=== PATIENT | female | born 1950 | race Caucasian/White ===

== ENCOUNTER 2022-01-19 16:26 | Outpatient (CLI) | payer MEDICARE, SELFPAY ==
--- OUTSIDE RECORDS SUMMARY | 2022-01-19 16:30 | XMS_ITS | Clinical Summary ---
:1950 External Reference #:[email or web address] Author Organization [facility] [place] [address] Care Team Providers Name Role Phone Lizzeth Perdue MD Primary Care Provider Allergies Active Allergy Reactions Severity Noted Date Comments Lisinopril Cough Unknown 02/23/2007 Penicillins Anaphylaxis High 02/23/2007 Sulfa (Sulfonamide Antibiotics) Hives, Rash High 7 Medications Medication Sig Dispensed Refills Start Date End Date Status ASPIRIN 81 MG TAB take 1 tablet 0 Active (81mg) by oral route once daily OMEGA 3 ORAL TAKE 1 CAPSULE 0 Ac tive BY MOUTH THREE TIMES DAILY MULTIVITAMIN ORAL TAKE 1 TABLET BY 0 Active MOUTH ONCE DAILY cholecalciferol (VITAMIN Take 1,000 units 0 Active D3) 1,000 unit tablet by mouth. cyanocobalamin (VITAMIN Take 500 mcg by 0 Active B12) 500 mcg tablet mouth. desvenlafaxine succinate Take 100 mg by 0 08/04/2021 Active (PRISTIQ) 100 mg mouth. extended release tablet Trulicity 3 mg/0.5 mL 0 08/13/2021 Active subcutaneous pen gabapentin (NEURONTIN) Take 600 mg by 0 08/04/2021 Active 300 mg capsule mouth. ibuprofen (ADVIL; As needed 0 Ac tive MOTRIN) 600 mg tablet LORazepam (ATIVAN) 0.5 Take 0.5 mg by 0 08/04/2021 Active mg tab mouth. As needed rosuvastatin (CRESTOR) Take 10 mg by 0 05/26/2021 Active 10 mg tablet mouth. naproxen (NAPROSYN) 500 Take 500 mg by 0 04/30/2021 Active mg tablet mouth. Active Problems Problem Noted Date Type II or unspecified type diabetes mellitus without mention of 02/24/2007 complication, uncontrolled Overview: Insulin pump in place Unspecified essential hypertension 02/24/2007 Other and unspecified hyperlipidemia 02/24/2007 OBSTRUCTIVE SLEEP APNEA (ADULT) 02/24/2007 Depressive disorder, not elsewhere classified 02/25/20 07 EPIPHORA-OD 11/22/2002 DIABETES MELLITUS - TYPE II 08/15/2001 Encounters Date Type Specialty Care Team Description 01/07/2022 Orders Only Brooks Reynolds <No scans at tached> MD Daniel 01/06/2022 Telephone Brooks Reynolds Surgery Alexandra Sanchez MD ([facility]) 01/04/2022 Anesthesia Event Danny Marrero MD Beckley, Steven Anthony, MD 01/04/2022 Surgery Brooks Reynolds Drug Induced Sleep MD Daniel Endoscopy 01/04/2022 Hospital Encounter Brooks Reynolds OBSTRU CTIVE SLEEP MD Daniel APNEA (ADULT) (Primary Dx) 01/04/2022 Travel 12/30/2021 Nurse/Clinic Staff Testing Only (Pre-Procedure Testing ) 12/30/2021 Travel 12/14/2021 Telephone Jorge Rodgers Appointment MD Yanick (Appointment) 12/08/2021 Office Visit Brooks Reynolds Consult (Ins isabel Sanchez MD has been using CPAP for 15+ years a nd tried multiple masks. Last sleep stud y 2 weeks ago) 12/08/2021 Telephone Brooks Reynolds Surgery Alexandra Sanchez MD 12/08/2021 Travel 11/29/2021 - Hospital Encounter Jorge Rodgers Obstruc tive sleep 12/01/2021 MD Yanick apnea of adult 11/29/2021 Travel from Last 3 Months Immunizations Name Administration Dates Next Due Influenza, IIV3 (Age >=3 years) 04/23/2004 Family History Medical History Relation Name Comments Genetic Other 1 macular degenera tion-grandmother Genetic Other 2 macular degenera tion-grandmother~cancer~diabetes Relation Name Status Comments Other 1 Other 2 Social History Tobacco Use Types Packs/Day Years Used Date Former Smoker 0 Smokeless Tobacco: Never Used Alcohol Use Standard Drinks/Week Comments Yes 0 (1 standard drink = 0.6 oz pure alcoho l) occ Alcohol Habits Answer Date Recorded How often do you have a drink containing alcohol? Not asked How many drinks containing alcohol do you have on a typical Not asked day when you are drinking? How often do you have six or more drinks on one occasion? No t asked Comment: occ 10/08/2021 Sex Assigned at Date Recorded Not on file COVID-19 Exposure Response Date Recorded In the last 10 days, have you been in contact with No / Unsu re 01/04/2022 8:18 AM CDT someone who was confirmed or suspected to have Coronavirus/COVID-19? Obstetrics History Last Filed Vital Signs Vital Sign Reading Time Taken Comments Blood Pressure 131/67 01/04/2022 10:15 AM CDT Pulse 92 01/04/2022 10:15 AM CDT Temperature 36.7 ??C (98.1 ??F) 01/04/2022 9:45 AM CDT Respiratory Rate 15 01/04/2022 10:15 AM CDT Oxygen Saturation 97% 01/04/2022 10:15 AM CDT Inhaled Oxygen Concentration - - Weight 81.7 kg (180 lb 3.2 oz) 01/04/2022 8:29 AM CDT Height 162.6 cm (5' 4) 01/04/2022 8:29 AM CDT Body Mass Index 30.93 01/04/2022 8:29 AM CDT Plan of Treatment Upcoming Encounters Date Type Specialty Care Team Description 03/26/2022 Preop Visit Alisha Bullock, NETWORK OPERATIONS MANAGER [id number] [place], [place] [address] (Wo rk) 03/31/2022 Hospital Encounter Brooks Reynolds MD [address] [place], [place] [address] (Wo rk) 03/31/2022 Surgery Brooks Reynolds [facility]ire Hypo glossal MD Daniel Nerve Stimulator [address] [place], [place] [address] (Wo rk) Scheduled Procedures Name Priority Associated Diagnoses Date/Time IMPLANT RESPONSIVE Elective HAROLDO (obstructive sleep 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 apnea) Health Maintenance Due Date Last Done Comments Pneumococcal series for age 65+ (1 1958 - PCV) Tdap 11/19/1963 Depression screening for age 12+ 1964 Hepatitis C screening for age 0611/18/1970 18-79 Tetanus booster 1972 Colonoscopy through age 75 1997 Lipids for age 45-75 1997 Mammogram for age 45-75 1997 Zoster (shingles) series for age 0611/18/2002 50+ (1 of 2) DEXA/DXA scan for age 65+ 2017 Medicare Wellness for age 65+ 2017 Influenza for age 65+ 01/21/2022 04/23/2004 BMI (ht and wt on same day) for 12/08/2022 12/08/2021, 09/20 age 18+ COVID-19 vaccine series Completed 09/13/2021, 02/22/2021, 07/09/2020, Additional history exists Procedures Procedure Name Priority Date/Time Associated Diagnosis Comme nts LARYNGOSCOPY Elective 01/04/2022 9:25 AM CDT Obstructive sleep apnea of adult Case Notes Dise Special Needs Chart made Surgeon - prior t o procedure GLUCOSE METER Timed 01/04/2022 8:59 AM Results for this CDT procedure are i n the results section. SCAN-OPERATIVE/PROCE 01/04/2022 12:00 AM Results for this DURE REPORT CDT procedure are i n the results section. COVID 19 Routine 12/30/2021 8:49 AM Screening Results f or this CDT examination for procedure ar e in infectious disease the resul ts section. COVID 19 COLLECTION Routine 12/30/2021 8:49 AM Screening Re sults for this CDT examination for procedure ar e in infectious disease [email or web address] ts section. SLEEP STUDY PER Routine 11/29/2021 8:00 PM Obstructive sleep R esults for this PROTOCOL CDT apnea of adult procedure are in the results section. from Last 3 Months Results (ABNORMAL) GLUCOSE METER (01/04/2022 8:59 AM CDT) P athologist Signature GLUCOSE METER 140 (H) 65 - 100 01/04/2022 [facility] mg/dL 8:59 AM CDT [facility] Specimen Anatomical Collection Method Collection Time Receive d Time (Source) Location / / Volume Laterality Blood BLOOD SPECIMEN / 01/04/2022 8:59 AM 01/04 8:59 Unknown CDT AM CDT Brooks Reynolds MD CHEMISTRY Performing Organization Address City/State/ZIP Code Phon e Number [facility] [place] [address] [place] [address] [facility] SCAN-OPERATIVE/PROCEDURE REPORT (01/04/2022 12:00 AM CDT) Eliza Campbell - 12:00 AM CDT This result has an attachment that is no t available. Ordered by an unspecified provider. Other Clinical Staff OTHER COVID 19 (12/30/2021 8:49 AM CDT) Analysis Performed At Patho logist Time Signature COVID 19 Negative Negative 12/31/2021 [facility] 12:35 PM CDT LAB[facility]ATORY[facility] Comment: All PCR tests are subject to fa lse negative result due to variability in viral load and collection technique. A n egative result does not rule out a SARS-CoV-2 infection. Clinical correlation required . Specimen Anatomical Location / Collection Method Collection Shen e Received Time (Source) Laterality / Volume Other SPECIMEN FROM Non-Blood / 12/30/2021 8:49 12/30/2021 5:04 NASOPHARYNGEAL Unknown AM CDT PM CDT STRUCTURE / Unknown Narrative [facility] LABORATORY-C[facility]AL LABORAT ORY - 12/31/2021 12:35 PM CDT This test has been authorized by FDA und er an Emergency Use Authorization (EUA). This test is only authorized for the duration of time the declaration that circumstances exist justifying the authorization of th e emergency use of in vitro diagnostic tests for detection of SARS-CoV-2 virus and/or diagnosis of COVID-19 infection under section 564(b)(1) of the Act, 21 U.S.C. 360bbb-3(b)(1), unless the authorization is terminated or revoked sooner. Whitney Spencer Caitie [facility] Performing Organization Address City/State/ZIP Code Phon e Number [facility] [address] [place] [address] LABORATORY-CENTRAL 2000 LABORATORY COVID 19 COLLECTION [[id number]] (12/30/2021 8:49 AM CDT) [facility] Method Time Signature TESTING [facility] 12/30/2021 [facility] LABORATORY Laboratory 5:04 PM CDT LABORATORY-CE NTRAL LABORATORY Comment: Specimen submitted to [facility] for testing. Specimen Anatomical Location / Collection Method Collection Shen e Received Time (Source) Laterality / Volume Other SPECIMEN FROM Non-Blood / 12/30/2021 8:49 12/30/2021 9:03 NASOPHARYNGEAL Unknown AM CDT AM CDT STRUCTURE / Unknown Whitney Spencer Caitie [facility] SEND OUT[employer] Performing Organization Address City/[facility] Phon e Number [facility] [address] [place] [address] LABORATORY-CENTRAL 2000 LABORATORY SLEEP STUDY PER PROTOCOL - PSG Baseline (11/29/2021 8:00 PM CDT) Narrative Idania Hayward MD - 11/29/2021 8:00 PM C DT Idania Hayward MD ? 12/11/2021 ??5:43 PM PATIENT? S NAME: ??Maye Li : ??1950 DATE OF RECORDIN11/29/2021 STUDY LOCATION: [facility] REFERRING PROVIDER: Lizzeth Perdue MD STUDY PERFORMED: ??Baseline Polysomnogra m Indications: Patient with known obstructive sleep regulatory affairs specialist ea, intolerant to CPAP, present study done to reestablish chantelle rg for Inspire work-up Impression: Obstructive sleep apnea, moderate in sev erity Patient slept primarily in lateral posit ion-this could underestimate severity of sleep disorder ed breathing REM sleep not noted AASM AHI CMS AHI Erick Saturation 23.3 11.0 87 Diagnosis: Sinclair A: Obstructive Sleep Apnea, adult ??327.23 Sinclair B: Nocturnal polysomnogram Recommendations: - AutoCPAP 5-20 cms of water is recommen ded, while patient sleeps. ??However as noted patient is in tolerant to CPAP and proceeding with work-up for Inspire impl ant. ??Clinical correlation is recommended in this regar ds. - Close clinical follow up is indicated to determine compliance, tolerance and efficacy of the same. - Caution must be exercised while drivin g or doing other critical activities when sleepy or tired. - Patient should obtain adequate amounts of time in bed on a regular basis. Medication Comments: None PROCEDURE: ??The patient underwent a dig ital polysomnography study using the [employer] PSG system w [employer] Profusion scoring software. Electroencephalogram, electro- oculogram, electromyogram, electrocardiogram, respi ratory effort, nasal and oral airflow, nasal pressure, leg moveme nt, body position, pulse oximetry, sound and video were simultane ously recorded. The data was adequate for interpretation and the raw data was reviewed in its entirety. Scoring was based on the R ecommended Standards and Specifications as outlined in the AASM M anual for the Scoring of Sleep and Associated Events, Version 2.6 . SUMMARY: ?? Sleep structure/EEG: The study was started (lights out) at 22 :14:57 and ended (lights on) at 05:56:28 with a total recording t sybil (time available for sleep) of 461 min. ??There was a total s leep time of 370 minutes and a sleep efficiency of 80.3%. ??The p atient? s sleep latency was 10 min. ??There was a total of 0% (0 min ) of REM Sleep with the REM latency of - minutes. ??There was 16 % (59 min) ??of Stage N1 sleep; 75% (281 min) of Stage N2; and 8% (30 min) of Stage N3 sleep. ??Wake after sleep onset (WASO) w as 81 min. ??There were a total of 212 arousals and the arousal in dex was 34.3. ??Mild sleep fragmentation was noted. Respiratory data: Snoring was intermittent and was moderat e. ??Respiratory analysis demonstrated 7 obstructive apneas, 0 mix ed apneas, and 0 central apneas, with a total of 7 apneas and an apnea index of 1.1. Scoring using the AASM rule 1A for hypop neas demonstrates there are 137 hypopneas. ??The total APNEA/HYP OPNEA INDEX (AHI) was 23.3. ??The patient spent 11.9% of total sleep time in the supine position, with a supine AHI of 69.5, humberto kalina a non-supine AHI of 18.0. ??The REM AHI was 0.0 versus a non -REM AHI of 23.3. ??The patient also had 0 respiratory event rel ated arousals (RERA) with a RERA index of 0.0 and an overall RESPI RATORY DISTURBANCE INDEX (RDI) of 23.3. Scoring using the AASM rule 1B for hypop neas (CMS rule) demonstrates there are 61 hypopneas. The total APNEA/HYPOPNEA INDEX (AHI) was 11.0. ??The patient spen t 11.9% of total sleep time in the supine position, with a supi ne AHI of 45.0. ??The REM AHI was 0. The lowest desaturation was 87, with a m shakira value of 96. Findings are compatible with Obstructive Sleep Apnea, moderate in severity with the patient in lateral pos ition. EMG: The patient had a total of 0 Limb Moveme nts of Sleep (PLMS) with a Periodic Limb Movement of Sleep Index was 0.0 per hour. ??The number of PLMS with arousals was 0 and t he PLMS arousal index was 0.0. Abnormal motor movements were not n oted. No significant Periodic Limb Movements of Sleep were ob served. ECG: Single lead ECG analysis demonstrated no rmal sinus rhythm. There was an average heart rate during sleep o f 72 bpm. ??The highest heart rate during the recording was 83 b pm and during sleep was 83 bpm. ??The slowest heart rate during sleep was 63. Additional Comments: None Idania Hayward MD .................... ?? 12/11/2021 ?? 5:42 PM Diplomate, [place] [employer] ine POLYSOMNOGRAPHY ANALYSIS REPORT Baseline Evaluation This polysomnogram consisted of continuo us monitoring of Frontal, Central and Occipital EEG, EOG, Chin EMG , ECG, Leg EMG, tracheal breathing sounds, nasal/oral Thermister, Nasal Pressure, thoracic and abdominal respiratory effort Oxygen Saturations, body position, and continuous video monitorin g. ??CMS Hypopnea is defined as a decrease in nasal pressure signal by 30% or more for at least 10 seconds and a desaturation o f >4% and at least 90% of event duration meets the amplitude reduc tion criteria. ??AASM ?? Hypopnea is defined as a decrease in shaun al pressure signal by 30% or more for at least 10 seconds terminat ing with ??a desaturation of >3% and/or an arousal and at least 90 % of event duration meets the amplitude reduction criteria. PATIENT INFORMATION: Patient Name: Maye Li ?Gender: F emale ? Date of : 1950 ? Height: 5 '4 Study Date: ??11/29/2021 ?Weight: 180 ?BMI: 30.9 Summary Table AHI - AASM 23.3 AHI - CMS 11.0 Erick SpO2 87 Time below 88% 0:00:10.0 PLMI 0.0 PLMAI 0.0 Sleep Stage Summary Recording Time: 22:14:58 to 05:56:57 Lig hts Out to Lights On Time: 22:14:57 to 05:56:28 Minutes Percent TST Total Time 461.5 ?? [id number] 59.5 16.1 % N2 Sleep 281.0 75.8 % N3 Sleep 30.0 8.1 % REM Sleep 0.0 0.0 % Total Sleep Time 370.5 100 % Sleep Latency 10.0 WASO 81.0 REM Latency - Sleep Efficiency 80.3% Respiratory Data Total Events Non-Supine Index Supine In dex REM Index Overall Index Obstructive Apnea 7 0.9 1.8 0.0 1.1 Mixed Apnea 0 0.9 1.8 0.0 0.0 Central Apnea 0 0.0 0.0 0.0 0.0 AASM Hypopnea 137 16.4 65.5 0.0 22.2 CMS Hypopnea 61 5.5 42.3 0 9.9 RERA 0 0.0 0.0 0 0.0 AHI - AASM ??18.0 69.5 0 23.3 AHI - CMS ??6.4 45.0 0 11.0 RDI ?- 23.3 Respiratory Data Oxygen SpO2 Awake Average (%) 96 SpO2 Sleep Average (%) 97 Erick Sleep SpO2 87 SpO2 NREM Average 97 SpO2 REM Average - Oximetry Data Minutes Percent Time Below 88% 0:00:10.0 0.0 Time Below 80% 0:00:0.0 0.0 Limb Movement Summary REM NREM Total Total Number of Limb Movements 0 0 0 Number of Periodic Leg Movements (PLMS) 0 0 0 PLMS Index 0.0 0.0 0.0 PLMS arousal index - 0.0 0.0 Arousal Data TOTAL INDEX Apnea & Hypopnea Related 100 16.2 RERA 0 0.0 Spontaneous 112 18.1 PLMS 0 0.0 Overall Arousal ??212 34.3 Cardiac Data Highest HR Sleep 83 Lowest HR Sleep 63 Average HR Sleep 72 Graphic Summary TIME SLEEP STAGES AROUSALS RESPIRATORY EVENTS OXIMETRY BODY POSITION PERIODIC LIMB MOVEMENTS Jorge Rodgers MD SLEEP CENTER from Last 3 Months Insurance Payer Benefit Plan / Subscriber ID Effective Dates Phone Addre ss Type Group SPONSORED SPONSORED xxxxARCH 2007-Prese [place] [id number] [address] [place] [address] MEDICARE PART A MEDICARE PART A [id number] 2017-Presen ATTN: CLAIMS - HB USE ONLY HB ONLY t [address] [facility] [place] [address] [facility] MR [id number] 2021-[employer] [address] [place] [address] Advance Directives Latest Code Status on File Code Status Date Activated Date Inactivated Comments Full Code 02/24/2007 12:31 PM 02/25/2007 1:35 PM Care Teams Loan Documents Closer Relationship Specialty Start Date End Date Lizzeth Perdue MD PCP - General Internal Medicine 09/18/211999 [place] [address]
--- OUTSIDE RECORDS SUMMARY | 2022-01-19 16:30 | XMS_ITS | Clinical Summary ---
:1950 Author Organization [facility] Address [address] [place], [place] [address] [address] Phone Care Team Providers Name Role Phone Olga Lee MD Primary Care Provider Chuckie Mccoy STU[employer] P[employer]ER[employer] [facility] Unavailable Unavailable Irina Dale MD Unavailable Source Comments [facility] is fully rolled out on [place] [employer]. Last update 10/25/08.[facility] Allergies Active Allergy Reactions Severity Noted Date Comments Penicillins Anaphylaxis High 04/22/2012 Sulfa Antibiotics Rash 04/22/2012 Medications Be aware that medications may not be up to date as of this document. Always verify current medications with patient. Medication Sig Dispensed Refills Start Date End Date Status Multiple Take 1 Tab by 0 Active Vitamins-Minerals mouth daily. (MULTIVITAL ORAL) Cholecalciferol Take by mouth. 0 Active (VITAMIN D ORAL) Rapid Action Packaging CONTOUR in vitro Test 3 times 300 each 3 06/19/2014 Active test stripsIndications: daily on Diabetes mellitus, type Byetta. 2 () ASSURE COMFORT LANCETS 0 09/16/2014 Active 30G NotApplicabl Misc alendronate (FOSAMAX) 0 03/30/2019 Active 70 mg oral TABS FLUAD QUADRIVALENT 0.5 0 01/18/2020 Active ML IM PRSY FLONASE ALLERGY RELIEF 2 sprays daily. 0 11/07/2019 Active 50 MCG/ACT nasal suspension naproxen (NAPROSYN) 500 Take 1 tablet 60 tablet 2 04/30/2021 Active mg oral (500 mg) by TABSIndications: Pain, mouth twice Headaches from TBI daily. TRULICITY 3 MG/0.5ML 0 06/15/2021 Active subcutaneous pen rosuvastatin (CRESTOR) Take 10 mg by 0 05/26/2021 Active 10 mg oral tablet mouth at bedtime. GABApentin (NEURONTIN) Take 2 capsules 120 capsule 5 2 Active 300 mg oral capsule (600 mg) by mouth twice daily. LORazepam (ATIVAN) 0.5 Take 1 tablet 30 tablet 5 08/04/2021 Active mg oral tablet (0.5 mg) by mouth daily as needed for Anxiety. desvenlafaxine ER Take 1 tablet 90 tablet 3 08/04/2021 Active (PRISTIQ) 100 mg oral (100 mg) by tablet 24 HR mouth daily. Do NOT divide, crush, or chew. cariprazine (VRAYLAR) Take 1 capsule 30 capsule 5 08/04/2021 Active 1.5 mg oral capsule (1.5 mg) by mouth daily. Active Problems Problem Noted Date NO SHOW 08/24/2021 Obstructive sleep apnea of adult 04/28/2018 Major depressive disorder, recurrent, in remission 06/2016 Sensorineural hearing loss (SNHL) of both ears 017 Moderate episode of recurrent major depressive disorde r 03/23/2016 Seasonal affective disorder 03/23/2016 Post traumatic stress disorder 06/22/2013 Nasal fracture 04/17/2013 TBI (traumatic brain injury) 04/16/2013 Sensorineural hearing loss 03/06/2013 Depression 01/29/2013 Diabetes mellitus, type 2 08/02/2012 H/O gastric bypass - 2009 08/02/2012 Alopecia 08/02/2012 Iron deficiency anemia 08/02/2012 Vitiligo 08/02/2012 Resolved Problems Problem Noted Date Resolved Date Encounter for medication management 07/03/201404/22 Acute stress disorder 04/02/2013 09/20/2013 Immunizations Name Administration Dates Next Due COVID-19 MRNA Vaccine (Pfizer/COMIRNATY) suspension 07/09/19 21, 06/18/2020 Influenza Vaccine 01/31/2013, 02/07/2012 Influenza Vaccine - (3 + Years); Preservative Free 4 Tetanus Toxoid, Reduced Diphtheroid Toxoid Acellular 011 Pertussis Family History Medical History Relation Name Comments Psychiatry Brother No Known Problems Father No Known Problems Mother Diabetes Other multiple family members Relation Name Status Comments Brother Alive Bipolar Father (Age 65) heart failure Mother (Age 82) cardiac, emphy sema Other Social History Tobacco Use Types Packs/Day Years Used Date Smoking Tobacco: Former Cigarettes Quit : 08/01/1999 Smokeless Tobacco: Never Alcohol Use Standard Drinks/Week Comments No 0 (1 standard drink = 0.6 oz pure alcoho l) Sex Assigned at Date Recorded Female 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 Vital Signs Vital Sign Reading Time Taken Comments Blood Pressure 133/79 08/04/2021 9:25 AM CDT Pulse 96 08/04/2021 9:25 AM CDT Temperature 37.2 ??C (99 ??F) 03/21/2018 12:18 PM CDT Respiratory Rate 18 03/21/2018 12:18 PM CDT Oxygen Saturation 95% 03/21/2018 12:18 PM CDT Inhaled Oxygen Concentration - - Weight 80.7 kg (178 lb) 08/04/2021 9:25 AM CDT Height 162.6 cm (5' 4.02) 02/04/2015 1:05 PM CDT Body Mass Index 30.54 02/04/2015 1:05 PM CDT Plan of Treatment Health Maintenance Due Date Last Done Comments Breast Cancer Screening 1950 CT Colonography 1950 Colonoscopy 1950 Colorectal Cancer Screening 1950 Dental Oral Exam 1950 Dental Prophylaxis 1950 Dental X-Ray: Bitewings 1950 FIT/Cologuard 1950 Hepatitis C Screening 1950 Sigmoidoscopy 1950 iFOB/FIT 1950 Diabetic Education Protocol 1951 (CDE) Diabetic Education 1953 Periodontal Maintenance 1966 Medicare Annual Wellness 1970 PREVENTATIVE VISIT 1970 Diabetic Eye Exam 03/15/2014 03/15/2013 Diabetic HGB A1C Q 3 Months 09/17/2014 06/19/2014, 12/20/19 14, (Goal <7) 06/13/2013, Additional history exists Diabetic Foot Exam 12/19/2014 12/19/2013 Diabetic Microalbumin 12/19/2014 12/19/2013, 08/02/2012 Screening Diabetic Lab Protocol 06/19/2015 06/19/2014 Osteoporosis Screening (Dexa 2017 Scan) PNEUMOCOCCAL IMMUNIZATION > 2017 65 YRS HEALTH MAINTENANCE PROTOCOL 05/05/2018 05/05/2017, 01/30/20 13, 01/29/2013 MEDICATION REFILL PROTOCOL 05/05/2018 05/05/2017, 5 Lipid Screening 06/19/2019 06/19/2014, 08/02/2012 COVID-19 Vaccine (4 - 06/25/2021 02/22/2021, 07/09/2020, Booster for Pfizer series) 06/18/2020 INFLUENZA VACCINE 01/21/2022 04/28/2021, 02/08/2017, 02/04/2015, Additional history exists Depression Management 02/04/2022 08/04/2021 TD/TDAP ADULTS 02/24/2030 02/25/2020, 07/09/2010, 07/09/2010, Additional history exists HIB Aged Out No longer chacho henderson based on patient 's age to complete this topic Additional Health Concerns Infection Onset Date Last Indicated ESBL 11/08/2012 11/16/2017 Insurance Payer Benefit Plan Subscriber ID Effective Phone Address Typ e / Group Dates [employer] [facility] [id number] 2013-P [phone] Work C [facility] [employer] EM[employer]YEES resent [id number] [employer]OVERNMENT INJURED ON CENTER [employer] [address] [place] [place] [address] [facility] COMPLETE [id number] 2020-Pre [address] 242 Medicare HEALTHCARE (MEDICARE sent [place], Man[place] d ADVANTAGE) [place] [address] Care [phone] (Work) [id number] Workers Comp Employer 1950 %[employer]yn[employer] [facility] (Home) [address] [place] [phone] [place], [place] (Work) [phone] Care Teams 

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
--- OUTSIDE RECORDS SUMMARY | 2022-01-19 16:31 | XMS_ITS | Encounter Summary ---
:1950 Author Organization [facility] Address [address] [place] [address] Phone Care Team Providers Name Role Phone Olga Lee MD Primary Care Provider Chuckie Mccoy [facility] Unavailable Unavailable Irina Dale MD Unavailable Reason for Visit Reason Comments Refill Request Encounter Details Date Type Department Care Team Description 01/24/2019 Refill [facility] Bere Dale MD Refill Request [facility] [address] [facility] 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 documented as of this encounter Plan of Treatment Not on filedocumented as of this encounter Visit Diagnoses Not on filedocumented in this encounter Additional Health Concerns Infection Onset Date Last Indicated Resolved Time ESBL 11/08/2012 11/16/2017 documented as of this encounter Care Teams Drug Abuse Social Worker Relationship Specialty Start Date End Date Olga Lee MD PCP - General Internal Medicine 01/29/13 [address] [place] [address] Chuckie Mccoy, ALTERATION MANAGER CCC Speech Pathologist Speech Pathology 04/26/13 Irina Dale MD Psychiatrist Outpatient Psychiatry 07/11/18 [address] [facility] [address] [place], [place] [id number] documented as of this encounter
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
--- OUTSIDE RECORDS SUMMARY | 2022-01-19 16:31 | XMS_ITS | Encounter Summary ---
:1950 Author Organization [facility] Address [address] [place] [address] Phone Care Team Providers Name Role Phone Olga Lee MD Primary Care Provider Chuckie Mccoy [facility] Unavailable Unavailable Irina Dale MD Unavailable Reason for Visit Reason Onset Date Comments Other 01/19/2021 Encounter Details Date Type Department Care Team Description 01/19/2021 Telephone [facility] Psychiatry Clinic Augusta Dior V RN check in [facility] [address] [facility] S1.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 She was checked in for the appointment and waiting, but never got connected to Dr. Dale. She is doing well, no problems at this time. Rescheduled for 02/02/21. Telephone Encounter - Jessica Dior RN - 01/19/2021 3:32 PM CDT Attempted to reach patient. No answer, left voicemail. Sent patient MyChart message. Telephone Encounter - Jessica Dior RN - 01/19/2021 3:31 PM CDT ----- Message from Irina Dale MD sent at 01/19/2021 2:57 PM CDT ----- She missed her video apt today which is not like her Could you give her a call and make sure all is OK TYLMS documented in this encounter Plan of Treatment Not on filedocumented as of this encounter Visit Diagnoses Not on filedocumented in this encounter Additional Health Concerns Infection Onset Date Last Indicated Resolved Time ESBL 11/08/2012 11/16/2017 documented as of this encounter Care Teams Biblical Studies Professor Relationship Specialty Start Date End Date Olga Lee MD PCP - General Internal Medicine 01/29/13 [address] [place], [place] [address] Chuckie Mccoy, PV DESIGN ENGINEER CCC Speech Pathologist Speech Pathology 04/26/13 Irina Dale MD Psychiatrist Outpatient Psychiatry 07/11/18 [address] [facility] [address] [place], [place] [address] documented as of this encounter
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
--- OUTSIDE RECORDS SUMMARY | 2022-01-19 16:31 | XMS_ITS | Encounter Summary ---
:1950 Author Organization [facility] Address [address] [place] [address] Phone Care Team Providers Name Role Phone Olga Lee MD Primary Care Provider Chuckie Mccoy SUPERVISOR BOTTLE MACHINES CCC Unavailable Unavailable Irina Dale MD Unavailable Encounter Details Date Type Department Care Team Description 08/04/2021 Travel Social History Tobacco Use Types Packs/Day Years Used Date Smoking Tobacco: Former Cigarettes Quit : 08/01/1999 Smokeless Tobacco: Never Alcohol Use Standard Drinks/Week Comments No 0 (1 standard drink = 0.6 oz pure alcoho l) Sex Assigned at Date Recorded Female 06/17/2020 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 documented as of this encounter Plan of Treatment Not on filedocumented as of this encounter Visit Diagnoses Not on filedocumented in this encounter Additional Health Concerns Infection Onset Date Last Indicated Resolved Time ESBL 11/08/2012 11/16/2017 documented as of this encounter Care Teams Restaurant Culinary Manager Relationship Specialty Start Date End Date Olga Lee MD PCP - General Internal Medicine 01/29/13 [address] [place], [place] [id number] Chuckie Mccoy, SUPERVISOR BOTTLE MACHINES CCC Speech Pathologist Speech Pathology 04/26/13 Irina Dale MD Psychiatrist Outpatient Psychiatry 07/11/18 [address] [place] [address] documented as of this encounter
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
--- OUTSIDE RECORDS SUMMARY | 2022-01-19 16:31 | XMS_ITS | Encounter Summary ---
:1950 Author Organization [facility] Address [address] [place] [address] Phone Care Team Providers Name Role Phone Olga Lee MD Primary Care Provider Chuckie Mccoy [facility] Unavailable Unavailable Irina Dale MD Unavailable Encounter Details Date Type Department Care Team Description 06/18/2020 Immunization [facility] Viral Clinic Nj Polo MD [address] [address] COVID-19; [address] Nurse, [facility] Covid Vaccine [address] [place] [id number] Need for vaccination [place], [place] [address] Social History Tobacco Use Types Packs/Day Years Used Date Smoking Tobacco: Former Cigarettes Quit : 08/01/1999 Smokeless Tobacco: Never Alcohol Use Standard Drinks/Week Comments No 0 (1 standard drink = 0.6 oz pure alcoho l) Sex Assigned at Date Recorded Female 06/17/2020 4:53 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 documented as of this encounter Plan of Treatment Not on filedocumented as of this encounter Visit Diagnoses Diagnosis COVID-19 Need for vaccination Need for prophylactic vaccination and in oculation against unspecified single disease documented in this encounter Additional Health Concerns Infection Onset Date Last Indicated Resolved Time ESBL 11/08/2012 11/16/2017 documented as of this encounter Care Teams Textile Knitter Relationship Specialty Start Date End Date Olga Lee MD PCP - General Internal Medicine 01/29/13 [address] [place] [address] Chuckie Mccoy, STRAIGHT KNIFE CUTTER MACHINE CCC Speech Pathologist Speech Pathology 04/26/13 Irina Dale MD Psychiatrist Outpatient Psychiatry 07/11/18 701 [facility] [address] [place] [address] documented as of this encounter
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
--- OUTSIDE RECORDS SUMMARY | 2022-01-19 16:31 | XMS_ITS | Encounter Summary ---
:1950 Author Organization [facility] Address [address] [place] [address] Phone Care Team Providers Name Role Phone Olga Lee MD Primary Care Provider Chuckie Mccoy [facility] Unavailable Unavailable Irina Dale MD Unavailable Encounter Details Date Type Department Care Team Description 06/17/2020 Orders Only [facility] Viral [facility] Nj Agarwal MD COVID-19 [address] [facility] [address] [place], [place] [address] [place] [address] [phone] (Wo rk) Social History Tobacco Use Types Packs/Day Years Used Date Smoking Tobacco: Former Cigarettes Quit : 08/01/1999 Smokeless Tobacco: Never Alcohol Use Standard Drinks/Week Comments No 0 (1 standard drink = 0.6 oz pure alcoho l) Sex Assigned at Date Recorded Female 06/17/2020 4:53 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 documented as of this encounter Plan of Treatment Not on filedocumented as of this encounter Visit Diagnoses Diagnosis COVID-19 documented in this encounter Additional Health Concerns Infection Onset Date Last Indicated Resolved Time ESBL 11/08/2012 11/16/2017 documented as of this encounter Care Teams Graduation Coach Relationship Specialty Start Date End Date Olga Lee MD PCP - General Internal Medicine 01/29/13 [address] [place] [address] Chuckie Mccoy, ELECTRIC RANGE SERVICER CCC Speech Pathologist Speech Pathology 04/26/13 Irina Dale MD Psychiatrist Outpatient Psychiatry 07/11/18 701 [facility] [address] [place], [place] [id number] documented as of this encounter
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
--- OUTSIDE RECORDS SUMMARY | 2022-01-19 16:31 | XMS_ITS | Encounter Summary ---
:1950 Author Organization [facility] Address [address] [place] [address] Phone Care Team Providers Name Role Phone Olga Lee MD Primary Care Provider Chuckie Mccoy [facility] Unavailable Unavailable Irina Dale MD Unavailable Reason for Visit Reason Comments Refill Request Encounter Details Date Type Department Care Team Description 12/22/2018 Refill [facility] Psychiatry Clinic Bere Dale MD Refill Request [facility] [address] [facility] 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 documented as of this encounter Plan of Treatment Not on filedocumented as of this encounter Visit Diagnoses Not on filedocumented in this encounter Additional Health Concerns Infection Onset Date Last Indicated Resolved Time ESBL 11/08/2012 11/16/2017 documented as of this encounter Care Teams Thermostat Machine Tender Relationship Specialty Start Date End Date Olga Lee MD PCP - General Internal Medicine 01/29/13 [address] [place] [address] Chuckie Mccoy, INSTITUTION LIBRARIAN CCC Speech Pathologist Speech Pathology 04/26/13 Irina Dale MD Psychiatrist Outpatient Psychiatry 07/11/18 [address] [facility] [address] [place], [place] [id number] documented as of this encounter
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
--- OUTSIDE RECORDS SUMMARY | 2022-01-19 16:31 | XMS_ITS | Encounter Summary ---
:1950 Author Organization [facility] Address [address] [place] [address] Phone Care Team Providers Name Role Phone Olga Lee MD Primary Care Provider Chuckie Mccoy ASSEMBLER [facility]YLIGHTS [facility] Unavailable Unavailable Irina Dale MD Unavailable Reason for Visit Reason Onset Date Comments Psych Medication Management 06/26/2019 Encounter Details Date Type Department Care Team Description 06/26/2019 Office Visit [facility] Psychiatry Clinic Irina Dale Seas onal affective disorder () (Primary Dx); Renaldo QUILES Post traumatic stress disorder; 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 Please review the other medicines on this list with the person who prescribed them to make sure that they are correct. Clinic Information Clinic Hours Telephone Number [facility] Adult Outpatient Psychiatry Clinic 8:00am-4:30pm Tuesday-Tuesday [phone] Parking information Free parking available in the surface lot directly behind the [facility]. Forestry Consultant staff in the clinic will provide you [...] the Acute Psychiatric Services (APS) Department at [facility], [facility] [address] [place], [place] [address]. [phone]. The APS department is open 24 hours a day, seven days a week. APS is located adjacent to the Emergency Department on the main floor of the [facility]. For urgent needs that can wait until the clinic is open, please call the clinic at [phone] and leave a message for our triage [...] clinic staff, please contact our office at [phone] to leave a message. Typically calls are returned by the end of the day. You can be assured that a provider or triage nurse will call you back within one business day. Maria G As a patient of [facility], you are able to access an on-line version of your medical record at [facility] called [employer]. If you are not currently active on [employer], please speak to the clinical associate during your visit to get set up or call our office at [phone]. [employer] allows you to leave messages and schedule appointments electronically and does not require a phone call to the clinic. Pharmacy [facility] has two patient pharmacies for your convenience: [facility] ([facility]) Pharmacy: Is located on the first level of the [facility] Building and services all the clinics. Hours of operation: Tuesday-Tuesday 8:00AM to 6:00PM Tuesday 9:00AM to 1:00PM Phone number: [facility] Pharmacy: Is located in the lower level of the [facility] building and services employee and transplant/specialty needs. Hours of operation: Tuesday-Tuesday 7:30AM to 6:00PM Phone numbers: [facility]: Transplant/Specialty: Pharmacy Refill Line Information Please have the following information ready, then call [phone]: 1.) Name (First and Last) 2.) Hospital Number (Medical record #) 3.) Date of 4.) Telephone number where you may be reached (including area code) Important Mental Health Resources ??? Acute Psychiatric Services (APS) Department - [facility] - [phone] ??? Partial Hospital Program - [facility] - [phone] ??? Day Treatment Program - [facility] [phone] ??? [facility] Front Door Access - [phone] ??? [facility] Behavioral Health Case Management - [phone] ??? [facility] ([facility] Psychiatric Emergencies) - [phone] ??? [facility] Health Assessment Services - [phone] ETARY OF POLICE documented in this encounter Plan of Treatment [...] documented as of this encounter Care Teams Hydrometallurgical Engineer Relationship Specialty Start Date End Date Olga Lee MD PCP - General Internal Medicine 01/29/13 [address] [place], [place] [id number] Chuckie Mccoy, ASSEMBLER SKYLIGHTS CCC Speech Pathologist Speech Pathology 04/26/13 Irina Dale MD Psychiatrist Outpatient Psychiatry 07/11/18 [address] [facility] [address] [place], [place] [id number] documented as of this encounter
--- OUTSIDE RECORDS SUMMARY | 2022-01-19 16:31 | XMS_ITS | Encounter Summary ---
:1950 Author Organization [facility] Address [address] [place] [address] Phone Care Team Providers Name Role Phone Olga Lee MD Primary Care Provider Chuckie Mccoy [facility] Unavailable Unavailable Reason for Visit Reason Comments Sore Throat Encounter Details Date Type Department Care Team Description 03/21/2018 Hospital Encounter [facility] Urgent Care Jessy Hernandez, Bronchitis [address] [facility] [address] [place], [place] [address] Social History Tobacco Use Types Packs/Day Years Used Date Smoking Tobacco: Former Cigarettes Quit : 08/01/1999 Smokeless Tobacco: Never Alcohol Use Standard Drinks/Week Comments No 0 (1 standard drink = 0.6 oz pure alcoho l) Sex Assigned at Date Recorded Female 06/17/2020 4:53 PM 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 ACUTE BRONCHITIS, WHAT IS (PRYDEINIG)documented in this encounter Medications at Time of Discharge Medication Sig Dispensed Refills Start Date End Date ASSURE COMFORT LANCETS 0 09/16/2014 30G NotApplicabl [facility] katherine CONTOUR in vitro Test 3 times daily 300 each 3 06/19 test stripsIndications: on [place]. Diabetes mellitus, type 2 () Cholecalciferol (VITAMIN Take by mouth. 0 D ORAL) Multiple Take 1 Tab by mouth 0 Vitamins-Minerals daily. (MULTIVITAL ORAL) methylPREDNISolone Take per package 21 tablet 0 03/21/2018 06/12/2018 (MEDROL DOSEPAK) 4 mg instructions. oral tablet benzonatate (TESSALON) Take 1 capsule (100 30 capsule 0 02/2206/12/2018 100 mg oral capsule mg) by mouth three times daily. cetirizine (ZYRTEC) 5 mg Take 2 tablets (10 30 tablet 0 06/12/2018 oral tablet mg) by mouth daily. ibuprofen (MOTRIN;ADVIL) Take 1 tablet (600 30 tablet 0 06/12/2018 600 mg oral tablet mg) by mouth three times daily as needed for Pain. acetaminophen (TYLENOL) Take 1 tablet (500 30 tablet 0 02/2206/12/2018 500 mg oral tablet mg) by mouth every six hours as needed for Fever or Mild Pain. desvenlafaxine ER Take 1 tablet (50 90 tablet 3 11/21/2017 04/24/2018 (PRISTIQ) 50 mg oral mg) by mouth daily. tablet 24 HR Do NOT divide, crush, or chew. LORazepam (ATIVAN) 0.5 mg Take 1 tablet (0.5 60 tablet 5 06/12/2018 oral tablet mg) by mouth twice daily as needed for anxiety. GABApentin (NEURONTIN) Take 1 capsule (100 90 capsule 3 06/201704/24/2018 100 mg oral capsule mg) by mouth at bedtime for pain and insomnia. buPROPion SR (WELLBUTRIN Take 1 tablet (100 30 tablet 5 06/201704/24/2018 SR) 100 mg oral tablet 12 mg) by mouth every HR morning. exenatide ER (BYDUREON) 2 Inject 0 06/26/2019 mg subcutaneous extended subcutaneously every release pen week. insulin pen needle (B-D Use 2 times per day. 200 each 3 08/03/2021 U/F PEN NEEDLE) 31g x 8 mm NotApplicabl Misc documented as of this encounter Miscellaneous Notes Provider Note - Jessy Hernandez PA-C - 03/21/2018 12:21 PM CDT Urgent Care Provider Note CHIEF COMPLAINT Chief Complaint Patient presents with ??? Sore Throat HPI Maye Li is a 67 y.o. female who presents for sore throat, cough, bilateral ear pain and eye discharge, runny nose, and cough x 3 days. Denies headaches, SOB, chest pain, fevers, chills, nausea, or vomiting. PMH, SH, FH reviewed PAST MEDICAL HISTORY Past Medical History: Diagnosis Date ??? Diabetes SOCIAL HISTORY Social History Occupational History ??? 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 Tobacco Use ??? Smoking status: Former Smoker Last attempt to quit: 08/01/1999 Years since quittin.6 ??? Smokeless tobacco: Never Used Substance and Sexual Activity ??? Alcohol use: No ??? Drug use: No ??? Sexual activity: Not on file FAMILY HISTORY Family History Problem Relation Name Age of Onset ??? No Known Problems Father ??? No Known Problems Mother ??? Diabetes Unknown multiple family members ??? Psychiatry Brother REVIEW OF SYSTEMS 10 pt ROS done, pertinent positives and negatives noted in HPI; all others are negative. PHYSICAL EXAM Vitals: BP 154/85 (Cuff Location: Left Arm, Patient Position: Sitting) Pulse (!) 104 Temp 37.2 ??C (99 ??F) (Oral) Resp 18 SpO2 95% Gen: alert, non-toxic appearing. Skin: Warm and dry. HEENT: Normocephalic, atraumatic. TMs dull bilaterally. Posterior pharynx is slightly erythematous with clear sticky drainage. R lower lobe with expiratory wheezing and rales. Respiratory: Normal respiratory effort. CTAB without rales, rhonchi, or wheeze. Cardiovascular: Well perfused. RRR, no m/r/g. Gastrointestinal: Abd soft, non-tender without rebound tenderness or guarding. Musculoskeletal: grossly normal ROM and muscle strength. Neurologic: No gross focal neuro deficits. Psychiatric: speech and affect appropriate, grossly normal. LABS Labs Resulted Before Time of ED Departure POC THROAT GRP A STREP ANTIGEN IMAGING XR CHEST 2 VIEWS PA + LAT* See Chart Review for Final Result Impression: No acute airspace disease. Reading Radiologist: Abbe Barba ED COURSE & PLAN 67 y.o. female with cough, sore throat, and runny nose. Physical exam findings as above. Strep test negative. CXR negative. Findings c/w bronchitis. The patient was d/c'd with Medrol Dosepak, zyrtec, tessalon, ibuprofen, and tylenol. Will f/u with PCP; to return to Urgent Care for new or worsening symptoms. FINAL CLINICAL IMPRESSION 1. Bronchitis Scribed for Jessy Hernandez PA-C, by Giovanna Haynes Scribe, 03/21/2018 12:38 PM Jessy Eason PA-C have reviewed the initial documentation provided by the scribe and affirm that it is an accurate restatement of my dictated record of services. Signed: Jessy Hernandez PA-C 12:20 Urgent Care Note - Yovana Brooks RN - 03/21/2018 12:19 PM CDT Pt comes in for 3 days sore throat, rates pain at 8, coarse cough, runny nose, some eye drainage. Noknown fevers. documented in this encounter Plan of Treatment Not on filedocumented as of this encounter Procedures Procedure Name Priority Date/Time Associated Diagnosis Comme nts XR CHEST 2 VIEWS PA Routine 03/21/2018 1:06 PM Re sults for this + LAT* CDT procedure are i n the results section. POC THROAT GRP A Routine 03/21/2018 12:36 PM Resu lts for this STREP ANTIGEN CDT procedure are in the results section. documented in this encounter Results XR CHEST 2 VIEWS PA + LAT* (03/21/2018 1:06 PM CDT) Anatomical Region Laterality Modality Chest Computed Radiography Specimen (Source) Anatomical Collection Method Collection Time Re ceived Time Location / / Volume Laterality 03/21/2018 1:07 PM CDT Impressions 03/21/2018 1:07 PM CDT Impression: No acute airspace disease. Reading Radiologist: Abbe Barba Narrative 03/21/2018 1:07 PM CDT Indication: cough ?? Comparison: None. Findings: The cardiac silhouette and pul monary vasculature are within normal limits. No acute airspace disease. The costophrenic angles are clear. No pneumothorax. Procedure Note Abbe Barba MD - 03/21/2018Formattin g of this note might be different from the original. Indication: cough Comparison: None. Findings: The cardiac silhouette and pul monary vasculature are within normal limits. No acute airspace disease. The costophrenic angles are clear. No pneumothorax. IMPRESSION Impression: No acute airspace disease. Reading Radiologist: Abbe Barba Jessy Hernandez PA-C X-RAY POC THROAT GRP A STREP ANTIGEN (03/21/2018 12:36 PM CDT) athologist Signature POC Throat Grp Negative Negative [facility] - Antigen POINT OF CARE Specimen (Source) Anatomical Collection Method Collection Time Re ceived Time Location / / Volume Laterality Other 03/21/2018 12:36 PM CDT Jessy Hernandez PA-C LABORATORY Performing Organization Address City/State/ZIP Code Phon e Number [facility] [address] [place] [address] documented in this encounter Visit Diagnoses Diagnosis Bronchitis - Primary Bronchitis, not specified as acute or ch ronic documented in this encounter Additional Health Concerns Infection Onset Date Last Indicated Resolved Time ESBL 11/08/2012 11/16/2017 documented as of this encounter Care Teams Information Technology Professor Relationship Specialty Start Date End Date Olga Lee MD PCP - General Internal Medicine 01/29/[address] [place] [address] Chuckie Mccoy, PATTERN LAYOUT WORKER CCC Speech Pathologist Speech Pathology 04/26/13 documented as of this encounter
--- OUTSIDE RECORDS SUMMARY | 2022-01-19 16:31 | XMS_ITS | Encounter Summary ---
:1950 Author Organization [facility] Address [address] [place] [address] [place] [address] Phone Care Team Providers Name Role Phone Olga Lee MD Primary Care Provider Chuckie Mccoy FORGING ROLL OPERATOR CCC Unavailable Unavailable Irina Dale MD Unavailable Encounter Details Date Type Department Care Team Description 05/13/2020 Travel Social History Tobacco Use Types Packs/Day Years Used Date Smoking Tobacco: Former Cigarettes Quit : 08/01/1999 Smokeless Tobacco: Never Alcohol Use Standard Drinks/Week Comments No 0 (1 standard drink = 0.6 oz pure alcoho l) Sex Assigned at Date Recorded Female 06/17/2020 4:53 PM OTOLARYNGOLOGY TEACHER COVID-19 Exposure Response Date Recorded In the last month, have you been in contact with No / Unsure 05/13/2020 10:52 AM OTOLARYNGOLOGY TEACHER someone who was confirmed or suspected to have Coronavirus / COVID-19? documented as of this encounter Plan of Treatment Not on filedocumented as of this encounter Visit Diagnoses Not on filedocumented in this encounter Additional Health Concerns Infection Onset Date Last Indicated Resolved Time ESBL 11/08/2012 11/16/2017 documented as of this encounter Care Teams Clinical Account Executive Relationship Specialty Start Date End Date Olga Lee MD PCP - General Internal Medicine 01/29/13 [address] [place], [place] [address] Chuckie Mccoy, FORGING ROLL OPERATOR CCC Speech Pathologist Speech Pathology 04/26/13 Irina Dale MD Psychiatrist Outpatient Psychiatry 07/11/18 [address] [place] [address] documented as of this encounter
--- OUTSIDE RECORDS SUMMARY | 2022-01-19 16:31 | XMS_ITS | Encounter Summary ---
:1950 Author Organization [facility] Address [address] [place] [address] Phone Care Team Providers Name Role Phone Olga Lee MD Primary Care Provider Chuckie Mccoy [facility] Unavailable Unavailable Irina Dale MD Unavailable Reason for Visit Reason Comments Refill Request Encounter Details Date Type Department Care Team Description 04/30/2021 Refill [facility] Psychiatry Clinic Bere Dale MD Refill Request Macario 701 [facility] [address] [place] [address] S1.110 [place], [place] [address] [phone] Social History Tobacco Use Types Packs/Day Years Used Date Smoking Tobacco: Former Cigarettes Quit : 08/01/1999 Smokeless Tobacco: Never Alcohol Use Standard Drinks/Week Comments No 0 (1 standard drink = 0.6 oz pure alcoho l) Sex Assigned at Date Recorded Female 06/17/2020 4:53 PM CORPORATE TRAVEL COORDINATOR documented as of this encounter Miscellaneous Notes Telephone Encounter - Jessica Dior V RN - 04/30/2021 9:05 AM CST Patient requesting refill on Naproxen. Last seen by Dr. Dale 02/02/21 Pending appt on NONE Rx last filled on 02/26/[address] Dale Rx sent to Dr. Dale to approve/deny ORATE TRAVEL COORDINATOR documented in this encounter Plan of Treatment Not on filedocumented as of this encounter Visit Diagnoses Not on filedocumented in this encounter Additional Health Concerns Infection Onset Date Last Indicated Resolved Time ESBL 11/08/2012 11/16/2017 documented as of this encounter Care Teams Bus Dispatcher Interstate Relationship Specialty Start Date End Date Olga Lee MD PCP - General Internal Medicine 01/29/13 [address] [place], [place] [address] Chuckie Mccoy, LIFE INSURANCE SPECIALIST CCC Speech Pathologist Speech Pathology 04/26/13 Irina Dale MD Psychiatrist Outpatient Psychiatry 07/11/18 701 [facility] [address] [place] [address] documented as of this encounter
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
--- OUTSIDE RECORDS SUMMARY | 2022-01-19 16:31 | XMS_ITS | Encounter Summary ---
:1950 Author Organization [facility] Address [address] [place] [address] Phone Care Team Providers Name Role Phone Olga Lee MD Primary Care Provider Chuckie Mccoy [facility] Unavailable Unavailable Reason for Visit Reason Comments Hearing Aid Problem Encounter Details Date Type Department Care Team Description 01/17/2018 Office Visit Clinic & Specialty Pako Mcgowan MD [address] [place] [id number] Sensorineural hearing Center Audiology Laura Lizarraga, AUD [address] [address] loss (SNHL) of both ears Clinic Rm1, Aud Hrg Aid (Primary Dx) [address] [address] Social History Tobacco Use Types Packs/Day Years Used Date Smoking Tobacco: Former Cigarettes Quit : 08/01/1999 Smokeless Tobacco: Never Alcohol Use Standard Drinks/Week Comments No 0 (1 standard drink = 0.6 oz pure alcoho l) Sex Assigned at Date Recorded Female 06/17/2020 4:53 PM NETWORK SUPPORT ANALYST documented as of this encounter Progress Notes Laura Lizarraga AUD - 01/17/2018 1:00 PM CDT AUDIOLOGY REPORT D: Patient returns to Audiology today for a hearing aid check appointment. Name and [id number] verified. Patient reports her hearing aids sound a little too low as she finds herself asking, What? more often lately. Patient wears binaural Unitron Moxi 6 hearing aids (fit date = 03/30/2013). Patienthas a sensorineural hearing loss. A: Patient's binaural hearing aids were checked. The following was found: they sounded weak, especially right. Wax filters (cerustops) and domes were replaced on both hearing aids. They sounded a little better after this. Hooked them up to the computer and turned them up 4-5 dB on both sides. She thought this sounded better. R: Hearing aid visit completed. Sensorineural hearing loss. Patient agreed the hearing aids sounded much better after the above work was done. Non-billable encounter. Patient asked the process for getting new hearing aids, if she decides she might want new ones. She'll need a new hearing test (her primary insurance is Medicare, which will require a referral to Audiology for the testing). She thinks her [employer] insurance (supplement to Medicare) might pay some ofthe hearing aid cost. Encouraged her to call them to see how much they pay, how often, and if it matters where she goes (sometimes it does). P: Return as needed. Patient agreed with plan. Dunia Marcus, CCC-A [facility] Staff Button Cutting Machine Operator documented in this encounter Plan of Treatment Not on filedocumented as of this encounter Visit Diagnoses Diagnosis Sensorineural hearing loss (SNHL) of bot h ears - Primary documented in this encounter Additional Health Concerns Infection Onset Date Last Indicated Resolved Time ESBL 11/08/2012 11/16/2017 documented as of this encounter Care Teams Cyber Workforce Developer And Manager Relationship Specialty Start Date End Date Olga Lee MD PCP - General Internal Medicine 01/29/[address] [place] [address] Chuckie Mccoy, ROOF PROMENADE TILE SETTER [facility] Speech Pathologist Speech Pathology 04/26/13 documented as of this encounter
--- OUTSIDE RECORDS SUMMARY | 2022-01-19 16:31 | XMS_ITS | Encounter Summary ---
:[address] [facility] Address [address] [place] [address] Phone Care Team Providers Name Role Phone Olga Lee MD Primary Care Provider Chuckie Mccoy [facility] Unavailable Unavailable Irina Dale MD Unavailable Reason for Visit Reason Comments No Show Encounter Details Date Type Department Care Team Description 10/15/2020 Telemedicine [facility] Psychiatry Clinic Irina Dale ERRO NEOUS ENCOUNTER-DISREGARD (Primary Dx); Renaldo QUILES Post traumatic stress disorder; 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, sequela (); [place], [place] [address] [place], [place] Major depressive disorder, r ecurrent, in remission (); [phone] NO SHOW Social History Tobacco Use Types Packs/Day Years Used Date Smoking Tobacco: Former Cigarettes Quit : 08/01/1999 Smokeless Tobacco: Never Alcohol Use Standard Drinks/Week Comments No 0 (1 standard drink = 0.6 oz pure alcoho l) Sex Assigned at Date Recorded Female 06/17/2020 4:53 PM WEB OPERATIONS ADMINISTRATOR documented as of this encounter Progress Notes Irina Dale MD - 10/15/2020 3:00 PM CDT NO SHOW [facility] Psychiatry Clinic Renaldo Li : 1950 Sex: female [phone] Irina Dale MD 10/15/2020 15:16 [facility] Dept of Psychiatry documented in this encounter Plan of Treatment Not on filedocumented as of this encounter Visit Diagnoses Diagnosis ERRONEOUS ENCOUNTER-DISREGARD - Primary Post traumatic stress disorder Posttraumatic stress disorder Seasonal affective disorder () Other specified episodic mood disorder Traumatic brain injury, 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, sequela () Major depressive disorder, recurrent, in remission () Major depressive disorder, recurrent epi sode, in partial or unspecified remission NO SHOW documented in this encounter Additional Health Concerns Infection Onset Date Last Indicated Resolved Time ESBL 11/08/2012 11/16/2017 documented as of this encounter Care Teams Ring Packer Relationship Specialty Start Date End Date Olga Lee MD PCP - General Internal Medicine 01/29/[address] [place] [id number] Chuckie Mccoy, FUNDS TRANSFER CLERK CCC Speech Pathologist Speech Pathology 04/26/13 Irina Dale MD Psychiatrist Outpatient Psychiatry 07/11/18 701 [facility] [address] [place], [place] [phone] documented as of this encounter
--- OUTSIDE RECORDS SUMMARY | 2022-01-19 16:31 | XMS_ITS | Encounter Summary ---
:1950 Author Organization [facility] Address [address] [place] [address] Phone Care Team Providers Name Role Phone Olga Lee MD Primary Care Provider Chuckie Mccoy DATABASE MANAGEMENT SPECIALIST CCC Unavailable Unavailable Irina Dale MD Unavailable Encounter Details Date Type Department Care Team Description 03/30/2019 Refill [facility] Psychiatry Clin ic Macario Irina Dale MD [address] 701 [facility] [address] [place] [address] [place], [place] [address] [phone] Social History Tobacco Use Types Packs/Day Years Used Date Smoking Tobacco: Former Cigarettes Quit : 08/01/1999 Smokeless Tobacco: Never Alcohol Use Standard Drinks/Week Comments No 0 (1 standard drink = 0.6 oz pure alcoho l) Sex Assigned at Date Recorded Female 06/17/2020 4:53 PM SKIP MINER BLASTING documented as of this encounter Plan of Treatment Not on filedocumented as of this encounter Visit Diagnoses Not on filedocumented in this encounter Additional Health Concerns Infection Onset Date Last Indicated Resolved Time ESBL 11/08/2012 11/16/2017 documented as of this encounter Care Teams Youth Counselor Relationship Specialty Start Date End Date Olga Lee MD PCP - General Internal Medicine 01/29/13 [address] [place], [place] [id number] Chuckie Mccoy, DATABASE MANAGEMENT SPECIALIST CCC Speech Pathologist Speech Pathology 04/26/13 Irina Dale MD Psychiatrist Outpatient Psychiatry 07/11/18 701 [facility] [address] [place], [place] [phone] documented as of this encounter
--- OUTSIDE RECORDS SUMMARY | 2022-01-19 16:31 | XMS_ITS | Encounter Summary ---
:1950 Author Organization [facility] Address [address] [place] [address] Phone Care Team Providers Name Role Phone Olga Lee MD Primary Care Provider Chuckie Mccoy MEAL GRINDER TENDER CCC Unavailable Unavailable Irina Dale MD Unavailable Encounter Details Date Type Department Care Team Description 06/18/2020 Travel Social History Tobacco Use Types Packs/Day Years Used Date Smoking Tobacco: Former Cigarettes Quit : 08/01/1999 Smokeless Tobacco: Never Alcohol Use Standard Drinks/Week Comments No 0 (1 standard drink = 0.6 oz pure alcoho l) Sex Assigned at Date Recorded Female 06/17/2020 4:53 PM ROLLER DIE CUTTING MACHINE OPERATOR COVID-19 Exposure Response Date Recorded In the last month, have you been in contact with No / Unsure 06/18/2020 1:43 PM ROLLER DIE CUTTING MACHINE OPERATOR someone who was confirmed or suspected to have Coronavirus / COVID-19? documented as of this encounter Plan of Treatment Not on filedocumented as of this encounter Visit Diagnoses Not on filedocumented in this encounter Additional Health Concerns Infection Onset Date Last Indicated Resolved Time ESBL 11/08/2012 11/16/2017 documented as of this encounter Care Teams Drill Operator Relationship Specialty Start Date End Date Olga Lee MD PCP - General Internal Medicine 01/29/13 [address] [place] [address] Chuckie Mccoy, MEAL GRINDER TENDER CCC Speech Pathologist Speech Pathology 04/26/13 Irina Dale MD Psychiatrist Outpatient Psychiatry 07/11/18 [address] [facility] [address] [place] [address] documented as of this encounter
--- OUTSIDE RECORDS SUMMARY | 2022-01-19 16:31 | XMS_ITS | Encounter Summary ---
:1950 Author Organization [facility] Address [address] [place] [address] [place] [address] Phone Care Team Providers Name Role Phone Olga Lee MD Primary Care Provider Chuckie Mccoy [facility] Unavailable Unavailable Irina Dale MD Unavailable Encounter Details Date Type Department Care Team Description 08/18/2020 Telephone [facility] Psychiatry Clinic Fred Hernandez RN Macario [address] [facility] [address] [place] [address] S1.[address] [place], [place] [address] [phone] Social History Tobacco Use Types Packs/Day Years Used Date Smoking Tobacco: Former Cigarettes Quit : 08/01/1999 Smokeless Tobacco: Never Alcohol Use Standard Drinks/Week Comments No 0 (1 standard drink = 0.6 oz pure alcoho l) Sex Assigned at Date Recorded Female 06/17/2020 4:53 PM SPECIAL CLIENT BUS DRIVER documented as of this encounter Miscellaneous Notes Telephone Encounter - Priscilla Hernandez RN - 08/18/2020 2:49 PM CDT Call made to the patient who reported she is experiencing an increase in symptoms of depression. There are no new stressors or issues. She has found this to be happening for a couple of months. She feels sad and very anxious. She denied any thoughts of self harm. Wonders if she needs an increase in the dose of Pristiq. Please advise. Telephone Encounter - Priscilla Hernandez RN - 08/18/2020 2:45 PM CDT Call made to the patient after getting a My Chart message to call her. Left message to call the clinic documented in this encounter Plan of Treatment Not on filedocumented as of this encounter Visit Diagnoses Not on filedocumented in this encounter Additional Health Concerns Infection Onset Date Last Indicated Resolved Time ESBL 11/08/2012 11/16/2017 documented as of this encounter Care Teams Security Controls Assessor Relationship Specialty Start Date End Date Olga Lee MD PCP - General Internal Medicine 01/29/13 [address] [place], [place] [phone] Chuckie Mccoy, MANAGER ONLINE CCC Speech Pathologist Speech Pathology 04/26/13 Irina Dale MD Psychiatrist Outpatient Psychiatry 07/11/18 701 [facility] [address] [place], [place] [phone] documented as of this encounter
--- OUTSIDE RECORDS SUMMARY | 2022-01-19 16:31 | XMS_ITS | Encounter Summary ---
:1950 Author Organization [facility] Address [address] [place] [address] Phone Care Team Providers Name Role Phone Olga Lee MD Primary Care Provider Chuckie Mccoy [facility] Unavailable Unavailable Irina Dale MD Unavailable Encounter Details Date Type Department Care Team Description 07/09/2020 Immunization [facility] [address] [address] Viral Clinic Nj Polo MD [address] [phone] Need for vaccination [address] Nurse, [facility] Covid Vaccine [address] [place] [address] (Primary Dx) [place], [place] [address] Social History Tobacco Use Types Packs/Day Years Used Date Smoking Tobacco: Former Cigarettes Quit : 08/01/1999 Smokeless Tobacco: Never Alcohol Use Standard Drinks/Week Comments No 0 (1 standard drink = 0.6 oz pure alcoho l) Sex Assigned at Date Recorded Female 06/17/2020 4:53 PM SENIOR MEDICAL TECHNOLOGIST COVID-19 Exposure Response Date Recorded In the last month, have you been in contact with No / Unsure 06/18/2020 1:43 PM SENIOR MEDICAL TECHNOLOGIST someone who was confirmed or suspected to have Coronavirus / COVID-19? documented as of this encounter Plan of Treatment Not on filedocumented as of this encounter Visit Diagnoses Diagnosis Need for vaccination - Primary Need for prophylactic vaccination and in oculation against unspecified single disease documented in this encounter Additional Health Concerns Infection Onset Date Last Indicated Resolved Time ESBL 11/08/2012 11/16/2017 documented as of this encounter Care Teams Professional Services Specialist Relationship Specialty Start Date End Date Olga Lee MD PCP - General Internal Medicine 01/29/13 [address] [place], [place] [phone] Chuckie Mccoy, COMPUTER ARTIST CCC Speech Pathologist Speech Pathology 04/26/13 Irina Dale MD Psychiatrist Outpatient Psychiatry 07/11/18 701 [facility] [address] [place] [address] documented as of this encounter
--- OUTSIDE RECORDS SUMMARY | 2022-01-19 16:31 | XMS_ITS | Encounter Summary ---
:1950 Author [address] [facility] Address [address] [place] [address] Phone Care Team Providers Name Role Phone Olga Lee MD Primary Care Provider Chuckie Mccoy TABLE KEEPER CCC Unavailable Unavailable Encounter Details Date Type Department Care Team Description 03/21/2018 Travel Social History Tobacco Use Types Packs/Day Years Used Date Smoking Tobacco: Former Cigarettes Quit : 08/01/1999 Smokeless Tobacco: Never Alcohol Use Standard Drinks/Week Comments No 0 (1 standard drink = 0.6 oz pure alcoho l) Sex Assigned at Date Recorded Female 06/17/2020 4:53 PM LEGISLATIVE AIDE documented as of this encounter Plan of Treatment Not on filedocumented as of this encounter Visit Diagnoses Not on filedocumented in this encounter Additional Health Concerns Infection Onset Date Last Indicated Resolved Time ESBL 11/08/2012 11/16/2017 documented as of this encounter Care Teams Hydroelectric Plant Electrician Relationship Specialty Start Date End Date Olga Lee MD PCP - General Internal Medicine 01/29/[address] [place] [address] Chuckie Mccoy, TABLE KEEPER CCC Speech Pathologist Speech Pathology 04/26/13 documented as of this encounter
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
--- OUTSIDE RECORDS SUMMARY | 2022-01-19 16:32 | XMS_ITS | Encounter Summary ---
:1950 Author Organization [facility] Address [address] [place] [address] Phone Care Team Providers Name Role Phone Olga Lee MD Primary Care Provider Chuckie Mccoy [facility] Unavailable Unavailable Encounter Details Date Type Department Care Team Description 08/24/2017 Documentation Only [facility] Irina Dale MD [place] [address] [facility] 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 I agreed to increase her dose of Pristiq from 50 up to 100 mg a day. Irina Dale MD 08/24/2017 13:22 [facility] Dept of Psychiatry documented in this encounter Plan of Treatment Not on filedocumented as of this encounter Visit Diagnoses Diagnosis Major depressive disorder, recurrent, in remission () - Primary Major depressive disorder, recurrent epi sode, in partial or unspecified remission documented in this encounter Additional Health Concerns Infection Onset Date Last Indicated Resolved Time MDRO (Multiple Drug Resistant 11/13/2012 11/13/2012 7:13 AM CDT Organism) documented as of this encounter Care Teams Sand Miller Relationship Specialty Start Date End Date Olga Lee MD PCP - General Internal Medicine 01/29/[address] [place] [address] Chuckie Mccoy, TRAINING INSTRUCTOR CCC Speech Pathologist Speech Pathology 04/26/13 documented as of this encounter
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
--- OUTSIDE RECORDS SUMMARY | 2022-01-19 16:32 | XMS_ITS | Encounter Summary ---
:1950 Author Organization [facility] Address [address] [place] [address] Phone Care Team Providers Name Role Phone Olga Lee MD Primary Care Provider Chuckie Mccoy [facility] Unavailable Unavailable Encounter Details Date Type Department Care Team Description 08/27/2016 Documentation Only [facility] Psych[facility] Irina Dale MD [place] [address] [facility] [address] [place], [place] [id number] Social History Tobacco Use Types Packs/Day Years Used Date Smoking Tobacco: Former Cigarettes Quit : 08/01/1999 Smokeless Tobacco: Never Alcohol Use Standard Drinks/Week Comments No 0 (1 standard drink = 0.6 oz pure alcoho l) Sex Assigned at Date Recorded Female 06/17/2020 4:53 PM POST DOC FELLOWSHIP documented as of this encounter Progress Notes Irina Dale MD - 08/27/2016 3:49 PM CDT Dose of Pristiq decreased back to 50 mg a day due to side effects on the 100 mg a day dose. 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
--- OUTSIDE RECORDS SUMMARY | 2022-01-19 16:32 | XMS_ITS | Encounter Summary ---
:1950 Author Organization [facility] Address [address] [place] [address] Phone Care Team Providers Name Role Phone Olga Lee MD Primary Care Provider Chuckie Mccoy [facility] Unavailable Unavailable Irina Dale MD Unavailable Encounter Details Date Type Department Care Team Description 05/05/2017 Orders Only [facility] Amb Special[facility] Olga Lee MD Clinic [facility] [address], [address] [address] [phone] Social History Tobacco Use Types Packs/Day Years Used Date Smoking Tobacco: Former Cigarettes Quit : 08/01/1999 Smokeless Tobacco: Never Alcohol Use Standard Drinks/Week Comments No 0 (1 standard drink = 0.6 oz pure alcoho l) Sex Assigned at Date Recorded Female 06/17/2020 4:53 PM 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 documented as of this encounter Plan of Treatment Not on filedocumented as of this encounter Visit Diagnoses Not on filedocumented in this encounter Additional Health Concerns Infection Onset Date Last Indicated Resolved Time ESBL 11/08/2012 11/16/2017 MDRO (Multiple Drug Resistant 11/13/2012 11/13/2012 7:13 AM CDT Organism) documented as of this encounter Care Teams Paint Line Production Supervisor Relationship Specialty Start Date End Date Olga Lee MD PCP - General Internal Medicine 01/29/[address] [place] [id number] Chuckie Mccoy, BLUE CRABBER CCC Speech Pathologist Speech Pathology 04/26/13 Irina Dale MD Psychiatrist Outpatient Psychiatry 07/11/18 [address] [facility] [address] [place] [address] documented as of this encounter
--- OUTSIDE RECORDS SUMMARY | 2022-01-19 16:32 | XMS_ITS | Encounter Summary ---
:1950 Author Organization [facility] Address [address] [place] [address] Phone Care Team Providers Name Role Phone Olga Lee MD Primary Care Provider Chuckie Mccoy [facility] Unavailable Unavailable Encounter Details Date Type Department Care Team Description 03/23/2016 Documentation Only [facility] Irina Ariza MD 701 [facility] 701 [facility] [address] [place], [place] [id number] Social History Tobacco Use Types Packs/Day Years Used Date Smoking Tobacco: Former Cigarettes Quit : 08/01/1999 Smokeless Tobacco: Never Alcohol Use Standard Drinks/Week Comments No 0 (1 standard drink = 0.6 oz pure alcoho l) Sex Assigned at Date Recorded Female 06/17/2020 4:53 PM DIRECTOR OF STUDENT LIFE documented as of this encounter Progress Notes Susy Restrepo - 03/23/2016 2:15 PM CDT The order for a Light Box was faxed to [facility] @ [phone], phone [phone]. [facility] will contact the patient with a delivery date and time. Susy Restrepo, 03/23/2016 2:15 PM documented in this encounter Plan of Treatment Not on filedocumented as of this encounter Visit Diagnoses Not on filedocumented in this encounter Additional Health Concerns Infection Onset Date Last Indicated Resolved Time MDRO (Multiple Drug Resistant 11/13/2012 11/13/2012 7:13 AM CDT Organism) documented as of this encounter Care Teams Environmental Communications Specialist Relationship Specialty Start Date End Date Olga Lee MD PCP - General Internal Medicine 01/29/13 [address] [place] [address] Chuckie Mccoy, FOREST FIRE OFFICER CCC Speech Pathologist Speech Pathology 04/26/13 documented as of this encounter
--- OUTSIDE RECORDS SUMMARY | 2022-01-19 16:32 | XMS_ITS | Encounter Summary ---
:1950 Author Organization [facility] Address [address] [place] [address] Phone Care Team Providers Name Role Phone Olga Lee MD Primary Care Provider Chuckie Mccoy HAZARDOUS SUBSTANCES SCIENTIST [facility] Unavailable Unavailable Reason for Visit Reason Onset Date Comments Hearing Aid Problem 08/03/2016 pickle cutter hearing aids Encounter Details Date Type Department Care Team Description 08/03/2016 Telephone [facility] Hearing Aid Problem [address] Aid (pickle cutter hearing aids) P7.200 [place], [place] [address] Social History Tobacco Use Types Packs/Day Years Used Date Smoking Tobacco: Former Cigarettes Quit : 08/01/1999 Smokeless Tobacco: Never Alcohol Use Standard Drinks/Week Comments No 0 (1 standard drink = 0.6 oz pure alcoho l) Sex Assigned at Date Recorded Female 06/17/2020 4:53 PM CURRICULUM DEVELOPMENT COORDINATOR documented as of this encounter Miscellaneous Notes Telephone Encounter - Laura Lizarraga AUD - 08/03/2016 11:00 AM CDT Called patient to let her know her hearing aids are all cleaned, fixed, and ready to be picked up. She is in the building. She will pick them up from our motel front desk attendant. She thanked me. Josué Oliver, CCC-A Staff Applications Tester documented in this encounter Plan of Treatment Not on filedocumented as of this encounter Visit Diagnoses Not on filedocumented in this encounter Additional Health Concerns Infection Onset Date Last Indicated Resolved Time MDRO (Multiple Drug Resistant 11/13/2012 11/13/2012 7:13 AM CDT Organism) documented as of this encounter Care Teams Tamale Maker Relationship Specialty Start Date End Date Olga Lee MD PCP - General Internal Medicine 01/29/13 [address] [place] [address] Chuckie Mccoy, HAZARDOUS SUBSTANCES SCIENTIST CCC Speech Pathologist Speech Pathology 04/26/13 documented as of this encounter
--- OUTSIDE RECORDS SUMMARY | 2022-01-19 16:32 | XMS_ITS | Encounter Summary ---
:1950 Author Organization [facility] Address [address] [facility] [place] [address] Phone Care Team Providers Name Role Phone Olga Lee MD Primary Care Provider Chuckie Mccoy MECHANICAL ORDNANCE ASSEMBLER [facility] Unavailable Unavailable Reason for Visit Reason Comments Hearing Aid Problem dropped off hearing aids to fix; call when finished Encounter Details Date Type Department Care Team Description 08/03/2016 Office Visit [facility] Audiology Clini Pako Zee MD [address] [place] [address] Sensorineural hearing [address] [facility] Aid loss (SNHL) of both ears P7.200 (Primary Dx) [place], [place] [address] Social History Tobacco Use Types Packs/Day Years Used Date Smoking Tobacco: Former Cigarettes Quit : 08/01/1999 Smokeless Tobacco: Never Alcohol Use Standard Drinks/Week Comments No 0 (1 standard drink = 0.6 oz pure alcoho l) Sex Assigned at Date Recorded Female 06/17/2020 4:53 PM 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 She dropped them off for us. Name and [id number] verified. Patient reports the right aid isn't working. Patient wears binaural Unitron Moxi 6 MARIA [address] JESUS hearing aids. Patient has a sensorineural hearing loss. Her last visit to our clinic was 2 years ago (08/02/2014). A: Patient's binaural hearing aids were checked. The following was found: the batteries were , there was a lot of wax on the hearing aids, the domes & filters were plugged with wax. The hearingaids were cleaned. Wax filters and domes were replaced. Batteries were replaced. I gave her a new case and a new cleaning tool (hers were in bad shape). A listening check revealed good, clear sound quality. R: Hearing aid add-on/walk-in visit completed as described above. Binaural hearing aid clean & check (wax removal) completed. Sensorineural hearing loss. P: Called patient to warehouse order picker hearing aids (she was still in the building). Return as needed. Patientagreed with plan. Josué Oliver, DIANA-A Staff Insurance Actuary documented in this encounter Plan of Treatment Not on filedocumented as of this encounter Visit Diagnoses Diagnosis Sensorineural hearing loss (SNHL) of bot h ears - Primary documented in this encounter Additional Health Concerns Infection Onset Date Last Indicated Resolved Time MDRO (Multiple Drug Resistant 11/13/2012 11/13/2012 7:13 AM CDT Organism) documented as of this encounter Care Teams Substation Supervisor Relationship Specialty Start Date End Date Olga Lee MD PCP - General Internal Medicine 01/29/[address] [place] [address] [phone] Chuckie Mccoy, MECHANICAL ORDNANCE ASSEMBLER [facility] Speech Pathologist Speech Pathology 04/26/13 documented as of this encounter
--- OUTSIDE RECORDS SUMMARY | 2022-01-19 16:32 | XMS_ITS | Encounter Summary ---
:1950 Author Organization [facility] Address [address] [place] [address] Phone Care Team Providers Name Role Phone Olga Lee MD Primary Care Provider Chuckie Mccoy [facility] Unavailable Unavailable Reason for Visit Reason Comments Refill Request Encounter Details Date Type Department Care Team Description 08/26/2016 Refill [facility] Psychiatry Clinic Bere Dale MD Refill Request Macario [address] [facility] [address] [place] [address] [address] [place], [place] [address] [phone] Social History Tobacco Use Types Packs/Day Years Used Date Smoking Tobacco: Former Cigarettes Quit : 08/01/1999 Smokeless Tobacco: Never Alcohol Use Standard Drinks/Week Comments No 0 (1 standard drink = 0.6 oz pure alcoho l) Sex Assigned at Date Recorded Female 06/17/2020 4:53 PM MIDWIFE PRACTITIONER documented as of this encounter Plan of Treatment Not on filedocumented as of this encounter Visit Diagnoses Not on filedocumented in this encounter Additional Health Concerns Infection Onset Date Last Indicated Resolved Time MDRO (Multiple Drug Resistant 11/13/2012 11/13/2012 7:13 AM CDT Organism) documented as of this encounter Care Teams Data Clerk Relationship Specialty Start Date End Date Olga Lee MD PCP - General Internal Medicine 01/29/13 [address] [place] [address] Chuckie Mccoy, FREIGHT ELEVATOR ERECTOR CCC Speech Pathologist Speech Pathology 04/26/13 documented as of this encounter
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
--- OUTSIDE RECORDS SUMMARY | 2022-01-19 16:32 | XMS_ITS | Encounter Summary ---
:1950 Author Organization [facility] Address [address] [place] [address] Phone Care Team Providers Name Role Phone Olga Lee MD Primary Care Provider Chuckie Mccoy [facility] Unavailable Unavailable Reason for Visit Reason Comments Refill Request Encounter Details Date Type Department Care Team Description 06/18/2015 Refill [facility] Bere Dale MD Refill Request [facility] [address] [facility] 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 documented as of this encounter Plan of Treatment Not on filedocumented as of this encounter Visit Diagnoses Not on filedocumented in this encounter Additional Health Concerns Infection Onset Date Last Indicated Resolved Time MDRO (Multiple Drug Resistant 11/13/2012 11/13/2012 7:13 AM CDT Organism) documented as of this encounter Care Teams Paper Roll Machine Operator Relationship Specialty Start Date End Date Olga Lee MD PCP - General Internal Medicine 01/29/13 [address] [place] [address] Chuckie Mccoy, MEDICAL OFFICE SCHEDULER CCC Speech Pathologist Speech Pathology 04/26/13 documented as of this encounter
--- OUTSIDE RECORDS SUMMARY | 2022-01-19 16:32 | XMS_ITS | Encounter Summary ---
:1950 Author Organization [facility] Address [address] [place] [address] Phone Care Team Providers Name Role Phone Olga Lee MD Primary Care Provider Chuckie Mccoy [facility] Unavailable Unavailable Reason for Visit Reason Onset Date Comments Prior Authorization For Medications 06/14/2016 Lyly tiq Encounter Details Date Type Department Care Team Description 06/14/2016 Telephone [facility] Reema Chaudhari Prior Authorization For [address] Medications (Pristiq) [address]1.[address] [place], [place] [address] Social History Tobacco Use Types Packs/Day Years Used Date Smoking Tobacco: Former Cigarettes Quit : 08/01/1999 Smokeless Tobacco: Never Alcohol Use Standard Drinks/Week Comments No 0 (1 standard drink = 0.6 oz pure alcoho l) Sex Assigned at Date Recorded Female 06/17/2020 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 [facility] has been notified. Reema Chaudhari, 06/14/2016 12:09 PM RT CUSTOMER SERVICE MANAGER documented in this encounter Plan of Treatment Not on filedocumented as of this encounter Visit Diagnoses Not on filedocumented in this encounter Additional Health Concerns Infection Onset Date Last Indicated Resolved Time MDRO (Multiple Drug Resistant 11/13/2012 11/13/2012 7:13 AM CDT Organism) documented as of this encounter Care Teams Grants And Contracts Assistant Relationship Specialty Start Date End Date Olga Lee MD PCP - General Internal Medicine 01/29/[address] [place] [address] Chuckie Mccoy, PHOTOVOLTAIC 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 TECHNICIAN CCC Speech Pathologist Speech Pathology 04/26/13 documented as of this encounter
--- OUTSIDE RECORDS SUMMARY | 2022-01-19 16:32 | XMS_ITS | Encounter Summary ---
:1950 Author Organization [facility] Address [address] [place] [address] Phone Care Team Providers Name Role Phone Olga Lee MD Primary Care Provider Chuckie Mccoy [facility] Unavailable Unavailable Reason for Visit Reason Comments Diabetes Supplies Encounter Details Date Type Department Care Team Description 10/15/2015 Documentation Only [facility] [place] - Wendy elizondo (Supplies) Clinic [facility] [place] [facility] 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 Signed and dates by on 10/08/15. Faxed to on 10/08/15. 

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
--- OUTSIDE RECORDS SUMMARY | 2022-01-19 16:33 | XMS_ITS | Encounter Summary ---
:1950 Author Organization [facility] Address [address] [place] [address] Phone Care Team Providers Name Role Phone Olga Lee MD Primary Care Provider Chuckie Mccoy JET DYEING MACHINE OPERATOR [facility] Unavailable Unavailable Reason for Visit Reason Onset Date Comments Other 08/01/2014 hearing aids ready t o pick-up Encounter Details Date Type Department Care Team Description 08/01/2014 Telephone [facility] Audiology Clini c Laura Lizarraga, Other (hearing aids [address] AUD ready to pick-up) [address]7.[address] [place], [place] [address] [place], [place] [phone] Social History Tobacco Use Types Packs/Day Years Used Date Smoking Tobacco: Former Cigarettes Quit : 08/01/1999 Smokeless Tobacco: Never Alcohol Use Standard Drinks/Week Comments No 0 (1 standard drink = 0.6 oz pure alcoho l) Sex Assigned at Date Recorded Female 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 They are ready to be picked up. Shesaid she'd come tomorrow. I gave her our hours for picking up hearing aids at the patient coordinator front desk. She requested a letter describing her hearing loss and indicating whether she has to wear her hearing aids all the time or not all the time. The letter is being requested by her new place of employment (she didn't say where). I explained hearing aid use is her personal decision. We know her hearing loss will cause communication difficulties, but I can't force her to wear hearing aids all the time. I offered to write a letter describing her hearing loss and how it affects communication and then leave the rest up to her. She agreed with this. Josué Oliver, DIANA-A Staff Administrative Manager documented in this encounter Plan of Treatment Not on filedocumented as of this encounter Visit Diagnoses Not on filedocumented in this encounter Additional Health Concerns Infection Onset Date Last Indicated Resolved Time MDRO (Multiple Drug Resistant 11/13/2012 11/13/2012 7:13 AM CDT Organism) documented as of this encounter Care Teams Supervisor Lending Activities Relationship Specialty Start Date End Date Olga Lee MD PCP - General Internal Medicine 01/29/[address] [place] [id number] Chuckie Mccoy, JET DYEING MACHINE OPERATOR CCC Speech Pathologist Speech Pathology 04/26/13 documented as of this encounter
--- OUTSIDE RECORDS SUMMARY | 2022-01-19 16:33 | XMS_ITS | Encounter Summary ---
:1950 Author Organization [facility] Address [address] [place] [address] Phone Care Team Providers Name Role Phone Olga Lee MD Primary Care Provider Chuckie Mccoy LIFT ELECTRICIAN CCC Unavailable Unavailable Reason for Visit Reason Comments Hearing Aid Problem Encounter Details Date Type Department Care Team Description 10/01/2014 Office Visit [facility] [place] [facility]ini [facility] Pako Mcgowan MD [address] [place] [address] Sensorineural hearing [address] Aid loss (Primary Dx) [address]7.[address] [place], [place] [address] Social History Tobacco Use Types Packs/Day Years Used Date Smoking Tobacco: Former Cigarettes Quit : 08/01/1999 Smokeless Tobacco: Never Alcohol Use Standard Drinks/Week Comments No 0 (1 standard drink = 0.6 oz pure alcoho l) Sex Assigned at Date Recorded Female 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 Name and [id number] verified. Patient reports one of her hearing aids isn't working. Patient wears binaural Unitron hearing aids. Patient has a sensorineural hearing loss. A: Patient's binaural hearing aids were checked. The following was found: one filter was plugged with cerumen and the other was closed. Changed the wax filters. Wiped off the domes (they looked fine). A listening check revealed good, clear sound quality. R: Hearing aid walk-in completed. Sensorineural hearing loss. Non-billable encounter. P: Return as needed. Sending patient some stethoscope options after having a chance to research it for her a little -- discussed some options today as well. 

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
--- OUTSIDE RECORDS SUMMARY | 2022-01-19 16:33 | XMS_ITS | Encounter Summary ---
:1950 Author Organization [facility] Address [address] [place] [id number] Phone Care Team Providers Name Role Phone Olga Lee MD Primary Care Provider Chuckie Mccoy LURER CCC Unavailable Unavailable Reason for Referral Prior Authorization (Routine) - Closed Specialty Diagnoses / Procedures Referred By Contact Refer red To Contact NEUROLOGY Diagnoses TBI (traumatic brain injury) () Irina Dale MD Figg, Evan C, LURER CCC Procedures SPEECH PATHOLOGY PLAN OF CARE [address] [facility] [address] [place] [id number] [address] [place] [address] Referral ID Status Reason Start Date Expiration Date Visits Requ ested Visits Authorized [id number] Closed 12/06/2014 05/22/2015 6 6 Reason for Visit Prior Authorization (Routine) - Closed Specialty Diagnoses / Procedures Referred By Contact Refer red To Contact NEUROLOGY Diagnoses TBI (traumatic brain injury) () Irina Dale MD Figg, Evan C, LURER CCC Procedures SPEECH PATHOLOGY PLAN OF CARE [address] [facility] [address] [place] [id number] [address] [place] [id number] Referral ID Status Reason Start Date Expiration Date Visits Requ ested Visits Authorized [id number] Closed 12/06/2014 05/22/2015 6 6 Encounter Details Date Type Department Care Team Description 12/20/2014 Hospital Encounter [facility] Speech Path Cl Irina Dale MD [address] [facility] [address] [place], [place] [id number] Chuckie Olmstead, LURER CCC [address] [place], [place] [address] Social History Tobacco Use Types Packs/Day Years Used Date Smoking Tobacco: Former Cigarettes Quit : 08/01/1999 Smokeless Tobacco: Never Alcohol Use Standard Drinks/Week Comments No 0 (1 standard drink = 0.6 oz pure alcoho l) Sex Assigned at Date Recorded Female 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 stripsIndications: Diabetes mellitus, type 2 () Cholecalciferol Take by mouth. 0 (VITAMIN D ORAL) Multiple Take 1 Tab by mouth 0 Vitamins-Minerals daily. (MULTIVITAL ORAL) FLUoxetine (PROZAC) 20 Take 2 capsules (40 180 capsule 4 02/27/2015 mg oral capsule mg) by mouth daily. temazepam (RESTORIL) Take 1-2 capsules 60 capsule 5 12/11/19 15 08/28/2015 15 mg oral capsule (15-30 mg) by mouth at bedtime as needed. LORazepam (ATIVAN) 0.5 Take 1 tablet (0.5 60 tablet 5 12/1006/18/2015 mg oral tablet mg) by mouth twice daily as needed for Anxiety. exenatide (BYETTA) 10 Inject 10 mcg 7.2 mL 1 08/21/2014 03/23/2016 mcg/0.04 mL subcutaneously twice subcutaneous Pen daily. insulin pen needle Use 2 times per day. 200 each 3 015 08/03/2021 (B-D U/F PEN NEEDLE) 31g x 8 mm NotApplicabl Misc documented as of this encounter Miscellaneous Notes Treatment Summary - Chuckie Mccoy, LURER CCC - 12/20/2014 11:56 AM CDT SPEECH-LANGUAGE PATHOLOGY Outpatient PLAN OF TREATMENT [facility] / Speech-Language Pathology [Provider Number: [id number]] Patient Insurance Carrier: Generic Name: Maye Li Onset Date: 03/18/2013 Start of Service Date: 12/06/2014 Birthdate: 1950 Visits from Start of Care: 2 incl eval Primary Diagnosis: Traumatic Brain Injury Treatment Diagnosis: Cognitive Deficit Initial Evaluation: Pt returns to our service with mild-moderate cognitive- linguistic deficits c/w mTBI including deficits in retrieval fluency per brief formal assessment. More importantly, she presents with functional complaints likely related to deficits, including forgetting information at work, difficulty organizing approach to tasks, and losing attention within tasks. Patient is aware of her stress/anxiety but benefited from repeat education highlighting the negative impact on cognitive-linguistic functions. At this time, patient's cognitive-linguistic functions appear to have regressed, however a short outpatient treatment regimen would likely reinforce previous education re compensatory strategies to promote mitigate cognitive-linguistic barriers at work and in home activities. REVIEW OF CURRENT PROGRESS Subjective/Objective Data: Pt arrived to treatment session on time and was seen for a 60-minute treatment session. She provided pertinent updates: 1. No longer working; has decided to apply for disability. The stress and subsequent negative impacton cognitive-linguistic functions (e.g., attention, memory) was too much for patient. 2. Since her last shift, she has gradually felt a little better, but noted her son in [facility] [place] has kept her too busy to do much in terms of acclimating to her new role Patient became tearful in sharing these updates, identifying her strong desire to keep working. In discussing plans with patient, she became hopeful re potential volunteer work, including: ?? Therapy dog with her dog, Timur ?? Possible patient mentorship with [facility] Air Traffic Coordinator highlighted GOAL ORIENTED PLANNING to patient, using functional examples to illustrate how toachieve these ambitions. Additional interview covered previous topics discussed with this justowriter operator, with the following list of compensatory strategies generated with functional examples to promote general ization: 1. Ask others for feedback/input as able 2. Take a break from tasks when reaching frustration or any barrier 3. Write information and details down 4. Keep a journal tracking goals to monitor PROGRESS Patient left feeling confident to continue working toward her previously known functional recoverywith this justowriter operator. She felt the skilled review of compensatory strategies was beneficial to promote this desired target. Summary of Current Progress: Patient with subjective report of progress since last encounter largelyd/t decision to apply for disability and refrain from working any longer. She expressed confidence her cognitive-linguistic functions should improve with the stress of working eliminated. Patient benefited from skilled review of previously known and established compensatory strategies to address her cognitive-linguistic complaints. If patient continues to endorse progress at next visit, it appears ongoing Speech-Language Pathology services would NOT be indicated to facilitate her return to participation in desired daily activities. Pain: denied Barriers: none PLAN OF TREATMENT Certification Period: From 12/20/2014 through Short-Term Goals: 1. Pt will identify >5 compensatory strategies along with functional examples related to cognitive-linguistic deficits to support his participation in daily activities. Long-Term Goals: 1. Pt will demonstrate independent use of attention, memory, and organization techniques to facilitate her highest level of participation at home and in other daily activities. 2. Pt will use external memory and/or organizational aids independently as needed. Plan: Speech-Language Pathology services to reinforce compensatory strategies to address cognitive-linguistic changes s/p TBI Frequency / Duration: 60-minute sessions 1x every 1-2 weeks, adjusting frequency as clinically indicated to maximize patient's benefit from services Referral/Community Contacts: Referred to Christina Montes for potential volunteer opportunities within [facility] Physician's name: Claire Dale MD Speech-Language Pathologist: Jenniefr AroraSTheodore, [facility] 12/20/2014, 13:20 Pager: [phone] documented in this encounter Plan of Treatment Not on filedocumented as of this encounter Visit Diagnoses Diagnosis TBI (traumatic brain injury) () Intracranial injury of other and unspeci fied nature, without mention of open intracranial wound, unspecified state of consciousness documented in this encounter Additional Health Concerns Infection Onset Date Last Indicated Resolved Time MDRO (Multiple Drug Resistant 11/13/2012 11/13/2012 7:13 AM CDT Organism) documented as of this encounter Care Teams Party Host Relationship Specialty Start Date End Date Olga Lee MD PCP - General Internal Medicine 01/29/13 [address] [place] [address] Chuckie Mccoy, LURER CCC Speech Pathologist Speech Pathology 04/26/13 documented as of this encounter
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
--- OUTSIDE RECORDS SUMMARY | 2022-01-19 16:33 | XMS_ITS | Encounter Summary ---
:1950 Author Organization [facility] Address [address] [place] [place] [address] Phone Care Team Providers Name Role Phone Olga Lee MD Primary Care Provider Chuckie Mccoy [facility] Unavailable Unavailable Encounter Details Date Type Department Care Team Description 02/27/2014 Hospital Encounter [facility] Suma Aranda MD [address] [place], [place] [address] [address], [facility] [address] [address] [place], [place] [address] Social History Tobacco Use Types Packs/Day Years Used Date Smoking Tobacco: Former Cigarettes Quit : 08/01/1999 Smokeless Tobacco: Never Alcohol Use Standard Drinks/Week Comments No 0 (1 standard drink = 0.6 oz pure alcoho l) Sex Assigned at Date Recorded Female 06/17/2020 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 (MULTIVITAL ORAL) FLUoxetine (PROZAC) 20 Take 2 capsules (40 180 capsule 3 04/30/2014 mg oral capsule mg) by mouth daily. temazepam (RESTORIL) 15 Take 1-2 capsules 60 capsule 5 02/0704/30/2014 mg oral (15-30 mg) by mouth capsuleIndications: TBI at bedtime. (traumatic brain injury), subsequent encounter LORazepam (ATIVAN) 0.5 Take 1 tablet (0.5 60 tablet 5 02/0704/30/2014 mg oral tablet mg) by mouth twice daily as needed for Anxiety. Vigoda CONTOUR in vitro Use as directed 100 each 3 01/15/20 14 06/19/2014 test stripsIndications: testing 2 to 3 times Diabetes mellitus, type daily. 2 () sitaGLIPtin (JANUVIA) Take 1 tablet (100 90 tablet 3 201306/19/2014 100 mg oral tablet mg) by mouth daily. documented as of this encounter Plan of Treatment Not on filedocumented as of this encounter Procedures Procedure Name Priority Date/Time Associated Comments Diagnosis CBC WITH PLATELET Routine 02/27/2014 12:14 Iron deficiency Res ults for this PM CDT anemia procedure are i n the results section. TRANSFERRIN (INCLUDES Routine 02/27/2014 12:12 Iron deficiency Results for this TIBC) PM CDT anemia procedure are i n the results section. IRON Routine 02/27/2014 12:12 Iron deficiency Results for this PM CDT anemia procedure are i n the results section. documented in this encounter Results (ABNORMAL) CBC WITH PLATELET (02/27/2014 12:14 PM CDT) [facility] gist Method Time Signature WBC 10.29 (H) 4.00 - [facility] 10.00 k/cmm RBC 4.97 3.90 - [facility] 5.20 m/cmm Hgb 13.6 11.5 - [facility] 15.7 g/dL Hematocrit 41.1 34.0 - [facility] 45.0 % MCV 82.7 80.0 - [facility] 100.0 fL MCH 27.4 25.0 - [facility] 32.0 pg MCHC 33.1 31.0 - [facility] 36.0 g/dL RDW 15.3 (H) 11.5 - [facility] 14.5 % Plt 256 150 - 400 [facility] k/cmm MPV 10.0 6.5 - 12.5 [facility] fL NRBC 0.0 0.0 - 0.0 [facility] % CBC Plt [facility] Performed at: Comment: [facility] [address] [place] [id number] Specimen Anatomical Collection Method Collection Time Receive d Time (Source) Location / / Volume Laterality Blood 02/27/2014 12:14 02/27/2014 PM CDT 12:14 PM CDT Suma Aranda MD LABORATORY Performing Organization Address City/[facility]/ZIP Code Phon e Number [facility] [place] [address] (ABNORMAL) TRANSFERRIN (INCLUDES TIBC) (02/27/2014 12:12 PM CDT) P athologist Signature Transferrin 275 200 - 360 [facility] mg/dL IBC 410 298 - 536 [facility] mcg/dL Iron Saturation 11 (L) 20 - 50 % [facility] Percent Specimen Anatomical Collection Method Collection Time Receive d Time (Source) Location / / Volume Laterality Blood 02/27/2014 12:12 02/27/2014 PM CDT 12:12 PM CDT Suma Aranda MD LABORATORY Performing Organization Address City/[facility]/ZIP Code Phon e Number [facility] [place] [address] IRON (02/27/2014 12:12 PM CDT) athologist Signature Iron 45 37 - 145 [facility] mcg/dL Comment: Test Performed by: [facility] [address] [place] [id number] Specimen Anatomical Collection Method Collection Time Receive d Time (Source) Location / / Volume Laterality Blood 02/27/2014 12:12 02/27/2014 PM CDT 12:12 PM CDT Suma Aranda MD LABORATORY Performing Organization Address City/[facility]/ZIP Code Phon e Number [facility] [place] [address] documented in this encounter Visit Diagnoses Diagnosis Iron deficiency anemia Iron deficiency anemia, unspecified documented in this encounter Additional Health Concerns Infection Onset Date Last Indicated Resolved Time 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
--- OUTSIDE RECORDS SUMMARY | 2022-01-19 16:33 | XMS_ITS | Encounter Summary ---
:1950 Author Organization [facility] Address [address] [place] [address] Phone Care Team Providers Name Role Phone Olga Lee MD Primary Care Provider Chuckie Mccoy [facility] Unavailable Unavailable Reason for Visit Reason Comments Diabetes Supplies Encounter Details Date Type Department Care Team Description 09/12/2014 Documentation Only Diabetes & Endo Jemima Ervin absarmad (Supplies ) Clinic Hector Hanna CMA 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 Signed and dated by ordering provider, Dr. Aranda on 09/04/14 Faxed to [phone] on 09/06/14 Labeled and sent to scanning. 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
--- OUTSIDE RECORDS SUMMARY | 2022-01-19 16:33 | XMS_ITS | Encounter Summary ---
:1950 Author Organization [facility] Address [address] [place] [address] Phone Care Team Providers Name Role Phone Olga Lee MD Primary Care Provider Chuckie Mccoy [facility] Unavailable Unavailable Reason for Visit Reason Comments Other Encounter Details Date Type Department Care Team Description 02/08/2014 Telephone [facility] Cordell Wade RN [facility] 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 Cox. She states she spoke to Worker's Comp., as she is unable to work this weekend, and is hoping to get a letter from Dr. Cox. Telephone Encounter - Cordell Wade RN - 02/08/2014 1:07 PM CDT Client was informed. Telephone Encounter - Irina Cox MD - 02/08/2014 12:42 PM CDT Take that Restoril if you absolutely need it. Irina Cox MD 02/08/2014 12:43 [facility] Dept of Psychiatry Telephone Encounter - Cordell Wade RN - 02/08/2014 9:49 AM CDT Client called and is requesting to speak with Dr. Cox. She is aware Dr. Cox is work in [employer] today. She reports she was working last evening and it was a very stressful shaft. I got home last night and just started shaking... I. Took the Ativan, but it didn't do much... I slept only about an hour last night Review Pt's medications, and she reports she did not take the Restoril last night. She was encouraged to start using Restoril at bedtime for sleep. Dr cox, please advise Telephone Encounter - Cordell Wade RN - 02/08/2014 9:07 AM CDT Left voice message to call back. Telephone Encounter - Cordell Wade RN - 02/08/2014 9:07 AM CDT ----- Message from Percy Jimenez sent at 02/08/2014 8:28 AM CDT ----- Regarding: kenny TELEPHONE MESSAGE Taken by: Percy Jimenez, 02/08/2014 8:29 AM Direct to: Problem: Pt calling. Would like to speak ONLY with Dr. Cox regarding a question. I informed callerthat Dr. Cox was not here today but she stated, I know she's working at [employer] today. Pt. 

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
--- OUTSIDE RECORDS SUMMARY | 2022-01-19 16:33 | XMS_ITS | Encounter Summary ---
:1950 Author Organization [facility] Address [address] [place] [address] Phone Care Team Providers Name Role Phone Olga Lee MD Primary Care Provider Chuckie Mccoy BLOOD TYPER CCC Unavailable Unavailable Encounter Details Date Type Department Care Team Description 01/08/2015 Documentation Only Unspecified Departme nt Unknown, Provider [place] Social History Tobacco Use Types Packs/Day Years Used Date Smoking Tobacco: Former Cigarettes Quit : 08/01/1999 Smokeless Tobacco: Never Alcohol Use Standard Drinks/Week Comments No 0 (1 standard drink = 0.6 oz pure alcoho l) Sex Assigned at Date Recorded Female 06/17/2020 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
--- OUTSIDE RECORDS SUMMARY | 2022-01-19 16:33 | XMS_ITS | Encounter Summary ---
:1950 [facility] Address [address] [place] [address] Phone Care Team Providers Name Role Phone Olga Lee MD Primary Care Provider Chuckie Mccoy [facility] Unavailable Unavailable Reason for Visit Reason Comments Other Encounter Details Date Type Department Care Team Description 03/05/2014 Telephone [facility] Psychiatry Clinic Ferd Hernandez RN Mac[address] [facility] 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 She reported she thinks she is ready for disability. I feel like I have lost my mind. I can't get beyond this. Her concerns are that she needs health care. She will contact HR to see what your options are. Telephone Encounter - Irina Dale MD - 03/05/2014 12:12 PM CDT Does she think it's time to consider going on disability or jail ? Irina Dale MD 03/05/2014 12:12 [facility] Dept of Psychiatry Telephone Encounter - Priscilla Hernandez RN - 03/05/2014 11:05 AM CDT Returned call to the patient who reported she is having an increase in anxiety. 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 She is using 0.5 mg of Ativan which helps a little bit, but she did not go to work yesterday or today and does not feel she can do so. She would like further recommendations. Telephone Encounter - Priscilla Hernandez RN - 03/05/2014 11:04 AM CDT ----- Message from Trinh Guerra sent at 03/05/2014 10:43 AM CDT ----- Regardin TELEPHONE MESSAGE Taken by: Trinh Guerra, 03/05/2014 10:43 AM Direct to: triage Problem: patient would like to speak to a nurse about her anxiety Pt. 

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
--- OUTSIDE RECORDS SUMMARY | 2022-01-19 16:33 | XMS_ITS | Encounter Summary ---
:1950 Author Organization [facility] Address [address] [place] [address] Phone Care Team Providers Name Role Phone Olga Lee MD Primary Care Provider Chuckie Mccoy TRAFFIC OPERATIONS MANAGER CCC Unavailable Unavailable Reason for Referral Prior Authorization (Routine) - Closed Specialty Diagnoses / Procedures Referred By Contact Refer red To Contact NEUROLOGY Diagnoses TBI (traumatic brain injury) () Irina Dale MD Figg, Evan C, TRAFFIC OPERATIONS MANAGER CCC Procedures SPEECH PATHOLOGY PLAN OF CARE [address] [facility] [address] [place] [address] [address] [place] [address] Referral ID Status Reason Start Date Expiration Date Visits Requ ested Visits Authorized [id number] Closed 12/06/2014 05/22/2015 6 6 Reason for Visit Prior Authorization (Routine) - Closed Specialty Diagnoses / Procedures Referred By Contact Refer red To Contact NEUROLOGY Diagnoses TBI (traumatic brain injury) () Irina Dale MD Figg, Evan C, TRAFFIC OPERATIONS MANAGER CCC Procedures SPEECH PATHOLOGY PLAN OF CARE [address] [facility] [address] [place] [id number] [address] [place] [id number] Referral ID Status Reason Start Date Expiration Date Visits Requ ested Visits Authorized [id number] Closed 12/06/2014 05/22/2015 6 6 Encounter Details Date Type Department Care Team Description 12/27/2014 Hospital Encounter [facility] TBI Speech Path Cl Irina Dale MD [address] [place] [address] Chuckie Olmstead, TRAFFIC OPERATIONS MANAGER CCC [address] [place], [place] [address] Social History Tobacco Use Types Packs/Day Years Used Date Smoking Tobacco: Former Cigarettes Quit : 08/01/1999 Smokeless Tobacco: Never Alcohol Use Standard Drinks/Week Comments No 0 (1 standard drink = 0.6 oz pure alcoho l) Sex Assigned at Date Recorded Female 06/17/2020 4:53 PM BOLT MAN documented as of this encounter Medications at [...] NotApplicabl Misc documented as of this encounter Progress Notes Chuckie Mccoy, TRAFFIC OPERATIONS MANAGER CCC - 12/27/2014 1:21 PM CDT SPEECH-LANGUAGE PATHOLOGY OUTPATIENT PROGRESS NOTE & DISCHARGE SUMMARY Name: Maye Li Birthdate: 1950 Date: 12/27/2014 Date of Onset: 03/18/2013 Per Plan of Treatment Dated: 12/06/2014 (update due 02/06/2015) S & O Pt arrived to treatment session on time and was seen for a 60-minute treatment session. She continues to adjust to her decision to go on disability. She is feeling increasingly comfortable with the idea of early detention. She has continued to formulate plans to introduce volunteer roles in her life; doing so is c/w automobile and property underwriter's previous recommendations. Today's session addressed the following goals as outlined in current treatment plan: 1. Pt will identify >5 compensatory strategies along with functional examples related to cognitive-linguistic deficits to support her participation in daily activities. MET 1) Goal-oriented planning re daily activities 2) Verbal rehearsal to promote focus within task 3) Continue use of lists 4) Consider use of a phone/timer to keep mind occupied on single tasks 5) Breaking large tasks into steps Patient supplemented each step with functional examples (e.g., volunteering, training her dog) to illustrate positive generalization of the above strategies. Servicer Goals: 1. Pt will demonstrate independent use of attention, memory, and organization techniques to facilitate her highest level of participation at home and in other daily activities. MET per achievement of STG #1; minimal reinforcement/education necessary to refresh patient's awareness and use of strategies 2. Pt will use external memory and/or organizational aids independently as needed. MET again, as per#1 patient is using lists, calendars, and other aids effectively with no external guidance A Assessment: Through basic reinforcement of previous compensatory strategies re cognitive-linguistic changes s/p MTBI, patient is demonstrating independent awareness and use of a variety of techniques. She is in agreement ongoing Speech-Language Pathology services are no longer indicated given her indep endence and recent decision to go on disability. Discharge from outpatient TRAFFIC OPERATIONS MANAGER. Pain: denied Barriers to Learning: none Patient / Family Education: see S & O section Referral/Community Contacts: none P Plan: Discharge from outpatient Speech-Language Pathology. Speech-Language Pathologist: Chuckie Mccoy M.S., [facility]-TRAFFIC OPERATIONS MANAGER 12/27/2014, 13:21 Pager: [phone] documented in this encounter Plan of Treatment [...] documented as of this encounter Care Teams Defence Force Member Other Ranks Relationship Specialty Start Date End Date Olga Lee MD PCP - General Internal Medicine 01/29/[address] [place] [address] Chuckie Mccoy, TRAFFIC OPERATIONS MANAGER CCC Speech Pathologist Speech Pathology 04/26/13 documented as of this encounter
--- OUTSIDE RECORDS SUMMARY | 2022-01-19 16:33 | XMS_ITS | Encounter Summary ---
:1950 Author Organization [facility] Address [address] [place] [address] Phone Care Team Providers Name Role Phone Olga Lee MD Primary Care Provider Chuckie Mccoy [employer] Unavailable Unavailable Reason for Visit Reason Comments Hearing Aid Problem Encounter Details Date Type Department Care Team Description 07/31/[address] 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 Name and cyon-gl-nmftg verified. Patient wears binaural Unitron Moxi 6 itdqmrmf-ll-lie-canal hearing aids. Patient has a sensorineural hearing loss. She has not been here since March 2013. A: Patient's binaural hearing aids were checked. The following was found: both hearing aids were occluded with cerumen. The domes and filters were removed (filters were completely plugged with lots of wax). The hearing aids were cleaned. New filters and domes were installed. A listening check revealedgood, clear sound quality. R: Hearing aid visit completed. Sensorineural hearing loss. Non-billable encounter. P: Return as needed. Will call patient to corn picker hearing aids. Jsoué Oliver, [facility] Staff Label Paster documented in this encounter Plan of Treatment Not on filedocumented as of this encounter Visit Diagnoses Diagnosis Sensorineural hearing loss - Primary Sensorineural hearing loss, unspecified documented in this encounter Additional Health Concerns Infection Onset Date Last Indicated Resolved Time MDRO (Multiple Drug Resistant 11/13/2012 11/13/2012 7:13 AM CDT Organism) documented as of this encounter Care Teams Major Assembly Inspector Relationship Specialty Start Date End Date Olga Lee MD PCP - General Internal Medicine 01/29/13 [address] [place] [address] Chuckie Mccoy GENERAL TELLER [facility] Speech Pathologist Speech Pathology 04/26/13 documented as of this encounter
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
--- OUTSIDE RECORDS SUMMARY | 2022-01-19 16:33 | XMS_ITS | Encounter Summary ---
:1950 Author Organization [facility] Address [address] [place] [address] Phone Care Team Providers Name Role Phone Olga Lee MD Primary Care Provider Chuckie Mccoy [facility] Unavailable Unavailable Reason for Visit Reason Comments Supplies diabetes supplies refill req uest form from [facility]. Encounter Details Date Type Department Care Team Description 10/03/2014 Documentation Only Diabetes & Endo Suma Aranda M D [address] [place] [address] Supplies (diabetes Clinic [facility], Forms - Endo/Dm [address] supplies refill 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 Signed and dated by ordering provider, Dr. 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
--- OUTSIDE RECORDS SUMMARY | 2022-01-19 16:33 | XMS_ITS | Encounter Summary ---
:1950 Author Organization [facility] Address [address] [place] [address] Phone Care Team Providers Name Role Phone Olga Lee MD Primary Care Provider Chuckie Mccoy [facility] Unavailable Unavailable Reason for Visit Reason Comments Other Encounter Details Date Type Department Care Team Description 12/12/2014 Telephone [facility] Fred Hernandez RN [place] [address] [facility] S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 Dale visit note to Dominique. Telephone Encounter - Priscilla Hernandez RN - 12/12/2014 3:07 PM CDT Returned call to Dominique from [employer] who is requesting to speak directly with Dr. Dale. [phone] WENDY in chart Also she did not get the fax of the work ability sheet and requests to have it faxed again. Telephone Encounter - Priscilla Hernandez RN - 12/12/2014 3:05 PM CDT ----- Message from Percy Jimenez sent at 12/12/2014 2:59 PM CDT ----- Regarding: kenny TELEPHONE MESSAGE Taken by: Percy Jimenez, 12/12/2014 3:01 PM Direct to: Problem: Dominique calling from [facility]. Would like to discuss 12/10 appt. Also did not receive a fax after that appt with pt's work ability. Pt. 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
--- OUTSIDE RECORDS SUMMARY | 2022-01-19 16:33 | XMS_ITS | Encounter Summary ---
:1950 Author Organization [facility] Address [address] [place] [address] Phone Care Team Providers Name Role Phone Olga Lee MD Primary Care Provider Chuckie Mccoy CHECK SERVICES CLERK [facility] Unavailable Unavailable Reason for Visit Reason Comments Other Encounter Details Date Type Department Care Team Description 10/11/2014 Telephone [facility] Psychiatry Clinic Roopa Kemp RN [facility] [address] [facility] [address] 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 Dale earlier than already scheduled appt in October - Pt was transferred to scheduling to offer Dr. Dale' urgency slots. Telephone Encounter - Roopa Oliver RN - 10/11/2014 1:43 PM CDT ----- Message from Percy Jimenez sent at 10/11/2014 1:11 PM CDT ----- Regarding: kenny TELEPHONE MESSAGE Taken by: Percy Jimenez, 10/11/2014 1:11 PM Direct to: Problem: pt calling. Wondering if Dr. Jenkins would be able to squeeze her in next week or Tuesday. Pt. 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
--- OUTSIDE RECORDS SUMMARY | 2022-01-19 16:33 | XMS_ITS | Encounter Summary ---
:1950 Author Organization [facility] Address [address] [facility] [place] [address] Phone Care Team Providers Name Role Phone Olga Lee MD Primary Care Provider Chuckie Mccoy [facility] Unavailable Unavailable Reason for Visit Reason Comments Follow-up picking up repaired HAs Encounter Details Date Type Department Care Team Description 08/02/2014 Office Visit [facility] Audiology Clini Marcos Trevino MD Need New Address Sensorineural hearing [address] [facility] Lamin Cavazos Hrg Aid loss (Primary Dx) P7.200 [place], [place] [address] Social History Tobacco Use Types Packs/Day Years Used Date Smoking Tobacco: Former Cigarettes Quit : 08/01/1999 Smokeless Tobacco: Never Alcohol Use Standard Drinks/Week Comments No 0 (1 standard drink = 0.6 oz pure alcoho l) Sex Assigned at Date Recorded Female 06/17/2020 4:[address] JUDGE documented as of this encounter Progress Notes Laura Lizarraga AUD - 08/02/2014 2:33 PM CDT Patient presents to Audiology to cotton picker her repaired hearing aid(s). Patient has a history of a sensorineural hearing loss. Patient was given her repaired hearing aid(s) at the front end manager. Non-billable encounter. Return to Audiology p.r.n. Patient agreed with plan. 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
--- OUTSIDE RECORDS SUMMARY | 2022-01-19 16:33 | XMS_ITS | Encounter Summary ---
:1950 Author Organization [facility] Address [address] [place] [address] Phone Care Team Providers Name Role Phone Olga Lee MD Primary Care Provider Chuckie Mccoy MUSIC MINISTER [facility] Unavailable Unavailable Reason for Visit Reason Onset Date Comments Request Appointment 12/09/2014 Encounter Details Date Type Department Care Team Description 12/09/2014 Telephone [facility] Psychiatry Clinic Augusta Dior V RN Request Appointment [place] [address] [facility] 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 Dale on or , as her [facility] person cannot make it to her 12/10 appt at 2pm. I did not see any available appointments with Dr. Dale on either day. She states that is fine, she will come to appt and if they would like to speak they can do it over the telephone. 

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
--- OUTSIDE RECORDS SUMMARY | 2022-01-19 16:34 | XMS_ITS | Encounter Summary ---
:1950 Author Organization [facility] Address [address] [place] [address] Phone Care Team Providers Name Role Phone Olga Lee MD Primary Care Provider Chuckie Mccoy RESEARCH HYDROLOGIST [facility] Unavailable Unavailable Encounter Details Date Type Department Care Team Description 01/14/2014 Hospital Encounter [facility] Suma Aranda MD [address] [place], [place] [id number] Nurse, Inf Chemotherapy [address]1.[address] [place], [place] [address] Social History Tobacco Use Types Packs/Day Years Used Date Smoking Tobacco: Former Cigarettes Quit : 08/01/1999 Smokeless Tobacco: Never Alcohol Use Standard Drinks/Week Comments No 0 (1 standard drink = 0.6 oz pure alcoho l) Sex Assigned at Date Recorded Female 06/17/2020 4:53 PM RUNNER ON documented as of this encounter Last Filed Vital Signs Vital Sign Reading Time Taken Comments Blood Pressure 109/75 01/14/2014 1:09 PM CDT Pulse 81 01/14/2014 1:09 PM CDT Temperature 36.3 ??C (97.3 ??F) 01/14/2014 1:09 PM CDT Respiratory Rate - - Oxygen Saturation - - Inhaled Oxygen Concentration - - Weight - - Height - - Body Mass Index - - documented in this encounter Medications at Time of Discharge Medication Sig Dispensed Refills Start Date End Date Multiple Take 1 Tab by mouth 0 Vitamins-Minerals daily. (MULTIVITAL ORAL) katherine CONTOUR in vitro Use as directed 100 each 3 01/15/20 14 06/19/2014 test stripsIndications: testing 2 to 3 times Diabetes mellitus, type daily. 2 () FLUoxetine (PROZAC) 20 Take 3 capsules (60 270 capsule 3 11/201302/07/2014 mg oral capsule mg) by mouth daily. iron sucrose (VENOFER) 5 mL (100 mg) by IV 5 mL 4 11/2201/17/2014 20 mg/mL IV solution Push route every week for 5 doses. sitaGLIPtin (JANUVIA) Take 1 tablet (100 90 tablet 3 201306/19/2014 100 mg oral tablet mg) by mouth daily. temazepam (RESTORIL) 15 Take 1 to 2 capsules 60 capsule 2 02/07/2014 mg oral (15-30 mg) by mouth capsuleIndications: TBI at bedtime. (traumatic brain injury), subsequent encounter LORazepam (ATIVAN) 0.5 Take 1 tablet (0.5 60 tablet 5 11/2602/07/2014 mg oral tablet mg) by mouth twice daily as needed for Anxiety. documented as of this encounter Miscellaneous Notes Cancer Center Note - Helga Hernandez RN - 01/14/2014 1:31 PM CDT Infusion Room Note D: Pt with DX- Anemia here for venofer . Pt denies any new problems. A: IV placed . Vitals taken and documented. Medication (venofer 200mg ) given as charted. Safety andfall risk assessed. Patient does not currently present an elevated risk for fall or injury. R: Pt tolerated treatment well and verbalized understanding of the plan. P: Pt will f/u on 01/22/14 as scheduled. Appointment sheet given. Helga Hernandez RN, 01/14/2014 2:32 PM documented in this encounter Plan of Treatment Not on filedocumented as of this encounter Visit Diagnoses Diagnosis Iron deficiency anemia Iron deficiency anemia, unspecified documented in this encounter Administered Medications Inactive Administered Medications - up to 3 most recent administrations Medication Order MAR Action Action Date Dose Rate Site iron sucrose (VENOFER) 200 mg in New Bag 01/14/2014 1:27 PM CDT 20 0 mg NaCl 0.9% 100 mL IVPB 200 mg, Intravenous, ONE TIME, On Tue01/14/14 at 1305 NaCl 0.9% infusion 250 mL New Bag 01/14/2014 1:20 PM CDT 250 mL 20 mL/hr at 20 mL/hr, Intravenous, TO KEEP OPEN, Starting on Tue01/14/14 at 1305, Until Tue01/15/14 at 0149 documented in this encounter Additional Health Concerns Infection Onset Date Last Indicated Resolved Time 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
--- OUTSIDE RECORDS SUMMARY | 2022-01-19 16:34 | XMS_ITS | Encounter Summary ---
:1950 Author Organization [facility] Address [address] [place] [address] Phone Care Team Providers Name Role Phone Olga Lee MD Primary Care Provider Chuckie Mccoy CELL INSPECTOR [facility] Unavailable Unavailable Encounter Details Date Type Department Care Team Description 08/14/[address] 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 Raman and provided the following numbers. and pager [phone]. Patient requested that her verbal consent be used until she can come in and sign a WENDY. Slime Jonhson, PhD LP, 08/14/2013 4:10 PM Sr. 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
--- OUTSIDE RECORDS SUMMARY | 2022-01-19 16:34 | XMS_ITS | Encounter Summary ---
:1950 Author Organization [facility] Address [address] [place] [address] Phone Care Team Providers Name Role Phone Olga Lee MD Primary Care Provider Chuckie Mccoy [facility] Unavailable Unavailable Reason for Visit Reason Comments Refill Request temazepam Encounter Details Date Type Department Care Team Description 10/15/2013 Refill [facility] [place] Phys Med/Rehab Lenka Simon Refill Request Clinic Johanna, MAKAYLA, CANDY ROLLING MACHINE OPERATOR (temazepam) [address] [facility] Address [place], [place] [address] [phone] Social History Tobacco Use Types Packs/Day Years Used Date Smoking Tobacco: Former Cigarettes Quit : 08/01/1999 Smokeless Tobacco: Never Alcohol Use Standard Drinks/Week Comments No 0 (1 standard drink = 0.6 oz pure alcoho l) Sex Assigned at Date Recorded Female 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 Pt was last seen on 08/15/13 by Jonel RADFORD. Pt needs to schedule an appt. Action: Medication reordered per protocol. See orders for details of medications to be filled. Preferred pharmacy entered into Optini. Plan: Medication refilled per protocol. 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
--- OUTSIDE RECORDS SUMMARY | 2022-01-19 16:34 | XMS_ITS | Encounter Summary ---
:1950 Author Organization [facility] Address [address] [facility] [place] [address] Phone Care Team Providers Name Role Phone Olga Lee MD Primary Care Provider Chuckie Mccoy [facility] Unavailable Unavailable Encounter Details Date Type Department Care Team Description 07/24/2013 Hospital Encounter [facility] Irina Dale MD [address] [facility] [address] [place], [place] [phone] [facility] In, [facility] [address] [address] [place], [place] [address] Social History Tobacco Use Types Packs/Day Years Used Date Smoking Tobacco: Former Cigarettes Quit : 08/01/1999 Smokeless Tobacco: Never Alcohol Use Standard Drinks/Week Comments No 0 (1 standard drink = 0.6 oz pure alcoho l) Sex Assigned at Date Recorded Female 06/17/2020 4:53 PM SNAKER documented as of this encounter Medications at Time of Discharge Medication Sig Dispensed Refills Start Date End Date Multiple Take 1 Tab by mouth 0 Vitamins-Minerals daily. (MULTIVITAL ORAL) cyproheptadine 4 mg oral Take 1 tablet (4 mg) 60 tablet 5 0 07/23/2013 08/15/2013 tablet by mouth at bedtime. May repeat once as needed for nightmares and insomnia FLUoxetine (PROZAC) 20 Take 1 capsule (20 30 capsule 5 07/2309/19/2013 mg oral capsule mg) by mouth daily. LORazepam (ATIVAN) 0.5 Take 1 tablet (0.5 60 tablet 5 07/2311/26/2013 mg oral tablet mg) by mouth twice daily as needed for Anxiety. sitaGLIPtin (JANUVIA) Take 1 tablet (100 30 tablet 5 201312/12/2013 100 mg oral tablet mg) by mouth daily. temazepam (RESTORIL) 15 Take 1 to 2 capsules 60 capsule 2 10/15/2013 mg oral capsule (15-30 mg) by mouth at bedtime. Pen [place] 5/16 30G X Use as directed 100 Each 11 013 09/20/2013 8 MM NotApplicabl Misc three times daily. documented as of this encounter Plan of Treatment Not on filedocumented as of this encounter Procedures Procedure Name Priority Date/Time Associated Diagnosis Comme nts URINE CULTURE Routine 07/24/2013 3:50 PM Results for this SNAKER procedure are i n the results section. URINALYSIS-CONDITIO Routine 07/24/2013 3:00 PM Re sults for this NAL SNAKER procedure are i n the results section. documented in this encounter Results URINE CULTURE (07/24/2013 3:50 PM SNAKER) [facility] Atox Bio Method Time Signature Final Report 10,000 - 50,000 organisms/ml Mixed bacterial hernandez. [facility] No further work-up. Specimen Anatomical Collection Method Collection Time Receive d Time (Source) Location / / Volume Laterality Urine Midstream. 07/24/2013 3:50 PM 07/24 5:24 SNAKER PM SNAKER Narrative [facility] - 07/26/2013 10:30 AM SNAKER Rule out UTI Irina Dale MD LAB MICROBIOLOGY Performing Organization Address City/State/ZIP Code Phon e Number [facility] [place] [address] (ABNORMAL) URINALYSIS-CONDITIONAL (07/24/2013 3:00 PM SNAKER) [facility] Atox Bio Method Time Signature Color YELLOW YELLOW [facility] Appearance CLOUDY (A) CLEAR [facility] Urine Glucose NEGATIVE NEGATIVE [facility] mg/dL Bili UA NEGATIVE NEGATIVE [facility] Comment: Confirmatory test not available . Ketones TRACE NEGATIVE mg/dL [facility] Specific [place] 1.023 1.003 - 1.030 [facility] Blood Ur NEGATIVE Neg-Trace [facility] PH Urine 5.5 5.0 - 7.0 [facility] Protein Ur NEGATIVE Neg-Trace mg/dL [facility] Urobilinogen 1.0 0.2 - 1.0 EU/dL [facility] Nitrite Ur NEGATIVE NEGATIVE [facility] Leuk Est NEGATIVE Neg-Trace [facility] WBC Ur 0-5 0 - 5 perHPF [facility] Urinalysis Performed at: [facility] Comment: [facility] [address] [place] [address] RBC Ur 0-5 0 - 5 perHPF [facility] SQ EPITH 2+ 1+ [facility] Hyaline Casts 0-5 0 - 5 perLPF [facility] Specimen Anatomical Collection Method Collection Time Receive d Time (Source) Location / / Volume Laterality Urine 07/24/2013 3:00 PM 4 4:04 SNAKER PM SNAKER Irina Dale MD LABORATORY Performing Organization Address City/State/ZIP Code Phon e Number [facility] [place] [address] [place] [address] documented in this encounter Visit Diagnoses Not on filedocumented in this encounter Additional Health Concerns Infection Onset Date Last Indicated Resolved Time 

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
--- OUTSIDE RECORDS SUMMARY | 2022-01-19 16:34 | XMS_ITS | Encounter Summary ---
:1950 Author Organization [facility] Address [address] [place], [place] [address] [address] Phone Care Team Providers Name Role Phone Olga Lee MD Primary Care Provider Chuckie Mccoy MAGNESIUM MILL OPERATOR [facility] Unavailable Unavailable Encounter Details Date Type Department Care Team Description 08/03/2013 Hospital Encounter [facility] Speech Language Summervi dioni, Lenka Spencer, CONSULTING PROJECT DIRECTOR, COLLISION REPAIR TECHNICIAN Need New Address Pathology Chuckie Mccoy, MAGNESIUM [place] [address] Social History Tobacco Use Types Packs/Day Years Used Date Smoking Tobacco: Former Cigarettes Quit : 08/01/1999 Smokeless Tobacco: Never Alcohol Use Standard Drinks/Week Comments No 0 (1 standard drink = 0.6 oz pure alcoho l) Sex Assigned at Date Recorded Female 06/17/2020 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 Pen [place] /16 30G X Use as directed 100 Each 11 013 09/20/2013 8 MM NotApplicabl Misc three times daily. documented as of this encounter Progress Notes Chuckie Mccoy, MAGNESIUM MILL OPERATOR CCC - 08/03/2013 3:24 PM CDT SPEECH-LANGUAGE PATHOLOGY Outpatient PROGRESS NOTE Name: Maye Li Birthdate: 1950 Date: 08/03/2013 Date of Onset: 03/18/2013 S & O Pt arrived to treatment session on time and was seen for 60 minute treatment session. Pt stated she has had an exciting week, identifying litigation proceedings and meetings re insurance asweights off of my shoulders. She feels the changes re workplace identified last week are helping alot. Pt developed and reviewed the following goal: 5. Pt will state 5 attention, organization, or pragmatic language strategies to enhance her verbal communication skills within work and social activities. ?? Strategies were reviewed as follows: ?? Use a notebook; plan main points as appropriate ?? [id number]: be forthcoming re challenges ?? Assess the environment and circumstance; approach accordingly ?? Eliminate unnecessary distractions ?? Be direct about your attention; focus on your communication partner Each strategy was discussed, with examples and illustrations of use presented, both in a quiet and distracting context. Pt was active in education, asking questions to clarify information as needed; questions were answered to his level of satisfaction. Pt demonstrated comprehension of education by explaining content back to clinician. A Assessment: Pt presents with progress re functional complaints; she attributed this today to positive outcomes re litigation and insurance concerns. She reports the changes re her work environment havehelped. Today pt was active in discussion education and practice re strategies to promote communication; she is benefiting from Speech-Language Pathology services. Pain: none reported Barriers to Learning: attention, anxiety Patient / Family Education: see S & O section P Plan: Continue direct speech-language pathology treatment as scheduled, weekly. Modify and/or upgrade goals as appropriate. Likely decrease frequency of appointments until RTW plan/opporuntities becomeclear. Focus on following next session: 1) Pt expressed preliminary interest re RTW 2) Reinforce education; provide practice 3) Review other goal areas 4) Other concerns or areas as presented by pt See Plan of Care Dated 06/29/2013 (updated Plan of Care due 08/27/2013) Patient / Family participated in goal setting: Yes Referral/Community Contacts: None at this time Speech-Language Pathologist: Chuckie Mccoy M.S., CCC-MAGNESIUM MILL OPERATOR 08/03/2013, 15:24 Pager: [phone] documented in this encounter Plan of Treatment [...] documented as of this encounter Care Teams Hospitalist Relationship Specialty Start Date End Date Olga Lee MD PCP - General Internal Medicine 01/29/[address] [place] [address] Chuckie Mccoy, MAGNESIUM MILL OPERATOR CCC Speech Pathologist Speech Pathology 04/26/13 documented as of this encounter
--- OUTSIDE RECORDS SUMMARY | 2022-01-19 16:34 | XMS_ITS | Encounter Summary ---
:1950 Author Organization [facility] Address [address] [place] [address] Phone Care Team Providers Name Role Phone Olga Lee MD Primary Care Provider Chuckie Mccoy [facility] Unavailable Unavailable Reason for Visit Reason Onset Date Comments Refill Request 10/29/2013 Encounter Details Date Type Department Care Team Description 10/29/2013 Refill [facility] Roopa Kemp RN Refill Request [place] 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
--- OUTSIDE RECORDS SUMMARY | 2022-01-19 16:34 | XMS_ITS | Encounter Summary ---
:1950 Author Organization [facility] Address [address] [place] [place] [address] Phone Care Team Providers Name Role Phone Olga Lee MD Primary Care Provider Chuckie Mccoy BASTING MACHINE OPERATOR [facility] Unavailable Unavailable Encounter Details Date Type Department Care Team Description 01/28/2014 Hospital Encounter [facility] Suma Aranda MD [address] [place], [place] [phone] Nurse, Inf Chemotherapy [address] [place], [place] [address] Social History Tobacco Use Types Packs/Day Years Used Date Smoking Tobacco: Former Cigarettes Quit : 08/01/1999 Smokeless Tobacco: Never Alcohol Use Standard Drinks/Week Comments No 0 (1 standard drink = 0.6 oz pure alcoho l) Sex Assigned at Date Recorded Female 06/17/2020 4:53 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 sitaGLIPtin (JANUVIA) Take 1 tablet (100 90 [...] Center Note - Helga Hernandez RN - 01/28/2014 3:59 PM CDT Infusion Room Note D: Pt with DX- Anemia here for last dose of Venofer infusion . Pt denies any new problems. A: IV placed . Vitals taken and documented. Medication ( venofer) given as charted. Safety and fall risk assessed. Patient does not currently present an elevated risk for fall or injury. R: Pt tolerated treatment well and verbalized understanding of the plan. P: Pt will f/u with her MD as instructed. Helga Hernandez RN, 01/28/2014 4:00 PM documented in this encounter Plan of Treatment Not on filedocumented as of this encounter Visit Diagnoses Diagnosis Iron deficiency anemia Iron deficiency anemia, unspecified documented in this encounter Administered Medications Inactive Administered Medications - up to 3 most recent administrations Medication Order MAR Action Action Date Dose Rate Site iron sucrose (VENOFER) 200 mg in New Bag 01/28/2014 1:44 PM CDT 20 0 mg NaCl 0.9% 100 mL IVPB 200 mg, Intravenous, ONE TIME, On 01/28/14 at 1255 NaCl 0.9% infusion 250 mL New Bag 01/28/2014 1:24 PM CDT 250 mL 20 mL/hr at 20 mL/hr, Intravenous, TO KEEP OPEN, Starting on 01/28/14 at 1255, Until Tue01/29/14 at 0153 documented in this encounter Additional Health Concerns Infection Onset Date Last Indicated Resolved Time 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
--- OUTSIDE RECORDS SUMMARY | 2022-01-19 16:34 | XMS_ITS | Encounter Summary ---
:1950 Author Organization [facility] Address [address] [place] [address] Phone Care Team Providers Name Role Phone Olga Lee MD Primary Care Provider Chuckie Mccoy PHONE TECHNICIAN [facility] Unavailable Unavailable Encounter Details Date Type Department Care Team Description 08/27/2013 Documentation Only [facility] Med/Rehab Aiyana Mas, PT Clinic [address] [facility] [address] [place], [place] [address] [place], [place] [address] [phone] Social History Tobacco Use Types Packs/Day Years Used Date Smoking Tobacco: Former Cigarettes Quit : 08/01/1999 Smokeless Tobacco: Never Alcohol Use Standard Drinks/Week Comments No 0 (1 standard drink = 0.6 oz pure alcoho l) Sex Assigned at Date Recorded Female 06/17/2020 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 Reason unknown. Charlotte Mas PT License # [id number] Pager [phone] documented in this encounter Plan of Treatment Not on filedocumented as of this encounter Visit Diagnoses Not on filedocumented in this encounter Additional Health Concerns Infection Onset Date Last Indicated Resolved Time MDRO (Multiple Drug Resistant 11/13/2012 11/13/20122018 7:13 AM CDT Organism) documented as of this encounter Care Teams Press Writer Relationship Specialty Start Date End Date Olga Lee MD PCP - General Internal Medicine 01/29/[address] [place] [address] Chuckie Mccoy, PHONE TECHNICIAN CCC Speech Pathologist Speech Pathology 04/26/13 documented as of this encounter
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
--- OUTSIDE RECORDS SUMMARY | 2022-01-19 16:34 | XMS_ITS | Encounter Summary ---
:1950 Author Organization [facility] Address [address] [place] [address] Phone Care Team Providers Name Role Phone Olga Lee MD Primary Care Provider Chuckie Mccoy [facility] Unavailable Unavailable Reason for Visit Reason Onset Date Comments Refill Request 01/14/2014 Test Strips Encounter Details Date Type Department Care Team Description 01/14/2014 Refill [facility] Diabetes [facility] Endo Alisha Dial, Refill Request (Test Clinic RN Strips) [address] [place], [place] [address] Social History Tobacco Use Types Packs/Day Years Used Date Smoking Tobacco: Former Cigarettes Quit : 08/01/1999 Smokeless Tobacco: Never Alcohol Use Standard Drinks/Week Comments No 0 (1 standard drink = 0.6 oz pure alcoho l) Sex Assigned at Date Recorded 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 Last filled NA. No hx of Rx in patient's medication list for Test Strips. Last seen in clinic 12/19/13. Per Revver message, patient states she tests 2-3 x/day. Action: Pend refill request. See orders for details of medications to be filled. Preferred pharmacy entered into [employer]. Plan: Forward to provider to review. 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
--- OUTSIDE RECORDS SUMMARY | 2022-01-19 16:34 | XMS_ITS | Encounter Summary ---
:1950 Author Organization [facility] Address [address] [place] [address] Phone Care Team Providers Name Role Phone Olga Lee MD Primary Care Provider Chuckie Mccoy [facility] Unavailable Unavailable Reason for Visit Reason Comments Sores in Mouth Encounter Details Date Type Department Care Team Description 08/06/2013 Hospital Encounter [facility] Urgent Care Brock Winkler PA-C [facility] Practice Location Oral ulcer [address] [facility] Rita Cosme PA-C [address] [place] [address] [phone] [place], [place] [address] Social History Tobacco Use Types Packs/Day Years Used Date Smoking Tobacco: Former Cigarettes Quit : 08/01/1999 Smokeless Tobacco: Never Alcohol Use Standard Drinks/Week Comments No 0 (1 standard drink = 0.6 oz pure alcoho l) Sex Assigned at Date Recorded Female 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 Diet: ?? Follow a regular diet. Call Doctor or Health Care Provider: ?? If your symptoms get worse. ?? For all emergencies call 911. ?? For questions : ?? Tuesday - Tuesday 8 a.m. - 4 p.m., call your clinic. ?? Weekends, holidays, and after hours, if you have health insurance, call your insurance nurse line. Appointments for you to make: Follow-up Information Follow up With Details Comments Contact Info Olga Lee MD [address] [facility] G[facility] [address] [facility] ENT/Otolaryngology Clinic [facility] P7.200 [facility] [address] [facility] Dentistry Clinic [facility] 701 [facility] P7.440 [facility] [address] Please call to make your appointment. You can call your [place] clinic to make an appointment Tuesday-Tuesday 7:30am-9:00pm and Tuesday and Tuesday 8:30am-5:00pm. Existing appointments at [place] departments for the next 2 months: *Note - this does not include Day Treatment or Partial Hospital appointments: July 2013Tuesday 1 2 3 PSYCH NEW PATIENT SHORT 1:00 PM (40 min.) Irina Dale MD [facility] Psychiatry Clinic [place] 4 LAB VISIT 4:00 PM (5 min.) In, [facility]-Lab Walk [facility] Laboratory 5 6 7 TBI FU 60 MIN 1:00 PM (60 min.) Chuckie Mccoy, KODY [facility] Speech Language Pathology TBI FU 60 MIN 2:00 PM (60 min.) Slime Johnson, PhD [facility] Psychology 8 9 10 11 12 13 14 TBI FU 60 MIN 1:00 PM (60 min.) Chuckie Mccoy, KODY [facility] Speech Language Pathology TBI FU 60 MIN 2:00 PM (60 min.) Slime Johnson, PhD [facility] Psychology 15 16 17 18 MD/PROFESSIONAL ATHLETE Visit 10:00 AM (20 min.) Irina Dale MD [facility] Psychiatry Clinic [place] 19 20 21 TBI FU 60 MIN 1:00 PM (60 min.) Chuckie Mccoy, HEATING REPAIR TECHNICIAN [facility] Speech Language Pathology TBI FU 60 MIN 2:00 PM (60 min.) Slime Johnson, PhD [facility] Psychology 22 23 24 25 26 TBI - FOLLOWUP 11:30 AM (45 min.) Lenka Simon RN,CAR SALESMAN [facility] TBI Phys Med/Rehab Clinic 27 28 29 30 31 If you are unable to attend or if you are going to be late, please call the service or clinic. [facility] Buildings and Entrances: ?? P = Purple Building - use the [address] entrance ?? R = Red Building - use the [address] ?? O = Young Building - use the Blue or Red entrance ?? G = Green Buidling - use the Blue or Red entrance ?? B = Blue Building - use the [address] entrance ?? S = [place] Building - use the [address] entrance (Example: S1.140 Is [place] 1st floor, room 140) Transport #s: ?? MNET - (MA- Medical Assistance patients only) ?? MHP - after hours - transport M-F ?? Medica - or A Financial Counselor can be reached at the following numbers after you have been discharged from the Emergency Department. ?? Emergency Department Financial Counseling [phone] (7:30am to Midnight, Tuesday - Tuesday) ?? Main Line Financial Counseling [phone] . AttachmentsThe following attachments cannot be sent through Care Everywhere. APHTHOUS ULCER (DJIBOUTIAN)WHAT ARE ORAL LESIONS? (PRECANCEROUS AND CANCEROUS) (DJIBOUTIAN)documented in this encounter Medications at Time of [...] (15-30 mg) by mouth at bedtime. Pen [place] 5/16 30G X Use as directed 100 Each 11 09/20/2013 8 MM NotApplicabl Misc three times daily. documented as of this encounter Miscellaneous Notes Provider Note - Brock Winkler PA-C - 08/06/2013 3:42 PM CDT Urgent Care Provider Note Maye Li : 1950 Sex: female Date of Service: 08/06/2013 15:50 Patient Arrival Date and Time: 08/06/2013 2:01 PM HPI Maye Li is a 62 y.o. female who presents for mouth lesion x 3 days. Hx/o DM2. Reports onset of dry mouth, painful swollen glands she noticed today, and mouth lesions that burn. States she feels a burning feeling on her tongue and lips. She reports no new foods over the weekend, denies burning mouth on hot foods/spicy foods. States she has never had anything like this. Associated low gradefever. She denies any other associated symptoms; no URI symptoms, other oral lesions, rashes, body aches, joint pains, n/v/d/c, abd pains, barbour/dizziness. She denies any fluctuations in blood sugar. Denies floor of mouth pain. No cp/sob. No hx/o syphilis or other STDs. No recent travels. Past Medical History Diagnosis Date ??? Diabetes Allergies Allergen Reactions ??? Penicillins Anaphylaxis ??? Sulfa Antibiotics Rash Review of Systems See HPI Vitals: BP 141/77 Pulse 85 Temp(Src) 37.2 ??C (99 ??F) Resp 18 SpO2 97% Physical Exam Constitutional: She appears well-developed and well-nourished. No distress. HENT: Head: Normocephalic and atraumatic. No trismus in the jaw. Nose: Nose normal. No mucosal edema, rhinorrhea or sinus tenderness. Mouth/Throat: Uvula is midline, oropharynx is clear and moist and mucous membranes are normal. Oral lesions present. No edematous. No oropharyngeal exudate, posterior oropharyngeal edema or posterior oropharyngeal erythema. Shallow ulceration on the lateral L tongue, a few surrounding similar appearing lesions, there is noadherent discharge. There are similar shallow ulcerations on the lower lip on skin, not on mucous membrane. FOM is soft and non tender, the palate is clear and non tender. OP clear. No facial asymmetry. There is tenderness in the submandibular nodes; no palpable lymphadenopathy. Neck: Normal range of motion. Neck supple. Cardiovascular: Normal rate, regular rhythm and normal heart sounds. Exam reveals no gallop and no friction rub. No murmur heard. Pulmonary/Chest: Effort normal and breath sounds normal. She has no wheezes. She has no rales. Skin: Skin is warm and dry. No rash noted. She is not diaphoretic. No erythema. Vitals reviewed. Procedures Assessment and Plan Aphthous ulcer vs Behcet's vs SLE vs oral margarita vs geographic tongue vs contact irritant stomatitis vs secondary syphilitic lesion -oral lesion, ? Geographic tongue; will give magic mouthwash, use prn. Advised to F/U with her CHROMOSOMAL DISORDERS COUNSELOR, ENT, OMFS clinic as needed. Return to care if symptoms worsen or unresolved. Pt understands and is agreeable to plan. Orders Placed This Encounter ??? magic mouthwash - Oncology Clinical Impressions: 1. Oral ulcer 2. Tongue lesion Brock Winkler PA, 08/06/2013 3:50 PM Urgent Care Note - Jayne Jason, RN - 08/06/2013 2:33 PM CDT Mouth sores onset Tuesday with a dry mouth, worsening with painful, swollen glands. 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
--- OUTSIDE RECORDS SUMMARY | 2022-01-19 16:34 | XMS_ITS | Encounter Summary ---
:1950 Author Organization [facility] Address [address] [place] [address] Phone Care Team Providers Name Role Phone Olga Lee MD Primary Care Provider Chuckie Mccoy [facility] Unavailable Unavailable Reason for Visit Reason Comments Other Encounter Details Date Type Department Care Team Description 09/19/2013 Telephone [facility] Psychiatry Clinic Fred Hernandez RN [place] [address] [facility] 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 Dale. She indicated she understood and was transferred to the clerical receptionist staff to schedule an appointment. Telephone Encounter - Irina Dale MD - 09/19/2013 11:44 AM CDT OK to over book her when ever works for her. OK to increase the Prozac up to 40 mg po qd. (Done in the computer) Irina Dale MD 09/19/2013 11:45 [facility] Dept of Psychiatry Telephone Encounter - Priscilla Hernandez RN - 09/19/2013 10:39 AM CDT Returned call to the patient who reported she is experiencing break through anxiety effects. It had been going well, had returned to work, and now for no apparent reason, she is having anxiety which requires the use of her prn Ativan which she was not needing it. She feels the dose of Prozac could be increased or another medication. She also wondered about getting follow up appointment before November which is the next opening for Dr. Dale. We discussed having her see a nurse on a day when Dr. Saini sis in the clinic, but that I would send this message to Dr. Dale to see how she would like this handled. Please advise. Thank you Telephone Encounter - Priscilla Hernandez RN - 09/19/2013 10:39 AM CDT Message copied by PRISCILLA HERNANDEZ on TueSep 19, 2013 10:39 AM ------ Message from: LAURI DIAZ Created: TueSep 19, 2013 10:34 AM Regarding: Suyapa [id number] TELEPHONE MESSAGE Taken by: Lauri Diaz, 09/19/2013 10:34 AM Direct to: triage Problem: patient Thinks her meds to be readjusted Pt. 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
--- OUTSIDE RECORDS SUMMARY | 2022-01-19 16:34 | XMS_ITS | Encounter Summary ---
:1950 Author Organization [facility] Address [address] [address] Phone Care Team Providers Name Role Phone Olga Lee MD Primary Care Provider Chuckie Mccoy [facility] Unavailable Unavailable Encounter Details Date Type Department Care Team Description 01/22/2014 Hospital Encounter [facility] Infusion Center Suma Aranda MD [address] [place] [address] [address] Nurse, Inf Chemotherapy [address]1.[address] [place], [place] [address] Social History Tobacco Use Types Packs/Day Years Used Date Smoking Tobacco: Former Cigarettes Quit : 08/01/1999 Smokeless Tobacco: Never Alcohol Use Standard Drinks/Week Comments No 0 (1 standard drink = 0.6 oz pure alcoho l) Sex Assigned at Date Recorded Female 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 Pt denies any new problems. A: IV placed. Vitals taken and documented. Medication given as charted. R: Pt tolerated treatment without incident and verbalized understanding of the plan. P: Pt will f/u on 01/28/14, as scheduled. Appointment sheet given. Robel Hawley RN, 01/22/2014 3:52 PM documented in this encounter Plan of Treatment Not on filedocumented as of this encounter Visit Diagnoses Diagnosis Iron deficiency anemia Iron deficiency anemia, unspecified documented in this encounter Administered Medications Inactive Administered Medications - up to 3 most recent administrations Medication Order MAR Action Action Date Dose Rate Site iron sucrose (VENOFER) 200 mg in New Bag 01/22/2014 2:03 PM CDT 20 0 mg NaCl 0.9% 100 mL IVPB 200 mg, Intravenous, ONE TIME, On Tue01/22/14 at 1315 NaCl 0.9% infusion 250 mL New Bag 01/22/2014 1:55 PM CDT 250 mL 20 mL/hr at 20 mL/hr, Intravenous, TO KEEP OPEN, Starting on Tue01/22/14 at 1315, Until Tue01/23/14 at 0224 documented in this encounter Additional Health Concerns Infection Onset Date Last Indicated Resolved Time 

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
--- OUTSIDE RECORDS SUMMARY | 2022-01-19 16:34 | XMS_ITS | Encounter Summary ---
:1950 Author Organization [facility] Address [address] [place] [address] Phone Care Team Providers Name Role Phone Olga Lee MD Primary Care Provider Chuckie Mccoy APPRENTICE ELECTRICIAN CCC Unavailable Unavailable Encounter Details Date Type Department Care Team Description 01/07/2014 Orders Only [facility] Suma Aranda MD [address] [place] [address] [place], [place] [address] [phone] Social History Tobacco Use Types Packs/Day Years Used Date Smoking Tobacco: Former Cigarettes Quit : 08/01/1999 Smokeless Tobacco: Never Alcohol Use Standard Drinks/Week Comments No 0 (1 standard drink = 0.6 oz pure alcoho l) Sex Assigned at Date Recorded Female 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
--- OUTSIDE RECORDS SUMMARY | 2022-01-19 16:34 | XMS_ITS | Encounter Summary ---
:1950 Author Organization [facility] Address [address] [place] [address] Phone Care Team Providers Name Role Phone Olga Lee MD Primary Care Provider Chuckie Mccoy MANAGER SALES TRAINING [facility] Unavailable Unavailable Encounter Details Date Type Department Care Team Description 12/31/2013 Hospital Encounter [facility] [place] [facility] Suma Aranda MD [address] [place], [place] [id number] [address] Nurse, Inf Chemotherapy [address] [place], [place] [address] Social History Tobacco Use Types Packs/Day Years Used Date Smoking Tobacco: Former Cigarettes Quit : 08/01/1999 Smokeless Tobacco: Never Alcohol Use Standard Drinks/Week Comments No 0 (1 standard drink = 0.6 oz pure alcoho l) Sex Assigned at Date Recorded Female 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 (MULTIVITAL ORAL) FLUoxetine (PROZAC) 20 Take 3 capsules (60 [...] documented as of this encounter Miscellaneous Notes [facility] Note - Nolvia Monet RN - 12/31/2013 2:42 PM CDT Infusion Room Note D: Pt with DX- anemia here for Venofer infusion. Pt denies any new problems. A: IV placed. Vitals taken and documented. Venofer given as charted. Safety and fall risk assessed. Patient does not currently present an elevated risk for fall or injury. R: Pt tolerated treatment well and verbalized understanding of the plan. P: Pt will f/u on 01/07/14 as scheduled. Appointment sheet given. Nolvia Monet RN, 12/31/2013 2:43 PM documented in this encounter Plan of Treatment Not on filedocumented as of this encounter Visit Diagnoses Diagnosis H/O gastric bypass - 2009 Bariatric surgery status Iron deficiency anemia Iron deficiency anemia, unspecified documented in this encounter Administered Medications Inactive Administered Medications - up to 3 most recent administrations Medication Order MAR Action Action Date Dose Rate Site iron sucrose (VENOFER) 100 mg in New Bag 12/31/2013 1:19 PM CDT 10 0 mg NaCl 0.9% 100 mL IVPB 100 mg, Intravenous, ONE TIME, On 12/31/13 at 1305 documented in this encounter Additional Health Concerns Infection Onset Date Last Indicated Resolved Time 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
--- OUTSIDE RECORDS SUMMARY | 2022-01-19 16:34 | XMS_ITS | Encounter Summary ---
:1950 Author Organization [facility] [place] Address [address] [place] [address] Phone Care Team Providers Name Role Phone Olga Lee MD Primary Care Provider Chuckie Mccoy STRATEGIC PARTNERSHIP SPECIALIST [facility] Unavailable Unavailable Encounter Details Date Type Department Care Team Description 07/27/2013 Hospital Encounter [facility] [place] Slime Johnson, [address] PhD, LP [address] [place], [place] [address] Social History Tobacco Use Types Packs/Day Years Used Date Smoking Tobacco: Former Cigarettes Quit : 08/01/1999 Smokeless Tobacco: Never Alcohol Use Standard Drinks/Week Comments No 0 (1 standard drink = 0.6 oz pure alcoho l) Sex Assigned at Date Recorded Female 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 Pen [place] /16 30G X Use as directed 100 Each 11 013 09/20/2013 8 MM NotApplicabl Misc three times daily. documented as of this encounter Progress Notes Restricted notes were excluded Slime Johnson, PhD, LP - 07/27/2013 4:37 PM CST PSYCHOLOGY Outpatient Progress Note Duration: 60 minutes Publications Production Supervisor: NO Type of Therapy: Individual Mode: CBT/ACT Session #: 2 D/A: See psych sensitive note for session content. Diagnoses: Post Traumatic Stress Disorder Major Depression, recurrent Mental Status The patient was on time for the appointment. She was casually dressed and adequately groomed. Her mood was distressed, and her affect was Dysphoric. Her manner was Cooperative and Engaged. She was alert and oriented to person, place and time with no observable thought disturbance. Her eye contact was a ppropriate. Rate and volume of speech were within normal limits. Speech articulation was: Normal, but patient had some word retrieval problems. Speech coherence was: Normal. Speech spontaneity was: Normal. Thought Processes were: Logical/goal-directed Thought content was absent to suicidal or assaultive ideation. Memory functioning appeared intact. There were no perceptual disturbances evident or reported. Judgment and insight appeared Adequate. There were no psychomotor abnormalities evident or reported. Patient Education/Response: Patient was educated about anger and managing anger. Patient asked about exposure therapy. Patient was educated about exposure therapy. Practiced an anxiety reducing strategy in session. The patient demonstrated understanding by asking questions and applying strategies to personal situations. The patient appears to be making progress in treatment. Plan: Follow up appointment recommended in 1-2 weeks. The patient will continue follow-up with otherproviders as directed by those providers. The patient is aware of APS for emergent psychiatric care. Slime Johnson, PhD LP, 07/27/2013 4:37 PM Sr. Clinical Psychologist ING AID SPECIALIST documented in this encounter Plan of Treatment Not on filedocumented as of this encounter Visit Diagnoses Diagnosis Depression [311 (ICD-9-CM)] - Primary Depressive disorder, not elsewhere class ified Post traumatic stress disorder [309.81 ( ICD-9-CM)] Posttraumatic stress disorder TBI (traumatic brain injury) [854.00 (IC D-9-CM)] Intracranial injury of other and unspeci fied nature, without mention of open intracranial wound, unspecified state of consciousness documented in this encounter Additional Health Concerns Infection Onset Date Last Indicated Resolved Time 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
--- OUTSIDE RECORDS SUMMARY | 2022-01-19 16:34 | XMS_ITS | Encounter Summary ---
:1950 Author Organization [facility] Address [address] [place], [place] [address] [place] [address] Phone Care Team Providers Name Role Phone Olga Lee MD Primary Care Provider Chuckie Mccoy FLUE BLOWER [facility] Unavailable Unavailable Encounter Details Date Type Department Care Team Description 08/29/2013 Hospital Encounter [facility] [place] Speech Language [employer] dioni, Lenka Spencer, DESCRIPTIVE CATALOG LIBRARIAN, INTENSIVE CARE AMBULANCE PARAMEDIC Need New Address Pathology Chuckie Mccoy, [place] [address] Social History Tobacco Use Types Packs/Day Years Used Date Smoking Tobacco: Former Cigarettes Quit : 08/01/1999 Smokeless Tobacco: Never Alcohol Use Standard Drinks/Week Comments No 0 (1 standard drink = 0.6 oz pure alcoho l) Sex Assigned at Date Recorded Female 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 (MULTIVITAL ORAL) cyproheptadine 4 mg oral Take 1 tablet by 90 tablet 2 08/1511/26/2013 tablet mouth nightly at bedtime for 3 nights, then 1 tablet twice daily for 3 nights, then 1 and 1/2 tablets (6 mg) twice daily. diphenhydrAMINE-alum & Swish and spit 5 ml 180 mL 0 07/2109/20/2013 mag by mouth four times lyfefkbeh-sswkzv-odkbdbsu daily as needed for e viscous magic mouthwash mouth sores - Oncology FLUoxetine (PROZAC) 20 mg Take 1 capsule (20 30 capsule 5 09/19/2013 oral capsule mg) by mouth daily. LORazepam (ATIVAN) 0.5 mg Take 1 tablet (0.5 60 tablet 5 11/26/2013 oral tablet mg) by mouth twice daily as needed for Anxiety. sitaGLIPtin (JANUVIA) 100 Take 1 tablet (100 30 tablet 5 12/12/2013 mg oral tablet mg) by mouth daily. temazepam (RESTORIL) 15 Take 1 to 2 60 capsule 2 04/16/2013 10/15/2013 mg oral capsule capsules (15-30 mg) by mouth at bedtime. Pen [place] / 30G X 8 Use as directed 100 Each 10/0409/20/2013 MM NotApplicabl Misc three times daily. documented as of this encounter Miscellaneous Notes Treatment Summary - Chcukie Mccoy, FLUE BLOWER CCC - 08/29/2013 1:12 PM CDT SPEECH-LANGUAGE PATHOLOGY Outpatient UPDATED PLAN OF TREATMENT [facility] / Speech-Language Pathology [Provider Number: [id number]] Name: Maye Garciamarymolly Insurance Carrier/Number: [facility] Employees Injured On Duty Start of Service Date: 04/20/2013 Birthdate: 1950 Visits from Start of Care: 14 (incl Eval) Onset Date: 03/18/2013 Primary Diagnosis: Traumatic Brain Injury Treatment Diagnosis: Cognitive-linguistic deficits PLAN OF TREATMENT Short-Term Goals: 1. Pt will complete intermediate level auditory and visual sustained, divided and alternating attention activities with 80% accuracy in a non-distracting environment with use of strategies given an initial prompt. MET 08/10/2013; patient's performance via formal assessment meets criterion for sustainedand alternating attention; will continue to address higher-levels and basic divided attention. 2. Pt will complete intermediate level verbal and visual immediate, delayed, and working memory activities with 80% accuracy in a non-distracting environment with use of strategies given an initial prompt. MET 08/10/2013; again, performance re formal re-assessment meets criterion for immediate and delayed memory; will continue re working memory. 3. Pt will complete intermediate level planning, organization, and multiprocess reasoning activitieswith 80% accuracy in a non-distracting environment with use of strategies given an initial prompt. Partially MET 08/10/2013; in discussion re RTW, patient outlined several positive, negative, and questionable aspects re returning to an environment such as [facility]. She listed many considerations and verbalized a rationale conclusion with all aspects considered; this suggests strong reasoning skills 4. Pt will increase verbal fluency by naming an average of >15 items in concrete categories within one minute, as measured across three consecutive trials. MET 08/10/2013; pt named 21-25 items withineach of three categories during the Retrieval Fluency subtest 5. Pt will state 5 attention, organization, or pragmatic language strategies to enhance her verbal communication skills within work and social activities. MET today within reflective conversation/interview. Long-Term Goals: 1. Pt will learn and demonstrate independent [...] and/or organizational aids independently as needed. Plan: Direct Speech-Language Pathology services Frequency / Duration: 82-70-qwmyiu sessions as needed per patient and other providers Certification: From 08/29/2013 through 10/29/2013 Physician's name: Lenka Simon RN, INTENSIVE CARE AMBULANCE PARAMEDIC Initial Assessment: Pt demonstrates mild cognitive-linguistic deficits c/w TBI including moderate deficits in processing speed and memory (i.e., working and short-term). While formal testing suggests memory is within normal limits, pt stated her performance was significantly lower than her baseline cognitive function. Pt reports functional cognitive deficits c/w mTBI, including word- finding difficulties, poor concentration, slow processing speed, memory impairment, headaches, fatigue, and frustration/irritability. Prognosis for return to previous level of functioning is good if pt receives cognitive- linguistic rehabilitation to learn to use compensatory techniques while recovering and direct treatment of deficit areas and also receives brain injury education to increase awareness of deficits. Functional Status/Progress Report: Pt arrived to treatment session on time and was seen for a 60-minute treatment session. She reported no concerns re her cognitive-linguistic deficits since her last encounter. 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 She expressed feeling confident re RTW. Formal testing results were reviewed from last encounter; questions were answered to her level of satisfaction. She felt satisfied with the results and expressed no concerns. Pt's progress was reviewed from her initial encounter; she remarked today I don't feel like I had abrain injury. She noted the only change in her participation in daily activities being not allowing people to walk behind me. Considerations regarding her RTW were discussed; she identified proximity and positioning aspects of patient interaction. She was provided with recommendation to use a COW, however simply as an informational resource vs documentation tool. By doing so, this will provide an additional barrier between the patient and her patients. She readily endorsed this plan. Pt endorsed recommendation to follow-up with this FLUE BLOWER following her return to work IF concerns are identified. She was encouraged to follow-up with other providers as instructed by the respective providers. Referral/Community Contacts: Encouraged to follow-up with Clinical Psychology Speech-Language Pathologist: Jennifer AroraSTheodore, CCC-FLUE BLOWER 08/29/2013, 13:12 Pager: [phone] documented in this encounter Plan of Treatment [...] documented as of this encounter Care Teams Accounting Intern Relationship Specialty Start Date End Date Olga Lee MD PCP - General Internal Medicine 01/29/[address] [id number] Chuckie Mccoy, FLUE BLOWER CCC Speech Pathologist Speech Pathology 04/26/13 documented as of this encounter
--- OUTSIDE RECORDS SUMMARY | 2022-01-19 16:34 | XMS_ITS | Encounter Summary ---
:1950 Author Organization [facility] Address [address] [place] [address] Phone Care Team Providers Name Role Phone Olga Lee MD Primary Care Provider Chuckie Mccoy [facility] Unavailable Unavailable Reason for Visit Reason Comments Refill Request Encounter Details Date Type Department Care Team Description 12/12/2013 Refill [facility] Suma Aranda MD Refill Request [address] [place] [address] [place], [place] [address] [phone] Social History Tobacco Use Types Packs/Day Years Used Date Smoking Tobacco: Former Cigarettes Quit : 08/01/1999 Smokeless Tobacco: Never Alcohol Use Standard Drinks/Week Comments No 0 (1 standard drink = 0.6 oz pure alcoho l) Sex Assigned at Date Recorded Female 06/17/2020 4:53 PM BSW documented as of this encounter Miscellaneous Notes Telephone Encounter - Rita Balderas RN - 12/12/2013 10:59 AM CDT D: Received electronic refill request for Januvia. A: Chart reviewed, pt was last seen by Dr. Aranda on 06/13/13. Upcoming appointment: 12/19/13. Clinic note: take Januvia once a day. MAR: Medication last ordered on 06/13/13 - 30#, 5 refills. R: Will refill month supply; pt to request further refills at upcoming appointment. P: Sent electronically to pharmacy. 

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
--- OUTSIDE RECORDS SUMMARY | 2022-01-19 16:34 | XMS_ITS | Encounter Summary ---
:1950 Author Organization [facility] Address [address] [place] [address] Phone Care Team Providers Name Role Phone Olga Lee MD Primary Care Provider Chuckie Mccoy [facility] Unavailable Unavailable Irina Dale MD Unavailable Encounter Details Date Type Department Care Team Description 01/07/2014 Therapy Plan Encounter [facility] Diabetes & Endo Suma Aranda MD Clinic [address] [place], [place] S 1.300 [address] [place], [place] [address] [phone] Social History Tobacco Use Types Packs/Day Years Used Date Smoking Tobacco: Former Cigarettes Quit : 08/01/1999 Smokeless Tobacco: Never Alcohol Use Standard Drinks/Week Comments No 0 (1 standard drink = 0.6 oz pure alcoho l) Sex Assigned at Date Recorded Female 06/17/2020 4:53 PM SPECIAL POPULATION PARAPROFESSIONAL documented as of this encounter Plan of Treatment Not on filedocumented as of this encounter Visit Diagnoses Not on filedocumented in this encounter Additional Health Concerns Infection Onset Date Last Indicated Resolved Time ESBL 11/08/2012 11/16/2017 MDRO (Multiple Drug Resistant 11/13/2012 11/13/2012 7:13 AM CDT Organism) documented as of this encounter Care Teams Lift Truck Mechanic Relationship Specialty Start Date End Date Olga Lee MD PCP - General Internal Medicine 01/29/13 [address] [place] [address] Chuckie Mccoy, SENIOR DB2 SYSTEMS PROGRAMMER CCC Speech Pathologist Speech Pathology 04/26/13 Irina Dale MD Psychiatrist Outpatient Psychiatry 07/11/18 [address] [facility] [address] [place] [address] documented as of this encounter
--- OUTSIDE RECORDS SUMMARY | 2022-01-19 16:34 | XMS_ITS | Encounter Summary ---
:1950 Author Organization [facility] Address [address] [place] [address] Phone Care Team Providers Name Role Phone Olga Lee MD Primary Care Provider Chuckie Mccoy RIVET TESTER [facility] Unavailable Unavailable Encounter Details Date Type Department Care Team Description 01/07/2014 Hospital Encounter [facility] [place] Suma Aranda MD [address] [place], [place] [id number] [address] Nurse, Inf Chemotherapy [id number] [place], [place] [address] Social History Tobacco Use Types Packs/Day Years Used Date Smoking Tobacco: Former Cigarettes Quit : 08/01/1999 Smokeless Tobacco: Never Alcohol Use Standard Drinks/Week Comments No 0 (1 standard drink = 0.6 oz pure alcoho l) Sex Assigned at Date Recorded Female 06/17/2020 4:53 PM DIGITAL MARKETING ASSOCIATE documented as of this encounter Last Filed Vital Signs Vital Sign Reading Time Taken Comments Blood Pressure 132/79 01/07/2014 1:12 PM CDT Pulse 78 01/07/2014 1:12 PM CDT Temperature 36.4 ??C (97.5 ??F) 01/07/2014 1:12 PM CDT Respiratory Rate - - Oxygen [...] encounter Miscellaneous Notes Cancer Center Note - Rosa Odonnell RN - 01/07/2014 3:33 PM CDT Infusion Room Note D: Pt with DX- iron deficiency anemia here for venofer infusion. Pt denies any new problems. A: IV placed. Vitals taken and documented. Medication given as charted. Safety and fall risk assessed. Patient does not currently present an elevated risk for fall or injury. R: Pt tolerated treatment well and verbalized understanding of the plan. P: Pt will f/u on 01/14/14 as scheduled. Appointment sheet given. Rosa Odonnell RN, 01/07/2014 3:34 PM documented in this encounter Plan of Treatment Not on filedocumented as of this encounter Visit Diagnoses Not on filedocumented in this encounter Administered Medications Inactive Administered Medications - up to 3 most recent administrations Medication Order MAR Action Action Date Dose Rate Site iron sucrose (VENOFER) 100 mg in New Bag 01/07/2014 1:51 PM CDT 10 0 mg NaCl 0.9% 100 mL IVPB 100 mg, Intravenous, ONE TIME, On 01/07/14 at 1310 documented in this encounter Additional Health Concerns Infection Onset Date Last Indicated Resolved Time MDRO (Multiple Drug Resistant 11/13/2012 11/13/2012 7:13 AM CDT Organism) documented as of this encounter Care Teams Rent And Miscellaneous Remittance Clerk Relationship Specialty Start Date End Date Olga Lee MD PCP - General Internal Medicine 01/29/[address] [place] [id number] Chuckie Mccoy, RIVET TESTER CCC Speech Pathologist Speech Pathology 04/26/13 documented as of this encounter
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
--- OUTSIDE RECORDS SUMMARY | 2022-01-19 16:34 | XMS_ITS | Encounter Summary ---
:1950 Author Organization [facility] Address [address] [place], [place] [address] [place] [address] Phone Care Team Providers Name Role Phone Olga Lee MD Primary Care Provider Chuckie Mccoy NUMERICAL ANALYSIS GROUP MANAGER [facility] Unavailable Unavailable Encounter Details Date Type Department Care Team Description 08/10/2013 Hospital Encounter [facility] [place] Speech Language Summervi dioni, Lenka Spencer, ELECTRONICS SCALE TESTER, PUMP 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 AND SERVICER Need New Address Pathology Chuckie Mccoy, NUMERICAL ANALYSIS GROUP [place] [address] Social History Tobacco Use Types Packs/Day Years Used Date Smoking Tobacco: Former Cigarettes Quit : 08/01/1999 Smokeless Tobacco: Never Alcohol Use Standard Drinks/Week Comments No 0 (1 standard drink = 0.6 oz pure alcoho l) Sex Assigned at Date Recorded Female 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 (MULTIVITAL ORAL) diphenhydrAMINE-alum & Swish and spit 5 ml 180 mL 0 07/2109/20/2013 mag by mouth four times wjntupmmm-boaaow-gsuhzmk daily as needed for ne viscous magic [...] (15-30 mg) by mouth at bedtime. Pen [place]ham / 30G X Use as directed 100 Each 11 013 09/20/2013 8 MM NotApplicabl Misc three times daily. documented as of this encounter Progress Notes Chuckie Mccoy, NUMERICAL ANALYSIS GROUP MANAGER CCC - 08/10/2013 1:58 PM CDT SPEECH-LANGUAGE PATHOLOGY Outpatient PROGRESS NOTE Name: Maye Li Birthdate: 1950 Date: 08/10/2013 Date of Onset: 03/18/2013 S & O Pt arrived to treatment session on time and was seen for 60 minute treatment session. She left for her Clinical Psychology appointment then returned for 15 additional minutes to complete one subtest. Pt stated I feel ready to go back to work... Interested to return to APS if they will have me. 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 She expressed a confident yet rationale perspective re returning to work and is willing to listen to supportive or cautious feedback from her care providers. Formal Cognitive-Linguistic Evaluation was completed via subtests of the Noy-Nik III (WJ-III) Tests of Cognitive Abilities and Tests of Achievement: Subtest Name: %ile Std Score Impairment Level Previous Impairment Visual Matching 56 102 Average Average Retrieval Fluency 43 97 Average Low Average Story Recall-- Immediate 87 117 High Average Average Story Recall-- Delayed 95 124 Superior Average WJ-III Qualitative Observations: pt entered formal re-assessment with confidence and exhibited a positive affect throughout; she joked when things became more difficult but this did not hinder performance nor facilitate breakdowns re attention Pt completed the [place] Post-Concussion Symptoms Questionnaire and indexed symptoms using a scalefrom 0-4 as follows: 0= never experienced, 1= no more a problem, 2= mild problem, 3= moderate problem, and 4= a severe problem. Symptom Today 04/20/13 Headaches 2 3 Dizziness 1 1 Nausea/Vomiting 1 2 Phonosensitivity 1 2 Sleep Disturbance 2 4 Fatigue 2 4 Irritability 1 3 Depression/Tearfulness 1-2 2 Frustration 1 3 Memory Impairment 2 4 Poor Concentration 1-2 4 Slowed Thinking 1 4 Blurred Vision 0 1 Photosensitivity 0 0 Double Vision 0 0 Restlessness 1 2-3 Other: Word Finding 1 4 Today's session addressed the following goals as outlined in current treatment plan: 1. Pt will complete intermediate level auditory and visual sustained, divided and alternating attention activities with 80% accuracy in a non-distracting environment with use of strategies given an initial prompt. MET today; patient's performance via formal assessment meets criterion for sustained andalternating attention; will continue to address higher-levels and basic divided attention. 2. Pt will complete intermediate level verbal and visual immediate, delayed, and working memory activities with 80% accuracy in a non-distracting environment with use of strategies given an initial prompt. MET today; again, performance re formal re-assessment meets criterion for immediate and delayed memory; will continue re working memory. 3. Pt will complete intermediate level planning, organization, and multiprocess reasoning activitieswith 80% accuracy in a non-distracting environment with use of strategies given an initial prompt. MET reasoning today; in discussion re RTW, patient outlined several positive, negative, and questionable aspects re returning to an environment such as APS. She listed many considerations and verbalized a [...] communication skills within work and social activities. In progress. Pt reported she feels she has made a turn in this regard, identifying her speech is more fluent with few or no episodes of overt word- finding difficulties or thought disorganization A Assessment: Formal re-assessment today demonstrates notable improvement within 3 out of 4 subtests; the patients memory per story recall now falls within the high-average to superior range, consistent with patient's self-reported baseline. Informally, pt's positive, confident affect appeared to support her performance, that is she did not dwell on mistakes or allow errors to facilitate a downward trend in her testing. Furthermore, pt did not express fatigue across testing as she did at the first encounter. An informal rating scale demonstrates grossly resolved postconcussive symptoms. 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 Undoubtedly, she will benefit from support via Clinical Psychology and Speech-Language Pathology during this transition to ensure her anxiety and stress do not hinder her attention and organization, and vice versa. Pt is benefiting from outpatient speech-language services. Pain: none reported Barriers to Learning: none observed today Patient / Family Education: see S & O section P Plan: Continue direct speech-language pathology treatment as scheduled, weekly, then [id number] pending RTW plan. Modify and/or upgrade goals as appropriate. Focus on following next session: 1) Discuss RTW plan, identify compensatory strategies 2) Other concerns or areas as presented by pt See Plan of Care Dated 06/29/2013 (updated Plan of Care due 08/27/2013) Patient / Family participated in goal setting: Yes Referral/Community Contacts: None at this time Speech-Language Pathologist: Chuckie Mccoy M.S., CCC-NUMERICAL ANALYSIS GROUP MANAGER 08/10/2013, 13:58 Pager: [phone] documented in this encounter Plan of Treatment [...] documented as of this encounter Care Teams Bead Builder Relationship Specialty Start Date End Date Olga Lee MD PCP - General Internal Medicine 01/29/13 [facility] [place] [address] Chuckie Mccoy, NUMERICAL ANALYSIS GROUP MANAGER CCC Speech Pathologist Speech Pathology 04/26/13 documented as of this encounter
--- OUTSIDE RECORDS SUMMARY | 2022-01-19 16:34 | XMS_ITS | Encounter Summary ---
:1950 Author Organization [facility] Address [address] [place], [place] [address] [place] [address] Phone Care Team Providers Name Role Phone Olga Lee MD Primary Care Provider Chuckie Mccoy PIERCING MACHINE OPERATOR [facility] Unavailable Unavailable Encounter Details Date Type Department Care Team Description 07/27/2013 Hospital Encounter [facility] [place] [place] Speech Language Summervi dioni, Lenka Spencer, MODEL DRESSER, CORE LOADER Need New Address Pathology Chuckie Mccoy, [place]ERCING [place] [address] Social History Tobacco Use Types Packs/Day Years Used Date Smoking Tobacco: Former Cigarettes Quit : 08/01/1999 Smokeless Tobacco: Never Alcohol Use Standard Drinks/Week Comments No 0 (1 standard drink = 0.6 oz pure alcoho l) Sex Assigned at Date Recorded Female 06/17/2020 4:53 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 Pen Henderson 5/16 30G X Use as directed 100 Each 11 013 09/20/2013 8 MM NotApplicabl Misc three times daily. documented as of this encounter Progress Notes Chuckie Mccoy, PIERCING MACHINE OPERATOR [facility] - 07/27/2013 3:29 PM CST SPEECH-LANGUAGE PATHOLOGY Outpatient PROGRESS NOTE Name: Maye Li Birthdate: 1950 Date: 07/27/2013 Date of Onset: 03/18/2013 S & O Pt arrived to treatment session on time and was seen for 60 minute treatment session. Bright affect, offered good use of humor. Goals were not addressed as written today; however, pt and PIERCING MACHINE OPERATOR visited her workplace in the hospital to problem solve concerns re goal areas: 1. Pt will complete intermediate level auditory and visual sustained, divided and alternating attention activities with 80% accuracy in a non-distracting environment with use of strategies given an initial prompt. In progress. 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 She identified concerns re high distractibility, facilitated in part by ease of patient access to the area behind her desk, which increases pt's anxiety. Pt and PIERCING MACHINE OPERATOR walked to her workplace (see #3). Once there, suggestions were presented, including: ?? When on the laptop, face the wall vs the door, as the patient/family traffic is visually distracting to patient ?? A round table was moved to prevent individuals from freely approaching the patient, also providing a place for family members to sign-in ?? Pt and her supervisor area have already submitted a ticket to have a panic button placed at the desk 2. Pt will complete intermediate level verbal and visual immediate, delayed, and working memory activities with 80% accuracy in a non-distracting environment with use of strategies given an initial prompt. In progress. Pt identified she is writing more information down on cards/forms at her new job than she would havepreviously; she was encouraged to do so, as this promotes accuracy vs committing mistakes. 3. Pt will complete intermediate level planning, organization, and multiprocess reasoning activitieswith 80% accuracy in a non-distracting environment with use of strategies given an initial prompt. In progress. During a walk to pt's work environment while conversing re novel topic, pt was notably halting and mildly disorganized in her discourse. Following this observation, she reflected on this behavior. She endorsed interaction of (1) distractions, (2) anxiety, and (3) social-pragmatic influences that lead her to this level of verbal disfluency and disorganization. She then identified other settings in which she experiences these functional changes; pt endorsed these examples as influenced by these contributing factors. 4. Pt will increase verbal fluency by naming an average of >15 items in concrete categories within one minute, as measured across three consecutive trials. Did not address this encounter. A Assessment: Pt presented today with reports of good transition to a new job and slow resolution re the change in coverage re leave of work. She offered several insightful comments re barriers to performance at work; this PIERCING MACHINE OPERATOR and pt visited her workplace and identified changes to her current environment to support her attention and anxiety concerns. While walking, pt demonstrated notable disfluency inconversation; she endorsed this is a persisting concern and one she would like to address in future Speech-Language Pathology encounters. Pt is benefiting from outpatient speech-language services. Pain: none reported Barriers to Learning: attention, anxiety Patient / Family Education: see S & O section P Plan: Continue direct speech-language pathology treatment as scheduled, weekly. Modify and/or upgrade goals as appropriate. Focus on following next session: 1) update re changes after last visit 2) practice and compensatory strategies re goal areas 3) introduce social-pragmatic goal 4) Other concerns or areas as presented by pt See Plan of Care Dated 06/29/2013 (updated Plan of Care due 08/27/2013) Patient / Family participated in goal setting: Yes Referral/Community Contacts: None at this time Speech-Language Pathologist: Chuckie Mccoy M.S., CCC-PIERCING MACHINE OPERATOR 07/27/2013, 15:29 Pager: [phone] documented in this encounter Plan of Treatment [...] documented as of this encounter Care Teams Rag Collector Relationship Specialty Start Date End Date Olga Lee MD PCP - General Internal Medicine 01/29/[address] [place] [id number] Chuckie Mccoy, PIERCING MACHINE OPERATOR CCC Speech Pathologist Speech Pathology 04/26/13 documented as of this encounter
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
--- OUTSIDE RECORDS SUMMARY | 2022-01-19 16:34 | XMS_ITS | Encounter Summary ---
:1950 Author Organization [facility] Address [address] [place] [address] Phone Care Team Providers Name Role Phone Olga Lee MD Primary Care Provider Chuckie Mccoy [facility] Unavailable Unavailable Encounter Details Date Type Department Care Team Description 08/01/2013 Office Visit [facility] [place] Bere Dale MD Post traumatic stress [place] [address] [facility] disorder (Primary Dx) 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 Irina Dale MD 06/22/2013 12:16 [facility] [place] of Psychiatry ETITIVE ATHLETE documented in this encounter Plan of Treatment Not on filedocumented as of this encounter Visit Diagnoses Diagnosis Post traumatic stress disorder - Primary Posttraumatic stress disorder documented in this encounter Additional Health Concerns Infection Onset Date Last Indicated Resolved Time MDRO (Multiple Drug Resistant 11/13/2012 11/13/2012 7:13 AM CDT Organism) documented as of this encounter Care Teams Ladle Repairer Relationship Specialty Start Date End Date Olga Lee MD PCP - General Internal Medicine 01/29/13 [address] [place] [address] Chuckie Mccoy, SPINNERET CLEANER CCC Speech Pathologist Speech Pathology 04/26/13 documented as of this encounter
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
--- OUTSIDE RECORDS SUMMARY | 2022-01-19 16:35 | XMS_ITS | Encounter Summary ---
:1950 Author Organization [facility] Address [address] [place] [address] Phone Care Team Providers Name Role Phone Olga Lee MD Primary Care Provider Chuckie Mccoy [facility] Unavailable Unavailable Reason for Visit Reason Comments Nausea Vomiting Encounter Details Date Type Department Care Team Description 05/17/2013 Emergency [facility] Emergency Depar tment Brendan Doss MD [facility] [address] [facility] [address] [facility] [address] [place] [address] [place] [address] [phone] Social History Tobacco Use Types Packs/Day Years Used Date Smoking Tobacco: Former Cigarettes Quit : 08/01/1999 Smokeless Tobacco: Never Alcohol Use Standard Drinks/Week Comments No 0 (1 standard drink = 0.6 oz pure alcoho l) Sex Assigned at Date Recorded Female 06/17/2020 4:53 PM SEWING ROOM SUPERVISOR documented as of this encounter Last Filed Vital Signs Vital Sign Reading Time Taken Comments Blood Pressure 116/67 05/17/2013 12:20 PM SEWING ROOM SUPERVISOR Pulse 75 05/17/2013 12:20 PM SEWING ROOM SUPERVISOR Temperature - - Respiratory Rate 12 05/17/2013 12:20 PM SEWING ROOM SUPERVISOR Oxygen Saturation 97% 05/17/2013 12:20 PM SEWING ROOM SUPERVISOR Inhaled Oxygen Concentration - - Weight - - Height - - Body Mass Index - - documented in this encounter Discharge Instructions Discharge Sheri Garcia RN - 05/17/2013 2:11 PM CST Images from the original note [...] Comments Contact Info Olga Lee MD [address] [facility] [address] [facility] [address] [facility] Emergency Department If symptoms worsen [facility] [address] [facility] [address] [place] [address] Please call to make your appointment. You can call your [facility] to make an appointment Tuesday-Tuesday 7:30am-9:00pm and Tuesday and Tuesday 8:30am-5:00pm. Existing appointments at [facility] for the next 2 months: *Note - this does not include Day Treatment or Partial Hospital appointments: April 2013Tuesday 1 2 3 4 5 TBI FU 60 MIN 2:00 PM (60 min.) Chuckie Mccoy, KODY [facility] Speech Language Pathology 6 7 8 9 10 Level 2 Infusion 1:00 PM (120 min.) Juan, Otoniel [facility] Infusion Center 11 FOLLOW UP - LONG 1:00 PM (40 min.) Maye Tinsley RN,REGISTERED NURSE MIDWIFE [facility] Psychiatry Clinic [place] TBI FU 60 MIN 2:00 PM (60 min.) Chuckie Mccoy, KODY [facility] Speech Language Pathology 12 13 14 15 16 17 Level 2 Infusion 1:00 PM (120 min.) Otoniel Braden [facility] Infusion Center 18 19 20 21 22 23 Level 2 Infusion 1:00 PM (120 min.) Otoniel Braden [facility] Infusion Center 24 25 26 27 TBI FU 60 MIN 10:00 AM (60 min.) Chuckie Mccoy, KODY [facility] Speech Language Pathology 28 29 30 Level 2 Infusion 1:00 PM (120 min.) Otoniel Braden [facility] Infusion Center 22 June 2013Tuesday 1 2 3 TBI FU 60 MIN 10:00 AM (60 min.) Chuckie Mccoy, LEAD SIMULATION MODELING ENGINEER [facility] Speech Language Pathology 4 5 6 FOLLOW UP - LONG 8:00 AM (60 min.) Berkley Dominguez, PhD [facility] Psychiatry Clinic [place] Level 2 Infusion 1:00 PM (120 min.) Juan, Chemo [facility] Infusion Center 7 8 9 10 TBI FU 60 MIN 10:00 AM (60 min.) Chuckie Mccoy, LEAD SIMULATION MODELING ENGINEER [facility] Speech Language Pathology 11 12 13 TBI EVAL G8 12:30 PM (240 min.) Nella Gallardo, PhD [facility] Psychology 14 15 16 MD/EDGE CUTTER Visit 3:00 PM (20 min.) Maye Tinsley, JUAN,REGISTERED NURSE MIDWIFE [facility] Psychiatry Clinic [place] 17 TBI FU 60 MIN 10:00 AM (60 min.) Chuckie Mccoy, LEAD SIMULATION MODELING ENGINEER [facility] Speech Language Pathology 18 19 20 21 22 23 24 25 26 27 28 TBI - FOLLOWUP 3:30 PM (45 min.) Lenka Simon RN,TELECOMMUNICATIONS LINE MECHANIC [facility] TBI Phys Med/Rehab Clinic 29 30 31 If you are unable to attend or if you are going to be late, please call the service or clinic. [facility] Buildings and Entrances: ?? P = Purple Building - use the [address] or [address] entrance ?? R = Red Building - use the [address] entrance ?? O = [place] Building - use the Blue or Red [...] Emergency Department. ?? Emergency Department Financial Counseling [phone] (7:30am to Midnight, Tuesday - Tuesday) ?? Main Line [facility] [phone] NG ROOM SUPERVISOR AttachmentsThe following attachments cannot be sent through Care Everywhere. GASTROENTERITIS, NON-INFECTIOUS (CHILD) (ADULT) ([place])documented in this encounter Medications at Time of Discharge Medication Sig Dispensed Refills Start Date End Date Multiple Take 1 Tab by mouth 0 Vitamins-Minerals daily. (MULTIVITAL ORAL) cyproheptadine 4 mg 0 04/16/201306/19 oral tablet ondansetron (ZOFRAN Take 1 tablet (4 mg) 10 tablet 0 201206/13/2013 ODT) 4 mg oral by mouth three times disintegrating tablet daily as needed. FLUoxetine (PROZAC) 10 Take 1 capsule (10 mg) 30 capsule 1 1 07/10/2012 06/22/2013 mg oral capsule by mouth daily. LORazepam (ATIVAN) 0.5 Take 1 tablet (0.5 mg) 60 tablet 2 1 07/03/2012 07/23/2013 mg oral tablet by mouth twice daily as needed for Anxiety. iron sucrose (VENOFER) 5 mL (100 mg) 25 mL 0 04/23/2013 05/22/2013 20 mg/mL IV solution intravenously every week for 5 doses. exenatide (BYETTA) 10 Inject 10 mcg 2.4 mL 0 04/18/2013 05/21/2013 mcg/0.04 mL subcutaneously twice subcutaneous pen daily before meals. Take 1 hour before breakfast, and 1 hour before evening meal. cyproheptadine 4 mg Take one tablet at 90 tablet 2 04/16/20 13 06/13/2013 oral tablet bedtime for 3 nights, then take one tablet twice daily for 3 nights, then increase to 1 and 1/2 tablets twice daily temazepam (RESTORIL) Take 1 to 2 capsules 60 capsule 2 04/1610/15/2013 15 mg oral capsule (15-30 mg) by mouth at bedtime. celecoxib (CELEBREX) Take 1 capsule (100 60 capsule 0 201206/13/2013 100 mg oral capsule mg) by mouth twice daily. Pen [place] 5/16 30G Use as directed three 100 Each 09/20/2013 X 8 MM NotApplicabl times daily. Misc documented as of this encounter ED Notes Brendan Doss MD - 05/17/2013 10:59 AM CST ED Faculty Attestation and Note Maye Li : 1950 Sex: female Patient Arrival Date and Time: 05/17/2013 9:20 AM FACULTY ATTESTATION I Brendan Doss MD, took a HPI and PE independently of the Physician Cushion Cover Inspector. Management decisions as documented in this chart were independently approved by me. Please see my note for further detail.. CRITICAL CARE No . RN and ANCILLARY NOTES I have reviewed nursing and ancillary notes, and agree with protocol as initiated. PROCEDURES Not applicable MEDICAL DECISION MAKING 62 yo white female who comes in with hx waking this am with feeling unwell - shaking, nauseaous. Then proceeded to vomit and have diarrhea. PMH Anxiety, tbi and dm ROS Denies EXAM Vital signs per nursing. HEENT - nl TORSO - luq tenderness LIMBS - nl NEURO - alert NG ROOM SUPERVISOR Faizan Ramon PA-C - 05/17/2013 9:52 AM CST ED Provider Note Maye Li : 1950 Sex: female Date of Service: 05/17/2013 09:52 Patient Arrival Date and Time: 05/17/2013 9:20 AM CHIEF COMPLAINT Chief Complaint Patient presents with ??? Nausea ??? Vomiting HPI Maye Li is a 62 y.o. female who presents for nausea and vomiting. She was feeling well yesterday. She woke with nausea vomiting and some epigastric abdominal pain. She reports she threw up approximately 3 times. She did have some loose stool but denies outright watery diarrhea. She denies fever. She denies a prior history comes with her stomach. There are no prior surgeries. She denies sick contacts. No recent travel. She was given IV Zofran and ambulance and is feeling better on arrival. HPI PAST MEDICAL HISTORY Past Medical History Diagnosis Date ??? Diabetes SOCIAL HISTORY Social History Occupational History ??? Not on file. Social History Main Topics ??? Smoking status: Former Smoker Quit date: 08/01/1999 ??? Smokeless tobacco: Never Used ??? Alcohol Use: No ??? Drug Use: No ??? Sexually Active: Not on file FAMILY HISTORY No family history on file. CURRENT MEDICATIONS Patient's Medications New Prescriptions No medications on file Previous Medications CELECOXIB (CELEBREX) 100 MG ORAL CAPSULE Take 1 capsule (100 mg) by mouth twice daily. CYPROHEPTADINE 4 MG ORAL TABLET Take one tablet at bedtime for 3 nights, then take one tablet twicedaily for 3 nights, then increase to 1 and 1/2 tablets twice daily EXENATIDE (BYETTA) 10 MCG/0.04 ML SUBCUTANEOUS PEN Inject 10 mcg subcutaneously twice daily before meals. Take 1 hour before breakfast, and 1 hour before evening meal. FLUOXETINE (PROZAC) 10 MG ORAL CAPSULE Take 1 capsule (10 mg) by mouth daily. IRON SUCROSE (VENOFER) 20 MG/ML IV SOLUTION 5 mL (100 mg) intravenously every week for 5 doses. LORAZEPAM (ATIVAN) 0.5 MG ORAL TABLET Take 1 tablet (0.5 mg) by mouth twice daily as needed for Anxiety. MULTIPLE VITAMINS-MINERALS (MULTIVITAL ORAL) Take 1 Tab by mouth daily. PEN NEEDLES 5/16 30G X 8 MM NOTAPPLICABL MISC Use as directed three times daily. TEMAZEPAM (RESTORIL) 15 MG ORAL CAPSULE Take 1 to 2 capsules (15-30 mg) by mouth at bedtime. Modified Medications No medications on file Discontinued Medications No medications on file ALLERGIES Allergies Allergen Reactions ??? Penicillins Anaphylaxis ??? Sulfa Antibiotics Rash REVIEW OF SYSTEMS Review of Systems Review Of Systems Skin: reviewed and neg except as in HPI Eyes: reviewed and neg except as in HPI Ears/Nose/Throat: reviewed and neg except as in HPI Respiratory: reviewed and neg except as in HPI Cardiovascular: reviewed and neg except as in HPI Gastrointestinal: reviewed and neg except as in HPI Genitourinary: reviewed and neg except as in HPI Musculoskeletal: reviewed and neg except as in HPI Neurologic: reviewed and neg except as in HPI Psychiatric: reviewed and neg except as in HPI Hematologic/Lymphatic/Immunologic: reviewed and neg except as in HPI Endocrine: reviewed and neg except as in HPI PHYSICAL EXAM Vitals: BP 116/67 Pulse 75 Resp 12 SpO2 97% Physical Exam Constitutional: She is oriented to person, place, and time. She appears well- developed. No distress. HENT: Head: Normocephalic and atraumatic. Right Ear: External ear normal. Eyes: Conjunctivae are normal. Pupils are equal, round, and reactive to light. No scleral icterus. Neck: Normal range of motion. Neck supple. Cardiovascular: Normal rate and regular rhythm. Pulmonary/Chest: Effort normal and breath sounds normal. Abdominal: Soft. Mild tenderness to epigastric and left upper quadrant. Her abdomen is otherwise soft. Bowel sounds x4. No rebound or peritoneal signs. Musculoskeletal: Normal range of motion. She exhibits no edema. Neurological: She is alert and oriented to person, place, and time. Skin: Skin is warm and dry. MEDICATIONS ORDERED (with documentation status as of note signing time, please correlate with the MAR) Medications Before Time of ED Departure - No data to display LABS Admission on 05/17/2013 Component Date Value ??? Sodium 05/17/2013 138 ??? Potassium 05/17/2013 4.0 ??? Chloride 05/17/2013 111* ??? CO2 05/17/2013 23 ??? Glucose 05/17/2013 226* ??? ICA, Actual 05/17/2013 4.40 ??? ICA, pH Corrected 05/17/2013 4.37* ??? Creatinine 05/17/2013 0.49* ??? GFR, 05/17/2013 166 ??? GFR, Non- 05/17/2013 137 ??? Lipase 05/17/2013 29 ??? Appearance 05/17/2013 CLEAR ??? Urine Glucose 05/17/2013 NEGATIVE ??? Bili UA 05/17/2013 NEGATIVE ??? Ketones 05/17/2013 15* ??? Color 05/17/2013 YELLOW ??? Specific [place] 05/17/2013 1.010 ??? Blood Ur 05/17/2013 NEGATIVE ??? PH Urine 05/17/2013 6.0 ??? Protein Ur 05/17/2013 NEGATIVE ??? Urobilinogen 05/17/2013 0.2 ??? Nitrite Ur 05/17/2013 NEGATIVE ??? Leuk Est 05/17/2013 NEGATIVE ??? WBC Ur 05/17/2013 0-5 ??? RBC Ur 05/17/2013 0-5 ??? SQ EPITH 05/17/2013 1+ ??? Urinalysis Performed at: 05/17/2013 [facility] ??? Total Protein 05/17/2013 6.6 ??? Albumin 05/17/2013 4.1 ??? Bili Total 05/17/2013 0.3 ??? Bili Direct 05/17/2013 0.1 ??? Alk Phos 05/17/2013 90 ??? ALT (SGPT) 05/17/2013 12 ??? AST(SGOT) 05/17/2013 12 ??? Hepatic Function Panel P* 05/17/2013 [facility] ??? WBC 05/17/2013 11.4* ??? RBC 05/17/2013 5.13 ??? Hgb 05/17/2013 11.4* ??? HCT 05/17/2013 37.6 ??? MCV 05/17/2013 73.3* ??? MCH 05/17/2013 22.2* ??? MCHC 05/17/2013 30.3* ??? RDW 05/17/2013 17.9* ??? PLT 05/17/2013 280 ??? MPV 05/17/2013 10.1 ??? NRBCA 05/17/2013 0.0 ??? CBC Plt Performed at: 05/17/2013 [facility] ? ? Troponin I 05/17/2013 <0.010 PROCEDURES Procedures DIFFERENTIAL DIAGNOSIS AND PLAN Gastritis, gastroenteritis, pancreatitis, cholecystitis, irritable bowel, One no history of nausea vomiting and loose stools with benign abdomen and normal vital signs she isfeeling better after that administration of IV Zofran. She was given 2 L of IV fluids in the ED. Herlabs were unremarkable. She was taking by mouth at discharge. We'll discharge with symptomatic treatment. Patient to return to the emergency department with worsening symptoms. Otherwise follow with primary care FINAL CLINICAL IMPRESSION Gastroenteritis Faizan Ramon PA, 05/17/2013 9:52 AM NG ROOM SUPERVISOR Cortney Sahu RN - 05/17/2013 9:33 AM CST Patient BIBRuth with c/o N/V. Patient states she woke up feeling fine and began to feel anxious so she took a PRN ativan but that didn't help. Patient states she began to feel worse and became nauseated and vomited x 1 and called EMS. Patient was given benadryl and zofran by medics and feels much better. NG ROOM SUPERVISOR Cortney Sahu RN - 05/17/2013 9:29 AM CSTBed:B08
Expected date:
Expected time:
Means of arrival:
Comments:
593/nausea/diarrhea NG ROOM SUPERVISOR documented in this encounter Plan of Treatment Not on filedocumented as of this encounter Procedures Procedure Name Priority Date/Time Associated Diagnosis Comme nts TROPONIN I Timed 05/17/2013 12:00 PM Results for this SEWING ROOM SUPERVISOR procedure are i n the results section. ED EKG (12-LEAD) STAT 05/17/2013 11:20 AM Resu lts for this SEWING ROOM SUPERVISOR procedure are i n the results section. ED CHEMISTRY STAT 05/17/2013 10:43 AM Results for this LABS(NA,K,CL,CO2,GL SEWING ROOM SUPERVISOR procedur e are in U,CREAT,CA-IONIZED, the resu lts ANION GAP) section. URINALYSIS,TOTAL STAT 05/17/2013 10:43 AM Resu lts for this SEWING ROOM SUPERVISOR procedure are i n the results section. LIPASE STAT 05/17/2013 10:43 AM Results for this SEWING ROOM SUPERVISOR procedure are i n the results section. PANEL HEPATIC STAT 05/17/2013 10:43 AM Results for this FUNCTION SEWING ROOM SUPERVISOR procedure are i n the results section. CBC WITH PLATELET STAT 05/17/2013 10:43 AM Res ults for this SEWING ROOM SUPERVISOR procedure are i n the results section. documented in this encounter Results TROPONIN I (05/17/2013 12:00 PM SEWING ROOM SUPERVISOR) P athologist Signature Troponin I <0.010 <=0.030 [facility] ??g/L Specimen Anatomical Collection Method Collection Time Receive d Time (Source) Location / / Volume Laterality Blood 05/17/2013 12:00 05/17/2013 PM SEWING ROOM SUPERVISOR 12:22 PM SEWING ROOM SUPERVISOR Faizan Ramon PA-C LABORATORY Performing Organization Address [facility]/ZIP [facility] [place] [address] ED EKG (12-LEAD) (05/17/2013 11:20 AM SEWING ROOM SUPERVISOR) Specimen (Source) Anatomical Collection Method Collection Time Re ceived Time Location / / Volume Laterality 05/17/2013 11:20 AM SEWING ROOM SUPERVISOR Impressions [facility] CVIS EKG ORDERS - 05/17/2013 11:20 AM SEWING ROOM SUPERVISOR SINUS RHYTHM NORMAL ECG Compared with:03/29/2013 8:34 AM no interval change P-R Interval 130 ms QRS Interval 84 ms QT Interval 387 ms QTC Interval 417 ms P [place] 17 QRS [place] -6 T Wave [place] -6 Procedure Note Brendan Doss MD - 05/17/2013Formattin g of this note might be different from the original. IMPRESSION SINUS RHYTHM NORMAL ECG Compared with:03/29/2013 8:34 AM no interval change P-R Interval 130 ms QRS Interval 84 ms QT Interval 387 ms QTC Interval 417 ms P [place] 17 QRS [place] -6 T Wave [place] -6 Faizan Ramon PA-C EKG Performing Organization Address City/[facility] Phon e Number [facility] CVIS EKG ORDERS (ABNORMAL) CBC WITH PLATELET (05/17/2013 10:43 AM SEWING ROOM SUPERVISOR) Analysis Performed At Patho logist Time Signature WBC 11.4 (H) 4.0 - 10.0 [facility] k/cmm RBC 5.13 3.90 - [facility] 5.20 m/cmm Hgb 11.4 (L) 11.5 - [facility] 15.7 g/dL Hematocrit 37.6 34.0 - [facility] 45.0 % MCV 73.3 (L) 80.0 - [facility] 100.0 fL MCH 22.2 (L) 25.0 - [facility] 32.0 pg MCHC 30.3 (L) 31.0 - [facility] 36.0 g/dL RDW 17.9 (H) 11.5 - [facility] 14.5 % Plt 280 150 - 400 [facility] k/cmm MPV 10.1 6.5 - 12.5 [facility] fL NRBC 0.0 0.0 - 0.0 [facility] % CBC Plt [facility] Performed at: Comment: [facility] Laboratory [address] [place] [phone] Specimen Anatomical Collection Method Collection Time Receive d Time (Source) Location / / Volume Laterality Blood 05/17/2013 10:43 05/17/2013 AM SEWING ROOM SUPERVISOR 11:01 AM SEWING ROOM SUPERVISOR Faizan Ramon PA-C LABORATORY Performing Organization Address City/[facility] Phon e Number [facility] [place] [address] [place] [address] PANEL HEPATIC FUNCTION (05/17/2013 10:43 AM SEWING ROOM SUPERVISOR) athologist Signature Total Protein 6.6 6.4 - 8.3 [facility] g/dL Comment: Total Protein Reference, Premat ure : 3.6 - 6.0 g/dl Albumin 4.1 3.8 - 5.1 g/dL [facility] Bili Total 0.3 0.1 - 1.2 mg/dL [facility] Comment: Full Term Newborns: Up to 24 hours= 1-6 mg/dL Up to 48 hours= 6-10 mg/dL 3-5 days= 4-8 mg/dL Newborns <38 weeks gestational age: Up to 24 hours= 1-8 mg/dL Up to 48 hours= 6-12 mg/dL 3-5 days= 10-14 mg/dL Bili Direct 0.1 0.0 - 0.2 mg/dL [facility] Alk Phos 90 35 - 104 IU/L [facility] ALT (SGPT) 12 <=33 IU/L [facility] AST(SGOT) 12 5 - 40 IU/L [facility] Hepatic Function Panel Performed at: [facility] Comment: [facility] Laboratory [address] [place] [phone] Specimen Anatomical Collection Method Collection Time Receive d Time (Source) Location / / Volume Laterality Blood 05/17/2013 10:43 05/17/2013 AM SEWING ROOM SUPERVISOR 10:58 AM SEWING ROOM SUPERVISOR Faizan Ramon PA-C LABORATORY Performing Organization Address City/[facility]/ZIP Code Phon e Number [facility] [place] [address] (ABNORMAL) URINALYSIS,TOTAL (05/17/2013 10:43 AM SEWING ROOM SUPERVISOR) [facility] Method Time Signature Appearance CLEAR CLEAR [facility] Urine Glucose NEGATIVE NEGATIVE [facility] mg/dL Bili UA NEGATIVE NEGATIVE [facility] Comment: Confirmatory test not available . Ketones 15 (A) NEGATIVE mg/dL [facility] Color YELLOW YELLOW [facility] Specific [place] 1.010 1.003 - 1.030 [facility] Blood Ur NEGATIVE Neg-Trace [facility] PH Urine 6.0 5.0 - 7.0 [facility] Protein Ur NEGATIVE Neg-Trace mg/dL [facility] Urobilinogen 0.2 0.2 - 1.0 EU/dL [facility] Nitrite Ur NEGATIVE NEGATIVE [facility] Leuk Est NEGATIVE Neg-Trace [facility] WBC Ur 0-5 0 - 5 perHPF [facility] RBC Ur 0-5 0 - 5 perHPF [facility] SQ EPITH 1+ 1+ perHPF [facility] Urinalysis Performed at: [facility] Comment: [facility] Laboratory [address] [place] [phone] Specimen Anatomical Collection Method Collection Time Receive d Time (Source) Location / / Volume Laterality Urine 05/17/2013 10:43 05/17/2013 AM SEWING ROOM SUPERVISOR 11:10 AM SEWING ROOM SUPERVISOR Faizan Brark PA-C LABORATORY Performing Organization Address [facility]/ZIP Code Phon e Number [facility] [place] [address] LIPASE (05/17/2013 10:43 AM SEWING ROOM SUPERVISOR) P athologist Signature Lipase 29 13 - 60 IU/L [facility] Comment: Test performed by: [facility] [address] [place] [phone] Specimen Anatomical Collection Method Collection Time Receive d Time (Source) Location / / Volume Laterality Blood 05/17/2013 10:43 05/17/2013 AM SEWING ROOM SUPERVISOR 10:58 AM SEWING ROOM SUPERVISOR Faizan B Formaik PA-C LABORATORY Performing Organization Address [facility]/ZIP Code Phon e Number [facility] [place] [address] (ABNORMAL) ED CHEMISTRY LABS(NA,K,CL,CO2,GLU,CREAT,CA-IONIZED) (05/17/2013 10:43 AM SEWING ROOM SUPERVISOR) Analysis Performed At Patho logist Time Signature Sodium 138 135 - 148 [facility] mEq/L Potassium 4.0 3.5 - 5.3 [facility] mEq/L Chloride 111 (H) 100 - 108 [facility] mEq/L CO2 23 22 - 30 [facility] mEq/L Glucose 226 (H) 70 - 100 [facility] mg/dL ICA, Actual 4.40 4.40 - [facility] 5.20 mg/dL ICA, pH 4.37 (L) 4.40 - [facility] Corrected 5.20 mg/dL Creatinine 0.49 (L) 0.50 - [facility] 0.90 mg/dL eGFR, High 166 ml/min/1.7 [facility] 3m2 eGFR, Low 137 ml/min/1.7 [facility] 3m2 Specimen Anatomical Collection Method Collection Time Receive d Time (Source) Location / / Volume Laterality Blood 05/17/2013 10:43 05/17/2013 AM SEWING ROOM SUPERVISOR 10:46 AM SEWING ROOM SUPERVISOR Faizan Ramon PA-C LABORATORY Performing Organization Address City/State/ZIP Code Phon e Number [facility] [place] [address] documented in this encounter Visit Diagnoses Diagnosis Gastroenteritis - Primary Other and unspecified noninfectious sabino roenteritis and colitis documented in this encounter Administered Medications Inactive Administered Medications - up to 3 most recent administrations Medication Order MAR Action Action Date Dose Rate Site sodium chloride 0.9% bolus New Bag 05/17/2013 12:22 PM 1,000 mL 2000 mL/hr 1,000 mL SEWING ROOM SUPERVISOR 1,000 mL, Intravenous, Administer over 30 Minutes, IV BOLUS, 1 dose, On Maxine 05/17/13 at 1205 sodium chloride 0.9% bolus 1,000 New Bag 05/17/2013 1:00 PM CS T 1,000 mL 2000 mL/hr mL 1,000 mL, Intravenous, Administer over 30 Minutes, IV BOLUS, 1 dose, On Maxine 05/17/13 at 1225 documented in this encounter Active and Recently Administered Medications Times are shown in SEWING ROOM SUPERVISOR. Scheduled Medication Order 05/15/2013 05/16/2013 05/17/2013 sodium chloride 0.9% bolus 1,000 mL (COMPLETED) 1222 (New Bag - Provider: Cortney Sahu, JUAN)1300 (Infusion completed - Provider: Sheri Sanders, JUAN) 1,000 mL, Intravenous, Administer over 3 0 Minutes, IV BOLUS, 1 dose, On Maxine 05/17/13 at 1205 sodium chloride 0.9% bolus 1,000 mL (COMPLETED) 1300 (New Bag - Provider: Sheri Sanders, JUAN)1400 (Infusion completed - Provider: Sheri Sanders RN) 1,000 mL, Intravenous, Administer over 3 0 Minutes, IV BOLUS, 1 dose, On Maxine 05/17/13 at 1225 documented in this encounter Additional Health Concerns Infection Onset Date Last Indicated Resolved Time 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
--- OUTSIDE RECORDS SUMMARY | 2022-01-19 16:35 | XMS_ITS | Encounter Summary ---
:1950 Author Organization [facility] Address [address] [place] [address] Phone Care Team Providers Name Role Phone Olga Lee MD Primary Care Provider Chuckie Mccoy [facility] Unavailable Unavailable Reason for Visit Reason Onset Date Comments Refill Request 07/20/2013 Encounter Details Date Type Department Care Team Description 07/20/2013 Refill [facility] Bere Dale MD Refill Request [facility] [address] [facility] [address] [place] [address] [address] [place], [place] [address] [phone] Social History Tobacco Use Types Packs/Day Years Used Date Smoking Tobacco: Former Cigarettes Quit : 08/01/1999 Smokeless Tobacco: Never Alcohol Use Standard Drinks/Week Comments No 0 (1 standard drink = 0.6 oz pure alcoho l) Sex Assigned at Date Recorded Female 06/17/2020 4:53 PM CIVIL ENGINEER LAND DEVELOPMENT documented as of this encounter Plan of Treatment Not on filedocumented as of this encounter Visit Diagnoses Diagnosis Post traumatic stress disorder - Primary Posttraumatic stress disorder documented in this encounter Additional Health Concerns Infection Onset Date Last Indicated Resolved Time 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
--- OUTSIDE RECORDS SUMMARY | 2022-01-19 16:35 | XMS_ITS | Encounter Summary ---
:1950 Author Organization [facility] Address [address] [place], [place] [address] [address] Phone Care Team Providers Name Role Phone Olga Lee MD Primary Care Provider Chuckie Mccoy HEATING WORKER [facility] Unavailable Unavailable Encounter Details Date Type Department Care Team Description 05/02/2013 Hospital Encounter [facility] [place] Speech Language Summervi dioni, Lenka Spencer, MARKETING BUDGET ANALYST, DAMAGE CUTTER Need New Address Pathology Chuckie Mccoy, [place] [address] Social History Tobacco Use Types Packs/Day Years Used Date Smoking Tobacco: Former Cigarettes Quit : 08/01/1999 Smokeless Tobacco: Never Alcohol Use Standard Drinks/Week Comments No 0 (1 standard drink = 0.6 oz pure alcoho l) Sex Assigned at Date Recorded Female 06/17/2020 4:53 PM BLOW MOLDING MACHINE OPERATOR documented as of this encounter Medications at Time of Discharge Medication Sig Dispensed Refills Start Date End Date Multiple Take 1 Tab by mouth 0 Vitamins-Minerals daily. (MULTIVITAL ORAL) cyproheptadine 4 mg 0 04/16/201306/19 oral tablet paroxetine (PAXIL CR) Take 1 tablet daily 60 tablet 2 05/0205/09/2013 12.5 mg oral tablet 24 for 5 days then HR increase to 2 tablets daily LORazepam (ATIVAN) 0.5 Take 1 tablet (0.5 [...] breakfast, and 1 hour before evening meal. citalopram (CELEXA) 20 20 mg. 0 04/11/2013 mg oral tablet cyproheptadine 4 mg Take one tablet at [...] capsule mg) by mouth twice daily. Pen [place] 5/16 30G Use as directed three 100 Each 09/20/2013 X 8 MM NotApplicabl times daily. [facility] [place] documented as of this encounter Progress Notes Chuckie Mccoy, HEATING WORKER CCC - 05/02/2013 3:25 PM CST SPEECH-LANGUAGE PATHOLOGY Outpatient PROGRESS NOTE Name: Maye Li Birthdate: 1950 Date: 05/02/2013 Date of Onset: 03/18/2013 S & O Pt arrived to treatment session on time and was seen for 60 minute treatment session. Today's session addressed the following goals as outlined in current treatment plan: 1. Complete further formalized assessment and diagnostic interviewing to determine impairments areas& finalize appropriate treatment goals. Pt reviewed testing results; in agreement. 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 This was the first time post-TBI pt has presented this topic. She was surprised at how she couldn't pull it together. She digressed and informed class of her injury and cognitive- linguistic deficits. Per class and instructor, pt sounded great however pt felt she did notdo too well, but did not feel like a big loser. She endorsed heightened self-awareness during lecture. Pt presented with ongoing education re pragmatic aspects of language and environmental influence. Internal and external factors were discussed in the context of her deficits s/p TBI. Given recommendation to break the ice (i.e., tell others about problem/deficits) pt stated she would make an attempt as she felt comfortable doing so. She endorsed understanding how this may lessen intensity of factorspresenting communicative demands per environment/audience/topic. 2. Pt will learn and implement an appropriate energy management plan to minimize postconcussive symptoms and optimize cognitive functioning. Pt introduced to energy management; preliminary instruction re rest breaks and duration 5-10 minutesan hour during periods of activity was covered. Pt endorsed understanding. 3. Pt will use external memory aids/organizational aids independently as needed. Pt presented her notebook; she was observed to take some notes on the calendar re activities/tasks, however reports were not immediate nor tied together (i.e., behavior/consequence). Given education reobservation pt endorsed modifying use slightly. Pt presented with suggestion to use a timer to enhance capacity to (1) take breaks every hour duringperiods of activity and (2) reduce demands on working memory (e.g., timing laundry in basement). A Assessment: Pt presents with excellent insight, stating I'm feeling better and endorsing desire todo whatever is necessary. Pt continues to present with functional language deficits including periods of disfluency, word-finding difficulties, and attention-lapse in conversation; this was observed regularly today. She is receptive to and active in discussing strategies to mitigate these affects onher expressive language. Pt participated in preliminary education re energy management and strategies to promote participation in daily activities without adverse impact of postconcussive symptoms. Pt is motivated and benefiting from outpatient services. 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 P Plan: Continue direct speech-language pathology treatment as scheduled, weekly. Modify and/or upgrade goals as appropriate. See Plan of Care Dated 04/26/2013 Patient / Family participated in goal setting: Yes Referral/Community Contacts: None at this time Speech-Language Pathologist: Jennifer AroraS., CCC-HEATING WORKER 05/02/2013, 15:25 Pager: [phone] MOLDING MACHINE OPERATOR documented in this encounter Plan of [...] documented as of this encounter Care Teams Taste Tester Relationship Specialty Start Date End Date Olga Lee MD PCP - General Internal Medicine 01/29/[address] [place] [id number] Chuckie Mccoy SLP CCC Speech Pathologist Speech Pathology 04/26/13 documented as of this encounter
--- OUTSIDE RECORDS SUMMARY | 2022-01-19 16:35 | XMS_ITS | Encounter Summary ---
:1950 Author Organization [facility] Address [address] [place] [address] Phone Care Team Providers Name Role Phone Olga Lee MD Primary Care Provider Chuckie Mccoy TALLOW MAKER [facility] Unavailable Unavailable Encounter Details Date Type Department Care Team Description 05/21/2013 Hospital Encounter [facility] [place] Center Suma Aranda MD [address] [place], [place] [id number] [address] Nurse, Inf Chemotherapy [address] [place], [place] [address] Social History Tobacco Use Types Packs/Day Years Used Date Smoking Tobacco: Former Cigarettes Quit : 08/01/1999 Smokeless Tobacco: Never Alcohol Use Standard Drinks/Week Comments No 0 (1 standard drink = 0.6 oz pure alcoho l) Sex Assigned at Date Recorded Female 06/17/2020 4:53 PM 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 documented as of this encounter Last Filed Vital Signs Vital Sign Reading Time Taken Comments Blood Pressure 118/80 05/21/2013 2:00 PM 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 Pulse 87 05/21/2013 2:00 PM 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 Temperature 36.9 ??C (98.4 ??F) 05/21/2013 2:00 PM 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 Respiratory Rate - - Oxygen Saturation - - Inhaled Oxygen Concentration - - Weight - - Height - - Body Mass Index - - documented in this encounter Medications at Time of Discharge Medication Sig Dispensed Refills Start Date End Date Multiple Take 1 Tab by mouth 0 Vitamins-Minerals daily. (MULTIVITAL ORAL) cyproheptadine 4 mg 0 04/16/201306/19 oral tablet BYETTA 5 mcg/0.02 mL 0 05/21/2013 03/0 07/2013 subcutaneous penIndications: TBI (traumatic brain injury) () exenatide (BYETTA) 5 Inject 0.02 mL (5 mcg) 1.2 mL 0 06/13/2013 mcg/0.02 mL subcutaneously twice subcutaneous Pen daily before meals. ondansetron (ZOFRAN Take 1 tablet (4 mg) [...] solution intravenously every week for 5 doses. cyproheptadine 4 mg Take one tablet at [...] capsule mg) by mouth twice daily. Pen [place] 5/16 30G Use as directed three 100 Each 09/20/2013 X 8 MM NotApplicabl times daily. Misc documented as of this encounter Miscellaneous Notes Cancer Center Note - Tr Lindsay, RN - 05/21/2013 2:18 PM CST Hem Onc RN note Data: Dx = 1. Iron deficiency anemia Maye Li is a 62 y.o. female. She is here for iron sucrose. She has tolerated it well in the past. Safety/fall risk assessed. Patient does not currently present an elevated fall risk. Risk for injury assessed. Patient is under 85 years old, has no pertinent bone issues, has no known coagulopathy, and has not had surgery in the past week. Maye does not present an elevated risk for injury should she fall. Action: Infused per treatment plan. Done via peripheral IV. Dressing applied to site. Response: No evidence of complications. Maye restates/teaches back plan correctly. Plan: RTC as scheduled on 05/28 for final dose. Call for problems. Tr Lindsay, RN, [facility] Certified Aromatherapist, [facility] [phone] FACTURING SALES REPRESENTATIVE documented in this encounter Plan of Treatment Not on filedocumented as of this encounter Visit Diagnoses Diagnosis Iron deficiency anemia - Primary Iron deficiency anemia, unspecified documented in this encounter Administered Medications Inactive Administered Medications - up to 3 most recent administrations Medication Order MAR Action Action Date Dose Rate Site iron sucrose (VENOFER) 100 mg in New Bag 05/21/2013 1:55 PM 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 10 0 mg NaCl 0.9% 100 mL IVPB 100 mg, Intravenous, ONE TIME, On 05/21/13 at 1325 documented in this encounter Additional Health Concerns Infection Onset Date Last Indicated Resolved Time 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
--- OUTSIDE RECORDS SUMMARY | 2022-01-19 16:35 | XMS_ITS | Encounter Summary ---
:1950 Author Organization [facility] Address [address] [place], [place] [address] [address] Phone Care Team Providers Name Role Phone Olga Lee MD Primary Care Provider Chuckie Mccoy TOY TRAINS AND ACCESSORIES SALESPERSON [facility] Unavailable Unavailable Encounter Details Date Type Department Care Team Description 06/22/2013 Hospital Encounter [facility] [place] Speech Language Summervi dioni, Lenka Spencer, MARINE SERVICE MANAGER, PIECE MAKER Need New Address Pathology Chuckie Mccoy, TOY TRAINS AND ACCESSOR[place] [address] Social History Tobacco Use Types Packs/Day Years Used Date Smoking Tobacco: Former Cigarettes Quit : 08/01/1999 Smokeless Tobacco: Never Alcohol Use Standard Drinks/Week Comments No 0 (1 standard drink = 0.6 oz pure alcoho l) Sex Assigned at Date Recorded Female 06/17/2020 4:53 PM VP ACCOUNT DIRECTOR documented as of this encounter Medications at Time of Discharge Medication Sig Dispensed Refills Start Date End Date Multiple Take 1 Tab by mouth 0 Vitamins-Minerals daily. (MULTIVITAL ORAL) FLUoxetine (PROZAC) 20 Take 1 capsule (20 30 capsule 1 06/2207/20/2013 mg oral capsule mg) by mouth daily. BYETTA 5 mcg/0.02 mL 0 05/21/2013 030 07/2013 subcutaneous penIndications: TBI (traumatic brain injury) () sitaGLIPtin (JANUVIA) Take 1 tablet (100 30 tablet 5 201312/12/2013 100 mg oral tablet mg) by mouth daily. LORazepam (ATIVAN) 0.5 Take 1 tablet (0.5 60 tablet 2 05/0207/23/2013 mg oral tablet mg) by mouth twice daily as needed for Anxiety. temazepam (RESTORIL) 15 Take 1 to 2 capsules 60 capsule 2 10/15/2013 mg oral capsule (15-30 mg) by mouth at bedtime. Pen [place] 5/16 30G X Use as directed 100 Each 11 013 09/20/2013 8 MM NotApplicabl Misc three times daily. documented as of this encounter Progress Notes Chuckie Mccoy, TOY TRAINS AND ACCESSORIES SALESPERSON CCC - 06/22/2013 3:10 PM CST SPEECH-LANGUAGE PATHOLOGY Outpatient PROGRESS NOTE Name: Maye Li Birthdate: 1950 Date: 06/22/2013 Date of Onset: 03/18/2013 S & O Pt arrived to treatment session on time and was seen for 60 minute treatment session. Today's session addressed the following goals as outlined in current treatment plan: 1. Complete further formalized assessment and diagnostic interviewing to determine impairments areas& finalize appropriate treatment goals. Ongoing. 2. Pt will learn and implement an appropriate energy management plan to minimize postconcussive symptoms and optimize cognitive functioning. In progress. Reported feeling good today, identifying a positive impression re Clinical Psychology within the clinic. She continues to feel supported by friends when she goes out in the community; pt encouraged to continue increasing her activity as comfortable while utilizing strategies, rest breaks, and otherenergy management considerations to prevent postconcussive symptoms exacerbation. 3. Pt will learn and demonstrate independent use of various attention, memory and organization techniques to facilitate new learning and recall. In progress. Pt completed a Memory activity to identify and promote strategies to limit demands on working memory (see goal #6). Strategies included (1) systematic approach, (2) verbal rehearsal, (3) association, (4) visualization, and (5) avoiding high-effort. Pt was active in education and appeared to adopt st rategies, as demonstrated by use with withdrawn feedback. 4. Pt will use a journal to track postconcussive symptoms re functional activities independently as needed. MET. Pt is using her journal as discussed last session independently; will continue to monitor and reinforce, particularly as her activity level increases in the coming weeks. 5. Pt will complete higher-level auditory and visual sustained, selective, alternating and divided attention activities with 85% accuracy.Did not address this encounter. 6. Pt will complete auditory and visual memory activities (immediate, delayed, working, prospective)with 85% accuracy using compensation techniques as needed. In progress Pt completed a visual memory game: ?? F:6, pt found matches in 100% of observed opportunities ?? F:48, pt found matches in ~70% of observed opportunities with moderate prompting re strategies (see goal #3) 7. Pt will complete higher level initiation, planning, organization, and multiprocess reasoning activities with 90% accuracy. Did not address this encounter. A Assessment: Pt continues to present with mild deficits in attention, planning, organization, and self-regulation; weekly she is demonstrating progress as demonstrated by fewer postconcussive symptoms reported. This is likely facilitated by self-reported progress in pt's emotional coping re TBI; she isnow seeing a Clinical Psychology within the [facility] Clinic to address this and her injury. She appears highly motivated in and out of Speech-Language Pathology sessions, actively involved in education and practice re compensatory strategies as well as arriving to sessions with excellent observations from the past week. Pt is benefiting from outpatient speech-language services. Pain: none reported Barriers to Learning: Cognitive-Linguistic Deficits s/p mTBI Patient / Family Education: see S & O section P Plan: Continue direct speech-language pathology treatment as scheduled, weekly. Modify and/or upgrade goals as appropriate. Focus on following next session: 1) reinforce strategies from last session; parallel to daily activities? 2) review postconcussive symptoms and activities from the week 3) provide practice re discrete cognitive functions; measure success 4) Other concerns or areas as presented by pt See Plan of Care Dated 04/26/2013 (updated Plan of Care due 06/27/2013) Patient / Family participated in goal setting: Yes Referral/Community Contacts: None at this time Speech-Language Pathologist: Chuckie Mccyo M.S., CCC-TOY TRAINS AND ACCESSORIES SALESPERSON 06/22/2013, 15:11 Pager: [phone] ACCOUNT DIRECTOR documented in this encounter Plan of Treatment [...] documented as of this encounter Care Teams Underwriting Internship Relationship Specialty Start Date End Date Olga Lee MD PCP - General Internal Medicine 01/29/[address] [place] [address] Chuckie Mccoy, TOY TRAINS AND ACCESSORIES SALESPERSON CCC Speech Pathologist Speech Pathology 04/26/13 documented as of this encounter
--- OUTSIDE RECORDS SUMMARY | 2022-01-19 16:35 | XMS_ITS | Encounter Summary ---
:1950 Author Organization [facility] Address [address] [place] [address] Phone Care Team Providers Name Role Phone Olga Lee MD Primary Care Provider Reason for Visit Reason Onset Date Comments Appointment 04/23/2013 Schedule IV iron the lindsey Encounter Details Date Type Department Care Team Description 04/23/2013 Telephone [facility] [place] [facility] Padma Kay intment (Schedule Clinic JUAN Kamara IV iron therapy) [address] [place], [place] [phone] Social History Tobacco Use Types Packs/Day Years Used Date Smoking Tobacco: Former Cigarettes Quit : 08/01/1999 Smokeless Tobacco: Never Alcohol Use Standard Drinks/Week Comments No 0 (1 standard drink = 0.6 oz pure alcoho l) Sex Assigned at Date Recorded Female 06/17/2020 4:53 PM SENIOR WATER RESOURCES ENGINEER documented as of this encounter Miscellaneous Notes Telephone Encounter - Padma Kay RN - 04/23/2013 3:23 PM SENIOR WATER RESOURCES ENGINEER Call back out to patient, confirmed times for infusion center are OK. Padma Kay, JUAN, 04/23/2013 3:23 PM OR WATER RESOURCES ENGINEER Telephone Encounter - Padma Kay RN - 04/23/2013 3:07 PM SENIOR WATER RESOURCES ENGINEER D: Patient with low iron, oral replacement non-responsive. Needs IV iron replacement. A: Chart reviewed, collaborating with Dr. Aranda and IV/cancer center IV Iron sucrose (Venofer). This infusion is for 5 rounds, one hour each session. R/P: Call out to patient to coordinate scheduling, left voicemail message with the above informationand return call number. 

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
--- OUTSIDE RECORDS SUMMARY | 2022-01-19 16:35 | XMS_ITS | Encounter Summary ---
:1950 Author Organization [facility] Address [address] [place] [address] Phone Care Team Providers Name Role Phone Olga Lee MD Primary Care Provider Chuckie Mccoy ANNEALING OVEN OPERATOR [facility] Unavailable Unavailable Encounter Details Date Type Department Care Team Description 06/15/2013 Hospital En[place] [facility] [place] Nella Gallardo [address], PhD, LP [address]8.[address] Need New Address [place], [place] [address] [phone] Social History Tobacco Use Types Packs/Day Years Used Date Smoking Tobacco: Former Cigarettes Quit : 08/01/1999 Smokeless Tobacco: Never Alcohol Use Standard Drinks/Week Comments No 0 (1 standard drink = 0.6 oz pure alcoho l) Sex Assigned at Date Recorded Female 06/17/2020 4:53 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 (MULTIVITAL ORAL) cyproheptadine 4 mg oral 0 04/16/2013 06/19/2013 tablet BYETTA 5 mcg/0.02 mL 0 05/21/2013 03/0 07/2013 subcutaneous penIndications: TBI (traumatic brain injury) () sitaGLIPtin (JANUVIA) 100 Take 1 tablet (100 30 tablet 5 12/12/2013 mg oral tablet mg) by mouth daily. FLUoxetine (PROZAC) 10 mg Take 1 capsule (10 30 capsule 1 06/22/2013 oral capsule mg) by mouth daily. LORazepam (ATIVAN) 0.5 mg Take 1 tablet (0.5 60 tablet 2 07/23/2013 oral tablet mg) by mouth twice daily as needed for Anxiety. temazepam (RESTORIL) 15 Take 1 to 2 60 capsule 2 04/16/2013 10/15/2013 mg oral capsule capsules (15-30 mg) by mouth at bedtime. Pen [place] 5/16 30G X 8 Use as directed 100 Each 10/0409/20/2013 MM NotApplicabl Misc three times daily. documented as of this encounter Progress Notes Nella Gallardo, PhD, LP - 06/15/2013 1:51 PM CST Images from the original note were not included. NEUROPSYCHOLOGY FEEDBACK SESSION Maye Li : 1950 Sex: female Date of service: 06/15/2013 Purpose of visit: The purpose of today???s session was to review of the results of Mrs. Maye Li's recent neuropsychometric evaluation. The session consisted of 60 minutes of direct professional services (explaining test procedures, results, implications/conclusions, and recommendations) with the patient completed by the neuropsychologist. Summary: Mrs. Maye Li arrived to today???s session early and unaccompanied. I provided Mrs. Maye Li with detailed feedback about her performance and we spoke at length about her cognitive strengths and weaknesses. We discussed her performance in the evaluation and the relationship between stress, physical symptoms, cognition, and everyday functioning. We discussed recommendations for her continued treatment here at [facility] and the implications of our findings for return to work. At the end of the session she stated that she understood the results of the evaluation and that I had answered all of her questions. Please contact me with any questions regarding the content of this note. Nella Gallardo, Ph.D., L.P. Senior Clinical Neuropsychologist, [id number] Neuropsychology Section (G8) [facility] [phone] HERMAL SHEET METAL WORKER documented in this encounter Plan of Treatment Not on filedocumented as of this encounter Visit Diagnoses Diagnosis Acute stress disorder - Primary Other acute reactions to stress Diabetes mellitus, type 2 () Type II [...] documented as of this encounter Care Teams Chemical Compounder Relationship Specialty Start Date End Date Olga Lee MD PCP - General Internal Medicine 01/29/[address] [place] [address] Chuckie Mccoy, ANNEALING OVEN OPERATOR CCC Speech Pathologist Speech Pathology 04/26/13 documented as of this encounter
--- OUTSIDE RECORDS SUMMARY | 2022-01-19 16:35 | XMS_ITS | Encounter Summary ---
:1950 Author Organization [facility] Address [address] [place], [place] [address] [place] [address] Phone Care Team Providers Name Role Phone Olga Lee MD Primary Care Provider Chuckie Mccoy HEAD OF TRAINING AND DEVELOPMENT [facility] Unavailable Unavailable Encounter Details Date Type Department Care Team Description 05/25/2013 Hospital Encounter [facility] Speech Language Summervi dioni, Lenka Spencer, TAPE MAKER, INSPECTOR FILTER TIP Need New Address Pathology Chuckie Mccoy, HEAD OF TRAINING [place] [address] Social History Tobacco Use Types Packs/Day Years Used Date Smoking Tobacco: Former Cigarettes Quit : 08/01/1999 Smokeless Tobacco: Never Alcohol Use Standard Drinks/Week Comments No 0 (1 standard drink = 0.6 oz pure alcoho l) Sex Assigned at Date Recorded Female 06/17/2020 4:53 PM DRAFTING LAYOUT 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 cyproheptadine 4 mg Take one tablet at [...] capsule mg) by mouth twice daily. Pen [place] 5/16 30G Use as directed three 100 Each 11 09/20/2013 X 8 MM NotApplicabl times daily. Misc documented as of this encounter Progress Notes Chuckie Mccoy, HEAD OF TRAINING AND DEVELOPMENT CCC - 05/25/2013 11:39 AM CST SPEECH-LANGUAGE PATHOLOGY Outpatient PROGRESS NOTE Name: Maye Li Birthdate: 1950 Date: 05/25/2013 Date of Onset: 03/18/2013 S & O Pt arrived to treatment session on time and was seen for 75 minute treatment session; portion of session spent in education and counseling re changes in communication and participation in activities c/w cognitive linguistic deficits s/p mTBI. Today's session addressed the following goals as o utlined in current treatment plan: 1. Complete further formalized assessment and diagnostic interviewing to determine impairments areas& finalize appropriate treatment goals. Pt expressed feeling things are getting better re cognitive function and her response; however pt acknowledges she has a way to go yet. Pt described two activities in which she noticed poor performance. (1) Pt attempted to make meatballs yesterday, something she has done automatically for 30+ years,but upon initiating task found she was forgetting some pike ingredients; she struggled to recognize her error and implement necessary changes. (2) Pt was feeling really, really good at home and decided to go to [facility] with her ; upon arrival, she began to feel mildly distracted and after 20 minutes she hit rock-bottom and needed to leave, endorsing a SILVEIRA and severe fatigue. 2. Pt will learn and implement an appropriate energy management plan to minimize postconcussive symptoms and optimize cognitive functioning. Pt discussed examples as presented above in regards to the demands placed on attention, organization, and other cognitive functions. Contrasting her energy and endurance at home (i.e., feeling really,really good) and when engaged in an activity in the community or with heightened cognitive demands appeared to enhance pt's comprehension of education. Pt endorsed maintaining adequate rest breaks at home, stopping when I feel I need to. She also reported feeling less and less frustrated re difficulties, referencing prior education re snow-ball effect (i.e., mutual influence of cognitive and emotional symptoms). 3. Pt will learn and demonstrate independent use of various attention, memory and organization techniques to facilitate new learning and recall. Pt was presented with written handouts re attention/organization strategies to promote her participation and accurate performance in daily activities. Examples as presented by pt were used to help pt comprehend applications for each strategy presented. In general, pt understood the strategies with phrases including: ?? Make it easy; use a recipe card or generate a [id number] plan ?? Start with every-day tasks to establish a routine re strategies for attention/organization; as you encounter success, introduce more complex or challenging activities in your home; eventually, applythese same strategies when heading out into the commnunity ?? Use verbal rehearsal to keep your focus and adhere to your plan/task ?? Stop yourself when you feel a lack of productivity or increase in confusion; look for potential distractions 4. Pt will use external memory aids/organizational aids independently as needed. Pt is using one notebook as suggested; she also reported she is using her alarm on her cell phone toremind need for breaks or time-dependent tasks/activities. She was prompted to write any observations re new attention/organization strategies in her notebook for next session. A Assessment: Pt presented today with reports of self-perceived progress, however endorsed persisting difficulties related to impairments in attention, planning, organization, and working memory. Sessiontoday focused on addressing observations and functional complaints by presenting helpful strategies within these contexts. Pt benefited from minimal structure and prompting to filter distractions during encounter. She demonstrated comprehension of today's education by actively participating and stating back strategies to this HEAD OF TRAINING AND DEVELOPMENT. Pt is benefiting from outpatient speech-language services. Pain: none Barriers to Learning: attention, cognitive linguistic deficits s/p mTBI Patient / Family Education: See S & O section P Plan: Continue direct speech-language pathology treatment as scheduled, weekly. Modify and/or upgrade goals as appropriate. See Plan of Care Dated 04/26/2013 (updated Plan of Care due 06/27/2013) Patient / Family participated in goal setting: Yes Referral/Community Contacts: Consider establishing care with TBI Clinic Clinical Psychology to address emotional changes in context of mTBI; pt to discuss this option with her current Psychologist Speech-Language Pathologist: Chuckie Mccoy M.S., CCC-HEAD OF TRAINING AND DEVELOPMENT 05/25/2013, 11:39 Pager: [phone] TING LAYOUT MAN documented in this encounter Plan of Treatment [...] documented as of this encounter Care Teams Liquid Sugar Melter Relationship Specialty Start Date End Date Olga Lee MD PCP - General Internal Medicine 01/29/13 [address] [place] [address] Chuckie Mccoy, HEAD OF TRAINING AND DEVELOPMENT CCC Speech Pathologist Speech Pathology 04/26/13 documented as of this encounter
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
--- OUTSIDE RECORDS SUMMARY | 2022-01-19 16:35 | XMS_ITS | Encounter Summary ---
:1950 Author Organization [facility] Address [address] [place], [place] [email or web address] [address] Phone Care Team Providers Name Role Phone Olga Lee MD Primary Care Provider Chuckie Mccoy [facility]ER [facility] Unavailable Unavailable Encounter Details Date Type Department Care Team Description 06/01/2013 Hospital Encounter [facility] Speech Language Summervi dioni, Lenka Spencer, BURNER TENDER, MAIL LIST LIBRARIAN Need New Address Pathology Chuckie Mccoy, [place] [address] Social History Tobacco Use Types Packs/Day Years Used Date Smoking Tobacco: Former Cigarettes Quit : 08/01/1999 Smokeless Tobacco: Never Alcohol Use Standard Drinks/Week Comments No 0 (1 standard drink = 0.6 oz pure alcoho l) Sex Assigned at Date Recorded Female 06/17/2020 4:53 PM THERAPY ASSISTANT documented as of this encounter Medications at [...] capsule mg) by mouth twice daily. Pen Hollywood 5/16 30G Use as directed three 100 Each 11 09/20/2013 X 8 MM NotApplicabl times daily. Misc documented as of this encounter Progress Notes Chuckie Mccoy, FISHER MUSSEL CCC - 06/01/2013 12:05 PM CST SPEECH-LANGUAGE PATHOLOGY Outpatient PROGRESS NOTE Name: Maye Li Birthdate: 1950 Date: 06/01/2013 Date of Onset: 03/18/2013 S & O Pt arrived to treatment session on time and was seen for 60 minute treatment session. I've been really, really tired; pt tearful intermittently throughout. Today's session addressed the following goals as outlined in current treatment plan: 1. Complete further formalized assessment and diagnostic interviewing to determine impairments areas& finalize appropriate treatment goals. Ongoing. Rapid Assessment Of Problem Solving (RAPS) Patient was presented with a visual chart of 32 pictures (pt endorsed comprehension of all presented) and instructions for a game. In this game, the patient is to identify a target picture by asking only questions that may be answered with a yes or a no. Furthermore and most importantly, the patient is told to ask as few questions as possible to find the target picture. As pictures are eliminated, they are visually crossed-out by the clinician to decrease demands on pt's working memory. This task examines several component executive functions necessary to solve a novel problem (i.e., planning, organization, reasoning, and self-regulation). Prior to trials, pt was presented with education re routine and need for a systematic approach to seemingly simple tasks to promote adoption of an effective routine. With this prompt, pt appeared to give good effort, asking category-seeking questions. Her approach lacked efficiency, particularly as re maining stimuli became more defined/complex. Furthermore, pt's processing speed declined both withinand across trials. While patient was successful in task, she demonstrated an approach c/b slow processing and stratetgy abandonment suggesting mild impairments in planning, organization, reasoning, andmental flexibility. 2. Pt will learn and implement an appropriate energy management plan to minimize postconcussive symptoms and optimize cognitive functioning. In progress. As mentioned, pt arrived to session with emotional complaints, endorsing I feel in a rut; she identified she is not taking her new prescription for Prozac because I just can't make myself take it; she cited concerns re feeling ishy when takingZoloft and fears this will happen again. Pt encouraged to follow prescription per psychiatrist, encouraging pt to contact her psychiatrist's clinic with additional questions/concerns. Pt remarked she felt exhausted easily during the past week; she identified pressure from her husbandre cognitive activities (e.g., word puzzles) and felt it did more harm than good. Pt reminded she forgot written handouts presented to her last week; these were reviewed once more to highlight phrases to help others support those living with a brain injury. 3. Pt will learn and demonstrate independent use of various attention, memory and organization techniques to facilitate new learning and recall. In progress. Use of routine to support cognitive function was reviewed; the component processes including planning, organization, reasoning, and self-awareness were presented as essential aspects of routines. These were illustrated with practice in a word-search and with the RAPS (see goal #1). 4. Pt will use external memory aids/organizational aids independently as needed. MET. Pt is using her personal logistics planner independently to track appointments and important activities; she may benefit fromuse of a journal as she begins to increase her activities. 5. Pt will complete higher-level auditory and visual sustained, selective, alternating and divided attention activities with 85% accuracy. Did not address this encounter. 6. Pt will complete auditory and visual memory activities (immediate, delayed, working, prospective)with 85% accuracy using compensation techniques as needed. Did not address this encounter. 7. Pt will complete higher level initiation, planning, organization, and multiprocess reasoning activities with 90% accuracy. Did not address this encounter. A Assessment: Pt arrived with emotional complaints re changes after mTBI; she endorsed referral to a Clinical Psychology within the TBI Clinic. Session spent reviewing education re changes after a TBI, role of Speech-Language Pathology, plan for energy management, and attention/memory/organization strategies (e.g., routine). Via informal assessment of problem solving, pt demonstrates mild impairments in planning, organization, reasoning, and mental flexibility; these interpretations are c/w prior assessment re impairments in working memory and processing speed. Pt is benefiting from outpatient speech-language services. Pain: none reported Barriers to Learning: Cognitive-Linguistic Deficits s/p mTBI Patient / Family Education: see S & O section P Plan: Continue direct speech-language pathology treatment as scheduled, weekly. Modify and/or upgrade goals as appropriate. Focus on following next session: 1) Update re postconcussive symptoms and energy management 2) Review memory, attention, and organization strategies per written handout 3) Skilled practice re strategies 4) Other concerns or areas as presented by pt See Plan of Care Dated 04/26/2013 (updated Plan of Care due 06/27/2013) Patient / Family participated in goal setting: Yes Referral/Community Contacts: Clinical Psychology; referral within TBI Clinic endorsed per pt preference Speech-Language Pathologist: Jennifer AroraSTheodore, CCC-FISHER MUSSEL 06/01/2013, 12:05 Pager: [phone] APY ASSISTANT documented in this encounter Plan of Treatment [...] documented as of this encounter Care Teams Unit Controller Relationship Specialty Start Date End Date Olga Lee MD PCP - General Internal Medicine 01/29/[address] [place] [address] Chuckie Mccoy, FISHER MUSSEL CCC Speech Pathologist Speech Pathology 04/26/13 documented as of this encounter
--- OUTSIDE RECORDS SUMMARY | 2022-01-19 16:35 | XMS_ITS | Encounter Summary ---
:1950 Author Organization [facility] Address [address] [place] [address] Phone Care Team Providers Name Role Phone Olga Lee MD Primary Care Provider Chuckie Mccoy PROFESSOR OF HISTORY [facility] Unavailable Unavailable Encounter Details Date Type Department Care Team Description 06/22/2013 Hospital Encounter [facility] Psychology Slime Johnson, [address] PhD, LP [address] [place], [place] [address] Social History Tobacco Use Types Packs/Day Years Used Date Smoking Tobacco: Former Cigarettes Quit : 08/01/1999 Smokeless Tobacco: Never Alcohol Use Standard Drinks/Week Comments No 0 (1 standard drink = 0.6 oz pure alcoho l) Sex Assigned at Date Recorded Female 06/17/2020 4:53 PM SENIOR TECHNICAL MANAGER documented as of this encounter Medications at [...] (15-30 mg) by mouth at bedtime. Pen Alpha 5/16 30G X Use as directed 100 Each 11 013 09/20/2013 8 MM NotApplicabl Misc three times daily. documented as of this encounter Progress Notes Restricted notes were excluded Slime Johnson, PhD, LP - 06/22/2013 10:36 AM CST [facility] Psychology Intake Note Available medical records were reviewed prior to seeing this patient to provide coordinated care. All information is based on patient report and a review of records. Duration: 60 minutes Seat Pack Inspector: No Diagnoses: [place] I. Post Traumatic Stress Disorder Major Depression, recurrent [place] II. No Diagnosis Dun[place] III. Patient reported TBI, Diabetes Defer to problem list [place] IV. Legal concerns, occupational concerns, adjustment post-injury Dun[place] V. Current GAF (Global Assessment of Functioning)= 51 Mental Status The patient was on time for the appointment. She was casually dressed and adequately groomed. Her mood was Depressed, and her affect was Dysphoric and Tearful. Her manner was Cooperative, Engaged and Pleasant. She was alert and oriented to person, place and time with no observable thought disturbance.Her eye contact was appropriate. Rate and volume of speech were within normal limits. Speech articulation was affected by word retrieval problems. Speech coherence was: Normal. Speech spontaneity was: Normal. Thought Processes were: Logical/goal-directed, but patient noted slower thinking. Thought content was absent to suicidal or assaultive ideation. Memory functioning appeared intact. There were noperceptual disturbances evident or reported. Judgment and insight appeared Adequate. There were no psychomotor abnormalities evident or reported. See separate psych sensitive note for full intake report. Plan/recommendations: Patient was educated about the emotional and cognitive impact of TBI. Patient was educated on the role and potential benefits of psychotherapy. Follow up appointment recommended in 1-2 weeks. The patient will continue follow-up with other providers as directed by those providers. The patient is aware of APS for emergent psychiatric care. Slime Johnson, PhD LP, 06/22/2013 10:36 AM Sr. 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
--- OUTSIDE RECORDS SUMMARY | 2022-01-19 16:35 | XMS_ITS | Encounter Summary ---
:1950 Author Organization [facility] Address [address] [place] [address] Phone Care Team Providers Name Role Phone Olga Lee MD Primary Care Provider Chuckie Mccoy [facility] Unavailable Unavailable Reason for Visit Reason Comments Other Encounter Details Date Type Department Care Team Description 05/09/2013 Telephone [facility] Psychiatry Clinic Fred Hernandez RN Mac[address] [facility] [address] [place] [address] [address] [place], [place] [address] [phone] Social History Tobacco Use Types Packs/Day Years Used Date Smoking Tobacco: Former Cigarettes Quit : 08/01/1999 Smokeless Tobacco: Never Alcohol Use Standard Drinks/Week Comments No 0 (1 standard drink = 0.6 oz pure alcoho l) Sex Assigned at Date Recorded Female 06/17/2020 4:53 PM EXTERMINATION INSPECTOR documented as of this encounter Miscellaneous Notes Telephone Encounter - Maye Tinsley RN,FLEET MANAGER/DISPATCH - 05/09/2013 12:34 PM CST Spoke with patient and she reiterates that she had heart palpitations with the paxil and would like to try a different medication. We agree to a trial of prozac 10 mg daily. RMINATION INSPECTOR Telephone Encounter - Priscilla Hernandez RN - 05/09/2013 11:46 AM CST Returned call to the patient who reported she tried to start the Paxil and took it for 2 days. Both days she experienced racing heart rate and palpitations, and I felt really horrible. She would like to have consideration for another medication. She tried Celexa in the past with poor results. Please advise RMINATION INSPECTOR Telephone Encounter - Priscilla Hernandez RN - 05/09/2013 11:45 AM CST Message copied by PRISCILLA HERNANDEZ on TueMay 09, 2013 11:45 AM ------ Message from: PERCY AGUILAR Created: TueMay 09, 2013 11:36 AM Regarding: small TELEPHONE MESSAGE Taken by: Percy Aguilar, 05/09/2013 11:37 AM Direct to: Problem: pt calling. States she is having problems with her med: paxil. Would like to speak with a nurse. Pt. 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
--- OUTSIDE RECORDS SUMMARY | 2022-01-19 16:35 | XMS_ITS | Encounter Summary ---
:1950 Author Organization [facility] Address [address] [place], [place] [address] [address] Phone Care Team Providers Name Role Phone Olga Lee MD Primary Care Provider Chuckie Mccoy UTILITY GELATIN MAKER [facility] Unavailable Unavailable Encounter Details Date Type Department Care Team Description 07/06/2013 Hospital Encounter [facility] Speech Language Summervi dioni, Lenka Spencer, FAMILY LIFE COUNSELOR, MEDICAL BILLING REPRESENTATIVE Need New Address Pathology Chuckie Mccoy, UTILITY [place] [address] Social History Tobacco Use Types Packs/Day Years Used Date Smoking Tobacco: Former Cigarettes Quit : 08/01/1999 Smokeless Tobacco: Never Alcohol Use Standard Drinks/Week Comments No 0 (1 standard drink = 0.6 oz pure alcoho l) Sex Assigned at Date Recorded Female 06/17/2020 4:53 PM PLATE DRILLER documented as of this encounter Medications at Time of Discharge Medication Sig Dispensed Refills Start Date End Date Multiple Take 1 Tab by mouth 0 Vitamins-Minerals daily. (MULTIVITAL ORAL) FLUoxetine (PROZAC) 20 Take 1 capsule (20 30 capsule 1 06/2207/20/2013 mg oral capsule mg) by mouth daily. BYETTA 5 mcg/0.02 mL 0 05/21/2013 03/0 [...] (15-30 mg) by mouth at bedtime. Pen Hosmer /16 30G X Use as directed 100 Each 11 013 09/20/2013 8 MM NotApplicabl Misc three times daily. documented as of this encounter Progress Notes Chuckie Mccoy, UTILITY GELATIN MAKER [facility] - 07/06/2013 11:09 AM CST SPEECH-LANGUAGE PATHOLOGY Outpatient PROGRESS NOTE Name: Maye Li Birthdate: 1950 Date: 07/06/2013 Date of Onset: 03/18/2013 S & O Pt arrived to treatment session on time and was seen for 60 minute treatment session. Pt presented situational stressors influencing an exacerbation in her postconcussive symptoms, including a raging headache and more severe and pervasive fatigue. Despite this report, pt described hercommunication, planning, organization, and reasoning regarding the situation with remarkable organization and clarity. Her thought processes and responses to the situation appeared reasonable. This observation was presented to the patient, whom expressed agreement, remarking stress is my big thing right now... When I'm stressed, things get worse. She was encouraged to continue her work with Clinical Psychology to address this aspect of her Traumatic Brain Injury. Re RTW, pt contacted necessary parties, including TBI Clinic, to determine whether she may RTW to obtain insurance. Pt reported she spoke with Lenka Simon, whom wrote a letter clearing pt for part-time work including 4-hour workdays, 3 day work weeks, and excuses for appts. This was confirmed viapt's chart. Pt reviewed strategies to support her energy management; will continue to reinforce. Pt to begin work on Tuesday, 07/09. Today's session addressed the following goals as outlined in current treatment plan: 1. Pt will complete intermediate level auditory and visual sustained, divided and alternating attention activities with 80% accuracy in a non-distracting environment with use of strategies given an initial prompt. In progress. Pt sustained her attention to moderately complex conversation re insurance, problem solving, etc fora full 40-minutes. No formal measures were collected to support this observation. 2. Pt will complete intermediate level verbal and visual immediate, delayed, and working memory activities with 80% accuracy in a non-distracting environment with use of strategies given an initial prompt. In progress. Pt presented with GOLF card game; rules were explained x1, pt restated rules accurately to demonstrate comprehension. Game 1: pt followed rules with extra processing time, identified 2/4 cards at the end (50% accy) Game 2: pt played with use of attention/memory strategies (e.g., internal rehearsal) with min prompting, ID 3/4 cards (75%) Game 3: pt played independently, ID 4/4 cards (100% accy) 3. Pt will complete intermediate level planning, organization, and multiprocess reasoning activitieswith 80% accuracy in a non-distracting environment with use of strategies given an initial prompt. Did not address this encounter. 4. Pt will increase verbal fluency by naming an average of >15 items in concrete categories within one minute, as measured across three consecutive trials. Did not address this encounter. A Assessment: Pt presented with increase of stress and postconcussive symptoms including headache and fatigue following an unexpected situational stressor. Despite these postconcussive symptoms, pt planned, organized, and reasoned through the problem to identify a solution. She is planning a RTW part-time per TBI Clinic on Tuesday and today stated awareness of accommodations and energy management strategies. During a new learning task involving attention and memory, pt benefited from min prompting re rules and strategies but maintained these strategies independently to participate in successfully. Pt is benefiting from outpatient speech-language services. Pain: 4/10 headache, better today Barriers to Learning: stress, headaches, attention Patient / Family Education: see S & O section P Plan: Continue direct speech-language pathology treatment as scheduled, weekly. Modify and/or upgrade goals as appropriate. Focus on following next session: 1) Update re new position at work 2) Review energy management strategies 3) Address goals as appropriate given pt's situation 4) Other concerns or areas as presented by pt See Plan of Care Dated 06/29/2013 (updated Plan of Care due 08/27/2013) Patient / Family participated in goal setting: Yes Referral/Community Contacts: None at this time Speech-Language Pathologist: Chuckie Mccoy M.S., CCC-UTILITY GELATIN MAKER 07/06/2013, 11:10 Pager: [phone] E DRILLER documented in this encounter Plan of Treatment [...] documented as of this encounter Care Teams Filling Separator Relationship Specialty Start Date End Date Olga Lee MD PCP - General Internal Medicine 01/29/[address] [place] [id number] Chuckie Mccoy, UTILITY GELATIN MAKER CCC Speech Pathologist Speech Pathology 04/26/13 documented as of this encounter
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
--- OUTSIDE RECORDS SUMMARY | 2022-01-19 16:35 | XMS_ITS | Encounter Summary ---
:1950 Author Organization [facility] Address [address] [place] [address] Phone Care Team Providers Name Role Phone Olga Lee MD Primary Care Provider Chuckie Mccoy ART MODEL [facility] Unavailable Unavailable Encounter Details Date Type Department Care Team Description 06/15/2013 Hospital Encounter [facility] Speech Language Summervi dioni, Lenka Spencer, APPAREL CUTTER, CHECK CASHIER Need New Address Pathology Chuckie Mccoy, [place] [address] Social History Tobacco Use Types Packs/Day Years Used Date Smoking Tobacco: Former Cigarettes Quit : 08/01/1999 Smokeless Tobacco: Never Alcohol Use Standard Drinks/Week Comments No 0 (1 standard drink = 0.6 oz pure alcoho l) Sex Assigned at Date Recorded Female 06/17/2020 4:53 PM TRANSPORTATION SERVICES REPRESENTATIVE documented as of this encounter Medications at [...] (15-30 mg) by mouth at bedtime. Pen [place] 5/16 30G X 8 Use as directed 100 Each 10/0409/20/2013 MM NotApplicabl Misc three times daily. documented as of this encounter Progress Notes Chuckie Mccyo, ART MODEL CCC - 06/15/2013 11:42 AM CST SPEECH-LANGUAGE PATHOLOGY Outpatient PROGRESS NOTE Name: Maye Li Birthdate: 1950 Date: 06/15/2013 Date of Onset: 03/18/2013 S & O Pt arrived to treatment session on time and was seen for 60 minute treatment session. Today's session addressed the following goals as outlined in current treatment plan: 1. Complete further formalized assessment and diagnostic interviewing to determine impairments areas& finalize appropriate treatment goals. Ongoing. Discussed RTW; pt is planning to speak with her boss re intent to return to [employer] or not. Pt asked to share her thoughts; she thinks she will not return to [employer] at this time. Pt's reasoning was sound. Shestated she is beginning to consider alternative roles within [facility]. Will continue to discuss and consider ideas. 2. Pt will learn and implement an appropriate energy management plan to minimize postconcussive symptoms and optimize cognitive functioning. In progress. Feels Uzair is working mighty fine. Her postconcussive symptoms are getting less and less due to doing less and cutting back on activities. She feels her expectations are lower, acknowledgingthe good and bad in this change. These participation changes were commended and reinforced for the following week. 3. Pt will learn and demonstrate independent use of various attention, memory and organization techniques to facilitate new learning and recall. In progress. Pt presented with her notebook and neighborhood planner; use of each were discussed to support memory, organization, and attention. See #4. 4. Pt will use a journal to track postconcussive symptoms re functional activities independently as needed. In progress. Pt prompted to define her use of a journal/neighborhood planner; with minimal guidance from clinician, pt identified: ?? Marking progress re symptoms and activities in her weekly section of her neighborhood planner ?? Recording frustrations, things to do, and other bits of information in her journal Recommendations re organization were presented; pt endorsed understanding. 5. Pt will complete higher-level auditory and visual sustained, selective, alternating and divided attention activities with 85% accuracy.Did not address this encounter. 6. Pt will complete auditory and visual memory activities (immediate, delayed, working, prospective)with 85% accuracy using compensation techniques as needed. Did not address this encounter. 7. Pt will complete higher level initiation, planning, organization, and multiprocess reasoning activities with 90% accuracy. In progress. After discussion re RTW, pt completed Hoops; given a cue card re rules, pt completed three attempts; ?? Level 2; 3 moves, 100% accy independently ?? Level 3; 7 moves in 3 minutes, I'm stuck ?? Level 3; moderate prompt re [id number] goals, 7 moves, 100% accy Discussed pt's performance re breaking up intimidating tasks into smaller parts; via discussion, pt active and expressed understanding re functional comparisons. Will continue to reinforce. A Assessment: Pt continues to demonstrate mild attention and organization deficits; she appears to be coping better with her brain injury, but is looking forward to establishing a relationship with Clinical Psychology here in the TBI Clinic. Pt presents with ongoing maintenance and generalization of aron mmendations re strategies to support attention/organization and manage postconcussive symptoms. Today she expressed feeling she would like to explore different areas of nursing re RTW. She remains highly motivated and is benefiting from outpatient Speech-Language Pathology services. Pain: denied today Barriers to Learning: Cognitive-Linguistic Deficits s/p mTBI Patient / Family Education: see S & O section P Plan: Continue direct speech-language pathology treatment as scheduled, weekly. Modify and/or upgrade goals as appropriate. Focus on following next session: 1) Continue re breaking large tasks into smaller ones 2) Provide practice re attention/memory goals 3) Review journal; provide recommendation to increase activity level if postconcussive symptoms are stable 4) Other concerns or areas as presented by pt See Plan of Care Dated 04/26/2013 (updated Plan of Care due 06/27/2013) Patient / Family participated in goal setting: Yes Referral/Community Contacts: Clinical Psychology; appt scheduled Speech-Language Pathologist: Chuckie Mccoy M.S., CCC-ART MODEL 06/15/2013, 11:42 Pager: [phone] SPORTATION SERVICES REPRESENTATIVE documented in this encounter Plan of [...] documented as of this encounter Care Teams Evaporative Cooler Installer Relationship Specialty Start Date End Date Olga Lee MD PCP - General Internal Medicine 01/29/[address] [place] [id number] Chuckie Mccoy, ART MODEL CCC Speech Pathologist Speech Pathology 04/26/13 documented as of this encounter
--- OUTSIDE RECORDS SUMMARY | 2022-01-19 16:35 | XMS_ITS | Encounter Summary ---
:1950 Author Organization [facility] Address [address] [address] Phone Care Team Providers Name Role Phone Olga Lee MD Primary Care Provider Chuckie Mccoy SWING FRAME GRINDER OPERATOR [facility] Unavailable Unavailable Encounter Details Date Type Department Care Team Description 06/05/2013 Hospital Encounter [facility] Psychology Nella Gallardo [address], PhD, [address] Need New Address [place], [place] [address] [phone] Social History Tobacco Use Types Packs/Day Years Used Date Smoking Tobacco: Former Cigarettes Quit : 08/01/1999 Smokeless Tobacco: Never Alcohol Use Standard Drinks/Week Comments No 0 (1 standard drink = 0.6 oz pure alcoho l) Sex Assigned at Date Recorded Female 06/17/2020 4:53 PM TAR WORKER documented as of this encounter Medications [...] capsule mg) by mouth twice daily. Pen [place] 5/16 30G Use as directed three 100 Each 09/20/2013 X 8 MM NotApplicabl times daily. [facility] documented as of this encounter Progress Notes Nella Gallardo, PhD, LP - 06/05/2013 2:55 PM CST Images from the original note were not included. NEUROPSYCHOLOGICAL PROGRESS NOTE Maye Li : 1950 Sex: female Date of Service: 06/05/2013 Maye Li is a 62 y.o., , female with a history of traumatic brain injury, who was referred for a cognitive evaluation by Lenka Simon RN, PLUG ASSEMBLER. Maye Li arrived on time to complete the testing component of the evaluation. She was cooperative and engaged and testing was completed in two hours. Results are currently still being compiled and scored; therefore, impressions and findings will be provided in a forthcoming report. Ms. Li plans to schedule a feedback session with me in approximately 2 weeks to discuss the results of the evaluation. Please contact me with any questions regarding the content of this note. Nella Gallardo, Ph.D., L.P. Senior Clinical Neuropsychologist, [id number] Neuropsychology Section (G8) [facility] For diagnostic and coding purposes, Maye Li has a history of traumatic brain injury, andwas referred for an evaluation of cognitive disorder, not otherwise specified. The evaluation consisted of a total of 60 minutes of professional time (interview, record review, integration/interpretation, report writing) and an additional 120 minutes of photographic technician time (testing). WORKER documented in this encounter Plan of Treatment Not on filedocumented as of this encounter Visit Diagnoses Diagnosis Acute stress disorder - Primary Other acute reactions to stress Depression Depressive disorder, not elsewhere class ified Diabetes mellitus, type 2 () Type II [...] documented as of this encounter Care Teams State'S Attorney Relationship Specialty Start Date End Date Olga Lee MD PCP - General Internal Medicine 01/29/[address] [place] [id number] Chuckie Mccoy, SWING FRAME GRINDER OPERATOR CCC Speech Pathologist Speech Pathology 04/26/13 documented as of this encounter
--- OUTSIDE RECORDS SUMMARY | 2022-01-19 16:35 | XMS_ITS | Encounter Summary ---
:1950 Author Organization [facility] Address [address] [place], [place] [address] [place] [address] Phone Care Team Providers Name Role Phone Olga Lee MD Primary Care Provider Chuckie Mccoy SPA ATTENDANT [facility] Unavailable Unavailable Encounter Details Date Type Department Care Team Description 06/08/2013 Hospital Encounter [facility] Speech Language Summervi dioni, Lenka Spencer, EXPORT FREIGHT CLERK, DIVER PUMPER Need New Address Pathology Chuckie Mccoy, [place] [address] Social History Tobacco Use Types Packs/Day Years Used Date Smoking Tobacco: Former Cigarettes Quit : 08/01/1999 Smokeless Tobacco: Never Alcohol Use Standard Drinks/Week Comments No 0 (1 standard drink = 0.6 oz pure alcoho l) Sex Assigned at Date Recorded Female 06/17/2020 4:53 PM WET SILK HANGER documented as of this encounter Medications at [...] capsule mg) by mouth twice daily. Pen [place] 5/16 30G Use as directed three 100 Each 11 09/20/2013 X 8 MM NotApplicabl times daily. Misc documented as of this encounter Progress Notes Chuckie Mccoy, SPA ATTENDANT CCC - 06/08/2013 12:25 PM CST SPEECH-LANGUAGE PATHOLOGY Outpatient PROGRESS NOTE Name: Maye Li Birthdate: 1950 Date: 06/08/2013 Date of Onset: 03/18/2013 S & O Pt arrived to treatment session on time and was seen for 60 minute treatment session. Pt reported feeling wiped-out after her Neuropsychology testing sessions. Today's session addressed thefollowing goals as outlined in current treatment plan: 1. Complete further formalized assessment and diagnostic interviewing to determine impairments areas& finalize appropriate treatment goals. Ongoing. 2. Pt will learn and implement an appropriate energy management plan to minimize postconcussive symptoms and optimize cognitive functioning. In progress. Pt is now taking Zoloft and has not experienced any adverse side-effects. As mentioned, pt felt veryfatigued after Neuropsychology testing, citing a huge headache and feeling wiped out until today. She was frustrated re her performance on testing, stating today I know it (i.e., test answers/content), but I don't now. Pt's statement was reframed re information processing and retrieval fluency deficits as previously identified; pt endorsed this education. Pt endorsed taking frequent breaks over the past week; she has used the statement It is nothing I need to do right now. to let go of tasks. She feels reading a recommended book (Coping with Mild TBI by Tiffany Baldwin) has been helpful as well. She stated she can read the book in small time frames, taking regular breaks as needed. Pt identified through using her calendar/naval surface fire support planner and self-observation, that if she attempts to do 2or more big things in one day (i.e., out with friends to restaurant) she experiences increased headache, stress, and other postconcussive symptoms. Finally, pt identified a recent outing with friends to a restaurant; she described many aspects about competing tasks and distractions (e.g., other conversations, movement, deciding what to order, talking with her friends). She engaged at length re strategies to advocate and set herself up in re her current capacity (i.e., proactive strategy) and responding to these situations (i.e., reactive strategy); pt verbalized understanding, will need to reinforce. 3. Pt will learn and demonstrate independent use of various attention, memory and organization techniques to facilitate new learning and recall. In progress. Functional recommendations as per restaurant observation (goal #2) including sitting in quiet area, asking to first review the menu, then have conversation, sit facing away from visual distractions, etc. Systematic approach to tasks placing demands on attention, organization, etc. See Goal #5. 4. Pt will use a journal to track postconcussive symptoms re functional activities independently as needed. Update; Did not address this encounter. Pt may benefit from use of a journal as she begins toincrease her activities. 5. Pt will complete higher-level auditory and visual sustained, selective, alternating and divided attention activities with 85% accuracy. In progress. Pt presented with complex, multi-step and component written directions. She achieved 75% accuracy with extra processing time after instruction re strategies to promote pt's attention and organization re task; strategies included visually-cancelling unnecessary information, verbal rehearsal, self-monitoring x2, and slowing rate of approach. By end of task, pt was completing directions via strategies independently. 6. Pt will complete auditory and visual memory activities (immediate, delayed, working, prospective)with 85% accuracy using compensation techniques as needed. Did not address this encounter. 7. Pt will complete higher level initiation, planning, organization, and multiprocess reasoning activities with 90% accuracy. Did not address this encounter. A Assessment: Pt presents with persisting deficits in attention and organization, likely exacerbated by emotional postconcussive symptoms such as frustration and anxiety. Pt is motivated to improve her management re postconcussive symptoms as demonstrated by following-through with recommendations such as taking frequent breaks and reading a book to promote pt's capacity to cope with her injury/deficits. Today pt demonstrated her potential to learn and use compensatory strategies to improve her performance on discrete cognitive- linguistic tasks. Pt is benefiting from outpatient speech-language services. Pain: none reported this encounter Barriers to Learning: attention, organization Patient / Family Education: see S & O section P Plan: Continue direct speech-language pathology treatment as scheduled, weekly. Modify and/or upgrade goals as appropriate. Focus on following next session: 1) present recommendation re journal 2) Continue practice re attention strategies; introduce organization/planning practice? 3) Other concerns or areas as presented by pt See Plan of Care Dated (updated Plan of Care due 06/27/2013) Patient / Family participated in goal setting: Yes Referral/Community Contacts: None at this time Speech-Language Pathologist: Chuckie Mccoy M.S., DIANA-SPA ATTENDANT 06/08/2013, 12:25 Pager: [phone] SILK HANGER documented in this encounter Plan of Treatment [...] documented as of this encounter Care Teams Plastics Sheet Finishing Press Operator Relationship Specialty Start Date End Date Olga Lee MD PCP - General Internal Medicine 01/29/13 [address] [place] [address] Chuckie Mccoy, SPA ATTENDANT CCC Speech Pathologist Speech Pathology 04/26/13 documented as of this encounter
--- OUTSIDE RECORDS SUMMARY | 2022-01-19 16:35 | XMS_ITS | Encounter Summary ---
:1950 Author Organization [facility] Address [address] [place] [address] Phone Care Team Providers Name Role Phone Olga Lee MD Primary Care Provider Chuckie Mccoy SILK EXAMINER [facility] Unavailable Unavailable Reason for Visit Reason Comments Other Encounter Details Date Type Department Care Team Description 07/23/2013 Telephone [facility] Psychiatry Clinic Fred Hernandez RN [place] [address] [facility] [address] [place] [address] [address] [place], [place] [address] [phone] Social History Tobacco Use Types Packs/Day Years Used Date Smoking Tobacco: Former Cigarettes Quit : 08/01/1999 Smokeless Tobacco: Never Alcohol Use Standard Drinks/Week Comments No 0 (1 standard drink = 0.6 oz pure alcoho l) Sex Assigned at Date Recorded Female 06/17/2020 4:53 PM TECHNICAL DIRECTOR documented as of this encounter Miscellaneous Notes Telephone Encounter - Priscilla Hernandez RN - 07/23/2013 10:52 AM CST Returned call to the patient who reported she had an appointment on August 01, 2013 scheduled, but was told it was cancelled. Please advise. NICAL DIRECTOR Telephone Encounter - Priscilla Hernandez RN - 07/23/2013 10:52 AM CST Message copied by PRISCILLA HERNANDEZ on TueJul 23, 2013 10:52 AM ------ Message from: SLIME ANDINO Created: TueJul 23, 2013 10:49 AM TELEPHONE MESSAGE Taken by: Slime Andino, 07/23/2013 10:49 AM Direct to: triage Problem: pt calling, says Suyapa told her that 08/01 DESULFURIZER HAND appt is cancelled, and it is not on her mychart either, though it is on our schedule. Is this appt being cancelled? Please call her at [phone]. Pt. 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
--- OUTSIDE RECORDS SUMMARY | 2022-01-19 16:35 | XMS_ITS | Encounter Summary ---
:1950 Author Organization [facility] Address [address] [place] [address] Phone Care Team Providers Name Role Phone Olga Lee MD Primary Care Provider Chuckie Mccoy HIGH SCHOOL SPECIAL EDUCATION TEACHER [facility] Unavailable Unavailable Encounter Details Date Type Department Care Team Description 05/01/[address] [facility] Infusion Center Suma Aranda MD [address] [place] [address] [address] Nurse, Inf Chemotherapy [address] [place], [place] [address] Social History Tobacco Use Types Packs/Day Years Used Date Smoking Tobacco: Former Cigarettes Quit : 08/01/1999 Smokeless Tobacco: Never Alcohol Use Standard Drinks/Week Comments No 0 (1 standard drink = 0.6 oz pure alcoho l) Sex Assigned at Date Recorded Female 06/17/2020 4:53 PM FIELD CROPS HARVEST MACHINE OPERATOR documented as of this encounter Last Filed Vital Signs Vital Sign Reading Time Taken Comments Blood Pressure 114/80 05/01/2013 2:00 PM FIELD CROPS HARVEST MACHINE OPERATOR Pulse 82 05/01/2013 2:00 PM FIELD CROPS HARVEST MACHINE OPERATOR Temperature - - Respiratory Rate - - Oxygen Saturation - - Inhaled Oxygen Concentration - - Weight - - Height - - Body Mass Index - - documented in this encounter Medications at Time of Discharge Medication Sig Dispensed Refills Start Date End Date Multiple Take 1 Tab by mouth 0 Vitamins-Minerals daily. (MULTIVITAL ORAL) cyproheptadine 4 mg 0 04/16/201306/19 oral tablet iron sucrose (VENOFER) 5 mL (100 mg) [...] capsule (15-30 mg) by mouth at bedtime. LORazepam (ATIVAN) 0.5 Take 1 tablet by mouth 60 tablet 0 1 06/11/2012 05/02/2013 mg oral tablet every six hours as needed for anxiety. celecoxib (CELEBREX) Take 1 capsule (100 60 capsule 0 201206/13/2013 100 mg oral capsule mg) by mouth twice daily. Pen [place] 5/16 30G Use as directed three 100 Each 09/20/2013 X 8 MM NotApplicabl times daily. Misc documented as of this encounter Miscellaneous [facility] Note - Angelica Triana RN - 05/01/2013 2:19 PM CST Infusion Room Note D: Pt with DX- Iron deficient anemia here for Venofer. Pt denies any new problems. A: IV placed. Vitals taken and documented. Medication given as charted. Safety and fall risk assessed. Patient does not currently present an elevated risk for fall or injury. R: Pt tolerated treatment well and verbalized understanding of the plan. P: Pt will f/u on 05/08/13 as scheduled. Angelica Triana RN, 05/01/2013 2:21 PM D CROPS HARVEST MACHINE OPERATOR documented in this encounter Plan of Treatment Not on filedocumented as of this encounter Visit Diagnoses Diagnosis Iron deficiency anemia - Primary Iron deficiency anemia, unspecified documented in this encounter Administered Medications Inactive Administered Medications - up to 3 most recent administrations Medication Order MAR Action Action Date Dose Rate Site iron sucrose (VENOFER) 100 mg in New Bag 05/01/2013 1:40 PM FIELD CROPS HARVEST MACHINE OPERATOR 10 0 mg NaCl 0.9% 100 mL IVPB 100 mg, Intravenous, ONE TIME, On Tue05/01/13 at 1310 documented in this encounter Additional Health Concerns Infection Onset Date Last Indicated Resolved Time 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
--- OUTSIDE RECORDS SUMMARY | 2022-01-19 16:35 | XMS_ITS | Encounter Summary ---
:1950 Author Organization [facility] Address [address] [place] [address] Phone Care Team Providers Name Role Phone Olga Lee MD Primary Care Provider Chuckie Mccoy CERTIFIED HAND THERAPIST CCC Unavailable Unavailable Encounter Details Date Type Department Care Team Description 05/08/2013 Hospital Encounter [facility] [place] Suma Aranda MD [address] [place], [place] [id number] [address] Nurse, Inf Chemotherapy [address] [place], [place] [address] Social History Tobacco Use Types Packs/Day Years Used Date Smoking Tobacco: Former Cigarettes Quit : 08/01/1999 Smokeless Tobacco: Never Alcohol Use Standard Drinks/Week Comments No 0 (1 standard drink = 0.6 oz pure alcoho l) Sex Assigned at Date Recorded Female 06/17/2020 4:53 PM ASSISTANT CLINICAL DIRECTOR documented as of this encounter Medications [...] capsule mg) by mouth twice daily. Pen [place] 5/16 30G Use as directed three 100 Each 09/20/2013 X 8 MM NotApplicabl times daily. Misc documented as of this encounter Miscellaneous [facility] Note - Nolvia Monet RN - 05/08/2013 4:25 PM CST Infusion Room Note D: Pt [...] the plan. P: Pt will f/u on 05/14/13 as scheduled. Nolvia Monet RN, 05/08/2013 4:26 PM STANT CLINICAL DIRECTOR documented in this encounter Plan of Treatment Not on filedocumented as of this encounter Visit Diagnoses Diagnosis Iron deficiency anemia - Primary Iron deficiency anemia, unspecified documented in this encounter Administered Medications Inactive Administered Medications - up to 3 most recent administrations Medication Order MAR Action Action Date Dose Rate Site iron sucrose (VENOFER) 100 mg in New Bag 05/08/2013 1:33 PM ASSISTANT CLINICAL DIRECTOR 10 0 mg NaCl 0.9% 100 mL IVPB 100 mg, Intravenous, ONE TIME, On Tue05/08/13 at 1305 documented in this encounter Additional Health Concerns Infection Onset Date Last Indicated Resolved Time 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
--- OUTSIDE RECORDS SUMMARY | 2022-01-19 16:35 | XMS_ITS | Encounter Summary ---
:1950 Author Organization [facility] Address [address] [place] [address] Phone Care Team Providers Name Role Phone Olga Lee MD Primary Care Provider Chuckie Mccoy MATERIAL DISPATCHER [facility] Unavailable Unavailable Encounter Details Date Type Department Care Team Description 07/06/2013 Hospital Encounter [facility] Slime Johnson, [address] PhD, LP [address] [place], [place] [address] Social History Tobacco Use Types Packs/Day Years Used Date Smoking Tobacco: Former Cigarettes Quit : 08/01/1999 Smokeless Tobacco: Never Alcohol Use Standard Drinks/Week Comments No 0 (1 standard drink = 0.6 oz pure alcoho l) Sex Assigned at Date Recorded Female 06/17/2020 4:53 PM CASHIER OR CHECKER STOCK CLERK documented as of this encounter Medications at [...] (15-30 mg) by mouth at bedtime. Pen [place] 5/16 30G X Use as directed 100 Each 11 013 09/20/2013 8 MM NotApplicabl Misc three times daily. documented as of this encounter Progress Notes Restricted notes were excluded Slime Johnson, PhD, LP - 07/06/2013 12:18 PM CST PSYCHOLOGY Outpatient Progress Note Duration: 60 minutes Packager Hand: NO Type of Therapy: Individual Mode: CBT/ACT Session #: 1 D/A: See psych sensitive note for session [...] reported. Patient Education/Response: Patient was educated about modify her environment to decrease anxiety. The patient demonstrated understanding by asking questions and applying strategies to personal situations. The patient appears to be making progress in treatment. Plan: Follow up appointment recommended in 1-2 weeks. Patient was given list of environmental characteristics. Patient agreed to practice relaxation breathing. The patient will continue follow-up with other providers as directed by those providers. The patient is aware of [facility]PS for emergent psychiatric care. Slime Johnson, PhD LP, 07/06/2013 12:18 PM Sr. Clinical Psychologist IER OR CHECKER STOCK CLERK documented in this encounter Plan of Treatment [...] documented as of this encounter Care Teams [place] Consultant Relationship Specialty Start Date End Date Olga Lee MD PCP - General Internal Medicine 01/29/[address] [place] [address] Chuckie Mccoy, MATERIAL DISPATCHER CCC Speech Pathologist Speech Pathology 04/26/13 documented as of this encounter
--- OUTSIDE RECORDS SUMMARY | 2022-01-19 16:35 | XMS_ITS | Encounter Summary ---
:1950 Author Organization [facility] Address [address] [place] [address] Phone Care Team Providers Name Role Phone Olga Lee MD Primary Care Provider Chuckie Mccoy OFFICE SUPPORT ASSISTANT [facility] Unavailable Unavailable Encounter Details Date Type Department Care Team Description 05/14/2013 Hospital En[place] [facility] [place] Suma Aranda MD [address] [place] [address] [address] Nurse, Inf Chemotherapy [address] [place], [place] [address] Social History Tobacco Use Types Packs/Day Years Used Date Smoking Tobacco: Former Cigarettes Quit : 08/01/1999 Smokeless Tobacco: Never Alcohol Use Standard Drinks/Week Comments No 0 (1 standard drink = 0.6 oz pure alcoho l) Sex Assigned at Date Recorded Female 06/17/2020 4:53 PM BREAK UP WORKER documented as of this encounter Last Filed Vital Signs Vital Sign Reading Time Taken Comments Blood Pressure 125/82 05/14/2013 1:00 PM BREAK UP WORKER Pulse 97 05/14/2013 1:00 PM BREAK UP WORKER Temperature - - Respiratory Rate - - Oxygen Saturation - - Inhaled Oxygen Concentration - - Weight - - Height - - Body Mass Index - - documented in this encounter Medications at Time of Discharge Medication Sig Dispensed Refills Start Date End Date Multiple Take 1 Tab by mouth 0 Vitamins-Minerals daily. (MULTIVITAL ORAL) cyproheptadine 4 mg 0 04/16/201306/19 oral tablet FLUoxetine (PROZAC) 10 Take 1 capsule (10 [...] capsule mg) by mouth twice daily. Pen [place] 5/16 30G Use as directed three 100 Each 09/20/2013 X 8 MM NotApplicabl times daily. [facility] documented as of this encounter Miscellaneous Notes Cancer Center Note - Angelica Triana RN - 05/14/2013 3:06 PM CST Venofer Infusion Note D: Diagnosis:Iron Deficient Anemia A: Placed PIV. VS done and documented. Gave 100 mg Venofer as ordered over 1/2 hour. R: Tolerated well. P: Return to clinic as ordered. Angelica Triana RN, 05/14/2013 3:07 PM K UP WORKER documented in this encounter Plan of Treatment Not on filedocumented as of this encounter Visit Diagnoses Diagnosis Iron deficiency anemia - Primary Iron deficiency anemia, unspecified documented in this encounter Administered Medications Inactive Administered Medications - up to 3 most recent administrations Medication Order MAR Action Action Date Dose Rate Site iron sucrose (VENOFER) 100 mg in New Bag 05/14/2013 1:28 PM BREAK UP WORKER 10 0 mg NaCl 0.9% 100 mL IVPB 100 mg, Intravenous, ONE TIME, On Tue05/14/13 at 1315 NaCl 0.9% infusion 250 mL New Bag 05/14/2013 1:25 PM BREAK UP WORKER 250 mL 20 mL/hr at 20 mL/hr, Intravenous, TO KEEP OPEN, Starting on Tue05/14/13 at 1315, Until Tue05/16/13 at 0308 documented in this encounter Additional Health Concerns Infection Onset Date Last Indicated Resolved Time 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
--- OUTSIDE RECORDS SUMMARY | 2022-01-19 16:35 | XMS_ITS | Encounter Summary ---
:1950 Author Organization [facility] Address [address] [place], [place] [address] [place] [address] Phone Care Team Providers Name Role Phone Olga Lee MD Primary Care Provider Chuckie Mccoy ACQUISITION ADVISOR [facility] Unavailable Unavailable Encounter Details Date Type Department Care Team Description 04/26/2013 Hospital Encounter [facility] Speech Language [employer], Lenka Spencer, GROUP CIO, RN CASE MANAGER Need New Address Pathology Chuckie Mccoy, [place] [address] Social History Tobacco Use Types Packs/Day Years Used Date Smoking Tobacco: Former Cigarettes Quit : 08/01/1999 Smokeless Tobacco: Never Alcohol Use Standard Drinks/Week Comments No 0 (1 standard drink = 0.6 oz pure alcoho l) Sex Assigned at Date Recorded Female 06/17/2020 4:53 PM QUALITY CONTROL SUPERVISOR documented as of this encounter Medications at [...] capsule mg) by mouth twice daily. Pen [place] 5/16 30G Use as directed three 100 Each 09/20/2013 X 8 MM NotApplicabl times daily. 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 Complete further formalized assessment and diagnostic interviewing to determine impairments areas& finalize appropriate treatment goals. 2. Pt will learn and implement an appropriate energy management plan to minimize postconcussive symptoms and optimize cognitive functioning. 3. Pt will learn and demonstrate independent use of various attention, memory and organization techniques to facilitate new learning and recall. 4. Pt will use external memory aids/organizational aids independently as needed. 5. Pt will complete higher-level auditory and visual sustained, selective, alternating and divided attention activities with 85% accuracy. 6. Pt will complete auditory and visual memory activities (immediate, delayed, working, prospective)with 85% accuracy using compensation techniques as needed. 7. Pt will complete higher level initiation, planning, organization, and multiprocess reasoning activities with 90% accuracy. Goals (personal lines sales executive): 1. Pt will independently use compensation techniques to return to previous level of functioning at home, work, and in the community. Plan: Direct Speech-Language Pathology services to target areas of impairment Frequency / Duration: Weekly 60-minute therapy sessions, tapering as pt improves Certification: From 04/25/2013 through 06/26/2013 Physician's name: EDUARDO Whitney Initial Assessment: Pt demonstrates mild cognitive-linguistic deficits [...] seen for 60 minute treatment session. She described events over the past week in which she struggled to find words; she stated she does well when she is familiar with people or the conversation topic, and struggles whenshe is answering questions, speaking on less familiar topics, or is unfamiliar with her conversationpartners. Pt was given education re fluency as it relates to content, emotions, and other pragmatic aspects of language. Pt verbalized understanding. She was advised to attempt to embrace a slower rateof speech, given the term thoughtful while she continues to experience word-finding difficulties; pt verbalized understanding and endorsed this recommendation. During encounter, pt paused intermittently for 2-10s to search for a target word. Pt stated she is tracking events/tasks in a notebook, but admitted to forgetting it today; she identified possessing two notebooks and agreed it would be best to have only one book on her person at alltimes, with a calendar/other record at home. Additional formal Cognitive-Linguistic Evaluation was completed via subtests of the Noy-JohnsonIII Tests of Cognitive Abilities and Tests of Achievement (WJ-III): Subtest Name: %ile Std Score Impairment Level COGNITIVE EFFICIENCY 42 97 Average PROCESSING SPEED 40 96 Average Visual Matching 38 95 Average Numbers Reversed 49 99 Average Retrieval Fluency 17 86 Low Average Pair Cancellation 5 75 Low / Borderline Decision Speed 45 98 Average WJ-III Observations: Pt c/o poor concentration, stating the more I focus, the harder (slower) it gets. She committed x3 errors on Pair Cancellation, she did not idenitfy these errors. Pt stated her mind shut down during the Retrieval Fluency subtest, naming only 9 animals in one minute for the final prompt. Summary of Progress: Testing between initial encounter and today's session demonstrate grossly average functioning in regards to processing speed, cognitive efficiency, and memory; two tests did demonstrate a lower level of function (Retrieval Fluency & Pair Cancellation). When presented with results, pt expressed surprise, remarking I feel I did not do well at all... That is not typical for me, and that's 'average?' Formal assessment results likely represent a decline in cognitive function given pt's previous level of function per (1) success in a cognitively-demanding, fast paced job and (2) pt's self- report of baseline level of function. Furthermore, functional complaints including word-finding difficulties, poor prospective and short-term memory, and impaired concentration will negatively impact pt's goal to return to previous level of function at home, work and in the community. Silvano benefit from direct Speech-Language services to achieve this long-term goal and is highly motivated to participate in weekly sessions. Referral/Community Contacts: None at this time Speech-Language Pathologist: Chuckie Mccoy M.S., CCC-ACQUISITION ADVISOR 04/27/2013, 08:12 Pager: [phone] ITY CONTROL SUPERVISOR documented in this encounter Plan of [...] documented as of this encounter Care Teams Hand Leather Trimmer Relationship Specialty Start Date End Date Olga Lee MD PCP - General Internal Medicine 01/29/[address] [place] [address] Chuckie Mccoy, ACQUISITION ADVISOR CCC Speech Pathologist Speech Pathology 04/26/13 documented as of this encounter
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
--- OUTSIDE RECORDS SUMMARY | 2022-01-19 16:36 | XMS_ITS | Encounter Summary ---
:[address] [facility] Address [address] [place] [id number] Phone Care Team Providers Name Role Phone Pcp, No Primary Care Provider Unavailable Reason for Visit Reason Comments Back Pain Prior Authorization (Routine) - Closed Specialty Diagnoses / Procedures Referred By Contact Refer red To Contact Alternative Medicine / Diagnoses LBP Steve Dennis Ulrich [facility], Aye F, LAc [address] [place] [address] 82 [address] [place] [address] 825 [place] [phone] Fax: Referral ID Status Reason Start Date Expiration Date Visits Requ ested Visits Authorized [id number] Closed 08/11/2012 05/22/2013 1 20 Encounter Details Date Type Department Care Team Description 09/26/2012 Office Visit [facility] Pj Ochoa, CAITLIN [address] [place] [address] 825 [place] [address] LBP (low back pain) Health [facility] Steve Dennis LAc [address] [place] [address] 825 [place] [address] (Primary Dx) [address], [address] [place], [place] [address] Social History Tobacco Use Types Packs/Day Years Used Date Smoking Tobacco: Former Cigarettes Quit : 08/01/1999 Smokeless Tobacco: Never Alcohol Use Standard Drinks/Week Comments No 0 (1 standard drink = 0.6 oz pure alcoho l) Sex Assigned at Date Recorded Female 06/17/2020 4:53 PM AIRLINE CUSTOMER SERVICE AGENT documented as of this encounter Patient Instructions Patient InstructionsSteve Dennis LAc - 09/26/2012 2:16 PM CDT Practice and application of electroacupuncture was explained to patient documented in this encounter Progress Notes Steve Dennis LAc - 09/26/2012 2:01 PM CDT [facility] Acupuncture Treatment Note 2 patient identifiers were obtained and Maye Li presents today for a follow up visit forthe treatment of the following symptom(s): Rt >lt low back pain, improved again after recent EA tx. Patient was initially referred by friend and patient has undergone previous evaluation and treatmentfor this complaint by M.D.-PCP, M.D.-Orthopaedic, D.C. and P.T.. Patient is no novice to acupuncture. This is an old problem. Pain level today is 4-5/10 and pain levels over the last 3 days were: 1-3/10. Pain is better with rest and pain is worse with walking a lot and on hard surfaces. Pain is of dull or sharp intermittent nature. Interview, palpation and visual inspection: Patient complains of rt LBP. Rt gluteal area feels again much less compacted under the surface with a previously palpably different texture there. Sleep quality: good, though some crampiness and jumpy legs at night. Patient has no pacemaker or implanted electronic device. Duration of pain: several years. Medical diagnosis for this problem: myofascial pain.Medications given in the past or taken now: see EHR; Tumeric and edith were recommended today. Treatment goals and priorities: ease pain and inflammation TCM diagnosis: bi syndrome Acupuncture given today after cleaning of the areas involved with alcohol prep pads: Lumbar amna ji points, Motor points: Gluteus medius, nito, EA on 4, microcurrent Post treatment needling effects: normal Treatment position: lying prone Acupuncture treatment plan: RTC 3 days Time spent with Maye: 25 minutes. documented in this encounter Plan of Treatment Not on filedocumented as of this encounter Visit Diagnoses Diagnosis LBP (low back pain) - Primary Lumbago documented in this encounter Care Teams Burglar Alarm Assembler Relationship Specialty Start Date End Date Pcp, No PCP - General 04/22/12 01/28/13 [facility] [place] [address] documented as of this encounter
--- OUTSIDE RECORDS SUMMARY | 2022-01-19 16:36 | XMS_ITS | Encounter Summary ---
:1950 Author Organization [facility] Address [address] [place] [address] Phone Care Team Providers Name Role Phone Pcp, No Primary Care Provider Unavailable Reason for Visit Reason Onset Date Comments Refill Request 11/08/2012 Zo Encounter Details Date Type Department Care Team Description 11/08/2012 Refill 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 Last OV 10/04/12. A: [place] to Dr. Aranda to advise. Dianna Nunn R.N. 11/08/2012 11:17 documented in this encounter Plan of Treatment Not on filedocumented as of this encounter Visit Diagnoses Not on filedocumented in this encounter Care Teams Agriculture Engineer Relationship Specialty Start Date End Date Pcp, No PCP - General 04/22/12 01/28/13 [facility] [place] [address] documented as of this encounter
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
--- OUTSIDE RECORDS SUMMARY | 2022-01-19 16:36 | XMS_ITS | Encounter Summary ---
:1950 Author Organization [facility] Address [address] [place] [phone] Phone Care Team Providers Name Role Phone Pcp, No Primary Care Provider Unavailable Reason for Visit Reason Comments Back Pain Prior Authorization (Routine) - Closed Specialty Diagnoses / Procedures Referred By Contact Refer red To Contact Alternative Medicine / Diagnoses LBP Steve Dennis Ulrich [facility], Aye F, LAc [address] [place] [address] 82 [address] [place] [address] 825 [place] [phone] Fax: Referral ID Status Reason Start Date Expiration Date Visits Requ ested Visits Authorized [id number] Closed 08/11/2012 05/22/2013 1 20 Encounter Details Date Type Department Care Team Description 10/10/2012 Office Visit [facility] Pj Ochoa, CAITLIN [address] [place] [address] 825 [place] [address] LBP (low back pain) Health Clinic Steve Dennis LAc [address] [place] [address] 825 [place] [address] (Primary Dx) [address], [address] [place], [place] [address] Social History Tobacco Use Types Packs/Day Years Used Date Smoking Tobacco: Former Cigarettes Quit : 08/01/1999 Smokeless Tobacco: Never Alcohol Use Standard Drinks/Week Comments No 0 (1 standard drink = 0.6 oz pure alcoho l) Sex Assigned at Date Recorded Female 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 documented in this encounter Progress Notes Steve Dennis LAc - 10/10/2012 1:55 PM CDT [facility] Acupuncture Treatment Note 2 patient identifiers were obtained and Maye Jedgracy Guillermo presents today for a follow up visit forthe treatment of the following symptom(s): Rt >lt low back pain, improved. Patient was initially referred by friend and patient has undergone previous evaluation and treatmentfor this complaint by M.D.-PCP, M.D.-Orthopaedic, D.C. and P.T.. Patient is no novice to acupuncture. This is an old problem. Pain level today is 3/10 and pain levels over the last 3 days were: 1-3/10.Pain is better with rest and pain is worse with walking a lot and on hard surfaces. Pain is of dull or sharp intermittent nature. Interview, palpation and visual inspection: Patient complains of rt LBP. Rt gluteal area feels lesscompacted. Sleep quality: good, though some crampiness and jumpy legs at night. Patient has no pacemaker or implanted electronic device. Duration of pain: several years. Medical diagnosis for this problem: myofascial pain. Medications given in the past or taken now: see EHR; Treatment goals and priorities: ease pain and inflammation TCM diagnosis: bi syndrome Acupuncture given today after cleaning of the areas involved with alcohol prep pads: Lumbar amna ji, Motor points: Gluteus medius, nito Post treatment needling effects: normal Treatment position: lying prone Acupuncture treatment plan: RTC 7-14 days Time spent with Maye: 25 minutes. documented in this encounter Plan of Treatment Not on filedocumented as of this encounter Visit Diagnoses Diagnosis LBP (low back pain) - Primary Lumbago documented in this encounter Care Teams High School Drafting Teacher Relationship Specialty Start Date End Date Pcp, No PCP - General 04/22/12 01/28/13 [facility] [place] [address] documented as of this encounter
--- OUTSIDE RECORDS SUMMARY | 2022-01-19 16:36 | XMS_ITS | Encounter Summary ---
:1950 Author Organization [facility] Address [address] [place] [address] Phone Care Team Providers Name Role Phone Olga Lee MD Primary Care Provider Reason for Visit Reason Comments Hearing Loss Encounter Details Date Type Department Care Team Description 03/15/2013 Office Visit [facility] Audiology Clini c Nghia Mujica MD Sensorineural hearing [address] Laura Lizarraga, AUD [address] [place] [address] loss (Primary Dx) P7.[address] Rm1, Aud Hrg Aid [place], [place] [address] Social History Tobacco Use Types Packs/Day Years Used Date Smoking Tobacco: Former Cigarettes Quit : 08/01/1999 Smokeless Tobacco: Never Alcohol Use Standard Drinks/Week Comments No 0 (1 standard drink = 0.6 oz pure alcoho l) Sex Assigned at Date Recorded Female 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 Name and kons-ic-wzouu verified. Patient has a zkif-lo-aduaupqt xus-ct-zmoj-frequency sensorineural hearing loss. Patient has not worn hearing aids previously. Patient reports some difficulty hearing at workand at home. A: Hearing aid options were discussed with the patient, including style/model, level of technology, signal processing, and additional features (such as noise reduction, directional microphones, telecoil, and other options). Also discussed binaural versus monaural fitting, trial period, warranties, realistic expectations, and the normal adjustment period people experience with hearing aids. After discussion, a recommendation was written for binaural Unitron Moxi 6 MARIA DE JESUS (mhcdljhr-wc-lpq-canal) hearing aids with size 0 receivers. Paperwork, including recommendation form, purchase agreement form, and [facility] Brochure was completed, reviewed, signed, and copied for the patient. R: Binaural hearing aid examination and selection completed today. Sensorineural hearing loss. Self-pay. Employee (20% discount). P: Binaural hearing aids will be ordered for the patient. Patient will return in approximately two weeks for a hearing aid fitting appointment. Patient agreed with plan. 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
--- OUTSIDE RECORDS SUMMARY | 2022-01-19 16:36 | XMS_ITS | Encounter Summary ---
:1950 Author Organization [facility] Address [address] [place] [phone] Phone Care Team Providers Name Role Phone Pcp, No Primary Care Provider Unavailable Olga Lee MD Primary Care Provider Encounter Details Date Type Department Care Team Description 10/19/2012 Documentation Only Unspecified Departme nt Unknown, Provider [place] Social History Tobacco Use Types Packs/Day Years Used Date Smoking Tobacco: Former Cigarettes Quit : 08/01/1999 Smokeless Tobacco: Never Alcohol Use Standard Drinks/Week Comments No 0 (1 standard drink = 0.6 oz pure alcoho l) Sex Assigned at Date Recorded Female 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 documented as of this encounter Plan of Treatment Not on filedocumented as of this encounter Visit Diagnoses Not on filedocumented in this encounter Additional Health Concerns Infection Onset Date Last Indicated Resolved Time 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
--- OUTSIDE RECORDS SUMMARY | 2022-01-19 16:36 | XMS_ITS | Encounter Summary ---
:1950 Author Organization [facility] Address [address] [place] [phone] Phone Care Team Providers Name Role Phone Pcp, No Primary Care Provider Unavailable Reason for Visit Reason Comments Back Pain Prior Authorization (Routine) - Closed Specialty Diagnoses / Procedures Referred By Contact Refer red To Contact Alternative Medicine / Diagnoses LBP Steve Dennis Ulrich [facility], Aye F, LAc [address] [place] [address] 82 [address] [place] [address] [address]25 [place] [phone] Fax: Referral ID Status Reason Start Date Expiration Date Visits Requ ested Visits Authorized [id number] Closed 08/11/2012 05/22/2013 1 20 Encounter Details Date Type Department Care Team Description 08/15/2012 Office [place] [facility] [place], CAITLIN [address] [place] [address] 825 [place] [address] LBP (low back pain) [facility] Steve Dennis LAc [address] [place] [address] 825 [place] [address] (Primary Dx) [address], [address] [place], [place] [address] Social History Tobacco Use Types Packs/Day Years Used Date Smoking Tobacco: Former Cigarettes Quit : 08/01/1999 Smokeless Tobacco: Never Alcohol Use Standard Drinks/Week Comments No 0 (1 standard drink = 0.6 oz pure alcoho l) Sex Assigned at Date Recorded Female 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 Practice and application of electroacupuncture was explained to patient documented in this encounter Progress Notes Steve Dennis LAc - 08/15/2012 1:49 PM CDT [facility] Acupuncture Treatment Note 2 patient identifiers were obtained and Maye Li presents today for an initial visit for the treatment of the following symptom(s): Rt >lt low back pain and left shoulder pain. Patient was initially referred by friend and patient has undergone previous evaluation and treatmentfor this complaint by M.D.-PCP, M.D.-Orthopaedic, D.C. and P.T.. Patient is no novice to acupuncture. This is an old problem. Pain level today is 3/10 and pain levels over the last 3 months were: 3-7/10. Pain is better with rest and pain is worse with walking a lot and on hard surfaces. Pain is of dull or sharp intermittent nature and ROM of the shoulder is mildly decreased. Interview, palpation and visual inspection: Patient complains of LBP and left shoulder pain (SJ 14 area). Rt gluteal area feels compacted under the surface with a palpably different texture and the area matches the painful site also. Sleep quality: good, though some crampiness and [...] with alcohol prep pads: Lumbar amna ji points , Motor points: Gluteus medius and Gluteus minimus and Shoulder 5 Post treatment needling effects: normal Treatment position: lying prone Treatment outcomes: This is initial visit. Acupuncture treatment plan: 2 every week for 6 treatments Time spent with Maye: 30 minutes. HPI ROS Physical Exam documented in this encounter Plan of Treatment Not on filedocumented as of this encounter Visit Diagnoses Diagnosis LBP (low back pain) - Primary Lumbago documented in this encounter Care Teams Body Press Operator Relationship Specialty Start Date End Date Pcp, No PCP - General 04/22/12 01/28/13 [facility] [place] [address] documented as of this encounter
--- OUTSIDE RECORDS SUMMARY | 2022-01-19 16:36 | XMS_ITS | Encounter Summary ---
:1950 Author Organization [facility] Address [address] [place] [address] [place] [address] Phone Care Team Providers Name Role Phone Pcp, No Primary Care Provider Unavailable Reason for Visit Reason Comments Hip Pain Back Problem Prior Authorization (Routine) - Closed Specialty Diagnoses / Procedures Referred By Contact Refer red To Contact Alternative Medicine / Ankur Duque Backu s, Benjamin E, [facility] [place] [address] [place] [address] [place] [phone] Phone: Referral ID Status Reason Start Date Expiration Date Visits Requ ested Visits Authorized [id number] Closed 10/10/2012 01/10/2013 1 9 Encounter Details Date Type Department Care Team Description 11/21/2012 Office Visit [facility] [place] Ankur Herrmann 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 Her leg began to hurt more over the past 2 days. She also complains of right sided neck painthat began from unknown reasons over the past 2 days. The history was provided by the patient. SPINE: The patient reports no spinal pain but points to her gluteals, hip and right leg as the sources of pain. Onset of pain occurred greater than 6 weeks ago and was not traumatic in nature, resulting from no known trauma. The quality of the pain is aching, and has been getting better. The symptoms increase as the day goes on. PRIOR TREATMENT: In the past, the patient has had acupuncture treatment. The patient has taken the following medications: none. The patient has had no surgery. IMAGING: The patient has had no imaging. RISK FACTORS: The patient has a history of no risk factors. OBJECTIVE abnormal static, motion and soft tissue findings with pain in the sacroiliac on the right and acetabulofemoral joint with hypertonicity in Gluteus medius and IT band and abnormal static, motion and soft tissue findings with pain in the cervical and thoracic spine with hypertonicity of upper trapezius graded 2/4. Muscular palpation demonstrates Grade 2 hypertonicity and Grade 2 tenderness in the piriformis muscles on the right and tensor fascia ascencion muscles on the right and IT band on the right Max foraminal compression positive for pain on the right RANGE OF MOTION: Cervical decreased in right rotation with right sided neck pain. ASSESSMENT The patient has abnormal static motion and soft tissue findings with tenderness in the lower extremities justifying the use of spinal manipulation and adjunct therapies. PROCEDURE Manipulation: cervical 6 on the right and thoracic 3-7 in anterior Therapy consisting of Manual muscle stimulation is performed to the right glute medius, and graston technique to right IT band. TREATMENT PLAN Return for treatment 1 time per week for three weeks. EXERCISE CONSULTATION IT stretch Piriformis stretch Gluteal stretch Patient verbalizes understanding: Yes I spent 15 minutes with Maye Li. 2 minutes were spent in exercise consultation and 8 minutes were spent in manual therapy. Ankur Duque DC, 11/21/2012 1:01 PM documented in this encounter Plan of Treatment Not on filedocumented as of this encounter Visit Diagnoses Diagnosis Nonallopathic lesion of cervical region - Primary Nonallopathic lesion of cervical region, not elsewhere classified Nonallopathic lesion of thoracic region Nonallopathic lesion of thoracic region, not elsewhere classified Neck pain Cervicalgia Nonallopathic lesion of lower extremitie s Nonallopathic lesion of lower extremitie s, not elsewhere classified Hip pain Pain in joint, pelvic region and thigh documented in this encounter Additional Health Concerns Infection Onset Date Last Indicated Resolved Time 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
--- OUTSIDE RECORDS SUMMARY | 2022-01-19 16:36 | XMS_ITS | Encounter Summary ---
:1950 Author Organization [facility] Address [address] [facility] [place] [address] Phone Care Team Providers Name Role Phone Olga Lee MD Primary Care Provider Reason for Visit Reason Onset Date Comments Call Back 04/17/2013 Encounter Details Date Type Department Care Team Description 04/17/2013 Telephone [facility] [place] [facility] Rita Balderas, Call Back [address] [place], [place] [address] [place] [address] Social History Tobacco Use Types Packs/Day Years Used Date Smoking Tobacco: Former Cigarettes Quit : 08/01/1999 Smokeless Tobacco: Never Alcohol Use Standard Drinks/Week Comments No 0 (1 standard drink = 0.6 oz pure alcoho l) Sex Assigned at Date Recorded Female 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 A: Chart reviewed, pt was last seen by Dr. Aranda 10/04/12. Noted two missed appointments on 11/01/12 and 04/09/13. R: Telephone call placed to Tiffany at [facility] place and nurse also spoke with patient, Maye. They indicated that patient is requesting a prescription from Dr. Aranda for a wig r/t Alopecia. Patient was agreeable to appointment to see Dr. Aranda tomorrow, 04/18/13 @ 11:30am for follow up needed and to discuss request. P: Patient and Tiffany had no further questions. Will have first front ventilator schedule appointment. Rita Balderas RN, 04/17/2013 10:58 AM OARD ACTION ASSEMBLER Telephone Encounter - Rita Balderas RN - 04/17/2013 10:49 AM KEYBOARD ACTION ASSEMBLER Message copied by RITA BALDERAS on TueApr 17, 2013 10:49 AM ------ Message from: DENNISE SANTOYO Created: TueApr 17, 2013 10:18 AM Regarding: call back request Contact: Taken by: Dennise Santoyo, 04/17/2013 10:19 AM, 10:19 [id number] Maye Li 1950 PCP: Olga Lee MD Patient can be reached at: [phone] Reason for Call: Tiffany from [facility] calling to request a Rx from Dr. Manoj peterson for Alopecia. 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
--- OUTSIDE RECORDS SUMMARY | 2022-01-19 16:36 | XMS_ITS | Encounter Summary ---
:1950 Author Organization [facility] Address [address] [place] [address] Phone Care Team Providers Name Role Phone Pcp, No Primary Care Provider Unavailable Encounter Details Date Type Department Care Team Description 12/22/2012 Refill [facility] Suma Aranda MD [address] [place] [address] [place], [place] [address] [phone] Social History Tobacco Use Types Packs/Day Years Used Date Smoking Tobacco: Former Cigarettes Quit : 08/01/1999 Smokeless Tobacco: Never Alcohol Use Standard Drinks/Week Comments No 0 (1 standard drink = 0.6 oz pure alcoho l) Sex Assigned at Date Recorded Female 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 A: Chart reviewed, pt was last seen by Dr. Aranda on 10/04/12. Rec RTC: 4 week - pt no showed/missed appointment on 11/01/12. R: Refill deemed appropriate per protocol. P: Sent electronically to pharmacy. 

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
--- OUTSIDE RECORDS SUMMARY | 2022-01-19 16:36 | XMS_ITS | Encounter Summary ---
:1950 Author Organization [facility] Address [address] [place] [address] Phone Care Team Providers Name Role Phone Olga Lee MD Primary Care Provider Reason for Visit Reason Comments Hearing Problem Encounter Details Date Type Department Care Team Description 03/06/2013 Office Visit [facility] [place] Audiology Clini c Nghia Mujica, Sensorineural hearing [address] MD loss (Primary Dx) P7.200 [place], [place] [address] Social History Tobacco Use Types Packs/Day Years Used Date Smoking Tobacco: Former Cigarettes Quit : 08/01/1999 Smokeless Tobacco: Never Alcohol Use Standard Drinks/Week Comments No 0 (1 standard drink = 0.6 oz pure alcoho l) Sex Assigned at Date Recorded Female 06/17/2020 4:53 PM YARDMASTER documented as of this encounter Progress Notes Laura Lizarraga, AUD - 03/06/2013 5:04 PM CDT AUDIOLOGY REPORT DATA (D): Patient is self-referred to Audiology for an audiologic assessment. The patient???s name and date of were verified. 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 Patient reports a gradual decrease in hearing over the past year, especially the last few months. 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 Her also notices she does not hear well. She needs to turn up the television volume. Patient reports constant bilateral tinnitus, present for many years. She reports her brother has a hearing loss and both of her parents did too. ACTION (A): Otoscopy revealed ear canals free of cerumen build-up. Hearing sensitivity was evaluatedusing standard audiometric techniques with insert earphones. Pure-tone thresholds revealed normal hearing at 250 Hz, sloping to a [id number] sensorineural hearing loss 500-8000 Hz. Speech hospital receptionist thresholds consistent with pure tone averages bilaterally. Word recognition was pretty good bilaterally at a loud presentation level. Tympanometry was normal by gradient with normal admittance bilaterally. RESPONSE (R): Sensorineural hearing loss. Tympanometry consistent with normal eardrum mobility bilaterally. Discussed results with the patient. Hearing aid candidate. She expressed interest in this. PLAN (P): Patient to see ENT at [place] next today (she scheduled both). Pending medical clearance,patient could be scheduled with Audiology for a hearing aid evaluation. Josué Oliver, [facility] Staff Experimental Mechanic [employer] documented in this encounter Plan of Treatment Not on filedocumented as of this encounter Visit Diagnoses Diagnosis Sensorineural hearing loss - Primary Sensorineural hearing loss, unspecified documented in this encounter Additional Health Concerns Infection Onset Date Last Indicated Resolved Time MDRO (Multiple Drug Resistant 11/13/2012 11/13/2012 7:13 AM CDT Organism) documented as of this encounter Care Teams Change Number Operator Relationship Specialty Start Date End Date Olga Lee MD PCP - General Internal Medicine 01/29/13 [address] [place] [address] documented as of this encounter
--- OUTSIDE RECORDS SUMMARY | 2022-01-19 16:36 | XMS_ITS | Encounter Summary ---
:1950 Author Organization [facility] Address [address] [place] [address] Phone Care Team Providers Name Role Phone Pcp, No Primary Care Provider Unavailable Reason for Visit Reason Comments Diabetes Encounter Details Date Type Department Care Team Description 10/04/2012 Office Visit [facility] Diabetes & Suma Willard MD Diabetes mellitus, type 2 () (Primary Dx); Clinic [address] Iron deficiency anemia [address] [place], [place] S 1.300 [address] [place], [place] [address] [phone] Social History Tobacco Use Types Packs/Day Years Used Date Smoking Tobacco: Former Cigarettes Quit : 08/01/1999 Smokeless Tobacco: Never Alcohol Use Standard Drinks/Week Comments No 0 (1 standard drink = 0.6 oz pure alcoho l) Sex Assigned at Date Recorded Female 06/17/2020 4:53 PM LEVELMAN documented as of this encounter Last Filed Vital Signs Vital Sign Reading Time Taken Comments Blood Pressure 126/79 10/04/2012 11:24 AM CDT Pulse 75 10/04/2012 11:24 AM CDT Temperature - - Respiratory Rate - - Oxygen Saturation - - Inhaled Oxygen Concentration - - Weight 87.9 kg (193 lb 11.2 oz) 10/04/2012 11:24 AM CDT Height 162.6 cm (5' 4) 10/04/2012 11:24 AM CDT Body Mass Index 33.25 10/04/2012 11:24 AM CDT documented in this encounter Patient Instructions Patient InstructionsSuma Aranda MD - 10/04/2012 11:31 AM CDT Take Lantus 25 units at bed. Take Byetta 5 before breakfast and supper - up to 1 hour before. After 2 weeks, increase pm Lantus by 5 units/week to get am blood sugars below 130. Testing - before dinner, bedtime, and next am. Come back in 1 month. Nurse will show you the Byetta pen. documented in this encounter Progress Notes Suma Aranda MD - 10/04/2012 11:21 AM CDT Images from the original note were not included. DIABETES Follow Up Visit Maye Li : 1950 61 y.o. female Date of Service: 10/04/2012 ASSESSMENT We discussed different options for treatment. She was interested in trying Byetta, so will start 5 mg bid. Also started Lantus 25 hs as will need some background therapy. Decided not to use TZD becauseof weight concerns and sulfonylurea and metformin because of previous intolerance. Asked her to adjust dose of Lantus upwards weekly after first 2 weeks. Will keep on 5 Byetta for now and consider increase to 10 in future. Plan to see her back in 1 month. Advised to discuss iron issue with her primary- could consider IV iron if not absorbing it orally. Should have Vit D checked with next labs. Diagnoses and associated orders for this visit: Diabetes mellitus, type 2 Iron deficiency anemia Other Orders - POC GLUCOSE - POC GLYCOSYLATED HGB-A1C - insulin GLARGINE (LANTUS) 100 units/mL subcutaneous SoloStar Pen; Inject 25 units subcutaneously at bedtime. - exenatide (BYETTA) 5 mcg/0.02 mL subcutaneous pen; Inject 1 dose subcutaneously twice daily 1 hourbefore breakfast and evening meal. - Pen Palisade 5/16 30G X 8 MM NotApplicabl [facility]; Use as directed three times daily. PLAN Diabetes counseling at the appointment included: meal plan, weight loss, medications and blood glucose monitoring. Return in about 4 weeks (around 11/01/2012). HPI: Maye Li a 61 y.o. female is here for follow up of Type 2 DM. Her [facility] with the [facility] was 08/02/12. She is being treated with no medications at present due to self-discontinuing metformin about 3 weeks ago due to diarrhea side effects. Patient doesnot have meter readings available. She has been experiencing BG that are elevated in the morning - typically about 160. She eats 3 meals and snacks and her weight has been stable since her last visit. Results today are A1c 9%, BG 220. She has had diabetes for 15 years and does not have diabetes complications. She had a gastric bypassin 2008 and has tried various diabetes treatments since then. She felt hypoglycemic symptoms despitenormal BG when she was on glipizide and has not tolerated metformin even in the sustained release preparation. She is not eager to take medication that is likely to cause weight gain. She also has significant iron deficiency with mild anemia. She takes an iron pill in the am with Vitamin C, but is clearly not absorbing it adequately/ She also has vitiligo and alopecia, but TSH was normal. 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 She primarily speaks [place], is , and lives with and has 2 children, 2 stepchildren, and 4 grandchildren. She is a non-smoker, socialdrinker, and does not use drugs. PROBLEM LIST Patient Active Problem List Diagnosis ??? Diabetes mellitus, type 2 ??? H/O gastric bypass - 2008 ??? Alopecia ??? Iron deficiency anemia ??? Vitiligo Review of Systems: Complete 10 point review of systems is negative except for low back pain for which she receives acupuncture. OBJECTIVE: PHYSICAL EXAM: BP 126/79 Pulse 75 Ht 1.626 m (5' 4) Wt 87.862 kg (193 lb 11.2 oz) BMI 33.23 kg/m2 LABS Results for orders placed in visit on 10/04/12 POC GLUCOSE Result Value Range POC Glucose 220 (*) 70-100 mg/dL POC GLYCOSYLATED HGB-A1C Result Value Range Hemoglobin A1C 9.0 (*) Estimated Average Glucose 212 Suma Aranda MD, 10/04/2012 12:39 PM Staff Business Rules Developer I have spent 25 minutes with this patient today in which greater than 50% of this time was spent in counseling/coordination of care regarding diabetes. Ng MagnusAmbrose, - 10/04/2012 11:16 AM CDT Images from the original note were not included. Endocrine Clinic Progress Note - MS4 Maye Li : 1950 Sex: female Date of Service: 10/04/2012 12:00 CHIEF COMPLAINT Chief Complaint Patient presents with ??? Diabetes ASSESSMENT & PLAN Maye Li is a 61 y.o. female who presents for follow up on her diabetes. Currently under very poor control with A1c of 9.0% today and patient is suffering from side effects of Metformin. Will stop metformin and proceed with the following - Start Lantus 25 units/d at PM for 2 weeks - After 2 weeks will increase Lantus 5 U/d until AM BG <120 - Will start Byetta 5 mg BID for breakfast and dinner - Follow up in 1 month Other Orders - POC GLUCOSE - POC GLYCOSYLATED HGB-A1C - insulin GLARGINE (LANTUS) 100 units/mL subcutaneous SoloStar Pen; Inject 25 units subcutaneously at bedtime. - exenatide (BYETTA) 5 mcg/0.02 mL subcutaneous pen; Inject 1 dose subcutaneously twice daily 1 hourbefore breakfast and evening meal. - DIABETES SUPPLIES - INSULIN/MED DELIVERY; Dispense: Pen Palisade: NovoFine 30 HPI Maye Li is a 61 y.o. female with PMH remarkable for DM-2 and Gastric bypass in 2008 withiron deficiency anemia who presents for follow up on her diabetes. Patient states she has been feeling good and denies any polyuria, polydipsia or paresthesias. Her A1c today was 9.0% and has worsened compared to last visit on 08/02 when it was 8.8%. Patient has been on metformin XR 1000 mg/d but still suffers from diarrhea. Patient states she has been checking her BG regularly and an average readingis between 160-170 in AM when she wakes up. She also refers having used Glipizide before and it gaveher a hypoglycemic sensation of nervousness and shakiness but her BG readings were not low. Recent iron panel revealed iron deficiency as well as CBC with a Hgb of 11.0. Thyroid function tests were unremarkable with TSH of 1.7 and TPO of 0.8. Overall patient has a very poor diabetes control and medication must be changed since side effects are present. PAST MEDICAL HISTORY Past Medical History Diagnosis Date ??? Diabetes REVIEW OF SYSTEMS 10 point review of systems is negative except for dictated items. PHYSICAL EXAM VITAL SIGNS: BP 126/79 Pulse 75 Ht 1.626 m (5' 4) Wt 87.862 kg (193 lb 11.2 oz) BMI 33.23 kg/m2 Constitutional: Well developed, Well nourished, No acute distress, Non-toxic appearance. Eyes: PERRL, EOMI, Conjunctiva normal, No discharge. Ears, Nose, Throat: Normocephalic, Atraumatic, Bilateral external ears normal, Oropharynx moist, No oral exudates, Nose normal. Cardiovascular: Normal heart rate and rhythm, No murmurs, No rubs, No gallops. Normal pulses. Respiratory: Normal breath sounds, No respiratory distress, No wheezing, No chest tenderness. Gastrointestinal: Bowel sounds normal, Soft, No tenderness, No masses, No pulsatile masses. Genitourinary: Normal external genitalia Musculoskeletal: No swelling, No tenderness, Full range of motion, No deformity, Normal distal pulses, Normal tendon function, Normal sensation. Integumentary: Warm, Dry, No erythema, No rash. Neurologic: Alert & oriented x 3, Normal motor function, Normal sensory function, No focal deficits noted. NO sensitivity loss per monofilament test Heme/lymph/immunologic: No lymphadenopathy Psychiatric: Normal affect, Normal judgment, Normal mood, No suicidal or homicidal ideation. Labs Recent labs reviewed Patient Active Problem List Diagnosis ??? Diabetes mellitus, type 2 ??? H/O gastric bypass - 2008 ??? Alopecia ??? Iron deficiency anemia ??? Vitiligo CURRENT MEDICATIONS Current Outpatient Prescriptions Medication Sig ??? insulin GLARGINE (LANTUS) 100 units/mL subcutaneous SoloStar Pen Inject 25 units subcutaneously at bedtime. ??? exenatide (BYETTA) 5 mcg/0.02 mL subcutaneous pen Inject 1 dose subcutaneously twice daily 1 hour before breakfast and evening meal. ??? DIABETES SUPPLIES - INSULIN/MED DELIVERY Dispense: Pen Palisade: NovoFine 30 ??? metformin 500 mg oral tablet 24 HR Take 1,000 mg by mouth daily. ??? Multiple Vitamins-Minerals (MULTIVITAL ORAL) Take 1 Tab by mouth daily. ??? aspirin 81 mg oral chewable tab Take 81 mg by mouth daily. ??? pseudoephedrine (SUDAFED) 60 mg oral tablet Take 60 mg by mouth every six hours as needed. ??? flucONAZOLE (DIFLUCAN) 150 mg oral tablet Take 150 mg by mouth daily. No current facility-administered medications for this visit. FOLLOW UP Return in about 4 weeks (around 11/01/2012). Ambrose Wilson MS, 10/04/2012 12:00 PM documented in this encounter Plan of Treatment Not on filedocumented as of this encounter Procedures Procedure Name Priority Date/Time Associated Comments Diagnosis POC GLYCOSYLATED Routine 10/04/2012 11:00 Results for this HGB-A1C AM CDT procedure are i n the results section. POC GLUCOSE Routine 10/04/2012 10:47 Results for this AM CDT procedure are i n the results section. documented in this encounter Results (ABNORMAL) POC GLYCOSYLATED HGB-A1C (10/04/2012 11:00 AM CDT) athologist Signature Hemoglobin A1C 9.0 (H) [facility] Estimated 212 [facility] Average Glucose Specimen (Source) Anatomical Collection Method Collection Time Re ceived Time Location / / Volume Laterality Blood 10/04/2012 11:00 AM CDT Suma Aranda MD POINT OF CARE Performing Organization Address City/[facility] Code Phon e Number [facility] - POINT OF [address] [place], [place] [address] CARE [facility] [address] [place] [address], [place] (ABNORMAL) POC GLUCOSE (10/04/2012 10:47 AM CDT) athologist Signature POC Glucose 220 (H) 70 - 100 [facility] mg/dL Specimen (Source) Anatomical Collection Method Collection Time Re ceived Time Location / / Volume Laterality Blood 10/04/2012 10:47 AM CDT Suma Aranda MD LABORATORY Performing Organization Address City/[facility] Code Phon e Number [facility] - POINT OF [address] [place], [place] [address] CARE [facility] [address] [place] [address], [place] documented in this encounter Visit Diagnoses Diagnosis Diabetes mellitus, type 2 () - Primary Type II or unspecified type diabetes karin litus without mention of complication, not stated as uncontrolled Iron deficiency anemia Iron deficiency anemia, unspecified documented in this encounter Care Teams Boom Truck Driver Relationship Specialty Start Date End Date Pcp, No PCP - General 04/22/12 01/28/13 [facility] [place] [address] documented as of this encounter
--- OUTSIDE RECORDS SUMMARY | 2022-01-19 16:36 | XMS_ITS | Encounter Summary ---
:[address] [facility] Address [address] [place] [address] Phone Care Team Providers Name Role Phone Pcp, No Primary Care Provider Unavailable Reason for Visit Reason Comments Back Pain Hip Pain Ankle Pain Prior Authorization (Routine) - Closed Specialty Diagnoses / Procedures Referred By Contact Refer red To Contact Alternative Medicine / Ankur Duque, Ankur Brody, [facility] [address] [place] [address] Phone: Referral ID Status Reason Start Date Expiration Date Visits Requ ested Visits Authorized [id number] Closed 10/10/2012 01/10/2013 1 9 Encounter Details Date Type Department Care Team Description 11/28/[address] [facility] Ankur Herrmann Nonallo pathic lesion of lumbar region (Primary Dx); [facility] E, [place] Back pain; [address], [address] [place] Non allopathic lesion of sacral region 1106 [address] [place], [place] [address] [place], [place] [phone] [address] Social History Tobacco Use Types Packs/Day Years Used Date Smoking Tobacco: Former Cigarettes Quit : 08/01/1999 Smokeless Tobacco: Never Alcohol Use Standard Drinks/Week Comments No 0 (1 standard drink = 0.6 oz pure alcoho l) Sex Assigned at Date Recorded Female 06/17/2020 4:53 PM BELT MAKER documented as of this encounter Progress Notes Ankur Duque DC - 11/28/2012 2:16 PM CDT Chiropractic follow up Visit [facility] [place] SUBJECTIVE The patient states that she has current right sided low back/hip pain graded 4/10 when she came in and currently a 2-3/10 after acupuncture treatment. Her right achilles has been painful ascending stairs recently. The history was provided by the patient. [...] right and IT band on the right and increased thickening of the right achilles tendon. ASSESSMENT The patient has abnormal static motion and soft tissue findings with tenderness in the lumbar spine justifying the use of spinal manipulation and adjunct therapies. PROCEDURE Manipulation: Right SI joint TREATMENT PLAN Return for treatment 1 time per week for three weeks. EXERCISE CONSULTATION IT stretch Piriformis stretch Gluteal stretch Lumbar prone extension Achilles stretch Patient verbalizes understanding: Yes I spent 15 minutes with Maye Li. 2 minutes were spent in exercise consultation and 8 minutes were spent in manual therapy. Ankur Duque DC, 11/28/2012 2:16 PM documented in this encounter Plan of Treatment Not on filedocumented as of this encounter Visit Diagnoses Diagnosis Nonallopathic lesion of lumbar region - Primary Nonallopathic lesion of lumbar region, n ot elsewhere classified Back pain Backache, unspecified Nonallopathic lesion of sacral region Nonallopathic lesion of sacral region, n ot elsewhere classified documented in this encounter Additional Health Concerns Infection Onset Date Last Indicated Resolved Time MDRO (Multiple Drug Resistant 11/13/2012 11/13/2012 7:13 AM CDT Organism) documented as of this encounter Care Teams Airset Molder Relationship Specialty Start Date End Date Pcp, No PCP - General 04/22/12 01/28/13 [facility] [address] documented as of this encounter
--- OUTSIDE RECORDS SUMMARY | 2022-01-19 16:36 | XMS_ITS | Encounter Summary ---
:1950 Author Organization [facility] Address [address] [place] [address] Phone Care Team Providers Name Role Phone Olga Lee MD Primary Care Provider Reason for Visit Reason Comments Diabetes DM with insulin treated Dr Arabella Aranda A1c was 9.0 on 10/04/2012 BS # [phone] past 1 week Comprehensive Eye Exam Encounter Details Date Type Department Care Team Description 03/15/2013 Office Visit [facility] Ophthalmology Michael Tierney Myozulma a with Clinic Jacques Bell MD astigmatism and [address] [facility], [address] [facility] presbyopia (Primary [place], [place] [address] Mail Code P7 Dx) [phone] [place] [address] Social History Tobacco Use Types Packs/Day Years Used Date Smoking Tobacco: Former Cigarettes Quit : 08/01/1999 Smokeless Tobacco: Never Alcohol Use Standard Drinks/Week Comments No 0 (1 standard drink = 0.6 oz pure alcoho l) Sex Assigned at Date Recorded Female 06/17/2020 4:53 PM 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 Diabetes DM with insulin treated Dr Suma Aranda A1c was 9.0 on 10/04/2012 BS # [phone] past 1 week ??? Comprehensive Eye Exam History of Present Illness: 1.Diabetic x 15 years. Tearing periodically, Impression and Plan: 1.no Retinopathy seen 2.no lid problem causing tearing. 3.Rx given Patient alert and oriented x3 with normal mood and affect. Diagnosis and treatment plan were discussed with patient and patient verbalized understanding. I have reviewed all data entered by the surface lay out technician including the medical, social and family history,examination, allergies, ROS, and progress notes and agree with the documentation. Reema Koch MA - 03/15/2013 3:18 PM CDT Contact Information Maye Li is accompanied by: Self. Phone number to call for results 03/15/2013: Reema Thomson MA, 03/15/2013 3:19 PM . Diabetes She presents for her initial diabetic visit. She has type 2 diabetes mellitus. The initial diagnosisof diabetes was made 15 years ago. Her disease course has been improving. Review of Systems Constitution: Negative. HENT: Negative. Eyes: Negative. Respiratory: Negative. Musculoskeletal: Negative. Physical Exam Constitutional: She is oriented to person, place, and time. Neurological: She is alert and oriented to person, place, and time. documented in this encounter Plan of Treatment Not on filedocumented as of this encounter Visit Diagnoses Diagnosis Myopia with astigmatism and presbyopia - Primary Myopia documented in this encounter Additional Health Concerns Infection Onset Date Last Indicated Resolved Time MDRO (Multiple Drug Resistant 11/13/2012 11/13/2012 7:13 AM CDT Organism) documented as of this encounter Care Teams Finance Manager Relationship Specialty Start Date End Date Olga Lee MD PCP - General Internal Medicine 01/29/13 [facility] [place] [address] documented as of this encounter
--- OUTSIDE RECORDS SUMMARY | 2022-01-19 16:36 | XMS_ITS | Encounter Summary ---
:1950 Author Organization [facility] Address [address] [place] [address] Phone Care Team Providers Name Role Phone Pcp, No Primary Care Provider Unavailable Reason for Visit Reason Comments Back Pain Prior Authorization (Routine) - Closed Specialty Diagnoses / Procedures Referred By Contact Refer red To Contact Alternative Medicine / Diagnoses LBP Steve Dennis Ulrich [facility], Aye F, LAc [address] [place] [address] 82 [address] [place] [address] [address] [place] [phone] Fax: Referral ID Status Reason Start Date Expiration Date Visits Requ ested Visits Authorized [id number] Closed 08/11/2012 05/22/2013 1 20 Encounter Details Date Type Department Care Team Description 09/06/2012 Office Visit [facility] Pj Ochoa, [place] [address] [place] [address] 825 [place] [address] LBP (low back pain) Health [facility] Steve Dennis LAc [address] [place] [address] 825 [place] [address] (Primary Dx) [address], [address] [place], [place] [address] Social History Tobacco Use Types Packs/Day Years Used Date Smoking Tobacco: Former Cigarettes Quit : 08/01/1999 Smokeless Tobacco: Never Alcohol Use Standard Drinks/Week Comments No 0 (1 standard drink = 0.6 oz pure alcoho l) Sex Assigned at Date Recorded Female 06/17/2020 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 Patient was initially referred by friend and patient has undergone previous evaluation and treatmentfor this complaint by [facility] Patient is no [...] Motor points: Gluteus medius, nito, EA on [address]31 Post treatment needling effects: normal Treatment position: lying prone Acupuncture treatment plan: RTC 3 days Time spent with Maye: 25 minutes. documented in this encounter Plan of Treatment Not on filedocumented as of this encounter Visit Diagnoses Diagnosis LBP (low back pain) - Primary Lumbago documented in this encounter Care Teams Grocery Store Bagger Relationship Specialty Start Date End Date Pcp, No PCP - General 04/22/12 01/28/13 [facility] [place] [address] documented as of this encounter
--- OUTSIDE RECORDS SUMMARY | 2022-01-19 16:36 | XMS_ITS | Encounter Summary ---
:1950 Author Organization [facility] Address [address] [place] [address] Phone Care Team Providers Name Role Phone Olga Lee MD Primary Care Provider Reason for Visit Reason Comments Establish Care Encounter Details Date Type Department Care Team Description 01/29/2013 Office Visit [facility] Specialty Olga Lee Diabete s mellitus, type 2 () (Primary Dx); Care Clinic H/O gastric bypass - 2008; 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 Doctor has order a mammogram for you. Please refer to the hand out provided to you and schedule yourappointment. documented in this encounter Progress Notes Olga Lee MD - 01/29/2013 9:59 AM CDT Medicine Clinic Progress Note Maye Li : 1950 Sex: female Date of Service: 01/29/2013 09:59 Subjective: Maye Li comes to the Medicine Clinic for follow up for her iron deficiency anemia secondary to Gastric bypass and to establish care. Patient has been having right ear pain and feeling fatigued since her mother 3 weeks ago. She was started on Celexa a few weeks ago and feels that her depression is improving a bit. She is followed by Dr. Aranda in Endocrine clinic for her Diabetes. She was seen by OB 07/2012 and has a history of a hysterectomy. Her last labs in 07/2012 showed that she is iron deficient. She has been taking a combination Vitamin C/Iron pill since May. The patient also has complaints of right ear pain and feels that she may have an ear infection. She has had a history of ear infections. She denies fever, chills, nausea, vomiting Patient Active Problem List Diagnosis ??? Diabetes mellitus, type 2 ??? H/O gastric bypass - 2008 ??? Alopecia ??? Iron deficiency anemia ??? Vitiligo ??? Depression Social and Family history were reviewed per [facility] on 01/29/2013 A comprehensive ROS was obtained. All pertinent positives and negatives are noted in the subjective section above. Objective: There were no vitals filed for this visit. Wt Readings from Last 3 Encounters: 01/29/13 87.408 kg (192 lb 11.2 oz) 10/04/12 87.862 kg (193 lb 11.2 oz) 08/02/12 88.1 kg (194 lb 3.6 oz) Gen: A&O x 3 HEENT: No scleral icterous or conjunctival pallor. Bilateral ear exam NORMAL CV: rrr with no m/g/r Resp: CTA bilaterally with GI: s/nt/nd, +bs. No hepatosplenomegaly. Musc/Skel: Warm, well perfused without clubbing or cyanosis. no pedal edema Skin: Without eccymoses or rashes. Psyche: Affect normal. Good eye contact. Assessment and Plan: Problem List Items Addressed This Visit Diabetes mellitus, type 2 - Primary H/O gastric bypass - 2008 Iron deficiency anemia Depression Ear pain: normal exam. No treatment. Follow for now Diabetes: patient does all her screening and treatment with Dr. Aranda. She will follow up with Dr. Aranda in Endocrine clinic for Diabetic screening, labs, and medication adjustment. Continue Lantus and Byetta Depression: patient's mother 3 weeks ago. She was started on Celexa 3 weeks ago by a Family practice doctor. She feels that it is working well. Health Maintanance: patient had PAP from OBGYN in 07/2012. Will schedule for Mammogram today. States she has a colonoscopy in 2008 which is not updated in our system Gastric Bypass: with subsequent Iron deficiency. Continue iron studies. Order CBC, Iron studies Sleep Apnea: continue with CPAP. Continue with mask and tubing, new order for supplies given Medications after discharge Current Outpatient Prescriptions Medication Sig Dispense Refill ??? traZODone (DESYREL) 50 mg oral tablet Take 1-3 tablets by mouth at bedtime as needed for sleep. 60 tablet 2 ??? citalopram (CELEXA) 20 mg oral tablet Take 1 tablet by mouth daily. 30 tablet 3 ??? exenatide (BYETTA) 5 mcg/0.02 mL subcutaneous pen Inject 1 dose subcutaneously twice daily 1 hour before breakfast and evening meal. 1.2 mL 3 ??? insulin GLARGINE (LANTUS) 100 units/mL subcutaneous SoloStar Pen Inject 25 units subcutaneously at bedtime. 15 mL 5 ??? Pen [place] 5/16 30G X 8 MM NotApplicabl Misc Use as directed three times daily. 100 Each 11 ??? Multiple Vitamins-Minerals (MULTIVITAL ORAL) Take 1 Tab by mouth daily. ??? aspirin 81 mg oral chewable tab Take 81 mg by mouth daily. ??? pseudoephedrine (SUDAFED) 60 mg oral tablet Take 60 mg by mouth every six hours as needed. 30 Tab 0 ??? metformin 500 mg oral tablet 24 HR Take 1,000 mg by mouth daily. 60 Tab 3 ??? flucONAZOLE (DIFLUCAN) 150 mg oral tablet Take 150 mg by mouth daily. 1 Tab 1 No current facility-administered medications for this visit. Olga Lee MD, 01/29/2013 9:59 AM documented in this encounter Procedure Notes Provider, [facility] - 02/04/2013 12:32 PM CDTAssociated Order(s): CARE EVERYWHERE AUTHORIZATION Provider, [facility] - 02/04/2013 12:32 PM CDTAssociated Order(s): CARE EVERYWHERE AUTHORIZATION documented in this encounter Plan of Treatment Not on filedocumented as of this encounter Procedures Procedure Name Priority Date/Time Associated Comments Diagnosis CARE EVERYWHERE 02/04/2013 12:32 Results for this AUTHORIZATION PM CDT procedure are in the results section. CARE EVERYWHERE 02/04/2013 12:32 Results for this AUTHORIZATION PM CDT procedure are in the results section. TRANSFERRIN (INCLUDES Routine 01/29/2013 12:22 Iron deficiency Results for this TIBC) PM CDT anemia procedure are i n the results section. IRON Routine 01/29/2013 12:22 Iron deficiency Results for this PM CDT anemia procedure are i n the results section. FERRITIN Routine 01/29/2013 12:22 Iron deficiency Results for this PM CDT anemia procedure are i n the results section. CBC WITH PLATELET Routine 01/29/2013 12:21 Iron deficiency Res ults for this PM CDT anemia procedure are i n the results section. documented in this encounter Results CARE EVERYWHERE AUTHORIZATION (02/04/2013 12:32 PM CDT) Narrative 02/04/2013 12:32 PM CDT Procedure Note Provider, [facility] - 02/04/2013 12:32 PM CDTF ormatting of this note might be different from the original. Him Provider SCANNED CONSENTS CARE EVERYWHERE AUTHORIZATION (02/04/2013 12:32 PM CDT) Narrative 02/04/2013 12:32 PM CDT Procedure Note Provider, Him - 02/04/2013 12:32 PM CDTF ormatting of this note might be different from the original. Him Provider SCANNED CONSENTS (ABNORMAL) FERRITIN (01/29/2013 12:22 PM CDT) P athologist Signature Ferritin 7.6 (L) 13.0 - [facility] 150.0 ng/mL Specimen Anatomical Collection Method Collection Time Receive d Time (Source) Location / / Volume Laterality Blood 01/29/2013 12:22 01/29/2013 PM CDT 12:22 PM CDT Olga Lee MD LABORATORY Performing Organization Address City/[facility]/ZIP Code Phon e Number [facility] [place] [address] (ABNORMAL) TRANSFERRIN (INCLUDES TIBC) (01/29/2013 12:22 PM CDT) Analysis Performed At Patho logist Time Signature Transferrin 384 (H) 200 - 360 [facility] mg/dL IBC 572 (H) 226 - 441 [facility] mcg/dL Iron Saturation 5 (L) 20 - 50 % [facility] Percent Specimen Anatomical Collection Method Collection Time Receive d Time (Source) Location / / Volume Laterality Blood 01/29/2013 12:22 01/29/2013 PM CDT 12:22 PM CDT Olga Lee MD LABORATORY Performing Organization Address City/State/ZIP Code Phon e Number [facility] [place] [address] (ABNORMAL) IRON (01/29/2013 12:22 PM CDT) P athologist Signature Iron 31 (L) 37 - 145 [facility] mcg/dL Comment: Test Performed by: [facility] [address] [place] [id number] Specimen Anatomical Collection Method Collection Time Receive d Time (Source) Location / / Volume Laterality Blood 01/29/2013 12:22 01/29/2013 PM CDT 12:22 PM CDT Olga Lee MD LABORATORY Performing Organization Address [facility]/ZIP Code Phon e Number [facility] [place] [address] (ABNORMAL) CBC WITH PLATELET (01/29/2013 12:21 PM CDT) Analysis Performed At Patho logist Time Signature WBC 9.0 4.0 - 10.0 [facility] k/cmm RBC 5.07 3.90 - [facility] 5.20 m/cmm Hgb 10.9 (L) 11.5 - [facility] 15.7 g/dL Hematocrit 36.0 34.0 - [facility] 45.0 % MCV 71.0 (L) 80.0 - [facility] 100.0 fL MCH 21.5 (L) 25.0 - [facility] 32.0 pg MCHC 30.3 (L) 31.0 - [facility] 36.0 g/dL RDW 16.9 (H) 11.5 - [facility] 14.5 % Plt 311 150 - 400 [facility] k/cmm MPV 10.4 6.5 - 12.5 [facility] fL NRBC 0.0 0.0 - 0.0 [facility] % CBC Plt [facility] Performed at: Comment: [facility] [address] [place] [address] Specimen Anatomical Collection Method Collection Time Receive d Time (Source) Location / / Volume Laterality Blood 01/29/2013 12:21 01/29/2013 PM CDT 12:21 PM CDT Olga Lee MD LABORATORY Performing Organization Address City/[facility]/ZIP Code Phon e Number [facility] [place] [address] documented in this encounter Visit Diagnoses Diagnosis Diabetes mellitus, type 2 () - Primary Type II or unspecified type diabetes karin litus without mention of complication, not stated as uncontrolled H/O gastric bypass - 2009 Bariatric surgery status Depression Depressive disorder, not elsewhere class ified Iron deficiency anemia Iron deficiency anemia, unspecified documented in this encounter Additional Health Concerns Infection Onset Date Last Indicated Resolved Time MDRO (Multiple Drug Resistant 11/13/2012 11/13/2012 7:13 AM CDT Organism) documented as of this encounter Care Teams Computer Operator Relationship Specialty Start Date End Date Olga Lee MD PCP - General Internal Medicine 01/29/13 [address] [place] [address] documented as of this encounter
--- OUTSIDE RECORDS SUMMARY | 2022-01-19 16:36 | XMS_ITS | Encounter Summary ---
:1950 Author Organization [facility] Address [address] [place] [address] Phone Care Team Providers Name Role Phone Olga Lee MD Primary Care Provider Reason for Visit Reason Comments Follow-up hearing aid review Encounter Details Date Type Department Care Team Description 04/12/2013 Office Visit [facility] Audiology Clini c Nghia Mujica MD Sensorineural hearing [address] Laura Lizarraga, AUD [address] [place] [address] loss (Primary Dx) P7.200 Rm1, Aud Hrg Aid [place], [place] [address] Social History Tobacco Use Types Packs/Day Years Used Date Smoking Tobacco: Former Cigarettes Quit : 08/01/1999 Smokeless Tobacco: Never Alcohol Use Standard Drinks/Week Comments No 0 (1 standard drink = 0.6 oz pure alcoho l) Sex Assigned at Date Recorded Female 06/17/2020 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 Name and [id number] verified. Patient was fit with binaural Unitron Moxi 6 [id number]-canal hearing aids 03/30/2013. Patient reports she loves the new hearing aids and wears them from the time she gets up until the nighttime. She is amazed by how much she was missing before and is now hearing again. The only things that sound a little loud are her toilet and claim professional, but not uncomfortable. She reports she can hear speech & conversation so much better and does well on the telephone with the hearing aids in her ears. No pain/discomfort physically. She has changed the batteries twice and this went just fine. Patient has a sensorineural hearing loss. A: Patient's binaural hearing aids were checked. She had them both in her ears correctly today. Datalogging revealed she has been wearing the hearing aids an average of 12 hours per day, which is excellent. 100% of the time in the automatic program (86-88% of the time in quiet & 12-14% of the timein [id number]). No program changes needed or made. R: Hearing aid review completed. Sensorineural hearing loss. Non-billable encounter. Patient is doing very well with her new hearing aids and really seems happy to have them. P: Return in 3 months, sooner if needed. Patient agreed with plan. Josué Oliver, [facility] Staff Addictions Therapist V BLOCK SAW OPERATOR documented in this encounter Plan of Treatment Not on filedocumented as of this encounter Visit Diagnoses Diagnosis Sensorineural hearing loss - Primary Sensorineural hearing loss, unspecified documented in this encounter Additional Health Concerns Infection Onset Date Last Indicated Resolved Time MDRO (Multiple Drug Resistant 11/13/2012 11/13/2012 7:13 AM CDT Organism) documented as of this encounter Care Teams Addressing Machine Operator Relationship Specialty Start Date End Date Olga Lee MD PCP - General Internal Medicine 01/29/13 [address] [place] [address] documented as of this encounter
--- OUTSIDE RECORDS SUMMARY | 2022-01-19 16:36 | XMS_ITS | Encounter Summary ---
:1950 Author Organization [facility] Address [address] [place] [phone] Phone Care Team Providers Name Role Phone Olga Lee MD Primary Care Provider Reason for Visit Reason Comments Hearing Loss Encounter Details Date Type Department Care Team Description 03/06/2013 Office Visit [facility] Nghia Mujica, Hearing loss (Primary [place] MD Dx) [address], [address] [place], [place] [address] Social History Tobacco Use Types Packs/Day Years Used Date Smoking Tobacco: Former Cigarettes Quit : 08/01/1999 Smokeless Tobacco: Never Alcohol Use Standard Drinks/Week Comments No 0 (1 standard drink = 0.6 oz pure alcoho l) Sex Assigned at Date Recorded Female 06/17/2020 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, [address] [place] [address] [phone] (fax) [facility]#: [id number] PATIENT: AGAPITO WORLEY : 1950 DATE: 03/06/2013 ENT CLINIC NOTE ADDENDUM We reviewed her medications, and she is on medication for her diabetes and she takes Crestor and uses a CPAP. She does have a history of vitamin D deficiency and had a gastric bypass in the past. She has had a . In reviewing her external records she knee arthroscopy. Her labs showed her sugar running between 130 and higher last time. We have a record from [facility] was 130, that was almost 2 years ago. So on examination her ears, auricles and drums are normal. She does report to me that she has trouble hearing quiet voices that the patient says she sees in the emergency room are loud and there was not a problem with them, but her is complaining that she keeps saying what and she is constantly turning up the TV loudly. Her audiogram was done today and shows a mild to moderate hearing loss of the mid frequency at 2000, her worst was a rise back up at 4000 Hz. Her discrimination scores are 84% and 88%. I suggest that she would be a good candidate for hearing aid evaluation and that she should get 2 hearing aids because the hearing is so symmetric. 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 DIAGNOSIS: Sensorineural hearing loss, symmetric. No issues related to her diabetes with respect to the hearing loss. Nghia Mujica MD [facility] Staff Physician Otolaryngology Service Received in Career Development Counselor: 03/06/2013 10:44 M: 03/06/2013 19:58 lc /can Voice ID: [id number] Document ID: [id number] Nghia Mujica MD - 03/06/2013 7:49 PM CDT [facility] [address] 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 He has noticed particularly over the last year that she has increasing complaints of hearing loss. She notes that she has a brother with bilateral hearing aids. Her parents, as older people, had hearing loss. They also had problems with cancer, with diabetes. She had a grandmother who had a stroke and her mother had epilepsy. There were problems with alcoholism and mental illness in her brother, and he is the one who has the hearing aids, I believe. She does use CPAP. Has a history of anemia, and otherwise has a relatively unremarkable review of systems. She does have diabetes. Has allergies to penicillin and sulfa, and has a history of sinus disease that is generally not managed through our records. Her meds are reviewed. Most of her care is elsewhere, through [facility] and [facility]. Nghia Mujica MD FACS Staff Physician Otolaryngology Service Received in Career Development Counselor: 03/06/2013 10:41 M: 03/06/2013 19:49 [facility]/ Voice ID: [id number] Document ID: [id number] Nghia Mujica MD - 03/06/2013 10:38 AM CDT This office note has been dictated. documented in this encounter Plan of Treatment Not on filedocumented as of this encounter Visit Diagnoses Diagnosis Hearing loss - Primary Unspecified hearing loss documented in this encounter Additional Health Concerns Infection Onset Date Last Indicated Resolved Time MDRO (Multiple Drug Resistant 11/13/2012 11/13/2012 7:13 AM CDT Organism) documented as of this encounter Care Teams Public Health Service Officer Relationship Specialty Start Date End Date Olga Lee MD PCP - General Internal Medicine 01/29/13 [address] [place] [address] documented as of this encounter
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
--- OUTSIDE RECORDS SUMMARY | 2022-01-19 16:36 | XMS_ITS | Encounter Summary ---
:1950 Author Organization [facility] Address [address] [place] [address] Phone Care Team Providers Name Role Phone Pcp, No Primary Care Provider Unavailable Reason for Visit Reason Comments Back Pain Prior Authorization (Routine) - Closed Specialty Diagnoses / Procedures Referred By Contact Refer red To Contact Alternative Medicine / Diagnoses LBP Steve Dennis Ulrich [facility] , Aye F, LAc [address] [place] [address] [address] [place] [address] 825 [place] [phone] Fax: Referral ID Status Reason Start Date Expiration Date Visits Requ ested Visits Authorized [id number] Closed 08/11/2012 05/22/2013 1 20 Encounter Details Date Type Department Care Team Description 11/28/2012 Office [place] [facility] Integrative [place] DC [address] [place] [address] [address] [place] [address] LBP (low back pain) Health Clinic Steve Dennis LAc [address] [facility] [address] [place] [address] (Primary Dx) [address] 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 Patient was initially referred by friend and patient has undergone previous evaluation and treatmentfor this complaint by M.D.-PCP, M.D.-Orthopaedic, D.C. and P.T.. Patient is no novice to acupuncture. This is an old problem. Pain level today is 3-4/10 and pain levels over the last 3 days were: 1-3/10. Pain is better with rest and pain is worse with walking a lot and on hard surfaces. Pain is of dull or sharp intermittent nature. Interview, palpation and visual inspection: Patient complains of rt LBP. Rt gluteal area less compacted. Sleep quality: good, though some crampiness and jumpy legs at night in the past. Patient has nopacemaker or implanted electronic device. Duration of pain: several years. Medical diagnosis for this problem: myofascial pain. Medications given in the past or taken now: see EHR; Treatment goals and priorities: ease pain and inflammation TCM diagnosis: bi syndrome Acupuncture given today after cleaning of the areas involved with alcohol prep pads: Lumbar amna ji, Motor points: Gluteus medius, trap, nito, EA on 4 leads Post treatment needling effects: normal Treatment position: lying prone Acupuncture treatment plan: RTC 7-14 days Time spent with Maye: 25 minutes. 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
--- OUTSIDE RECORDS SUMMARY | 2022-01-19 16:36 | XMS_ITS | Encounter Summary ---
:1950 Author Organization [facility] Address [address] [place] [address] Phone Care Team Providers Name Role Phone Olga Lee MD Primary Care Provider Reason for Visit Reason Comments Hearing Loss hearing aid fitting Encounter Details Date Type Department Care Team Description 03/30/2013 Office Visit [facility] [place] Nghia Mujica MD Sensorineural hearing [address] Laura Lizarraga, AUD [address] [place] [address] loss (Primary Dx) P7.200 Rm1, Aud Hrg Aid [place], [place] [address] Social History Tobacco Use Types Packs/Day Years Used Date Smoking Tobacco: Former Cigarettes Quit : 08/01/1999 Smokeless Tobacco: Never Alcohol Use Standard Drinks/Week Comments No 0 (1 standard drink = 0.6 oz pure alcoho l) Sex Assigned at Date Recorded Female 06/17/2020 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 Name and [id number] verified. Patient has a sensorineural hearing loss. Patient has not worn hearing aids in the past. A: Patient fit with binaural Unitron Moxi 6 MARIA DE JESUS hearing aids. Size 0 receivers. Medium domes. Good physical fit. Speech mapping measurements were completed. Patient was oriented to proper hearing aid use, care, cleaning (no water, dry toothbrush), batteries (size 312, insertion/removal, toxicity, low-battery signal), aid insertion/removal, program button adjustment, telephone use, remote control (Smart control) use, user booklet, warranty information, storage cases, and other hearing aid details. Patient did well. R: Binaural digital [id number] hearing aid fitting completed. Sensorineural hearing loss (389.10). Patient paid at the front edger ($2240.00). P: Patient to proceed with the hearing aid adjustment/trial period. Patient to return in 2-3 weeks for a review appointment. Patient agreed with plan. 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
--- OUTSIDE RECORDS SUMMARY | 2022-01-19 16:36 | XMS_ITS | Encounter Summary ---
:[address] [facility] Address [address] [place] [address] Phone Care Team Providers Name Role Phone Pcp, No Primary Care Provider Unavailable Reason for Visit Reason Comments Back Pain Prior Authorization (Routine) - Closed Specialty Diagnoses / Procedures Referred By Contact Refer red To Contact Alternative Medicine / Diagnoses LBP Steve Dennis Ulrich [facility] , Aye F, LAc [address] [place] [address] [address] [place] [address] 825 [place] [phone] Fax: Referral ID Status Reason Start Date Expiration Date Visits Requ ested Visits Authorized [id number] Closed 08/11/2012 05/22/2013 1 20 Encounter Details Date Type Department Care Team Description 11/21/2012 Office [place] [facility] [place] [address] [place] [address] [address] [place] [address] LBP (low back pain) Health Clinic Steve Dennis LAc [address] [facility] [address] [place] [address] (Primary Dx) 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 Acupuncture Treatment Note 2 patient identifiers were obtained and Maye Li presents today for a follow up visit forthe treatment of the following symptom(s): Rt >lt low back pain, sore in the last several weeks, mild rt upper trap pain. Patient was initially referred by friend [...] complains of rt LBP. Rt gluteal area still feels less compacted. Sleep quality: good, though some crampiness and jumpy legs at night. Patient has nopacemaker or implanted electronic device. Duration of pain: several years. Medical diagnosis for this problem: myofascial pain. Medications given in the past or taken now: see EHR; Treatment goals and priorities: ease pain and inflammation TCM diagnosis: bi syndrome Acupuncture given today after cleaning of the areas involved with alcohol prep pads: Lumbar amna ji, Motor points: Gluteus medius, trap, nito Post treatment needling effects: normal Treatment [...] documented as of this encounter Care Teams Tire Fabric Impregnating Range Tender Relationship Specialty Start Date End Date Pcp, No PCP - General 04/22/12 01/28/13 [facility] [place] [address] documented as of this encounter
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
--- OUTSIDE RECORDS SUMMARY | 2022-01-19 16:36 | XMS_ITS | Encounter Summary ---
:1950 Author Organization [facility] Address [address] [place] [address] Phone Care Team Providers Name Role Phone Pcp, No Primary Care Provider Unavailable Reason for Visit Prior Authorization (Routine) - Closed Specialty Diagnoses / Procedures Referred By Contact Refer red To Contact Alternative Medicine / Diagnoses LBP Steve Dennis Ulrich [facility], Aye F, LAc [address] [place] [address] 82 [address] [place] [address] [place] [phone] Fax: Referral ID Status Reason Start Date Expiration Date Visits Requ ested Visits Authorized [id number] Closed 08/11/2012 05/22/2013 1 20 Encounter Details Date Type Department Care Team Description 10/05/2012 Office Visit [facility] Pj Ochoa, CAITLIN [address] [place] [id number] LBP (low back pain) [facility] Steve Dennis LAc [address] [place] [address] 825 [place] [address] (Primary Dx) [address] [place], [place] [address] Social History Tobacco Use Types Packs/Day Years Used Date Smoking Tobacco: Former Cigarettes Quit : 08/01/1999 Smokeless Tobacco: Never Alcohol Use Standard Drinks/Week Comments No 0 (1 standard drink = 0.6 oz pure alcoho l) Sex Assigned at Date Recorded Female 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 Left shoulder sorenessafter gardening. Patient was initially referred by friend and patient has undergone previous evaluation and treatmentfor this complaint by [facility] Patient is no [...] Lumbar amna ji, Motor points: Gluteus medius, nito, EA on 4, shoulder 5 Post treatment needling effects: normal Treatment position: lying prone Acupuncture treatment plan: RTC 7-14 days Time spent with Maye: 25 minutes. documented in this encounter Plan of Treatment Not on filedocumented as of this encounter Visit Diagnoses Diagnosis LBP (low back pain) - Primary Lumbago documented in this encounter Care Teams Laser Engineer Relationship Specialty Start Date End Date Pcp, No PCP - General 04/22/12 01/28/13 [facility] [place] [place] [address] documented as of this encounter
--- OUTSIDE RECORDS SUMMARY | 2022-01-19 16:36 | XMS_ITS | Encounter Summary ---
:1950 Author Organization [facility] Address [address] [place] [address] Phone Care Team Providers Name Role Phone Pcp, No Primary Care Provider Unavailable Reason for Visit Reason Comments Back Pain Prior Authorization (Routine) - Closed Specialty Diagnoses / Procedures Referred By Contact Refer red To Contact Alternative Medicine / Diagnoses LBP Steve Dennis Ulrich [facility], Aye F, LAc [address] [place] [address] [phone] [place] [address] 825 [place] [phone] Fax: Referral ID Status Reason Start Date Expiration Date Visits Requ ested Visits Authorized [id number] Closed 08/11/2012 05/22/2013 1 20 Encounter Details Date Type Department Care Team Description 08/23/2012 Office Visit [facility] Pj Ochoa, CAITLIN [address] [place] [address] 825 [place] [address] LBP (low back pain) [facility] Steve Dennis LAc [address] [place] [address] 825 [place] [address] (Primary Dx) [address] [place], [place] [address] Social History Tobacco Use Types Packs/Day Years Used Date Smoking Tobacco: Former Cigarettes Quit : 08/01/1999 Smokeless Tobacco: Never Alcohol Use Standard Drinks/Week Comments No 0 (1 standard drink = 0.6 oz pure alcoho l) Sex Assigned at Date Recorded Female 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 Vasquez re endocrine concerns documented in this encounter Progress Notes Steve Dennis LAc - 08/23/2012 8:18 AM CDT [facility] Acupuncture Treatment Note 2 patient identifiers were obtained and Maye Virgie Li presents today for a follow up visit forthe treatment of the following symptom(s): Rt >lt low back pain, improved after recent tx. Patient was initially referred by friend [...] of rt LBP. Rt gluteal area feels today less compacted under the surface with a previously palpably different texture there. Sleep quality:good, though some crampiness and jumpy legs at [...] amna ji points , Motor points: Gluteus medius, nito Post treatment needling effects: normal Treatment position: lying prone Acupuncture treatment plan: RTC 3 days Time spent with Maye: 25 minutes. documented in this encounter Plan of Treatment Not on filedocumented as of this encounter Visit Diagnoses Diagnosis LBP (low back pain) - Primary Lumbago documented in this encounter Care Teams Power Cutting Machine Operator Relationship Specialty Start Date End Date Pcp, No PCP - General 04/22/12 01/28/13 [facility] [place] [address] documented as of this encounter
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
--- OUTSIDE RECORDS SUMMARY | 2022-01-19 16:36 | XMS_ITS | Encounter Summary ---
:1950 Author Organization [facility] Address [address] [place] [address]. [place] [address] Phone Care Team Providers Name Role Phone Pcp, No Primary Care Provider Unavailable Reason for Visit Reason Comments UTI Encounter Details Date Type Department Care Team Description 11/08/2012 Hospital Encounter [facility] Urgent Care Brock Winkler PA-C Need New Practice Location UTI (urinary tract [address] [place], [place] [address]Jose Manuel MD [address] [place] [address] Mail Code R1 [place], [place] [id number] infection) R[address] [place] [address] Social History Tobacco Use Types Packs/Day Years Used Date Smoking Tobacco: Former Cigarettes Quit : 08/01/1999 Smokeless Tobacco: Never Alcohol Use Standard Drinks/Week Comments No 0 (1 standard drink = 0.6 oz pure alcoho l) Sex Assigned at Date Recorded Female 06/17/2020 4:53 PM CALENDERER documented as of this encounter Last Filed Vital Signs Vital Sign Reading Time Taken Comments Blood Pressure 125/73 11/08/2012 3:53 PM CDT Pulse 90 11/08/2012 3:53 PM CDT Temperature 37.1 ??C (98.8 ??F) 11/08/2012 3:53 PM CDT Respiratory Rate 16 11/08/2012 3:53 PM CDT Oxygen Saturation 99% 11/08/2012 3:53 PM CDT Inhaled Oxygen Concentration - - Weight - - Height - - Body Mass Index - - documented in this encounter Discharge Instructions Discharge Jayne Dee RN - 11/08/2012 4:41 PM CDT Images from the original note [...] Information Follow up With Details Comments Contact [facility] DIRECT CARE CL As needed [facility] [address] [place] [address] [phone] [facility] [address] Please call to make your appointment. You can call your [place] clinic to make an appointment Tuesday-Tuesday 7:30am-9:00pm and Tuesday and Tuesday 8:30am-5:00pm. Existing appointments at [facility] for the next 2 months: *Note - this does not include Day Treatment or Partial Hospital appointments: October 2012Tuesday 1 2 3 4 5 6 7 8 9 10 11 12 OFFICE VISIT - DIABETES 11:00 AM (20 min.) Suma Aranda MD [facility] Diabetes & Endo Clinic 13 14 15 16 17 18 19 20 21 22 23 24 25 26 27 28 29 Happy Birthday! 30 If you are unable to attend or if you are going to be late, please call the service or clinic. [facility] Buildings and Entrances: ?? P = Purple Building - use the [address] or [address] entrance ?? R = Red Building - use the [address] entrance ?? O = [place] Building - use the Blue or Red [...] Emergency Department. ?? Emergency Department Financial Counseling [phone] (7:30am to Midnight, Tuesday - Tuesday) ?? [facility] [phone] . AttachmentsThe following attachments cannot be sent through Care Everywhere. BLADDER INFECTION, FEMALE (ADULT) (KINYARWANDA)documented in this encounter Medications at Time of Discharge Medication Sig Dispensed Refills Start Date End Date Multiple Take 1 Tab by mouth 0 Vitamins-Minerals daily. (MULTIVITAL ORAL) nitrofurantoin monohyd Take 1 capsule (100 14 capsule 0 10/2111/15/2012 macro (MACROBID) 100 mg mg) by mouth twice oral capsule daily for 7 days. phenazopyridine Take 1 tablet (100 9 tablet 0 11/08/2012 0 11/11/2012 (PYRIDIUM) 100 mg oral mg) by mouth three tablet times daily for 3 days. exenatide (BYETTA) 5 Inject 1 dose 1.2 mL 0 11/08/2012 0 12/22/2012 mcg/0.02 mL subcutaneously twice subcutaneous pen daily 1 hour before breakfast and evening meal. insulin GLARGINE Inject 25 units 15 mL 5 10/04/2012 (LANTUS) 100 units/mL subcutaneously at subcutaneous SoloStar bedtime. Pen Pen [place] 10/05 30G X Use as directed three 100 Each 11 0 10/04/2012 09/20/2013 8 MM NotApplicabl Misc times daily. metformin 500 mg oral Take 1,000 mg by 60 Tab 3 08/03/19 13 04/16/2013 tablet 24 HR mouth daily. aspirin 81 mg oral Take 81 mg by mouth 0 04/16/2013 chewable tab daily. flucONAZOLE (DIFLUCAN) Take 150 mg by mouth 1 Tab 1 03/201304/16/2013 150 mg oral tablet daily. pseudoephedrine Take 60 mg by mouth 30 Tab 0 06/19/2012 04/18/2013 (SUDAFED) 60 mg oral every six hours as tablet needed. documented as of this encounter Miscellaneous Notes Urgent Care Note - Eloise Grant RN - 11/11/2012 9:26 AM CDT Addendum to last [facility] note:Re: positive urine culture results: Pt treated appropriately for UTI in EDwith: MACROBID 100 mg b.i.d. x 7 days, NOT Cipro. No further treatment necessary. Urgent Care Note - Eloise Grant RN - 11/11/2012 9:22 AM CDT Re: positive urine culture results: Pt already treated appropriately for UTI in ED with: Cipro 500 mg b.i.d. x 7 days. Provider Note - Brock Winkler PA-C - 11/08/2012 4:22 PM CDT Urgent Care Provider Note Maye Li : 1950 Sex: female Date of Service: 11/08/2012 16:28 Patient Arrival Date and Time: 11/08/2012 3:42 PM HPI Maye Li is a 61 y.o. female who presents for urinary urgency, frequency, dysuria x 3 days. Reports no vaginal concerns. Reports no hematuria, sediments. Reports some lower abdominal pressure and stingling during urination. She denies new back pains, fever, chills, body aches, sweats. Denies n/v/d/c, abd pains, barbour/dizziness, cp/sob. Past Medical History Diagnosis Date ??? Diabetes Allergies Allergen Reactions ??? Penicillins Anaphylaxis ??? Sulfa Antibiotics Rash Review of Systems See HPI Vitals: BP 125/73 Pulse 90 Temp(Src) 37.1 ??C (98.8 ??F) Resp 16 SpO2 99% Physical Exam Constitutional: She is oriented to person, place, and time. She appears well- developed and well-nourished. No distress. Cardiovascular: Normal rate, regular rhythm and normal heart sounds. Exam reveals no gallop and no friction rub. No murmur heard. Pulmonary/Chest: Effort normal and breath sounds normal. No respiratory distress. She has no wheezes. She has no rales. Abdominal: Soft. Bowel sounds are normal. She exhibits no distension. There is no tenderness. There is no CVA tenderness. Neurological: She is alert and oriented to person, place, and time. Skin: Skin is warm and dry. No rash noted. She is not diaphoretic. No erythema. ASSESSMENT AND PLAN UTI; blood, LE in UA; culture sent. -macrobid 7 days, pyridium, increase fluids, rest, f/u with SALES SUPPORT ASSISTANT as needed. -Return to care if symptoms worsen or unresolved. Pt understands and is agreeable to plan. Labs Reviewed POC URINE MULTISTIX 10 - Abnormal; Notable for the following: Blood Ur Moderate (*) Leuk Est Small (*) All other components within normal limits URINE CULTURE Orders Placed This Encounter ??? POC URINE MULTISTIX 10 ??? nitrofurantoin monohyd macro (MACROBID) 100 mg oral capsule ??? phenazopyridine (PYRIDIUM) 100 mg oral tablet ??? URINE CULTURE Clinical Impressions: 1. UTI (urinary tract infection) Brock Winkler PA, 11/08/2012 4:28 PM Urgent Care Note - Christina Figueredo RN - 11/08/2012 3:52 PM CDT Pt states she has been experiencing dysuria for the past 3 days states sx went away yesterday but came back today documented in this encounter Plan of Treatment Not on filedocumented as of this encounter Procedures Procedure Name Priority Date/Time Associated Diagnosis Comme nts URINE CULTURE STAT 11/08/2012 4:27 PM Results for this CDT procedure are i n the results section. POC URINE MULTISTIX Routine 11/08/2012 4:10 PM Re sults for this 10 CDT procedure are i n the results section. documented in this encounter Results (ABNORMAL) URINE CULTURE (11/08/2012 4:27 PM CDT) [facility] Method Time Signature Urine Cult [facility] ? PROCEDURE: MB Urine Culture ?SOURCE: Urine Midstream ?COLLECTED: 11/08/2012 16:30 ? BODY SITE: ?FREE TEXT SOURCE: ?STARTED: 11/08/2012 17:13 ? FINAL REPORT Final Report Verified:11/11/2012 07:17 50,000 - 100,000 organisms/ml Escherichia coli isolated. ESBL-producing organism. SUSCEPTIBILITY RESULTS ? Escheric hia ? coli ? VDIL ?VINT Ampicillin ? >=32 ?R Ampicillin/Sulbactam ? >=32 ?R Ceftriaxone ?R Ciprofloxacin ?>=4 ? R Cefepime ? R Doripenem ?<=0.12 ?S Ertapenem ?<=0.5 ? S Nitrofurantoin ? <=16 ?S Gentamicin ? >=16 ?R Levofloxacin ? >=8 ? R Pipercillin/Tazobactam ? <=4 ? S Trimethoprim/Sulfamethoxazole ?<=20 ? S ?S=Susceptible, I=Intermediate, R=Resistant, N/A=Not Applicable ( POS) Specimen Anatomical Collection Method Collection Time Receive d Time (Source) Location / / Volume Laterality Urine Midstream. 11/08/2012 4:27 PM 11/08 5:13 CDT PM CDT Brock Winkler PA-C LAB MICROBIOLOGY Performing Organization Address City/State/ZIP Code Phon e Number [facility] [place] [place] [address] [place] [address] (ABNORMAL) POC URINE MULTISTIX 10 (11/08/2012 4:10 PM CDT) [facility] gist Method Time Signature Urine Glucose Negative Negative [facility] Bili UA Negative Negative [facility] Ketones Negative Neg - Trace [facility] Specific [place] 1.025 1.003 - [facility]ELCOR 1.030 Blood Ur Moderate (A) Neg - Trace [facility] PH Urine 5.5 5.0 - 7.0 [facility] Protein Ur Negative Neg - 30 [facility] mg/dL Urobilinogen 0.2 0.2 - 1.0 [facility] Nitrite Ur Negative Negative [facility] Leuk Est Small (A) Negative [facility] Specimen (Source) Anatomical Collection Method Collection Time Re ceived Time Location / / Volume Laterality Blood 11/08/2012 4:10 PM CDT Brock Winkler PA-C POINT OF CARE Performing Organization Address City/State/ZIP Code Phon e Number [facility] MAIN CAMPUS - POINT OF [address] [place], [place] [address] CARE [facility] [address] [place] [address], documented in this encounter Visit Diagnoses Diagnosis UTI (urinary tract infection) - Primary Urinary tract infection, site not specif ied documented in this encounter Care Teams Cognos Lead Relationship Specialty Start Date End Date Pcp, No PCP - General 04/22/12 01/28/13 [facility] [place] [address] documented as of this encounter
--- OUTSIDE RECORDS SUMMARY | 2022-01-19 16:36 | XMS_ITS | Encounter Summary ---
:1950 Author Organization [facility][Note 3] Address [address] [place] [address] Phone Care Team Providers Name Role Phone Pcp, No Primary Care Provider Unavailable Reason for Visit Reason Comments Back Pain Prior Authorization (Routine) - Closed Specialty Diagnoses / Procedures Referred By Contact Refer red To Contact Alternative Medicine / Diagnoses LBP Steve Dennis Ulrich [facility], Aye F, LAc [address] [place] [address] [phone] [place] [address] [address]25 [place] [phone] Fax: Referral ID Status Reason Start Date Expiration Date Visits Requ ested Visits Authorized [id number] Closed 08/11/2012 05/22/2013 1 20 Encounter Details Date Type Department Care Team Description 08/28/2012 Office Visit [facility] Pj Ochoa, CAITLIN [address] [place] [address] 825 [place] [address] LBP (low back pain) [facility] Steve Dennis LAc [address] [place] [address] 825 [place] [address] (Primary Dx) [address] [place], [place] [address] Social History Tobacco Use Types Packs/Day Years Used Date Smoking Tobacco: Former Cigarettes Quit : 08/01/1999 Smokeless Tobacco: Never Alcohol Use Standard Drinks/Week Comments No 0 (1 standard drink = 0.6 oz pure alcoho l) Sex Assigned at Date Recorded Female 06/17/2020 4:53 PM 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 documented in this encounter Progress Notes Steve Dennis LAc - 08/28/2012 9:10 AM CDT [facility] Acupuncture Treatment Note 2 patient identifiers were obtained and Maye Li presents today for a follow up visit forthe treatment of the following symptom(s): Rt >lt low back pain, improved after recent tx. And again only little pain today. Patient was initially referred by friend and patient has undergone previous evaluation and treatmentfor this complaint by [facility]el[facility]-PCP[facility] M.D[facility] and P.T.. Patient is no novice to acupuncture. This is an old problem. Pain level today is 1-2/10 and pain levels over the last 3 [...] amna ji points, Motor points: Gluteus medius, nito Post treatment needling effects: normal Treatment position: lying prone Acupuncture treatment plan: RTC 3 days Time spent with Maye: 25 minutes. documented in this encounter Plan of Treatment Not on filedocumented as of this encounter Visit Diagnoses Diagnosis LBP (low back pain) - Primary Lumbago documented in this encounter Care Teams Inventory Management Specialist Relationship Specialty Start Date End Date Pcp, No PCP - General 04/22/12 01/28/13 [facility] [place] [address] documented as of this encounter
--- OUTSIDE RECORDS SUMMARY | 2022-01-19 16:36 | XMS_ITS | Encounter Summary ---
:1950 Author Organization [facility] Address [address] [place] [address] Phone Care Team Providers Name Role Phone Olga Lee MD Primary Care Provider Reason for Visit Reason Onset Date Comments Glasses Prescription 03/19/2013 Encounter Details Date Type Department Care Team Description 03/19/2013 Telephone [facility] Ophthalmology Clinic Cordell Costello, Glasses Prescription [facility] [address] [place], [place] [address] [facility] [phone] [address] [place] [address] Social History Tobacco Use Types Packs/Day Years Used Date Smoking Tobacco: Former Cigarettes Quit : 08/01/1999 Smokeless Tobacco: Never Alcohol Use Standard Drinks/Week Comments No 0 (1 standard drink = 0.6 oz pure alcoho l) Sex Assigned at Date Recorded Female 06/17/2020 4:53 PM ADMINISTRATION INTERNSHIP documented as of this encounter Miscellaneous Notes Telephone Encounter - Cordell Costello COMT - 03/19/2013 2:07 PM CDT Caller requesting most recent gls rx be faxed to [facility] at [phone]. Rx printed and given to front desk receptionist to fax. Telephone Encounter - Cordell Costello COMT - 03/19/2013 2:07 PM CDT Message copied by CORDELL COSTELLO on TueMar 19, 2013 2:07 PM ------ Message from: WOOD VAZQUEZ Created: TueMar 19, 2013 1:40 PM Regarding: glass rx Please fax copy of pt glass rx to [facility] [employer] ------ documented in this encounter Plan of Treatment Not on filedocumented as of this encounter Visit Diagnoses Not on filedocumented in this encounter Additional Health Concerns Infection Onset Date Last Indicated Resolved Time MDRO (Multiple Drug Resistant 11/13/2012 11/13/2012 7:13 AM CDT Organism) documented as of this encounter Care Teams Practice Support Specialist Relationship Specialty Start Date End Date Olga Lee MD PCP - General Internal Medicine 01/29/[address] [place] [address] documented as of this encounter
--- OUTSIDE RECORDS SUMMARY | 2022-01-19 16:36 | XMS_ITS | Encounter Summary ---
:1950 Author Organization [facility] Address [address] [place] [address] Phone Care Team Providers Name Role Phone Olga Lee MD Primary Care Provider Reason for Visit Reason Onset Date Comments Standard Diagnostic Assessment 04/16/2013 Encounter Details Date Type Department Care Team Description 04/16/2013 Office Visit [facility] Psychiatry Clinic Berkley Dominguez e stress disorder Renaldo Motta, PhD, LP (Primary Dx) 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 Diagnoses: [place] I: Acute Stress Disorder [place] II: Deferred Mental Status Exam: Appearance: Distressed, Casually groomed, Dressed appropriately for weather and Appears stated age Behavior/Relationship Toward Examiner/Demeanor: Cooperative, Engaged, Pleasant, and Maintained eye contact Speech rate: Normal Speech volume: Normal and Soft at times Speech coherence: Normal Speech spontaneity: Difficult with word finding at times Mood (subjective report): Frustrated Affect (objective appearance): Tearful, Depressed, and Anxious/Nervous [...] sensitive note. Progress Toward Treatment Plan: Patient is endorsing symptoms consistent with Acute Stress Disorder.Patient reported she is currently taking psychiatric medication as prescribed to her by family practitioner; Celexa and Ativan. Plan: Due to complexity of last session on 04/02/13, provider completed Standard Diagnostic Assessment at today's encounter. Patient agreed to participate in bi- weekly individual outpatient therapy with Dr. Dominguez of [facility]. Follow-up appointment recommended in 1-2 weeks. Patient will continue follow-up a ppointments with other providers if applicable and as directed by those providers. Patient has a scheduled medication appointment with Maye Tinsley RN, MALT HOUSE OPERATOR of [facility]. Patient is aware of APS and has agreed to call if needed. 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
--- OUTSIDE RECORDS SUMMARY | 2022-01-19 16:37 | XMS_ITS | Encounter Summary ---
:1950 Author Organization [facility] Address [address] [place] [id number] Phone Care Team Providers Name Role Phone Pcp, No Primary Care Provider Unavailable Reason for Visit Reason Comments Ear Pain Nasal Congestion Encounter Details Date Type Department Care Team Description 06/19/2012 Hospital Encounter [facility] Urgent Care Fredrick Winkler PA-C Need New Practice Location EAR PAIN [address] [facility] Nasir Preciado MD Need New Address [address] [place], [place] [address] [phone] Social History Tobacco Use Types Packs/Day Years Used Date Smoking Tobacco: Never Alcohol Use Standard Drinks/Week Comments No 0 (1 standard drink = 0.6 oz pure alcoho l) Sex Assigned at Date Recorded Female 06/17/2020 4:53 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 documented as of this encounter Last Filed Vital Signs Vital Sign Reading Time Taken Comments Blood Pressure 133/69 06/19/2012 7:32 PM SHOE WORKER Pulse 102 06/19/2012 7:32 PM SHOE WORKER Temperature 36.7 ??C (98.1 ??F) 06/19/2012 7:32 PM SHOE WORKER Respiratory Rate 18 06/19/2012 7:32 PM SHOE WORKER Oxygen Saturation 98% 06/19/2012 7:32 PM SHOE WORKER Inhaled Oxygen Concentration - - Weight - - Height - - Body Mass Index - - documented in this encounter Discharge Instructions Discharge Jayne Hale RN - 06/19/2012 8:14 PM CST Images from the original note [...] Information Follow up With Details Comments Contact [facility] DIRECT CARE CL As needed [facility] [address] [facility] [address] [facility] [address] Please call to make your appointment. You can call your [place] clinic to make an appointment Tuesday-Tuesday 7:30am-9:00pm and Tuesday and Tuesday 8:30am-5:00pm. Existing appointments at [facility] for the next 2 months: *Note - this does not include Day Treatment or Partial Hospital appointments: No relevant events scheduled for this patient from May 2012 through June 2012. If you are unable to attend or if you are going to be late, please call the service or clinic. [facility] entrances: ?? Purple = [address] or [address] ?? Blue = [address] or [address] ?? Red = [address] Transport #s: ?? MNET - (MA- Medical Assistance patients only) ?? [facility] - after hours - transport M-F ?? [facility] - or A Financial Counselor can be reached at the following numbers after you have been discharged from the Emergency Department. ?? Emergency Department Financial Counseling [phone] (7:30am to Midnight, Tuesday - Tuesday). ?? [facility] [phone] WORKER AttachmentsThe following attachments cannot be sent through Care Everywhere. CAUSES OF SINUSITIS (INDIAN)CERUMEN IMPACTION, HOME CARE (INDIAN)CLINDAMYCIN (INDIAN)documented in this encounter Medications at Time of Discharge Medication Sig Dispensed Refills Start Date End Date clindamycin (CLEOCIN) 300 Take 300 mg by 28 Cap 0 201206/26/2012 mg oral capsule mouth four times daily for 7 days. oxymetazoline (AFRIN) 0.05% 1-2 Sprays by 1 Bottle 0 06/1906/22/2012 nasal solution Nasal route twice daily for 3 days. One-Two sprays each nostril twice a day for 3 days only pseudoephedrine (SUDAFED) Take 60 mg by 30 Tab 0 013 04/18/2013 60 mg oral tablet mouth every six hours as needed. documented as of this encounter Miscellaneous Notes Provider Note - Fredrick Winkler PA-C - 06/19/2012 8:13 PM CSTAssociated Order(s): NWR CERUMEN REMOVAL Urgent Care Provider Note Maye Li : 1950 Sex: female Date of Service: 06/19/2012 20:13 Patient Arrival Date and Time: 06/19/2012 7:29 PM HPI Maye Li is a 61 y.o. female who presents for URI symptoms x 1 week. States illness beganwith sore throat, then became congested with facial pressure and ear pressure/pain. Reports slight ringing in her ear and they feel plugged; no drainage, vertigo. She reports also has PND; denies coughing or production. Reports facial/forehead pressure giving slight headache and watery eyes. Has triedotc cold/flu meds without relief. Denies fevers, chills, aches, sweats, n/v/d/c, abd pains, dizziness, cp/sob. Sleeps using a c-pap machine which causes frequent sinus issues. Past Medical History Diagnosis Date ??? Diabetes Allergies Allergen Reactions ??? Penicillins Anaphylaxis ??? Sulfa Antibiotics Rash Review of Systems See HPI Vitals: BP 133/69 Pulse 102 Temp 36.7 ??C (98.1 ??F) Resp 18 SpO2 98% Physical Exam Constitutional: She appears well-developed and well-nourished. No distress. HENT: Head: Normocephalic and atraumatic. Right Ear: Tympanic membrane, external ear and ear canal normal. Left Ear: External ear normal. Nose: Mucosal edema and rhinorrhea present. No sinus tenderness. Right sinus exhibits frontal sinus tenderness. Right sinus exhibits no maxillary sinus tenderness. Left sinus exhibits frontal sinus tenderness. Left sinus exhibits no maxillary sinus tenderness. Mouth/Throat: Uvula is midline and mucous membranes are normal. No uvula swelling. Posterior oropharyngeal erythema present. No oropharyngeal exudate or posterior oropharyngeal edema. Moderate cerumen in L EAC; TM pearly white with good light reflex. Neck: Normal range of motion. Neck supple. Cardiovascular: Normal rate, regular rhythm and normal heart sounds. Exam reveals no gallop and no friction rub. No murmur heard. Pulmonary/Chest: Effort normal and breath sounds normal. No respiratory distress. She has no wheezes. She has no rales. Lymphadenopathy: She has no cervical adenopathy. Skin: Skin is warm and dry. No rash noted. No erythema. Cerumen Removal Date/Time: 06/19/2012 8:19 PM Performed by: FREDRICK WINKLER Authorized by: FREDRICK WINKLER Consent: Verbal consent obtained. Risks and benefits: risks, benefits and alternatives were discussed Consent given by: patient Patient understanding: patient states understanding of the procedure being performed Required items: required blood products, implants, devices, and special equipment available Patient identity confirmed: verbally with patient and arm band Time out: Immediately prior to procedure a time out was called to verify the correct patient, procedure, equipment, rn support services and site/side marked as required. Local anesthetic: none Location details: left ear Procedure type: curette Patient sedated: no Patient tolerance: Patient tolerated the procedure well with no immediate complications. Comments: Large amount of cerumen removed from L EAC. TM visualized post- procedure; pearly white, good light reflex, EAC without erythema, edema, or exudate. ASSESSMENT AND PLAN Pharyngitis strep/viral vs sinusitis vs viral uri with cough vs tonsillitis vs mono vs VIRTUAL CUSTOMER ASSISTANT vs RPA Sinusitis, cerumen impaction: Cerumen removed as described above. Will treat for sinusitis with clindamycin, since she has had success with this in the past. Suggested use of humidifiers. Sudafed, afrin for symptoms as well. Increase fluids, rest, f/u with rotary drier operator as needed. Return to care if symptoms worsen or unresolved. Pt understands and is agreeable to plan. Orders Placed This Encounter ??? clindamycin (CLEOCIN) 300 mg oral capsule ??? pseudoephedrine (SUDAFED) 60 mg oral tablet ??? oxymetazoline (AFRIN) 0.05% nasal solution Clinical Impressions: 1. Sinusitis 2. Cerumen impaction Fredrick Winkler PA, 06/19/2012 8:13 PM WORKER Urgent Care Note - Nancy Becerril RN - 06/19/2012 7:37 PM CST Both ears painful and right ear feels plugged - sore throat, sinus congestion sxs x past week. Taking nothing for sxs. No coughing. WORKER documented in this encounter Plan of Treatment Not on filedocumented as of this encounter Procedures Procedure Name Priority Date/Time Associated Diagnosis Comme nts CERUMEN REMOVAL Routine 06/19/2012 8:20 PM Result s for this SHOE WORKER procedure are i n the results section. documented in this encounter Results NWR CERUMEN REMOVAL (06/19/2012 8:20 PM SHOE WORKER) Narrative Fredrick Winkler PA-C - 06/19/2012 8:20 P M SHOE WORKER Fredrick Winkler PA ? 06/19/2012 ??8:20 PM Urgent Care Provider Note Maye CORBETT Guillermo ?? : 1950 ? ? Sex: female ?? Date of Service: 06/19/2012 20:13 ? Patient ??Arrival Date and Time: 013 ??7:29 PM HPI Maye Garciamarymolly is a 61 y.o. female who presents for URI symptoms x 1 week. ??States illness bega n with sore throat, then became congested with facial pressure an d ear pressure/pain. ?? Reports slight ringing in her ear and th ey feel plugged; no drainage, vertigo. ??She reports also barbour s PND; denies coughing or production. ??Reports facial/forehead pr essure giving slight headache and watery eyes. ??Has tried ot c cold/flu meds without relief. ??Denies fevers, chills, aches, sweats, n/v/d/c, abd pains, dizziness, cp/sob. Sleeps using a c-pap machine which cause s frequent sinus issues. Past Medical History Diagnosis Date ? ? Diabetes ?? Allergies Allergen Reactions ? ? Penicillins Anaphylaxis ? ? Sulfa Antibiotics Rash Review of Systems See HPI Vitals: BP 133/69 Pulse 102 Temp 36. 7 ??C (98.1 ??F) Resp 18 SpO2 98% Physical Exam Constitutional: She appears well-develop ed and well-nourished. No distress. HENT: Head: Normocephalic and atraumatic. Right Ear: Tympanic membrane, external e ar and ear canal normal. Left Ear: External ear normal. Nose: Mucosal edema and rhinorrhea prese nt. No sinus tenderness. Right sinus exhibits frontal sinus tende rness. Right sinus exhibits no maxillary sinus tenderness. Left sinus exhibits frontal sinus tenderness. Left sinus exh ibits no maxillary sinus tenderness. Mouth/Throat: Uvula is midline and mucou s membranes are normal. No uvula swelling. Posterior oropharynge al erythema present. No oropharyngeal exudate or posterior oroph aryngeal edema. ? Moderate cerumen in L EAC; TM pea rly white with good light reflex. Neck: Normal range of motion. Neck suppl e. Cardiovascular: Normal rate, regular rhy thm and normal heart sounds. ??Exam reveals no gallop and no friction rub. ?? No murmur heard. Pulmonary/Chest: Effort normal and breat h sounds normal. No respiratory distress. She has no wheezes . She has no rales. Lymphadenopathy: ??She has no cervical adenopathy. Skin: Skin is warm and dry. No rash note d. No erythema. Cerumen Removal Date/Time: 06/19/2012 8:19 PM Performed by: FREDRICK WINKLER Authorized by: FREDRICK WINKLER Consent: Verbal consent obtained. Risks and benefits: risks, benefits and alternatives were discussed Consent given by: patient Patient understanding: patient states un derstanding of the procedure being performed Required items: required blood products, implants, devices, and special equipment available Patient identity confirmed: verbally wit h patient and arm band Time out: Immediately prior to procedure a time out was called to verify the correct patient, procedure , equipment, rn support services and site/side marked as required. Local anesthetic: none Location details: left ear Procedure type: curette Patient sedated: no Patient tolerance: Patient tolerated the procedure well with no immediate complications. Comments: Large amount of cerumen remove d from L EAC. ??TM visualized post-procedure; pearly white, good light reflex, EAC without erythema, edema, or exudate. ASSESSMENT AND PLAN Pharyngitis strep/viral vs sinusitis vs viral uri with cough vs tonsillitis vs mono vs VIRTUAL CUSTOMER ASSISTANT vs RPA Sinusitis, cerumen impaction: ??Cerumen removed as described above. ??Will treat for sinusitis with c lindamycin, since she has had success with this in the past. ??Sug gested use of humidifiers. Sudafed, afrin for symptoms as well. ?? Increase fluids, rest, f/u with rotary drier operator as needed. ??Return to care if symptoms worsen or unresolved. ??Pt understands and is agre eable to plan. Orders Placed This Encounter ? ? clindamycin (CLEOCIN) 300 mg oral capsule ? ? pseudoephedrine (SUDAFED) 60 mg oral tablet ? ? oxymetazoline (AFRIN) 0.05% nasal solution Clinical Impressions: 1. Sinusitis ?? 2. Cerumen impaction ?? Fredrick Winkler PA, 06/19/2012 8:13 PM Procedure Note Fredrick Winkler PA-Cl - 06/19/2012 8:13 P M CST Urgent Care Provider Note Maye Li : 1950 Sex: female Date of Service: 06/19/2012 20:13 Patient Arrival Date and Time: 3 7:29 PM HPI Maye Li is a 61 y.o. female who presents for URI symptoms x 1 week. States illness began with sore throat, then became congested with facial pressure and ear pressure/pain. Reports slight ringing in her ear and they feel plugged; no drainage, vert igo. She reports also has PND; denies coughing or production. Reports facial/forehead pressure giving slight headache and watery eyes. Has tried otc cold/flu meds without relief. Denies fevers, chills, aches, sw eats, n/v/d/c, abd pains, dizziness, cp/sob. Sleeps using a c-pap machine which cause s frequent sinus issues. Past Medical History Diagnosis Date ? ? Diabetes Allergies Allergen Reactions ? ? Penicillins Anaphylaxis ? ? Sulfa Antibiotics Rash Review of Systems See HPI Vitals: BP 133/69 Pulse 102 Temp 36. 7 ??C (98.1 ??F) Resp 18 SpO2 98% Physical Exam Constitutional: She appears well-develop ed and well-nourished. No distress. HENT: Head: Normocephalic and atraumatic. Right Ear: Tympanic membrane, external e ar and ear canal normal. Left Ear: External ear normal. Nose: Mucosal edema and rhinorrhea prese nt. No sinus tenderness. Right sinus exhibits frontal sinus tenderness. Right sinus exhibits no maxillary sinus tenderness. Left sinus exhibits frontal sinus tenderness. Left sinus exhibits no maxillary sinus tenderness. Mouth/Throat: Uvula is midline and mucou s membranes are normal. No uvula swelling. Posterior oropharyngeal erythema present. No oropharyngeal exudate or posterior oropharyngeal edema. Moderate cerumen in L EAC; TM pearly wh ite with good light reflex. Neck: Normal range of motion. Neck suppl e. Cardiovascular: Normal rate, regular rhy thm and normal heart sounds. Exam reveals no gallop and no friction rub. No murmur heard. Pulmonary/Chest: Effort normal and breat h sounds normal. No respiratory distress. She has no wheezes. She has no rales. Lymphadenopathy: She has no cervical adenopathy. Skin: Skin is warm and dry. No rash note d. No erythema. Cerumen Removal Date/Time: 06/19/2012 8:19 PM Performed by: FREDRICK WINKLER Authorized by: FREDRICK WINKLER Consent: Verbal consent obtained. Risks and benefits: risks, benefits and alternatives were discussed Consent given by: patient Patient understanding: patient states un derstanding of the procedure being performed Required items: required blood products, implants, devices, and special equipment available Patient identity confirmed: verbally wit h patient and arm band Time out: Immediately prior to procedure a time out was called to verify the correct patient, procedure, equipment, rn support services and site/side marked as required. Local anesthetic: none Location details: left ear Procedure type: curette Patient sedated: no Patient tolerance: Patient tolerated the procedure well with no immediate complications. Comments: Large amount of cerumen remove d from L EAC. TM visualized post- procedure; pearly white, good light reflex, EAC without erythema, edema, or exudate. ASSESSMENT AND PLAN Pharyngitis strep/viral vs sinusitis vs viral uri with cough vs tonsillitis vs mono vs VIRTUAL CUSTOMER ASSISTANT vs RPA Sinusitis, cerumen impaction: Cerumen re moved as described above. Will treat for sinusitis with clindamycin, since she has had success with this in the past. Suggested use of humidifiers. Sudafed, afrin for symptoms as well. Increase fluids, rest, f/u with rotary drier operator as needed. Return to care if symptoms worsen or unresolved. Pt understands and is agreeable to plan. Orders Placed This Encounter ? ? clindamycin (CLEOCIN) 300 mg oral capsule ? ? pseudoephedrine (SUDAFED) 60 mg oral tablet ? ? oxymetazoline (AFRIN) 0.05% nasal solution Clinical Impressions: 1. Sinusitis 2. Cerumen impaction Fredrick Winkler PA, 06/19/2012 8:13 PM Fredrick Winkler PA-C PROCEDURES documented in this encounter Visit Diagnoses Diagnosis Sinusitis - Primary Unspecified sinusitis (chronic) Cerumen impaction Impacted cerumen documented in this encounter Care Teams Bull Rider Relationship Specialty Start Date End Date Pcp, No PCP - General 04/22/12 01/28/13 [facility] [place] [address] documented as of this encounter
--- OUTSIDE RECORDS SUMMARY | 2022-01-19 16:37 | XMS_ITS | Encounter Summary ---
:1950 Author Organization [facility] Address [address] [place] [address] Phone Care Team Providers Name Role Phone Pcp, No Primary Care Provider Unavailable Reason for Visit Reason Comments Diabetes Encounter Details Date Type Department Care Team Description 08/02/2012 Office Visit [facility] Suma Aranda MD Diabetes mellitus () (Primary Dx); Clinic [address] H/O gastric bypass - 2008; [address] [place], [place] Fatigue S 1.300 [address] [place], [place] [address] [phone] Social History Tobacco Use Types Packs/Day Years Used Date Smoking Tobacco: Former Cigarettes Quit : 08/01/1999 Smokeless Tobacco: Never Alcohol Use Standard Drinks/Week Comments No 0 (1 standard drink = 0.6 oz pure alcoho l) Sex Assigned at Date Recorded Female 06/17/2020 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 Test BG 6x/week - 3 in a row starting at dinner. Lab today. Return to clinic in 2 months. documented in this encounter Progress Notes Suma Aranda MD - 08/02/2012 8:43 AM CDT Images from the original note were not included. DIABETES New Visit Maye Li 61 y.o. female Date of Service: 08/02/2012 ASSESSMENT Ms. Li has poorly controlled type 2 diabetes and had side effects from metformin previously. Willtry her on extended release metformin at supper and see if she can tolerate it. Will check for vitamin deficiencies related to her prior gastric bypass. She has both vitiligo and alopecia, so will check thyroid levels. Diagnoses and associated orders for this visit: Diabetes mellitus - MICROALBUMIN, URINE RANDOM COL; Future - LIPID PANEL (CHO,TRI,HD,CALLDL); Future - PF COLLECTION VENOUS BLOOD,VENIPUNCTURE - MICROALBUMIN, URINE RANDOM COL - LIPID PANEL (CHO,TRI,HD,CALLDL) H/O gastric bypass - 2008 - IRON; Future - TRANSFERRIN (INCLUDES TIBC); Future - CBC WITH PLATELET; Future - VITAMIN B12; Future - PF COLLECTION VENOUS BLOOD,VENIPUNCTURE - IRON - TRANSFERRIN (INCLUDES TIBC) - CBC WITH PLATELET - VITAMIN B12 Fatigue - TSH; Future - THYROID PEROXIDASE ESPERANZA (TPO); Future - PF COLLECTION VENOUS BLOOD,VENIPUNCTURE - TSH - THYROID PEROXIDASE ESPERANZA (TPO) Other Orders - POC GLUCOSE - POC GLYCOSYLATED HGB-A1C - metformin 500 mg oral tablet 24 HR; Take 1,000 mg by mouth daily. PLAN Diabetes counseling at the appointment included: weight loss, medications and blood glucose monitoring. Return in about 2 months (around 10/02/2012). HPI: Maye Li a 61 y.o. female is here for the first time for evaluation of Type 2 DM. She wasself-referred. Current concerns are diabetes control with higher BG recently. Results today are A1c 8.8 and fasting BG 210. She is being treated with no medications at present. Blood glucose range between 155 and 230. She has been experiencing polyuria and vaginal infections. She eats 3 meals and snacks. She has had diabetes for 20 years and does not have diabetes complications. Cardiac disease risks are family history, post-menopause. 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 She primarily speaks Tongan, is , and lives with and has 2 children, 2 stepchildren, and 4 grandchildren. She is a non-smoker, socialdrinker, and does not use drugs. PROBLEM LIST Patient Active Problem List Diagnosis ??? Diabetes mellitus, type 2 ??? H/O gastric bypass - 2008 ??? Alopecia ??? Iron deficiency anemia PAST MEDICAL HISTORY Reviewed in record. MEDICATIONS Reviewed in record. Diabetes medications above. SOCIAL HISTORY Social history as above. FAMILY HISTORY FH reviewed. Review of Systems: Complete 10 point review of systems is negative except for vitiligo, alopecia. PHYSICAL EXAM: BP 118/73 Pulse 79 Wt 88.1 kg (194 lb 3.6 oz) General appearance: alert, cooperative Head:Normocephalic. No masses, lesions, tenderness or abnormalities Eyes:conjunctivae and sclerae normal and lids and lashes normal Neck: no adenopathy, thyroid normal to palpation Lungs: clear to auscultation bilaterally Heart: Normal heart sounds, S1 and S2, No murmurs. Abdomen: soft, non-tender. Bowel sounds normal. No masses, no organomegaly Extremities: extremities normal, atraumatic, no cyanosis or edema Pulses: 2+ and symmetric Skin: Skin color, texture, turgor normal. No rashes or lesions Neurologic: Alert and oriented X 3, normal strength and tone. Normal symmetric reflexes. Normal coordination and gait Foot exam: no ulcerations, sensation intact sensation normal by monofilament exam LABS Lab Results Component Value Date/Time HGBA1C 8.8* 08/02/2012 0819 No results found for this basename: glu No results found for this basename: lpchol, triglyceride, hdl, calcldl, calcvldl No results found for this basename: na, k, chloride, co2, glu, un, cr, ca, mg, albumin, tpro, alp, alt, ast, tbili Suma Aranda MD, 08/02/2012 12:25 PM Staff Claim Examiner documented in this encounter Plan of Treatment Not on filedocumented as of this encounter Procedures Procedure Name Priority Date/Time Associated Comments Diagnosis MICROALBUMIN, URINE Routine 08/02/2012 9:35 AM Diabetes mellit us Results for this RANDOM COL CDT () procedure are i n the results section. TSH Routine 08/02/2012 9:30 AM Fatigue Results f or this CDT procedure are i n the results section. TRANSFERRIN (INCLUDES Routine 08/02/2012 9:30 AM H/O gastric b ypass Results for this TIBC) CDT - 2008 procedure are i n the results section. THYROID PEROXIDASE Routine 08/02/2012 9:30 AM Fatigue Res ults for this ESPERANZA (TPO) CDT procedure are i n the results section. PANEL LIPID Routine 08/02/2012 9:30 AM Diabetes mellitus Resu lts for this CDT () procedure are i n the results section. IRON Routine 08/02/2012 9:30 AM H/O gastric bypass Res ults for this CDT - 2008 procedure are i n the results section. CBC WITH PLATELET Routine 08/02/2012 9:30 AM H/O gastric bypas s Results for this CDT - 2008 procedure are i n the results section. VITAMIN B12 Routine 08/02/2012 9:30 AM H/O gastric bypass Res ults for this CDT - 2008 procedure are i n the results section. POC GLYCOSYLATED Routine 08/02/2012 8:19 AM Resul ts for this HGB-A1C CDT procedure are i n the results section. POC GLUCOSE Routine 08/02/2012 8:17 AM Results f or this CDT procedure are i n the results section. documented in this encounter Results (ABNORMAL) MICROALBUMIN, URINE RANDOM COL (08/02/2012 9:35 AM CDT) [facility] gist Method Time Signature Microalbumin 0.3 0.2 - 10.0 [facility] mg/dL [place] Creat 143 (H) 30 - 125 [facility] mg/dL Microalbumin 2.1 0.0 - 20.0 [facility] Creat Ratio mg/g Microalbumin [facility] Screen Performed at: Comment: [facility] [address] [place] [id number] Specimen Anatomical Collection Method Collection Time Receive d Time (Source) Location / / Volume Laterality Urine 08/02/2012 9:35 AM 03/13/201 3 CDT 10:49 AM CDT Suma Aranda MD LABORATORY Performing Organization Address City/[facility]/ZIP Code Phon e Number [facility] [place] [address] PANEL LIPID (08/02/2012 9:30 AM CDT) athologist Signature Cholesterol 182 0 - 200 [facility] mg/dL Triglyceride 106 10 - 190 [facility] mg/dL HDL 57 40 - 75 [facility] mg/dL Calc LDL 104 [facility] Calc VLDL 21 [facility] Lipid Panel [facility] Performed at: Comment: [facility] [address] [place] [phone] Specimen Anatomical Collection Method Collection Time Receive d Time (Source) Location / / Volume Laterality Blood 08/02/2012 9:30 AM 3 CDT 10:51 AM CDT Narrative [facility] - 08/02/2012 11:29 AM CDT Fasting: Yes Suma Aranda MD LABORATORY Performing Organization Address City/[facility]/ZIP Code Phon e Number [facility] [place] [address] VITAMIN B12 (08/02/2012 9:30 AM CDT) athologist Signature B12 557 150 - 1,000 [facility] pg/mL Specimen Anatomical Collection Method Collection Time Receive d Time (Source) Location / / Volume Laterality Blood 08/02/2012 9:30 AM 3 CDT 10:51 AM CDT Suma Aranda MD LABORATORY Performing Organization Address City/[facility]/ZIP Code Phon e Number [facility] [place] [address] (ABNORMAL) CBC WITH PLATELET (08/02/2012 9:30 AM CDT) Analysis Performed At Patho logist Time Signature WBC 8.2 4.0 - 10.0 [facility] k/cmm RBC 5.28 (H) 3.90 - [facility] 5.20 m/cmm Hgb 11.0 (L) 11.5 - [facility] 15.7 g/dL Hematocrit 36.6 34.0 - [facility] 45.0 % MCV 69.3 (L) 80.0 - [facility] 100.0 fL MCH 20.8 (L) 25.0 - [facility] 32.0 pg MCHC 30.1 (L) 31.0 - [facility] 36.0 g/dL RDW 17.2 (H) 11.5 - [facility] 14.5 % Plt 297 150 - 400 [facility] k/cmm MPV 10.4 6.5 - 12.5 [facility] fL NRBC 0.0 0.0 - 0.0 [facility] % CBC Plt [facility] Performed at: Comment: [facility] [address] [place] [address] Specimen Anatomical Collection Method Collection Time Receive d Time (Source) Location / / Volume Laterality Blood 08/02/2012 9:30 AM 3 CDT 10:51 AM CDT Suma Aranda MD LABORATORY Performing Organization Address [facility] Phon e Number [facility] [place] [address] THYROID PEROXIDASE ESPERANZA (TPO) (08/02/2012 9:30 AM CDT) athologist Signature TPO Esperanza 0.3 0.0 - 3.9 [facility] IU/mL Specimen Anatomical Collection Method Collection Time Receive d Time (Source) Location / / Volume Laterality Blood 08/02/2012 9:30 AM 3 CDT 10:51 AM CDT Suma Aranda MD LABORATORY Performing Organization Address City/[facility] Code Phon e Number [facility] [place] [address] TSH (08/02/2012 9:30 AM CDT) athologist Signature TSH 1.7 0.5 - 5.0 [facility] uIU/ml Comment: Test Performed by: [facility] [address] [place] [address] Specimen Anatomical Collection Method Collection Time Receive d Time (Source) Location / / Volume Laterality Blood 08/02/2012 9:30 AM 3 CDT 10:51 AM CDT Suma Aranda MD LABORATORY Performing Organization Address City/[facility]/ZIP [facility] Phon e Number [facility] [place] [address] (ABNORMAL) TRANSFERRIN (INCLUDES TIBC) (08/02/2012 9:30 AM CDT) athologist Signature Transferrin 392 (H) 181 - 353 [facility] mg/dL IBC 584 (H) 226 - 441 [facility] mcg/dL Specimen Anatomical Collection Method Collection Time Receive d Time (Source) Location / / Volume Laterality Blood 08/02/2012 9:30 AM 3 CDT 10:51 AM CDT Suma Aranda MD LABORATORY Performing Organization Address City/[facility]/ZIP Code Phon e Number [facility] [place] [address] (ABNORMAL) IRON (08/02/2012 9:30 AM CDT) athologist Signature Iron 30 (L) 40 - 150 [facility] mcg/dl Comment: Test Performed by: [facility] [address] [place] [address] Specimen Anatomical Collection Method Collection Time Receive d Time (Source) Location / / Volume Laterality Blood 08/02/2012 9:30 AM 3 CDT 10:51 AM CDT Suma Aranda MD LABORATORY Performing Organization Address City/[facility]/ZIP Code Phon e Number [facility] [place] [address] (ABNORMAL) POC GLYCOSYLATED HGB-A1C (08/02/2012 8:19 AM CDT) athologist Signature Hemoglobin A1C 8.8 (H) [facility] Estimated 206 [facility] Average Glucose Specimen (Source) Anatomical Collection Method Collection Time Re ceived Time Location / / Volume Laterality Blood 08/02/2012 8:19 AM CDT Suma Aranda MD POINT OF CARE Performing Organization Address City/State/ZIP Code Phon e Number [facility] - POINT OF [address] [place], [place] [address] C[address] [facility] [address] [place] [address], (ABNORMAL) POC GLUCOSE (08/02/2012 8:17 AM CDT) athologist Signature POC Glucose 210 (H) 70 - 100 [facility] mg/dL Specimen (Source) Anatomical Collection Method Collection Time Re ceived Time Location / / Volume Laterality Blood 08/02/2012 8:17 AM CDT Suma Aranda MD LABORATORY Performing Organization Address City/State/ZIP Code Phon e Number [facility] - POINT OF [address] [place], [place] [address] CARE [facility] [address] [place] [address], documented in this encounter Visit Diagnoses Diagnosis Diabetes mellitus () - Primary Type II or unspecified type diabetes karin litus without mention of complication, not stated as uncontrolled H/O gastric bypass - 2008 Bariatric surgery status Fatigue Other malaise and fatigue documented in this encounter Care Teams Process Development Technician Relationship Specialty Start Date End Date Pcp, No PCP - General 04/22/12 01/28/13 [facility] [place] [place] [address] documented as of this encounter
--- OUTSIDE RECORDS SUMMARY | 2022-01-19 16:37 | XMS_ITS ---
:1950 Author Organization [facility] - Primary Address [address] [place] [address] Care Team Providers Name Role Phone Tommy Escobar Unavailable Unavailable PROBLEMS Type Condition ICD9-CM Code AGB01-IX Code Onset Condition SNO MED Code Dates Status Problem Major depressive F32.9 Active 369 11187 disorder, single episode, unspecified Problem Post-traumatic F43.12 Active 44163 003 stress disorder, chronic Problem Other obesity E66.09 Active 053731 009 due to excess calories ALLERGIES Substance Reaction Event Type Date Status penicillin Unknown Drug Allergy Oct, Active Sulfa Unknown Non Drug Allergy Oct, Active ENCOUNTERS Encounter Location Date Diagnosis [facility] - [address] 5pm Oct, Post -traumatic stress Primary [place], [place] disorder, chromosomal disorders counselor rodolfo F43.12 [id number] [facility] - [address] 5pm Dec, Post -traumatic stress Primary [place], [place] disorder, chromosomal disorders counselor rodolfo F43.12 [id number] and Major depres sive disorder, single episode, unspecified F32. 9 [facility] - [address] 5pm May, Post -traumatic stress Primary [place], [place] disorder, chromosomal disorders counselor rodolfo F43.12 [id number] ; Major depressi ve disorder, single episode, unspecified F32. 9 and Other obesity du e to excess calories E66.09 IMMUNIZATIONS No Known Immunizations SOCIAL HISTORY Never Assessed REASON FOR REFERRAL FUNCTIONAL STATUS PLAN OF CARE Activity Details Follow Up 1 Year Reason: Future Appointment Provider Name:Tommy Escobar , 2022-09-03 10:00:00 AM, [address], [address]pm, [place], [address], VITAL SIGNS Height 64 in 2019-06-14 Weight 195 lbs 2019-06-14 BMI 33.47 kg/m2 2019-06-14 Blood pressure systolic 164 mm Hg 2019-06-14 Blood pressure diastolic 83 mm Hg 2019-06-14 MEDICATIONS Medication Instructions Dosage Frequency Start End Duration Statu s Date Date gabapentin 300 orally once a day 1 tab(s) 24h Active mg simvastatin 20 orally once a day 1 tab(s) 30 day (s) Not-Taki mg (at bedtime) ng Ativan 0.5 mg orally 3 times a 1 tab(s) 8h Not-Taki day ng Pristiq 100 mg orally once a day 1 tab(s) 24h 30 day (s) Active rosuvastatin 10 orally once a day 1 tab(s) 24h 30 da y(s) Active mg Trulicity Pen subcutaneously as directed Active 0.75 mg/0.5 mL once a week PROCEDURES No Known procedures RESULTS No Results REASON FOR VISIT PHONE recert, PTSD, PTSD, PHONE recert, medical cannabis for PTSD Insurance Providers [facility] Health Member Patient Patient Patient Patient Patient Subscriber Subscriber Subscriber Group Insurance Plan Plan Plan Plan ID Relationship Address Phone Name Date of ID Name Date of No Type Insurance Insurance Insurance Coverage to Subscriber Address Phone Name Dates [employer] [address] [employer] [place] [id number] Medicare [id number] Medicare [place] [facility] [id number] Medicare National [id number] Medicare [place] 3 [id number] Part B Government 40 Part B [employer] CLAIM [address] [place] [address] [facility] [phone] [employer] [place] [id number] thcare [id number] [address] thcare [place] [id number]
--- OUTSIDE RECORDS SUMMARY | 2022-01-19 16:37 | XMS_ITS | Encounter Summary ---
:1950 Author Organization [facility] Address [address] [place] [phone] Phone Care Team Providers Name Role Phone Pcp, No Primary Care Provider Unavailable Reason for Visit Reason Comments Sinusitis chronic Rash Encounter Details Date Type Department Care Team Description 04/22/2012 Hospital Encounter [facility] Urgent Care Brock Winkler PA-C Need New Practice Location SINUS INFECTION; [address] [place] [address] Benji Muñoz APRN, AIRPLANE MECHANIC Needs New Practice Address [address] [place] [address] Social History Tobacco Use Types Packs/Day Years Used Date Smoking Tobacco: Never Alcohol Use Standard Drinks/Week Comments No 0 (1 standard drink = 0.6 oz pure alcoho l) Sex Assigned at Date Recorded Female 06/17/2020 4:53 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 documented as of this encounter Last Filed Vital Signs Vital Sign Reading Time Taken Comments Blood Pressure 145/74 04/22/2012 5:32 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 Pulse 85 04/22/2012 5:32 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 Temperature 36.7 ??C (98.1 ??F) 04/22/2012 5:32 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 Respiratory Rate 18 04/22/2012 5:32 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 Oxygen Saturation 97% 04/22/2012 5:32 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 Inhaled Oxygen Concentration - - Weight - - Height - - Body Mass Index - - documented in this encounter Discharge Instructions Discharge Jayne Petty RN - 04/22/2012 6:05 PM CST Images from the original note were not included. Diet: ?? No change. Call Doctor or Health Care Provider: ?? For primary care. ?? For all emergencies call 911. ?? For questions : ?? Tuesday - Tuesday 8 a.m. - 4 p.m., call your clinic. ?? Weekends, holidays, and after hours, if you have health insurance, call your insurance nurse line. Appointments for you to make: Follow-up Information Follow up With Details Comments Contact Info URGENT CARE As needed [facility] Ur[facility] [address] [facility] [address] [place] [address] MEDICINE CL [facility] As needed [facility] [address] [place] [address] [address] [place] [address] Please call to make your appointment. You can call your [place] clinic to make an appointment Tuesday-Tuesday 7:30am-9:00pm and Tuesday and Tuesday 8:30am-5:00pm. Existing appointments at [facility] for the next 2 months: *Note - this does not include Day Treatment or Partial Hospital appointments: No relevant events scheduled for this patient from April 2012 through May 2012. If you are unable to attend or if you are going to be late, please call the service or clinic. [facility] entrances: ?? Purple = [address] [...] Emergency Department. ?? Emergency Department Financial Counseling [phone] (7:30am to Midnight, Tuesday - Tuesday). ?? Main Line Financial Counseling [phone] TAL MARKETING APPRENTICE AttachmentsThe following attachments cannot be sent through Care Everywhere. HODA SKIN INFECTION (ADULT) (TAJIK)CHRONIC SINUSITIS (TAJIK)ACUTE SINUSITIS (TAJIK)documented in this encounter Medications at Time of Discharge Medication Sig Dispensed Refills Start Date End Date clindamycin (CLEOCIN) 300 Take 300 mg by 28 Cap 0 201104/29/2012 mg oral capsule mouth four times daily for 7 days. clotrimazole (LOTRIMIN) 1% Apply to rash twice 30 g 0 04/22/2012 04/29/2012 externally cream daily documented as of this encounter Miscellaneous Notes Consent Forms Scanned - Brock Winkler PA-C - 05/03/2012 4:44 PM CST TAL MARKETING APPRENTICE [facility] Provider Note - Brock Winkler PA-C - 04/22/2012 6:02 PM CST Urgent Care Provider Note Maye Li : 1950 Sex: female Date of Service: 04/22/2012 18:02 Patient Arrival Date and Time: 04/22/2012 5:31 PM HPI Maye Li is a 61 y.o. female who presents for sinus pressure and rash x 3 days. Hx/o diabetes. Reports facial pressure around her cheeks and forehead for 3 days, thick green nasal discharge.She denies coughing, ear/eye pain, sore throat. States she uses a c-pap machine and occasionally gets sinus infections. Has tried Jenniffer Pot otc treatment without relief. No fever, chill, aches, sweats,n/v/d/c, abd pains, headaches/dizziness, cp/sob. Also c/o lower abdominal rash for 1.5 weeks. States she lost weight and occasionally gets rash in a skin fold. She has tried using antibiotic ointment, diaper rash cream, essential oil without relief. States rash is itchy. Denies changes in meds, soaps, detergents, routine. No one else around her withsimilar rash. Allergies Allergen Reactions ??? Penicillins Anaphylaxis ??? Sulfa Antibiotics Rash Review of Systems See HPI Vitals: BP 145/74 Pulse 85 Temp 36.7 ??C (98.1 ??F) Resp 18 SpO2 97% Physical Exam Constitutional: She appears well-developed and well-nourished. No distress. HENT: Head: Normocephalic and atraumatic. Right Ear: Tympanic membrane, external ear and ear canal normal. Left Ear: Tympanic membrane, external ear and ear canal normal. Nose: Mucosal edema and sinus tenderness present. Right sinus exhibits maxillary sinus tenderness and frontal sinus tenderness. Left sinus exhibits maxillary sinus tenderness and frontal sinus tenderness. Mouth/Throat: Uvula is midline, oropharynx is clear and moist and mucous membranes are normal. Neck: Normal range of motion. Neck supple. Cardiovascular: Normal rate, regular rhythm and normal heart sounds. Exam reveals no gallop and no friction rub. No murmur heard. Pulmonary/Chest: Effort normal and breath sounds normal. She has no wheezes. She has no rales. Lymphadenopathy: She has no cervical adenopathy. Skin: Skin is warm and dry. Rash noted. There is erythema. Lower abdomen vitiligo; underside of pannus with erythematous papular rash, with areas of shiny silver/white discharge. Rash is pruritic, non-weeping or cellulitic. ASSESSMENT AND PLAN Pharyngitis strep/viral vs sinusitis vs viral uri with cough vs tonsillitis vs mono vs DISPLAY MANAGER vs RPA Sinusitis: Clindamycin; pt will take otc symptomatic relief for congestion. Candidal skin infection with secondary bacterial folliculitis: Clindamycin, as above; also lotrimin cream twice daily. Keep area clean, dry to prevent future infections. Return to care if symptoms worsen or unresolved. Pt understands and is agreeable to plan. Orders Placed This Encounter ??? clindamycin (CLEOCIN) 300 mg oral capsule ??? clotrimazole (LOTRIMIN) 1% externally cream Clinical Impressions: 1. Sinusitis 2. Candidal skin infection Brock Winkler PA, 04/22/2012 6:02 PM TAL MARKETING APPRENTICE Urgent Care Note - Jayne Hector RN - 04/22/2012 5:46 PM CST Concern of chronic sinus infection. frontal, facial pain, green nasal drainage. Uses a c pap. #2 itchy and painful, rash to low abdomen ~ 1.5 weeks. Tried triple antibiotic ointment, diaper rashcreme, essential oil with no relief. TAL MARKETING APPRENTICE documented in this encounter Plan of Treatment Not on filedocumented as of this encounter Visit Diagnoses Diagnosis Sinusitis - Primary Unspecified sinusitis (chronic) Candidal skin infection Candidiasis of skin and nails documented in this encounter Care Teams Manager In Training Relationship Specialty Start Date End Date Pcp, No PCP - General 04/22/12 01/28/13 [facility] [place] [address] documented as of this encounter
--- OUTSIDE RECORDS SUMMARY | 2022-01-19 16:37 | XMS_ITS | Encounter Summary ---
:1950 Author Organization [facility] Address [address] [place] [address] Phone Care Team Providers Name Role Phone Pcp, No Primary Care Provider Unavailable Reason for Visit Reason Comments Vaginal Itching Encounter Details Date Type Department Care Team Description 07/31/2012 Office Visit [facility] EXHIBIT TECHNICIAN SSC Marce Contreras Vulvar i tching (Primary Dx); Jacques Sanford MD Dysuria; [address], [address] [facility] Vagin al odor [address]50 [address] [place], [place] [address] [place], [place] [phone] [id number] Social History Tobacco Use Types Packs/Day Years Used Date Smoking Tobacco: Former Cigarettes Quit : 08/01/1999 Smokeless Tobacco: Never Alcohol Use Standard Drinks/Week Comments No 0 (1 standard drink = 0.6 oz pure alcoho l) Sex Assigned at Date Recorded Female 06/17/2020 4:53 PM 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 Take diflucan 1 pill once, and then repeat in 3 days if symptoms not improved. If your symptoms are not better within 1 week, please come back and we will talk about a biopsy of the area. 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 Vaginal Itching HPI: Maye Li is a 61 y.o. F with a history of diet controlled diabetes who presents withcomplaints of vulvo-vaginal itching and vaginal odor for 1 week. Feels a lot of rawness and irritation and is uncomfortable having intercourse. Also notes dysuria and some back pain, wonders if she could have a bladder or kidney infection. Strong odor to urine, no hematuria. 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 Diabetes Past Surgical History Procedure Date ??? Other surg hx of ... total hysterectomy Current Outpatient Prescriptions on File Prior to Visit Medication Sig Dispense Refill ??? pseudoephedrine (SUDAFED) 60 mg oral tablet Take 60 mg by mouth every six hours as needed. 30 Tab 0 Allergies Allergen Reactions ??? Penicillins Anaphylaxis ??? Sulfa Antibiotics Rash History Social History ??? Marital Status: Spouse Name: N/A Number of Children: N/A ??? Years of Education: N/A Social History Main Topics ??? Smoking status: Former Smoker Quit date: 08/01/1999 ??? Smokeless tobacco: Never Used ??? Alcohol Use: No ??? Drug Use: No ??? Sexually Active: Not on file Other Topics Concern ??? Not on file Social History Narrative ??? No narrative on file PHYSICAL EXAMINATION: BP 132/82 Wt 193 lb 3.2 oz (87.635 kg) General: well-appearing Neuro/Psych: alert, oriented to person, time, and place, mood and affect appropriate Perineum: reddened area of L labia majora consistent with excoriation, no loss of architecture c/w lichen sclerosus; otherwise normal appearing external genitalia, bartholins glands, urethra, skenes glands Vagina : no masses or lesions, minimal discharge in vault, mild atrophy, well-supported Cervix: surgically absent Bimanual exam: Urethra nontender Bladder- nontender and without massess , well supported Uterus- surgically absent Adnexa - not palpable due to body habitus. Recto-vaginal exam: Anus normal appearing Back: +CVAT bilaterally Wet prep: pH: 4.5, +rare hyphae, no trich, no clues ASSESSMENT/PLAN: 61 y.o. F presents for vaginal itching/odor. UA/UC sent due to urinary symptoms. Wet prep with rare yeast. Yeast culture sent for non-albicans yeast. Will rx diflucan x1 with 1 refill. RTC if symptoms not improved and will do vulvar biopsy. No obvious evidence of lichen sclerosus on exam. Marce Contreras MD, 07/31/2012 11:55 AM documented in this encounter Procedure Notes Provider, Kyle - 08/04/2012 12:18 PM CDTAssociated Order(s): CARE EVERYWHERE AUTHORIZATION Provider, Kyle - 08/04/2012 12:18 PM CDTAssociated Order(s): CARE EVERYWHERE AUTHORIZATION documented in this encounter Plan of Treatment Not on filedocumented as of this encounter Procedures Procedure Name Priority Date/Time Associated Comments Diagnosis CARE EVERYWHERE 08/04/2012 12:18 Results for this AUTHORIZATION PM CDT procedure are in the results section. CARE EVERYWHERE 08/04/2012 12:18 Results for this AUTHORIZATION PM CDT procedure are in the results section. URINALYSIS-CONDITIONAL Routine 07/31/2012 2:20 PM Vulvar itchi ng Results for this CDT procedure are i n the results section. YEAST CULTURE:INCLUDES Routine 07/31/2012 1:30 PM Vulvar itchi ng Results for this TAYLOR CDT procedure are i n the results section. POC AMB WET SMEAR Routine 07/31/2012 11:45 Vulvar itching Resu lts for this AM CDT procedure are i n the results section. documented in this encounter Results CARE EVERYWHERE AUTHORIZATION (08/04/2012 12:18 PM CDT) Narrative 08/04/2012 12:18 PM CDT Procedure Note Provider, Him - 08/04/2012 12:18 PM CDTF ormatting of this note might be different from the original. Him Provider SCANNED CONSENTS CARE EVERYWHERE AUTHORIZATION (08/04/2012 12:18 PM CDT) Narrative 08/04/2012 12:18 PM CDT Procedure Note Provider, Him - 08/04/2012 12:18 PM CDTF ormatting of this note might be different from the original. Him Provider SCANNED CONSENTS (ABNORMAL) URINALYSIS-CONDITIONAL (07/31/2012 2:20 PM CDT) [facility] Method Time Signature Color YELLOW YELLOW [facility] Appearance CLOUDY CLEAR [facility] Urine Glucose >=1000 (A) NEGATIVE [facility] mg/dL Bili UA NEGATIVE NEGATIVE [facility] Comment: Confirmatory test not available . Ketones TRACE NEGATIVE [facility] Specific Mellen 1.031 (A) 1.003 - 1.030 [facility] Blood Ur NEGATIVE Neg-Trace [facility] PH Urine 6.0 5.0 - 7.0 [facility] Protein Ur NEGATIVE Neg-Trace [facility] Urobilinogen 0.2 0.2 - 1.0 EU/dL [facility] Nitrite Ur NEGATIVE NEGATIVE [facility] Leuk Est NEGATIVE Neg-Trace [facility] Microscopic MICRO PERFORMED [facility] WBC Ur 0-5 0 - 5 perHPF [facility] RBC Ur 0-5 0 - 5 perHPF [facility] SQ EPITH 3+ 1+ [facility] Mucus 1+ 1+ [facility] Hyaline Casts 0-5 0 - 5 perLPF [facility] Urinalysis Performed at: [facility] Comment: [facility] [address] [place] [address] Specimen Anatomical Collection Method Collection Time Receive d Time (Source) Location / / Volume Laterality Urine 07/31/2012 2:20 PM 3 2:45 CDT PM CDT Marce Contreras MD LABORATORY Performing Organization Address City/State/ZIP Code Phon e Number [facility] [address] (ABNORMAL) YEAST CULTURE:INCLUDES TAYLOR (07/31/2012 1:30 PM CDT) [facility] gist Method Time Signature Yeast Cult [facility] ? PROCEDURE: MB Yeast Culture ?SOURCE: Vaginal Spec ? COLLECTED: 07/31/2012 13:30 ? BODY SITE: Vagina ?FREE TEXT SOURCE: ?STARTED: 07/31/2012 14:45 ? STAINS / PREPARATIONS TAYLOR Prep Verified:08/01/2012 07:20 No fungal elements seen. FINAL REPORT Final Report Verified:08/11/2012 08:19 Few Dolores albicans isolated. ( POS) Specimen Anatomical Collection Method Collection Time Receive d Time (Source) Location / / Volume Laterality Vaginal Spec 07/31/2012 1:30 PM 3 2:45 (Vagina) CDT PM CDT Marce Contreras MD LAB MICROBIOLOGY Performing Organization Address City/State/ZIP Code Phon e Number [facility] [place] [address] (ABNORMAL) POC AMB WET SMEAR (07/31/2012 11:45 AM CDT) athologist Signature Wet Prep pH 4.5, rare yeast, no trich, no clues Specimen (Source) Anatomical Location Collection Method / Collectio n Time Received Time / Laterality Volume Vaginal Spec Marce Contreras MD POINT OF CARE documented in this encounter Visit Diagnoses Diagnosis Vulvar itching - Primary Pruritus of genital organs Dysuria Vaginal odor Unspecified symptom associated with fema le genital organs documented in this encounter Care Teams Cardiac Monitor Technician Relationship Specialty Start Date End Date Pcp, No PCP - General 04/22/12 01/28/13 [facility] [place] [address] documented as of this encounter
== END 2022-01-19 16:27 | disposition home or self-care (01) ==
PROVIDERS: PCP Internal Medicine; Visit Provider Family Medicine
DX: N39.0 Urinary tract infection, site not specified (principal)
CPT/HCPCS: 87086; 87186

== ENCOUNTER 2022-03-16 09:39 | Outpatient (CLI) | payer MEDICARE, SELFPAY ==
--- OUTSIDE RECORDS SUMMARY | 2022-03-16 09:42 | XMS_ITS | Encounter Summary ---
:1950 Author Organization [facility] Address [address] [place] [address] [place] [address] Phone Care Team Providers Name Role Phone Olga Lee MD Primary Care Provider Chuckie Mccoy [facility] Unavailable Unavailable Irina Dale MD Unavailable Encounter Details Date Type Department Care Team Description 08/18/2020 Telephone [facility] Fred Hernandez RN [place] [address] [facility] 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
--- OUTSIDE RECORDS SUMMARY | 2022-03-16 09:42 | XMS_ITS | Encounter Summary ---
:1950 Author Organization [facility] Address [address] [place] [address] Phone Care Team Providers Name Role Phone Olga Lee MD Primary Care Provider Chuckie Mccoy [facility] Unavailable Unavailable Irina Dale MD Unavailable Reason for Visit Reason Comments Psych Medication Management Encounter Details Date Type Department Care Team Description 02/02/2021 Telemedicine [facility] Psychiatry Clinic Irina Dale, Post traumatic stress disorder (Primary Dx); Renaldo QUILES Seasonal affective disorder (); 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 The medical marijuana has been helpful for [...] she suffered while working here in the [place]. Lives with her in their home and [...] pain ??Buspar Augmentation started No ??Abilify , [place], ? Current Outpatient Medications Medication Sig Dispense [...] times per day. 200 each 3 ??? [employer] in vitro test strips Test 3 times [...] prevent her from receiving future care at [facility]. - Patient acknowledges risks of telemedicine and agrees to follow provider's recommendations. Patient consents to this service: Yes . Patient's Physical Location: HOME Provider's Physical Location: [facility] Psychiatry Clinic [place] Participants in this Telemedicine Visit other than the patient/provided included: none This visit started at: 10 00 and concluded at: 10 32 Total time spent on 35 Minutes. Irina Dale MD 02/02/2021 10:01 [facility] Dept of Psychiatry documented in this encounter [...] as of this encounter Care Teams Video Recorder Mechanic Relationship Specialty Start Date End Date Olga Lee MD PCP - General Internal Medicine 01/29/13 [address] [place], [place] [id number] Chuckie Mccoy, MAINTENANCE SERVICE TECHNICIAN CCC Speech Pathologist Speech Pathology 04/26/13 Irina Dale MD Psychiatrist Outpatient Psychiatry 07/11/18 [address] [facility] [address] [place], [place] [phone] documented as of this encounter
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
--- OUTSIDE RECORDS SUMMARY | 2022-03-16 09:42 | XMS_ITS | Encounter Summary ---
:1950 Author Organization [facility] Address [address] [place] [address] Phone Care Team Providers Name Role Phone Olga Lee MD Primary Care Provider Chuckie Mccoy PROBATE PARALEGAL CCC Unavailable Unavailable Irina Dale MD Unavailable Encounter Details Date Type Department Care Team Description 08/04/2021 Travel Social History Tobacco Use Types Packs/Day Years Used Date Smoking Tobacco: Former Cigarettes Quit : 08/01/1999 Smokeless Tobacco: Never Alcohol Use Standard Drinks/Week Comments No 0 (1 standard drink = 0.6 oz pure alcoho l) Sex Assigned at Date Recorded Female 06/17/2020 

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
--- OUTSIDE RECORDS SUMMARY | 2022-03-16 09:42 | XMS_ITS | Encounter Summary ---
:1950 Author Organization [facility] Address [address] [place] [address] Phone Care Team Providers Name Role Phone Olga Lee MD Primary Care Provider Chuckie Mccoy [facility] Unavailable Unavailable Irina Dale MD Unavailable Reason for Visit Reason Comments No Show Encounter Details Date Type Department Care Team Description 10/15/2020 Telemedicine [facility] Psychiatry Clinic Irina Dale ERRO NEOUS ENCOUNTER-DISREGARD (Primary Dx); Renaldo QUILES Post traumatic stress disorder; [address] 701 [facility] Seasonal affective disorder (); S1.110 860S Traumatic brain injury, 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, sequela (); [place], [place] [address] [place], [place] Major depressive disorder, r ecurrent, in remission (); [phone] NO SHOW Social History Tobacco Use Types Packs/Day Years Used Date Smoking Tobacco: Former Cigarettes Quit : 08/01/1999 Smokeless Tobacco: Never Alcohol Use Standard Drinks/Week Comments No 0 (1 standard drink = 0.6 oz pure alcoho l) Sex Assigned at Date Recorded Female 06/17/2020 4:53 PM MACHINE LEAD BURNER documented as of this encounter Progress Notes Irina Dale MD - 10/15/2020 3:00 PM CDT NO SHOW [facility] Psychiatry Clinic Renaldo Li : 1950 Sex: female [phone] Irina Dale MD 10/15/2020 15:16 [facility] Dept of Psychiatry documented [...] documented as of this encounter Care Teams Principal Bioinformatics Specialist Relationship Specialty Start Date End Date Olga Lee MD PCP - General Internal Medicine 01/29/[address] [place] [id number] Chuckie Mccoy, HOT PLATE PRESS OPERATOR CCC Speech Pathologist Speech Pathology 04/26/13 Irina Dale MD Psychiatrist Outpatient Psychiatry 07/11/18 701 [facility] [address] [place], [place] [address] documented as of this encounter
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
--- OUTSIDE RECORDS SUMMARY | 2022-03-16 09:42 | XMS_ITS | Encounter Summary ---
:1950 Author Organization [facility] Address [address] [place] [address] Phone Care Team Providers Name Role Phone Olga Lee MD Primary Care Provider Chuckie Mccoy [facility] Unavailable Unavailable Irina Dale MD Unavailable Reason for Visit Reason Comments Refill Request Encounter Details Date Type Department Care Team Description 04/30/2021 Refill [facility] Psychiatry Clinic Bere Dale MD Refill Request [place] [address] [facility] 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 Last seen by Dr. Dale 02/02/21 Pending appt on NONE Rx last filled on 02/26/[address] Dale Rx sent to Dr. Dale to approve/deny URE ENGRAVER documented in this encounter Plan of Treatment Not on filedocumented as of this encounter Visit Diagnoses Not on filedocumented in this encounter Additional Health Concerns Infection Onset Date Last Indicated Resolved Time ESBL 11/08/2012 11/16/2017 documented as of this encounter Care Teams Strike On Machine Operator Relationship Specialty Start Date End Date Olga Lee MD PCP - General Internal Medicine 01/29/13 [address] [place], [place] [address] Chuckie Mccoy, WILDLIFE MANAGEMENT PROFESSOR CCC Speech Pathologist Speech Pathology 04/26/13 Irina Dale MD Psychiatrist Outpatient Psychiatry 07/11/18 [address] [facility] [address] [place] [address] documented as of this encounter
--- OUTSIDE RECORDS SUMMARY | 2022-03-16 09:42 | XMS_ITS | Encounter Summary ---
:1950 Author Organization [facility] Address [address] [place] [address] Phone Care Team Providers Name Role Phone Olga Lee MD Primary Care Provider Chuckie Mccoy [facility] Unavailable Unavailable Irina Dale MD Unavailable Reason for Visit Reason Onset Date Comments Other 01/19/2021 Encounter Details Date Type Department Care Team Description 01/19/2021 Telephone [facility] Augusta Dior V RN check in Mac[place] [address] [facility] S1.[address] [place] [address] S1.110 [place], [place] [address] Social History Tobacco Use Types Packs/Day Years Used Date Smoking Tobacco: Former Cigarettes Quit : 08/01/1999 Smokeless Tobacco: Never Alcohol Use Standard Drinks/Week Comments No 0 (1 standard drink = 0.6 oz pure alcoho l) Sex Assigned at Date Recorded Female 06/17/2020 4:53 PM APPLIED PSYCHOLOGY CHAIR documented as of this encounter Miscellaneous Notes [...] documented as of this encounter Care Teams Flooring Professional Relationship Specialty Start Date End Date Olga Lee MD PCP - General Internal Medicine 01/29/13 [address] [place], [place] [address] Chuckie Mccoy, DIRECTOR GEOPHYSICAL LABORATORY CCC Speech Pathologist Speech Pathology 04/26/13 Irina Dale MD Psychiatrist Outpatient Psychiatry 07/11/18 701 [facility] [address] [place], [place] [address] documented as of this encounter
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
--- OUTSIDE RECORDS SUMMARY | 2022-03-16 09:42 | XMS_ITS | Clinical Summary ---
:1950 External Reference #:[email or web address] Author Organization [facility] [place] [address] Care Team Providers Name Role Phone Lizzeth [...] MD Daniel 01/06/2022 Telephone Brooks Reynolds Surgery Sche indu Sanchez MD (Inspire) 01/04/2022 Anesthesia Event Danny Marrero MD Beckley, Steven Anthony, MD 01/04/2022 Surgery Brooks Reynolds Drug Induced Sleep MD Daniel Endoscopy 01/04/2022 Hospital Encounter Brooks Reynolds OBSTRU CTIVE SLEEP APNEA MD Daniel (ADULT) (Primar y Dx) 01/04/2022 Travel 12/30/2021 Nurse/Clinic Staff Testing ( Pre-Procedure Only Testing ) 12/30/2021 Travel 12/14/2021 Telephone Jorge Rodgers MD (Appointment) from Last 3 Months Immunizations Name Administration [...] Assigned at Date Recorded Not on file Obstetrics History Last Filed Vital Signs Vital [...] Team Description 03/26/2022 Preop Visit Alisha Bullock, BELLMAN CAPTAIN [address] [place], [place] [address] (Wo rk) 03/31/2022 Hospital Encounter Brooks Reynolds MD [address] [place], [place] [address] (Wo rk) 03/31/2022 Surgery Brooks Reynolds Inspire Hypo glossal MD Daniel Nerve Stimulator [address] [place], [place] [address] (Wo rk) Scheduled Procedures Name Priority Associated Diagnoses Date/Time IMPLANT RESPONSIVE Elective HAROLDO (obstructive sleep 2021 8:15 AM NAIL SPECIALIST NEUROSTIMULATOR apnea) Health Maintenance Due Date Last [...] 2017 Medicare Wellness for age 65+ 2017 COVID-19 vaccine series (5 - 11/08/2021 09/13/2021, 021, Booster for Pfizer series) 07/09/2020, Jassa nataliia history exists Influenza for age 65+ 01/21/2022 04/23/2004 BMI (ht and wt on same day) for 12/08/2022 12/08/2021, 09/20 age 18+ Procedures Procedure Name Priority Date/Time Associated Diagnosis [...] procedure ar e in infectious disease [facility] ts section. COVID 19 COLLECTION Routine 12/30/2021 8:49 AM Screening Re sults for this CDT examination for procedure ar e in infectious disease the [facility] ts section. from Last 3 Months Results (ABNORMAL) GLUCOSE METER (01/04/2022 8:59 AM CDT) P athologist Signature GLUCOSE METER 140 (H) 65 - 100 01/04/2022 [facility] mg/dL 8:59 AM CDT [facility] Specimen Anatomical Collection Method Collection Time Receive d Time (Source) Location / / Volume Laterality Blood BLOOD SPECIMEN / 01/04/2022 8:59 AM 01/04 8:59 Unknown CDT AM CDT Brooks Reynolds MD CHEMISTRY Performing Organization Address City/State/ZIP Code Phon e Number [facility] [address] [place] [address] [facility] SCAN-OPERATIVE/PROCEDURE REPORT (01/04/2022 12:00 AM CDT) Eliza Campbell - 12:00 AM CDT This result has an attachment that is no t available. Ordered by an unspecified provider. Other Clinical Staff OTHER COVID 19 (12/30/2021 8:49 AM CDT) Analysis Performed At Path logist Time Signature COVID 19 Negative Negative 12/31/2021 [place] 12:35 PM CDT LABORATORY-[facility] [...] CDT PM CDT STRUCTURE / Unknown Narrative [facility] LABORATORY-CENTRAL LABORAT ORY - 12/31/2021 12:35 PM [...] authorization is terminated or revoked sooner. Whitney Blood DO MICROBIOLOGY Performing Organization Address City/State/ZIP Code Phon e Number [facility] [address] [place] [address] LABORATORY-CENTRAL [address] LABORATORY COVID 19 COLLECTION [[id number]] (12/30/2021 8:49 AM CDT) [facility] gist Method Time Signature TESTING [facility] 12/30/2021 [facility] LABORATORY Laboratory 5:04 PM CDT LABORATORY-CE NTRAL LABORATORY Comment: Specimen submitted to [facility] for testing. Specimen Anatomical Location / Collection Method Collection Shen e Received Time (Source) Laterality / Volume Other SPECIMEN FROM Non-Blood / 12/30/2021 8:49 12/30/2021 9:03 NASOPHARYNGEAL Unknown AM CDT AM CDT STRUCTURE / Unknown Whitney Spencer Caitie DO SEND OUTS Performing Organization Address City/State/ZIP Code Phon e Number [facility] [address] [place] [address] LABORATORY-CENTRAL [address] LABORATORY from Last 3 Months Insurance Payer Benefit Plan / Subscriber ID Effective Dates Phone Addre ss Type Group SPONSORED SPONSORED xxxxARCH 2007-Prese INTERNAL [place] [id number] [address] [place] [address] MEDICARE PART A MEDICARE PART A [id number] 2017-Presen ATTN: CLAIMS - HB USE ONLY HB ONLY t [address] [facility] [place] [address] [facility] MR [id number] 2021-Presen [address] [place] [address] Maye Li Research Self 1950 [address] (Home) [place], [place] [phone] (Work) Advance Directives Latest Code Status on File Code Status Date Activated Date Inactivated Comments Full Code 02/24/2007 12:31 PM 02/25/2007 1:35 PM Care Teams Clay Miller Relationship Specialty Start Date End Date Lizzeth Perdue MD PCP - General Internal Medicine 09/18/211999 [place] [address]
--- OUTSIDE RECORDS SUMMARY | 2022-03-16 09:43 | XMS_ITS | Encounter Summary ---
:1950 Author Organization [facility] Address [address] [place] [address] Phone Care Team Providers Name Role Phone Olga Lee MD Primary Care Provider Chuckie Mccoy [facility] Unavailable Unavailable Reason for Visit Reason Comments Sore Throat Encounter Details Date Type Department Care Team Description 03/21/2018 Hospital Encounter [facility] Jessy Hernandez, Bronchitis [address] [facility]- [address] [place], [place] [address] Social History Tobacco Use Types Packs/Day Years Used Date Smoking Tobacco: Former Cigarettes Quit : 08/01/1999 Smokeless Tobacco: Never Alcohol Use Standard Drinks/Week Comments No 0 (1 standard drink = 0.6 oz pure alcoho l) Sex Assigned at Date Recorded Female 06/17/2020 4:53 PM GREEN MEAT GRADER documented as of this encounter Last Filed [...] through Care Everywhere. ACUTE BRONCHITIS, WHAT IS (MOSOTHO)documented in this encounter Medications at Time of Discharge Medication Sig Dispensed Refills Start Date End Date ASSURE COMFORT LANCETS 0 09/16/2014 30G NotApplicabl [facility] katherine CONTOUR in vitro Test 3 times [...] History Occupational History ??? 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 Smoking status: Former Smoker [...] athologist Signature POC Throat Grp Negative Negative [facility] POINT OF CARE Specimen (Source) Anatomical Collection Method Collection Time Re ceived Time Location / / Volume Laterality Other 03/21/2018 12:36 PM CDT Jessy Hernandez PA-C LABORATORY Performing Organization Address City/State/ZIP Code Phon e Number [facility] - POINT OF CARE [address] [place] [address] documented in this encounter Visit Diagnoses Diagnosis Bronchitis - Primary Bronchitis, not specified as acute or ch ronic documented in this encounter Additional Health Concerns Infection Onset Date Last Indicated Resolved Time ESBL 11/08/2012 11/16/2017 documented as of this encounter Care Teams Earth Science Teacher Relationship Specialty Start Date End Date Olga Lee MD PCP - General Internal Medicine 01/29/[address] [place] [address] Chuckie Mccoy, GYM TEACHER CCC Speech Pathologist Speech Pathology 04/26/13 documented as of this encounter
--- OUTSIDE RECORDS SUMMARY | 2022-03-16 09:43 | XMS_ITS | Encounter Summary ---
:1950 Author Organization [facility] Address [address] [facility] [address] Phone Care Team Providers Name Role Phone Olga Lee MD Primary Care Provider Chuckie Mccoy 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 [facility] Seasonal affective disorder (); S1.110 [address] Encounter for medication management; [place], [place] [address] [place], [place] Traumatic brain injury, with loss of consciousness of 30 minutes or less, sequela () [phone] Social History Tobacco Use Types Packs/Day Years Used Date Smoking Tobacco: Former Cigarettes Quit : 08/01/1999 Smokeless Tobacco: Never Alcohol Use Standard Drinks/Week Comments No 0 (1 standard drink = 0.6 oz pure alcoho l) Sex Assigned at Date Recorded Female 06/17/2020 4:53 PM MAP MOUNTER documented as of this encounter Last Filed Vital Signs Vital Sign Reading Time Taken Comments Blood Pressure 132/81 04/24/2018 9:05 AM MAP MOUNTER Pulse 90 04/24/2018 9:05 AM MAP MOUNTER Temperature - - Respiratory Rate - - Oxygen Saturation - - Inhaled Oxygen Concentration - - Weight 86.2 kg (190 lb) 04/24/2018 9:05 AM MAP MOUNTER Height - - Body Mass Index 32.6 [...] [facility] 8:00am-4:30pm Tuesday-Tuesday [phone] Parking information Free parking available in the surface lot directly behind the [facility]. Lead Dental Assistant staff in the clinic will provide you [...] the Acute Psychiatric Services (APS) Department at [facility], [address] [place] [address]. [phone]. The APS department is open 24 hours a day, seven days a week. APS is located adjacent to the Emergency Department on the main floor of the [facility]. For urgent needs that can wait until the clinic is open, please call the clinic at [phone] and leave a message for our triage [...] clinic staff, please contact our office at [phone] to leave a message. Typically calls are returned by the end of the day. You can be assured that a provider or triage nurse will call you back within one business day. Javierchinedu As a patient of [facility], you are able to access an on-line version of your medical record at [facility] called Maria G. If you are not currently active on AIRVEND, please speak to the clinical assoc during your visit to get set up or call our office at [phone]. Beetailert allows you to leave messages and schedule [...] located in the lower level of the [facility] and services employee and transplant/specialty needs. Hours of operation: Tuesday-Tuesday 7:30AM to 6:00PM Phone numbers: [facility]: Transplant/Specialty: Pharmacy Refill Line Information Please have the following information ready, then call [phone]: 1.) Name (First and Last) 2.) Hospital Number (Medical record #) 3.) Date of 4.) Telephone number where you may be reached (including area code) Important Mental Health Resources ??? Acute Psychiatric Services (APS) Department - [facility] - [phone] ??? Partial Hospital Program - [facility] - [phone] ??? Day Treatment Program - [facility] [phone] ??? [facility] Front Door Access - [phone] ??? [facility] Behavioral Health Case Management - [phone] ??? COPE (Community Outreach for Psychiatric Emergencies) - [phone] ??? [facility] Health Assessment Services - [phone] MOUNTER documented in this encounter Progress Notes Irina [...] want weight gain No Buspar, Abilify , [place], Wellbutrin , Ritalin Current Drug or Alcohol [...] times per day. 200 each 3 ??? 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 She suffered post traumatic stress [...] Wellbutrin augmentation Irina Dale MD 04/24/2018 09:35 [facility] Dept [...] information appropriate to his/her level of functioning. MOUNTER documented in this encounter Plan of Treatment [...] documented as of this encounter Care Teams Sales Apprentice Relationship Specialty Start Date End Date Olga Lee MD PCP - General Internal Medicine 01/29/13 [address] [place] [address] Chuckie Mccoy, LOCKER ROOM ATTENDANT CCC Speech Pathologist Speech Pathology 04/26/13 documented as of this encounter
--- OUTSIDE RECORDS SUMMARY | 2022-03-16 09:43 | XMS_ITS | Encounter Summary ---
:1950 Author Organization [facility] Address [address] [place] [address] Phone Care Team Providers Name Role Phone Olga Lee MD Primary Care Provider Chuckie Mccoy [facility] Unavailable Unavailable Irina Dale MD Unavailable Encounter Details Date Type Department Care Team Description 05/05/2017 Orders Only [facility] [place] Special[facility] Care Olga Lee MD Clinic [facility]0 [facility] [address], [address] [address] [phone] Social History Tobacco Use Types Packs/Day Years Used Date Smoking Tobacco: Former Cigarettes Quit : 08/01/1999 Smokeless Tobacco: Never Alcohol Use Standard Drinks/Week Comments No 0 (1 standard drink = 0.6 oz pure alcoho l) Sex Assigned at Date Recorded Female 06/17/2020 4:53 PM 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 [employer] documented as of this encounter Plan of Treatment Not on filedocumented as of this encounter Visit Diagnoses Not on filedocumented in this encounter Additional Health Concerns Infection Onset Date Last Indicated Resolved Time ESBL 11/08/2012 11/16/2017 MDRO (Multiple Drug Resistant 11/13/2012 11/13/2012 7:13 AM CDT Organism) documented as of this encounter Care Teams Sheet Taker Relationship Specialty Start Date End Date Olga Lee MD PCP - General Internal Medicine 01/29/[address] [place] [phone] Chuckie Mccoy, SOCIETY EDITOR CCC Speech Pathologist Speech Pathology 04/26/13 Irina Dale MD Psychiatrist Outpatient Psychiatry 07/11/18 [address] [facility] [address] [place] [address] documented as of this encounter
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
--- OUTSIDE RECORDS SUMMARY | 2022-03-16 09:43 | XMS_ITS | Encounter Summary ---
:1950 Author Organization [facility] Address [address] [place] [address] Phone Care Team Providers Name Role Phone lOga Lee MD Primary Care Provider Chuckie Mccoy [facility] Unavailable Unavailable Irina Dale MD Unavailable Reason for Visit Reason Comments Refill Request Encounter Details Date Type Department Care Team Description 12/22/2018 Refill [facility] Bere Dale MD Refill Request Macario 701 [facility] [address] [place] [address] S1.[address] [place], [place] [address] [phone] Social History Tobacco Use Types Packs/Day Years Used Date Smoking Tobacco: Former Cigarettes Quit : 08/01/1999 Smokeless Tobacco: Never Alcohol Use Standard Drinks/Week Comments No 0 (1 standard drink = 0.6 oz pure alcoho l) Sex Assigned at Date Recorded Female 06/17/2020 4:53 PM CRM ARCHITECT documented as of this encounter Plan of Treatment Not on filedocumented as of this encounter Visit Diagnoses Not on filedocumented in this encounter Additional Health Concerns Infection Onset Date Last Indicated Resolved Time ESBL 11/08/2012 11/16/2017 documented as of this encounter Care Teams Casino Cashier Relationship Specialty Start Date End Date Olga Lee MD PCP - General Internal Medicine 01/29/13 [address] [place] [address] Chuckie Mccoy, AOC OPERATIONS INTELLIGENCE OFFICER CCC Speech Pathologist Speech Pathology 04/26/13 Irina Dale MD Psychiatrist Outpatient Psychiatry 07/11/18 701 [facility] [address] [place], [place] [id number] documented as of this encounter
--- OUTSIDE RECORDS SUMMARY | 2022-03-16 09:43 | XMS_ITS | Encounter Summary ---
:1950 Author Organization [facility] Address [address] [place] [address] Phone Care Team Providers Name Role Phone Olga Lee MD Primary Care Provider Chuckie Mccoy [facility] Unavailable Unavailable Irina Dale MD Unavailable Encounter Details Date Type Department Care Team Description 06/18/2020 Immunization [facility] Viral Clinic Nj Polo MD [address] [place] [address] [id number] COVID-19; [address] Nurse, [facility] Vaccine [address] [place] [address] Need for vaccination [place], [place] [address] Social History Tobacco Use Types Packs/Day Years Used Date Smoking Tobacco: Former Cigarettes Quit : 08/01/1999 Smokeless Tobacco: Never Alcohol Use Standard Drinks/Week Comments No 0 (1 standard drink = 0.6 oz pure alcoho l) Sex Assigned at Date Recorded Female 06/17/2020 4:53 PM CUT ORDER HAND COVID-19 Exposure Response Date Recorded In the last month, have you been in contact with No / Unsure 06/18/2020 1:43 PM CUT ORDER HAND someone who was confirmed or suspected to [...] documented as of this encounter Care Teams Cancer Registry Manager Relationship Specialty Start Date End Date Olga Lee MD PCP - General Internal Medicine 01/29/13 [address] [place], [place] [address] Chuckie Mccoy, BUCKLE ATTACHING MACHINE OPERATOR CCC Speech Pathologist Speech Pathology 04/26/13 Irina Dale MD Psychiatrist Outpatient Psychiatry 07/11/18 701 [facility] [address] [place] [address] documented as of this encounter
--- OUTSIDE RECORDS SUMMARY | 2022-03-16 09:43 | XMS_ITS | Encounter Summary ---
:1950 Author Organization [facility] Address [address] [place] [address] Phone Care Team Providers Name Role Phone Olga Lee MD Primary Care Provider Chuckie Mccoy CARD SELLER CCC Unavailable Unavailable Irina Dale MD Unavailable Encounter Details Date Type Department Care Team Description 03/30/2019 Refill [facility] Psychiatry Clin ic Macario Irina Dale MD [address] 701 [facility] [address] [place] [address] [place], [place] [address] [phone] Social History Tobacco Use Types Packs/Day Years Used Date Smoking Tobacco: Former Cigarettes Quit : 08/01/1999 Smokeless Tobacco: Never Alcohol Use Standard Drinks/Week Comments No 0 (1 standard drink = 0.6 oz pure alcoho l) Sex Assigned at Date Recorded Female 06/17/2020 4:53 PM CERTIFIED MAINTENANCE WELDER documented as of this encounter Plan of Treatment Not on filedocumented as of this encounter Visit Diagnoses Not on filedocumented in this encounter Additional Health Concerns Infection Onset Date Last Indicated Resolved Time ESBL 11/08/2012 11/16/2017 documented as of this encounter Care Teams Assistant Nurse Manager Relationship Specialty Start Date End Date Olga Lee MD PCP - General Internal Medicine 01/29/13 [address] [place], [place] [address] Chuckie Mccoy, CARD SELLER CCC Speech Pathologist Speech Pathology 04/26/13 Irina Dale MD Psychiatrist Outpatient Psychiatry 07/11/18 701 [facility] [address] [place], [place] [address] documented as of this encounter
--- OUTSIDE RECORDS SUMMARY | 2022-03-16 09:43 | XMS_ITS | Encounter Summary ---
:1950 Author Organization [facility] Address [address] [place] [address] Phone Care Team Providers Name Role Phone Olga Lee MD Primary Care Provider Chuckie Mccoy [facility] Unavailable Unavailable Irina Dale MD Unavailable Reason for Visit Reason Comments Refill Request Encounter Details Date Type Department Care Team Description 01/24/2019 Refill [facility] Psychiatry Clinic Bere Dale MD Refill Request Macario 701 [facility] [address] [place] [address] [address]1.[address] [place], [place] [address] [phone] Social History Tobacco Use Types Packs/Day Years Used Date Smoking Tobacco: Former Cigarettes Quit : 08/01/1999 Smokeless Tobacco: Never Alcohol Use Standard Drinks/Week Comments No 0 (1 standard drink = 0.6 oz pure alcoho l) Sex Assigned at Date Recorded Female 06/17/2020 4:53 PM DIESEL ENGINE TESTER documented as of this encounter Plan of Treatment Not on filedocumented as of this encounter Visit Diagnoses Not on filedocumented in this encounter Additional Health Concerns Infection Onset Date Last Indicated Resolved Time ESBL 11/08/2012 11/16/2017 documented as of this encounter Care Teams Calender Let Off Operator Relationship Specialty Start Date End Date Olga Lee MD PCP - General Internal Medicine 01/29/13 [address] [place] [address] Chuckie Mccoy, EMAIL MANAGER CCC Speech Pathologist Speech Pathology 04/26/13 Irina Dale MD Psychiatrist Outpatient Psychiatry 07/11/18 701 [facility] [address] [place], [place] [id number] documented as of this encounter
--- OUTSIDE RECORDS SUMMARY | 2022-03-16 09:43 | XMS_ITS | Encounter Summary ---
:1950 Author Organization [facility][Note 3] Address [address] [place] [address] Phone Care Team Providers Name Role Phone Olga Lee MD Primary Care Provider Chuckie Mccoy [facility] Unavailable Unavailable Reason for Visit Reason Comments Hearing Aid Problem Encounter Details Date Type Department Care Team Description 01/17/2018 Office Visit Clinic & Specialty Pako Mcgowan MD [address] [place] [address] Sensorineural hearing Center Audiology Laura Lizarraga, AUD [address] [address] loss (SNHL) of both ears Clinic Rm1, Aud Hrg Aid (Primary Dx) [address] [address] Social History Tobacco Use Types Packs/Day Years Used Date Smoking Tobacco: Former Cigarettes Quit : 08/01/1999 Smokeless Tobacco: Never Alcohol Use Standard Drinks/Week Comments No 0 (1 standard drink = 0.6 oz pure alcoho l) Sex Assigned at Date Recorded Female 06/17/2020 4:53 PM TECHNICAL ASSISTANCE CONSULTANT documented as of this encounter Progress Notes Laura Lizarraga AUD - 01/17/2018 1:00 PM CDT AUDIOLOGY REPORT D: Patient returns to Audiology today for a hearing aid check appointment. Name and [id number] verified. Patient reports her hearing aids sound [...] Audiology for the testing). She thinks her [employer] insurance (supplement to Medicare) might pay some ofthe hearing aid cost. Encouraged her to call them to see how much they pay, how often, and if it matters where she goes (sometimes it does). P: Return as needed. Patient agreed with plan. Dunia Marcus, CCC-A [facility] Staff Special Police documented in this encounter Plan of Treatment Not on filedocumented as of this encounter Visit Diagnoses Diagnosis Sensorineural hearing loss (SNHL) of bot h ears - Primary documented in this encounter Additional Health Concerns Infection Onset Date Last Indicated Resolved Time ESBL 11/08/2012 11/16/2017 documented as of this encounter Care Teams Atm Manager Relationship Specialty Start Date End Date Olga Lee MD PCP - General Internal Medicine 01/29/13 [address] [place] [address] Chuckie Mccoy, FORWARDER OPERATOR [facility] Speech Pathologist Speech Pathology 04/26/13 documented as of this encounter
--- OUTSIDE RECORDS SUMMARY | 2022-03-16 09:43 | XMS_ITS | Encounter Summary ---
:1950 Author Organization [facility] Address [address] [place] [address] Phone Care Team Providers Name Role Phone Olga Lee MD Primary Care Provider Chuckie Mccoy DIRECTOR ELECTRICAL ENGINEERING [facility] Unavailable Unavailable Irina Dale MD Unavailable Reason for Visit Reason Onset Date Comments Psych Medication Management 06/26/2019 Encounter Details Date Type Department Care Team Description 06/26/2019 Office Visit [facility] Psychiatry Clinic Irina Dale Seas onal affective disorder () (Primary Dx); Renaldo QUILES Post traumatic stress disorder; [address] 701 [facility] Traumatic brain injury, with loss of consciousness of 30 minutes or less, sequela (); [address]1.[address] Major depressive disorder, recurrent, in remission (); [place], [place] [address] [address] [place], [place] Encounter for medication man agement [phone] Social History Tobacco Use Types Packs/Day Years Used Date Smoking Tobacco: Former Cigarettes Quit : 08/01/1999 Smokeless Tobacco: Never Alcohol Use Standard Drinks/Week Comments No 0 (1 standard drink = 0.6 oz pure alcoho l) Sex Assigned at Date Recorded Female 06/17/2020 4:53 PM SUPERVISOR ALUMINUM FABRICATION documented as of this encounter Last Filed Vital Signs Vital Sign Reading Time Taken Comments Blood Pressure 119/72 06/26/2019 1:12 PM SUPERVISOR ALUMINUM FABRICATION Pulse 89 06/26/2019 1:12 PM SUPERVISOR ALUMINUM FABRICATION Temperature - - Respiratory Rate - - Oxygen Saturation - - Inhaled Oxygen Concentration - - Weight 88.9 kg (196 lb) 06/26/2019 1:12 PM SUPERVISOR ALUMINUM FABRICATION Height - - Body Mass Index 33.63 [...] correct. Clinic Information Clinic Hours Telephone Number [facility] Adult Outpatient Psychiatry Clinic 8:00am-4:30pm Tuesday-Tuesday [phone] Parking information Free parking available in the surface lot directly behind the [facility]. Retort Kiln Burner staff in the clinic will provide you [...] the Acute Psychiatric Services (APS) Department at [facility], [facility] [address], [place] [address]. [phone]. The APS department is open 24 hours a day, seven days a week. APS is located adjacent to the Emergency Department on the main floor of the [facility]. For urgent needs that can wait until the clinic is open, please call the clinic at [phone] and leave a message for our triage [...] clinic staff, please contact our office at [phone] to leave a message. Typically calls are returned by the end of the day. You can be assured that a provider or triage nurse will call you back within one business day. Maria G As a patient of [facility], you are able to access an on-line version of your medical record at [facility] called [facility]. If you are not currently active on [facility], please speak to the senior clinical data analyst during your visit to get set up or call our office at [phone]. [employer] allows you to leave messages and schedule appointments electronically and does not require a phone call to the clinic. Pharmacy [facility] has two patient pharmacies for your convenience: [facility] Pharmacy: Is located on the first level of the [facility] Building and services all the clinics. Hours of operation: Tuesday-Tuesday 8:00AM to 6:00PM Tuesday 9:00AM to 1:00PM Phone number: [facility]: Is located in the lower level of the [facility] building and services employee and transplant/specialty needs. Hours of operation: Tuesday-Tuesday 7:30AM to 6:00PM Phone numbers: [facility]: Transplant/Specialty: Pharmacy Refill Line Information Please have the following information ready, then call [phone]: 1.) Name (First and Last) 2.) Hospital Number (Medical record #) 3.) Date of 4.) Telephone number where you may be reached (including area code) Important Mental Health Resources ??? Acute Psychiatric Services (APS) Department - [facility] - [phone] ??? Partial Hospital Program - [facility] - [phone] ??? Day Treatment Program - [facility] [phone] ??? [facility] Front Door Access - [phone] ??? [facility] Behavioral Health Case Management - [phone] ??? [facility] ([facility] for Psychiatric Emergencies) - [phone] ??? [facility] Assessment Services - [phone] RVISOR ALUMINUM FABRICATION documented in this encounter Plan of Treatment [...] documented as of this encounter Care Teams Leather Grainer Relationship Specialty Start Date End Date Olga Lee MD PCP - General Internal Medicine 01/29/13 [address] [place], [place] [id number] Chuckie Mccoy, DIRECTOR ELECTRICAL ENGINEERING CCC Speech Pathologist Speech Pathology 04/26/13 Irina Dale MD Psychiatrist Outpatient Psychiatry 07/11/18 701 [facility] [address] [place], [place] [address] documented as of this encounter
--- OUTSIDE RECORDS SUMMARY | 2022-03-16 09:43 | XMS_ITS | Encounter Summary ---
:1950 Author Organization [facility] Address [address] [place] [address] Phone Care Team Providers Name Role Phone Olga Lee MD Primary Care Provider Chuckie Mccoy SAS SQL DEVELOPER CCC Unavailable Unavailable Irina Dale MD Unavailable Encounter Details Date Type Department Care Team Description 06/18/2020 Travel Social History Tobacco Use Types Packs/Day Years Used Date Smoking Tobacco: Former Cigarettes Quit : 08/01/1999 Smokeless Tobacco: Never Alcohol Use Standard Drinks/Week Comments No 0 (1 standard drink = 0.6 oz pure alcoho l) Sex Assigned at Date Recorded Female 06/17/2020 4:53 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 documented as of this encounter Plan of Treatment Not on filedocumented as of this encounter Visit Diagnoses Not on filedocumented in this encounter Additional Health Concerns Infection Onset Date Last Indicated Resolved Time ESBL 11/08/2012 11/16/2017 documented as of this encounter Care Teams Analysis Manager Relationship Specialty Start Date End Date Olga Lee MD PCP - General Internal Medicine 01/29/13 [address] [place] [address] Chuckie Mccoy, SAS SQL DEVELOPER CCC Speech Pathologist Speech Pathology 04/26/13 Irina Dale MD Psychiatrist Outpatient Psychiatry 07/11/18 [address] [facility] [address] [address] [place] [address] documented as of this encounter
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
--- OUTSIDE RECORDS SUMMARY | 2022-03-16 09:43 | XMS_ITS | Encounter Summary ---
:1950 Author Organization [facility] Address [address] [place] [address] Phone Care Team Providers Name Role Phone Olga Lee MD Primary Care Provider Chuckie Mccoy RETAIL AND PROMOTIONS COORDINATOR CCC Unavailable Unavailable Encounter Details Date Type Department Care Team Description 03/21/2018 Travel Social History Tobacco Use Types Packs/Day Years Used Date Smoking Tobacco: Former Cigarettes Quit : 08/01/1999 Smokeless Tobacco: Never Alcohol Use Standard Drinks/Week Comments No 0 (1 standard drink = 0.6 oz pure alcoho l) Sex Assigned at Date Recorded Female 06/17/2020 4:53 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
--- OUTSIDE RECORDS SUMMARY | 2022-03-16 09:43 | XMS_ITS | Encounter Summary ---
:1950 Author Organization [facility] Address [address] [place] [address] Phone Care Team Providers Name Role Phone Olga Lee MD Primary Care Provider Chuckie Mcocy [facility] Unavailable Unavailable Irina Dale MD Unavailable Reason for Visit Reason Onset Date Comments COVID-19 08/22/2019 Encounter Details Date Type Department Care Team Description 08/22/2019 Telephone [facility] Psych[facility] Bere Dale MD COVID-19 [facility] [address] [place] [address] 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 It went well and the [facility] will be changed to a [facility]. She and her friends are [...] 9 minutes Irina Dale MD Staff Psychiatrist [facility] Out[facility] documented in this encounter [...] documented as of this encounter Care Teams Robotic Technician Relationship Specialty Start Date End Date Olga Lee MD PCP - General Internal Medicine 01/29/13 [address] [place], [place] [phone] Chuckie Mccoy, DISPATCHER RELAY CCC Speech Pathologist Speech Pathology 04/26/13 Irina Dale MD Psychiatrist Outpatient Psychiatry 07/11/18 701 [facility] [address] [place] [address] documented as of this encounter
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
--- OUTSIDE RECORDS SUMMARY | 2022-03-16 09:43 | XMS_ITS | Encounter Summary ---
:1950 Author Organization [facility] Address [address] [place] [address] Phone Care Team Providers Name Role Phone Olga Lee MD Primary Care Provider Chuckie Mccoy [facility] Unavailable Unavailable Irina Dale MD Unavailable Encounter Details Date Type Department Care Team Description 06/17/2020 Orders Only Anali PK Viral Cl Nj Agarwal MD COVID-19 [address] [facility] [address] [place], [place] [address] [address] [place] [address] [phone] (Wo rk) Social History Tobacco Use Types Packs/Day Years Used Date Smoking Tobacco: Former Cigarettes Quit : 08/01/1999 Smokeless Tobacco: Never Alcohol Use Standard Drinks/Week Comments No 0 (1 standard drink = 0.6 oz pure alcoho l) Sex Assigned at Date Recorded Female 06/17/2020 

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
--- OUTSIDE RECORDS SUMMARY | 2022-03-16 09:43 | XMS_ITS | Encounter Summary ---
:1950 Author Organization [facility] Address [address] [place] [address] Phone Care Team Providers Name Role Phone Olga Lee MD Primary Care Provider Chuckie Mccoy [facility] Unavailable Unavailable Encounter Details Date Type Department Care Team Description 08/24/2017 Documentation Only [facility] Psych[facility] Irina Dale MD Macario [address] [facility] [address] 860S S1.110 [place], [place] [phone] Social History Tobacco Use Types Packs/Day Years Used Date Smoking Tobacco: Former Cigarettes Quit : 08/01/1999 Smokeless Tobacco: Never Alcohol Use Standard Drinks/Week Comments No 0 (1 standard drink = 0.6 oz pure alcoho l) Sex Assigned at Date Recorded Female 06/17/2020 4:53 PM MARBLE POLISHER HAND documented as of this encounter Progress Notes Irina Dale MD - 08/24/2017 1:20 PM CDT Pt contacted me and can not get an apt for a while. I agreed to increase her dose of Pristiq from 50 up to 100 mg a day. Irina Dale MD 08/24/2017 13:22 [facility] Dept of [...] documented as of this encounter Care Teams Director Of Radiology Relationship Specialty Start Date End Date Olga Lee MD PCP - General Internal Medicine 01/29/[address] [place] [address] Chuckie Mccoy, SIEBEL ADMINISTRATOR CCC Speech Pathologist Speech Pathology 04/26/13 documented as of this encounter
--- OUTSIDE RECORDS SUMMARY | 2022-03-16 09:43 | XMS_ITS | Encounter Summary ---
:1950 Author Organization [facility] Address [address] [place] [address] Phone Care Team Providers Name Role Phone Olga Lee MD Primary Care Provider Chuckie Mccoy STRAW HAT BRIM CUTTER OPERATOR [facility] Unavailable Unavailable Irina Dale MD Unavailable Reason for Visit Reason Onset Date Comments Psych Medication Management 04/25/2019 Encounter Details Date Type Department Care Team Description 04/25/2019 Office Visit [facility] [place] Psych[facility] Irina Dale Seas onal affective disorder () (Primary Dx); Renaldo QUILES Post traumatic stress disorder; [address] [facility] Traumatic brain injury, with loss of consciousness of 30 minutes or less, sequela (); S1.110 860S Major depressive disorder, recurrent, in remission (); [place], [place] [address] [place], [place] Encounter for medication man agement [phone] Social History Tobacco Use Types Packs/Day Years Used Date Smoking Tobacco: Former Cigarettes Quit : 08/01/1999 Smokeless Tobacco: Never Alcohol Use Standard Drinks/Week Comments No 0 (1 standard drink = 0.6 oz pure alcoho l) Sex Assigned at Date Recorded Female 06/17/2020 4:53 PM PHYSICAL DAMAGE APPRAISER documented as of this encounter Last Filed Vital Signs Vital Sign Reading Time Taken Comments Blood Pressure 116/74 04/25/2019 9:45 AM PHYSICAL DAMAGE APPRAISER Pulse 100 04/25/2019 9:45 AM PHYSICAL DAMAGE APPRAISER Temperature - - Respiratory Rate - - Oxygen Saturation - - Inhaled Oxygen Concentration - - Weight 88 kg (194 lb) 04/25/2019 9:45 AM PHYSICAL DAMAGE APPRAISER Height - - Body Mass Index 33.28 [...] [place] [facility] 8:00am-4:30pm Tuesday-Tuesday [phone] Parking information Free parking available in the surface lot directly behind the [facility]. Manager Pediatric staff in the clinic will provide you [...] Acute Psychiatric Services (APS) Department at [facility], [address] [place] [address] [address], [place] [address]. [phone]. The APS department is open 24 hours a day, seven days a week. APS is located adjacent to the Emergency Department on the main floor of the [facility]. For urgent needs that can wait until the clinic is open, please call the clinic at [phone] and leave a message for our triage [...] clinic staff, please contact our office at [phone] to leave a message. Typically calls are [...] [facility] [place] called [employer]rival. If you are not currently active on unrival, please speak to the clinical account liaison during your visit to get set up or call our office at [phone]. unrival allows you to leave messages and schedule appointments electronically and does not require a phone call to the clinic. Pharmacy [facility] [place] has two patient pharmacies for your convenience: [facility] ([facility] Pharmacy: Is located on the first level of the [facility] Building and services all the clinics. Hours of operation: Tuesday-Tuesday 8:00AM to 6:00PM Tuesday 9:00AM to 1:00PM Phone number: [facility] Pharmacy: Is located in the lower level of the [facility] building and services employee and transplant/specialty needs. Hours of operation: Tuesday-Tuesday 7:30AM to 6:00PM Phone numbers: [facility]: Transplant/Specialty: Pharmacy Refill Line Information Please have the following information ready, then call [phone]: 1.) Name (First and Last) 2.) Hospital Number (Medical record #) 3.) Date of 4.) Telephone number where you may be reached (including area code) Important Mental Health Resources ??? Acute Psychiatric Services (APS) Department - [facility] [place] - [phone] ??? Partial Hospital Program - [facility] [phone] ??? Day Treatment Program - [facility] [phone] ??? [facility] Door Access - [phone] ??? [facility] Behavioral Health Case Management - [phone] ??? COPE (Community Outreach for Psychiatric Emergencies) - [phone] ??? [facility] Assessment Services - [phone] ICAL DAMAGE APPRAISER documented in this encounter Progress Notes Irina [...] had chest pain No Buspar, Abilify , [place], Current Drug or Alcohol use: none Most [...] times per day. 200 each 3 ??? [employer] CONTOUR in vitro test strips Test 3 [...] at the triage desk of the [facility]. She suffered post traumatic stress [...] any stimulants Irina Dale MD 04/25/2019 09:43 [facility] [place] Dept of Psychiatry Only the medications prescibed [...] information appropriate to his/her level of functioning. ICAL DAMAGE APPRAISER documented in this encounter Plan of Treatment [...] documented as of this encounter Care Teams Qlikview Developer Relationship Specialty Start Date End Date Olga Lee MD PCP - General Internal Medicine 01/29/13 [address] [place] [address] Chuckie Mccoy, STRAW HAT BRIM CUTTER OPERATOR CCC Speech Pathologist Speech Pathology 04/26/13 Irina Dale MD Psychiatrist Outpatient Psychiatry 07/11/[address] [facility] [address] [place], [place] [id number] documented as of this encounter
--- OUTSIDE RECORDS SUMMARY | 2022-03-16 09:43 | XMS_ITS | Encounter Summary ---
:1950 Author Organization [facility] Address [address] [place] [address] Phone Care Team Providers Name Role Phone Olga Lee MD Primary Care Provider Chuckie Mccoy [facility] Unavailable Unavailable Irina Dale MD Unavailable Encounter Details Date Type Department Care Team Description 07/09/2020 Immunization [facility] Nj Polo MD [address] [id number] Need for vaccination [address] Nurse, [facility] Vaccine [address] [place] [address] (Primary Dx) [place], [place] [address] Social History Tobacco Use Types Packs/Day Years Used Date Smoking Tobacco: Former Cigarettes Quit : 08/01/1999 Smokeless Tobacco: Never Alcohol Use Standard Drinks/Week Comments No 0 (1 standard drink = 0.6 oz pure alcoho l) Sex Assigned at Date Recorded Female 06/17/2020 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 COVID-19 Exposure Response Date Recorded In the last month, have you been in contact with No / Unsure 06/18/2020 1:43 PM JACKET PREPARER someone who was confirmed or suspected to [...] documented as of this encounter Care Teams Small Brake Form Operator Relationship Specialty Start Date End Date Olga Lee MD PCP - General Internal Medicine 01/29/13 [address] [place], [place] [phone] Chuckie Mccoy, COLLATERAL CLERK CCC Speech Pathologist Speech Pathology 04/26/13 Irina Dale MD Psychiatrist Outpatient Psychiatry 07/11/18 [address] [facility] [address] [place] [address] documented as of this encounter
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
--- OUTSIDE RECORDS SUMMARY | 2022-03-16 09:43 | XMS_ITS | Encounter Summary ---
:1950 Author Organization [facility] Address [address] [place] [address] [place] [address] Phone Care Team Providers Name Role Phone Olga Lee MD Primary Care Provider Chuckie Mccoy HOUSING MANAGER CCC Unavailable Unavailable Irina Dale MD Unavailable Encounter Details Date Type Department Care Team Description 05/13/2020 Travel Social History Tobacco Use Types Packs/Day Years Used Date Smoking Tobacco: Former Cigarettes Quit : 08/01/1999 Smokeless Tobacco: Never Alcohol Use Standard Drinks/Week Comments No 0 (1 standard drink = 0.6 oz pure alcoho l) Sex Assigned at Date Recorded Female 06/

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
--- OUTSIDE RECORDS SUMMARY | 2022-03-16 09:44 | XMS_ITS | Encounter Summary ---
:1950 Author Organization [facility] Address [address] [place] [address] Phone Care Team Providers Name Role Phone Olga Lee MD Primary Care Provider Chuckie Mccoy [facility] Unavailable Unavailable Reason for Visit Reason Onset Date Comments Prior Authorization For Medications 06/14/2016 Lyly tiq Encounter Details Date Type Department Care Team Description 06/14/2016 Telephone [facility] P1 Pharmacy Reema Chaudhari Prior Authorization For [address] Medications (Pristiq) P1.630 [place], [place] [address] Social History Tobacco Use Types Packs/Day Years Used Date Smoking Tobacco: Former Cigarettes Quit : 08/01/1999 Smokeless Tobacco: Never Alcohol Use Standard Drinks/Week Comments No 0 (1 standard drink = 0.6 oz pure alcoho l) Sex Assigned at Date Recorded Female 06/17/2020 4:53 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 [facility] has been notified. Reema Chaudhari, 06/14/2016 12:09 PM S AND MANAGEMENT TRAINEE documented in this encounter Plan of Treatment Not on filedocumented as of this encounter Visit Diagnoses Not on filedocumented in this encounter Additional Health Concerns Infection Onset Date Last Indicated Resolved Time MDRO (Multiple Drug Resistant 11/13/2012 11/13/2012 7:13 AM CDT Organism) documented as of this encounter Care Teams Package Winder Relationship Specialty Start Date End Date Olga Lee MD PCP - General Internal Medicine 01/29/[address] [place] [address] Chuckie Mccoy, RESIDENT CAREGIVER CCC Speech Pathologist Speech Pathology 04/26/13 documented as of this encounter
--- OUTSIDE RECORDS SUMMARY | 2022-03-16 09:44 | XMS_ITS | Encounter Summary ---
:1950 Author Organization [facility] Address [address] [place] [address] Phone Care Team Providers Name Role Phone Olga Lee MD Primary Care Provider Chuckie Mccoy [facility] Unavailable Unavailable Encounter Details Date Type Department Care Team Description 03/23/2016 Documentation Only Home Equipment Servi Irina Ariza MD [address] [facility] [address] [place] [address] [place], [place] [id number] Social History Tobacco Use Types Packs/Day Years Used Date Smoking Tobacco: Former Cigarettes Quit : 08/01/1999 Smokeless Tobacco: Never Alcohol Use Standard Drinks/Week Comments No 0 (1 standard drink = 0.6 oz pure alcoho l) Sex Assigned at Date Recorded Female 06/17/2020 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 [facility] will contact the patient with a [...] documented as of this encounter Care Teams Loss Control Representative Relationship Specialty Start Date End Date Olga Lee MD PCP - General Internal Medicine 01/29/13 [address] [place] [address] Chuckie Mccoy, CLIENT ADVISOR CCC Speech Pathologist Speech Pathology 04/26/13 documented as of this encounter
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
--- OUTSIDE RECORDS SUMMARY | 2022-03-16 09:44 | XMS_ITS | Encounter Summary ---
:1950 Author Organization [facility] Address [address] [place] [address] Phone Care Team Providers Name Role Phone Olga Lee MD Primary Care Provider Chuckie Mccoy MANAGER OF DIGITAL [facility] Unavailable Unavailable Reason for Visit Reason Onset Date Comments Hearing Aid Problem 08/03/2016 case picker hearing aids Encounter Details Date Type Department Care Team Description 08/03/2016 Telephone [facility] Audiology [place] Hearing Aid Problem [address] Aid (case picker hearing aids) P7.200 [place], [place] [address] Social History Tobacco Use Types Packs/Day Years Used Date Smoking Tobacco: Former Cigarettes Quit : 08/01/1999 Smokeless Tobacco: Never Alcohol Use Standard Drinks/Week Comments No 0 (1 standard drink = 0.6 oz pure alcoho l) Sex Assigned at Date Recorded Female 06/17/2020 4:53 PM CARD CLOTHIER documented as of this encounter Miscellaneous Notes Telephone Encounter - Laura Lizarraga AUD - 08/03/2016 11:00 AM CDT Called patient to let her know her hearing aids are all cleaned, fixed, and ready to be picked up. She is in the building. She will pick them up from our front desk receptionist. She thanked me. Josué Oliver, CCC-A Staff Greige Goods Marker documented in this encounter Plan of Treatment Not on filedocumented as of this encounter Visit Diagnoses Not on filedocumented in this encounter Additional Health Concerns Infection Onset Date Last Indicated Resolved Time MDRO (Multiple Drug Resistant 11/13/2012 11/13/2012 7:13 AM CDT Organism) documented as of this encounter Care Teams Media Job Titles Relationship Specialty Start Date End Date Olga Lee MD PCP - General Internal Medicine 01/29/13 [address] [place] [address] Chuckie Mccoy, MANAGER OF DIGITAL CCC Speech Pathologist Speech Pathology 04/26/13 documented as of this encounter
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
--- OUTSIDE RECORDS SUMMARY | 2022-03-16 09:44 | XMS_ITS | Encounter Summary ---
:1950 Author Organization [facility] Address [address] [facility] [place] [address] Phone Care Team Providers Name Role Phone Olga Lee MD Primary Care Provider Chuckie Mccoy BRISTLE MACHINE OPERATOR [facility] Unavailable Unavailable Reason for Visit Reason Comments Hearing Aid Problem dropped off hearing aids to fix; call when finished Encounter Details Date Type Department Care Team Description 08/03/2016 Office [place] [facility] [place] Pako Zee MD [address] [place] [address] Sensorineural hearing [address] [facility] Aid loss (SNHL) of both ears P7.200 (Primary Dx) [place], [place] [address] Social History Tobacco Use Types Packs/Day Years Used Date Smoking Tobacco: Former Cigarettes Quit : 08/01/1999 Smokeless Tobacco: Never Alcohol Use Standard Drinks/Week Comments No 0 (1 standard drink = 0.6 oz pure alcoho l) Sex Assigned at Date Recorded Female 06/17/2020 4:53 PM ELECTRICAL ACCESSORIES II ASSEMBLER documented as of this encounter Progress Notes Laura Lizarraga AUD - 08/03/2016 10:45 AM CDT AUDIOLOGY REPORT D: Patient comes to Audiology today as a walk-in/add-on (no appointment) to have her hearing aids checked. She dropped them off for us. Name and [id number]-svedn verified. Patient reports the right aid isn't [...] Sensorineural hearing loss. P: Called patient to bean picker machine operator hearing aids (she was still in the building). Return as needed. Patientagreed with plan. Josué Oliver, DIANA-A Staff Silk Trimmer documented in this encounter Plan of Treatment Not on filedocumented as of this encounter Visit Diagnoses Diagnosis Sensorineural hearing loss (SNHL) of bot h ears - Primary documented in this encounter Additional Health Concerns Infection Onset Date Last Indicated Resolved Time MDRO (Multiple Drug Resistant 11/13/2012 11/13/2012 7:13 AM CDT Organism) documented as of this encounter Care Teams Core Manager Relationship Specialty Start Date End Date Olga Lee MD PCP - General Internal Medicine 01/29/[address] [place] [address] [id number] Chuckie Mccoy, BRISTLE MACHINE OPERATOR [facility] Speech Pathologist Speech Pathology 04/26/13 documented as of this encounter
--- OUTSIDE RECORDS SUMMARY | 2022-03-16 09:44 | XMS_ITS | Encounter Summary ---
:1950 Author Organization [facility] Address [address] [facility] [place] [address] Phone Care Team Providers Name Role Phone Olga Lee MD Primary Care Provider Chuckie Mccoy [facility] Unavailable Unavailable Reason for Visit Reason Onset Date Comments Psych Medication Management 05/06/2016 Encounter Details Date Type Department Care Team Description 05/06/2016 Office Visit [facility] Psychiatry Clinic Bere Dale MD Post traumatic stress disorder (Primary Dx); Macario [address] [facility] Moderate episode of recurren t major depressive disorder (); [address] 8[address]S Seasonal affective disorder (); S1.110 [place], [place] Encounter for medication man agement [place], [place] [address] [phone] Social History Tobacco Use Types Packs/Day Years Used Date Smoking Tobacco: Former Cigarettes Quit : 08/01/1999 Smokeless Tobacco: Never Alcohol Use Standard Drinks/Week Comments No 0 (1 standard drink = 0.6 oz pure alcoho l) Sex Assigned at Date Recorded Female 06/17/2020 4:53 PM INFO PRINT PRESS OPERATOR documented as of this encounter Last Filed Vital Signs Vital Sign Reading Time Taken Comments Blood Pressure 138/78 05/06/2016 10:23 AM INFO PRINT PRESS OPERATOR Pulse 82 05/06/2016 10:23 AM INFO PRINT PRESS OPERATOR Temperature - - Respiratory Rate - - Oxygen Saturation - - Inhaled Oxygen Concentration - - Weight 86.2 kg (190 lb) 05/06/2016 10:23 AM INFO PRINT PRESS OPERATOR Height - - Body Mass Index 32.6 02/04/2015 1:05 PM CDT documented in this encounter Patient Instructions Patient InstructionsIrina Dale MD - 05/06/2016 10:00 AM CST [...] [place] [facility] 8:00am-4:30pm Tuesday-Tuesday [phone] Parking information Free parking available in the surface lot directly behind the [facility]. Oriental Rug Stretcher staff in the clinic will provide you [...] Acute Psychiatric Services (APS) Department at [facility], [address] [place] [address] [place] [address]. [phone]. The APS department is open 24 hours a day, seven days a week. APS is located adjacent to the Emergency Department on the main floor of the [facility]. For urgent needs that can wait until the clinic is open, please call the clinic at [phone] and leave a message for our triage [...] clinic staff, please contact our office at [phone] to leave a message. Typically calls are [...] [facility] called [employer] [place]. If you are not currently active on [employer], please speak to the clinical nursing coordinator during your visit to get set up or call our office at [phone]. [employer] allows you to leave messages and schedule appointments electronically and does not require a phone call to the clinic. Pharmacy [facility] has two patient pharmacies for your convenience: Blue 1 (B1.050) [phone] Tuesday-Tuesday, 9 am-5 pm Purple 1 (P1.630) [phone] Tuesday-Tuesday, 8 am-6 pm Tuesday, 9 am-4:30 pm Pharmacy Refill Line Information Please have the following information ready, then call [phone]: 1.) Name (First and Last) 2.) Hospital Number (Medical record #) 3.) Date of 4.) Telephone number where you may be reached (including area code) If you need your refill on the same day, it is better for you to come to the Outpatient Pharmacy (P-05/23-[place]). Important Mental Health Resources ??? Acute Psychiatric Services (APS) Department - [facility] - [phone] ??? Partial Hospital Program - [facility] - [phone] ??? Day Treatment Program - [facility] - [phone] ??? [facility] Front Door Access - [phone] ??? [facility] Behavioral Health Case Management - [phone] ??? COPE (Community Outreach for Psychiatric Emergencies) - [phone] ??? Crisis Connection -24 hour crisis line - [phone] ??? [facility] Assessment Services - [phone] PRINT PRESS OPERATOR documented in this encounter Progress Notes [...] positives and negatives are noted in the [facility]. Prior psychotropic med trials: Celexa had intolerable [...] times per day. 200 each 3 ??? 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 She suffered post traumatic stress disorder [...] depression Irina Dale MD May 06, 2016 [facility] Department of Psychiatry Only the [...] information appropriate to his/her level of functioning. PRINT PRESS OPERATOR Rita Razo MA - 05/06/2016 10:00 AM [...] medications: Not applicable New allergies: Not applicable PRINT PRESS OPERATOR documented in this encounter Plan of [...] documented as of this encounter Care Teams Product Line Manager Relationship Specialty Start Date End Date Olga Lee MD PCP - General Internal Medicine 01/29/13 [address] [place] [address] Chuckie Mccoy, HANDHOLE MACHINE OPERATOR CCC Speech Pathologist Speech Pathology 04/26/13 documented as of this encounter
--- OUTSIDE RECORDS SUMMARY | 2022-03-16 09:44 | XMS_ITS | Encounter Summary ---
:1950 Author Organization [facility] Address [address] [place] [address] Phone Care Team Providers Name Role Phone Olga Lee MD Primary Care Provider Chuckie Mccoy [facility] Unavailable Unavailable Encounter Details Date Type Department Care Team Description 08/27/2016 Documentation Only [facility] [place] [facility] Irina Dale MD [place] [address] [facility] [address]60[address] S1.110 [place], [place] [phone] Social History Tobacco Use Types Packs/Day Years Used Date Smoking Tobacco: Former Cigarettes Quit : 08/01/1999 Smokeless Tobacco: Never Alcohol Use Standard Drinks/Week Comments No 0 (1 standard drink = 0.6 oz pure alcoho l) Sex Assigned at Date Recorded Female 06/17/2020 4:53 PM DEVOPS ENGINEER documented as of this encounter Progress Notes Irina Dale MD - 08/27/2016 3:49 PM CDT Dose of Pristiq decreased back to 50 mg a day due to side effects on the 100 mg a day dose. Irina Dale MD 08/27/2016 15:52 [facility] Dept of Psychiatry documented in [...] documented as of this encounter Care Teams Wheel And Caster Repairer Relationship Specialty Start Date End Date Olga Lee MD PCP - General Internal Medicine 01/29/13 [address] [place] [address] Chukcie Mccoy, PRESCHOOL HEAD TEACHER CCC Speech Pathologist Speech Pathology 04/26/13 documented as of this encounter
--- OUTSIDE RECORDS SUMMARY | 2022-03-16 09:44 | XMS_ITS | Encounter Summary ---
:1950 Author Organization [facility] Address [address] [place] [address] Phone Care Team Providers Name Role Phone Olga Lee MD Primary Care Provider Chuckie Mccoy [facility] Unavailable Unavailable Reason for Visit Reason Comments Diabetes Supplies Encounter Details Date Type Department Care Team Description 10/15/2015 Documentation Only [facility] [place] - Wendy elizondo (Supplies) Clinic [place] [facility] [address] [place] [address] [phone] Social History Tobacco Use Types Packs/Day Years Used Date Smoking Tobacco: Former Cigarettes Quit : 08/01/1999 Smokeless Tobacco: Never Alcohol Use Standard Drinks/Week Comments No 0 (1 standard drink = 0.6 oz pure alcoho l) Sex Assigned at Date Recorded Female 06/17/2020 4:53 PM TELETYPIST documented as of this encounter Progress Notes Helene Peralta CMA - 10/15/2015 2:31 PM CDT [facility] Signed and dates by on 10/08/15. Faxed [...] as of this encounter Care Teams Business Planning Director Relationship Specialty Start Date End Date Olga Lee MD PCP - General Internal Medicine 01/29/13 [address] [place] [address] Chuckie Mccoy, SAND CASTER APPRENTICE CCC Speech Pathologist Speech Pathology 04/26/13 documented as of this encounter
--- OUTSIDE RECORDS SUMMARY | 2022-03-16 09:44 | XMS_ITS | Encounter Summary ---
:1950 Author Organization [facility] Address [address] [place] [address] Phone Care Team Providers Name Role Phone Olga Lee MD Primary Care Provider Chuckie Mccoy [facility] Unavailable Unavailable Reason for Visit Reason Comments Refill Request Encounter Details Date Type Department Care Team Description 08/26/2016 Refill [facility] Psychiatry Clinic Bere Dale MD Refill Request [place] [address] [facility] 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
--- OUTSIDE RECORDS SUMMARY | 2022-03-16 09:45 | XMS_ITS | Encounter Summary ---
:1950 Author Organization [facility] Address [address] [place] [address] Phone Care Team Providers Name Role Phone Olga Lee MD Primary Care Provider Chuckie Mccoy [facility] Unavailable Unavailable Reason for Visit Reason Comments Other Encounter Details Date Type Department Care Team Description 03/05/2014 Telephone [facility] Psychiatry Clinic Fred Hernandez RN Macario [address] [facility] S[address] [place] [address] S1.110 [place], [place] [address] [phone] Social History Tobacco Use Types Packs/Day Years Used Date Smoking Tobacco: Former Cigarettes Quit : 08/01/1999 Smokeless Tobacco: Never Alcohol Use Standard Drinks/Week Comments No 0 (1 standard drink = 0.6 oz pure alcoho l) Sex Assigned at Date Recorded Female 06/17/2020 4:53 PM SUBSURFACE AUGMENTEE OPERATOR documented as of this encounter Miscellaneous Notes [...] time to consider going on disability or group home ? 

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
--- OUTSIDE RECORDS SUMMARY | 2022-03-16 09:45 | XMS_ITS | Encounter Summary ---
:1950 Author Organization [facility] Address [address] [place] [address] Phone Care Team Providers Name Role Phone Olga Lee MD Primary Care Provider Chuckie Mccoy FUNERAL DIRECTOR/EMBALMER [facility] Unavailable Unavailable Reason for Visit Reason Onset Date Comments Request Appointment 12/09/2014 Encounter Details Date Type Department Care Team Description 12/09/2014 Telephone [facility] Psychiatry Clinic Augusta Dior V RN Request Appointment [place] [address] [facility] [address] S1.210 S1.[address] [place], [place] [address] [phone] Social History Tobacco Use Types Packs/Day Years Used Date Smoking Tobacco: Former Cigarettes Quit : 08/01/1999 Smokeless Tobacco: Never Alcohol Use Standard Drinks/Week Comments No 0 (1 standard drink = 0.6 oz pure alcoho l) Sex Assigned at Date Recorded Female 06/17/2020 4:53 PM SUPERVISOR SLITTING AND SHIPPING documented as of this encounter Miscellaneous Notes Telephone Encounter - Jessica Bowling, RN - 12/09/2014 9:29 AM CDT Returned call to pt- She is asking for an overbook appointment with Dr. Dale on or , as her [facility] person cannot make it to her [...] documented as of this encounter Care Teams Delicate Fabrics Presser Relationship Specialty Start Date End Date Olga Lee MD PCP - General Internal Medicine 01/29/[address] [place] [address] Chuckie Mccoy FUNERAL DIRECTOR/EMBALMER CCC Speech Pathologist Speech Pathology 04/26/13 documented as of this encounter
--- OUTSIDE RECORDS SUMMARY | 2022-03-16 09:45 | XMS_ITS | Encounter Summary ---
:1950 Author Organization [facility] Address [address] [place] [address] Phone Care Team Providers Name Role Phone Olga Lee MD Primary Care Provider Chuckie Mccoy CNC OPERATOR PROGRAMMER CCC Unavailable Unavailable Reason for Visit Reason Comments Hearing Aid Problem Encounter Details Date Type Department Care Team Description 07/31/2014 Office Visit [facility] Audiology Clini c Pako Mcgowan MD [address] [place] [address] Sensorineural hearing [address] [facility] Aid loss (Primary Dx) P7.200 [place], [place] [address] Social History Tobacco Use Types Packs/Day Years Used Date Smoking Tobacco: Former Cigarettes Quit : 08/01/1999 Smokeless Tobacco: Never Alcohol Use Standard Drinks/Week Comments No 0 (1 standard drink = 0.6 oz pure alcoho l) Sex Assigned at Date Recorded Female 06/17/2020 4:53 PM ENVIRONMENTAL PROTECTION INSPECTOR documented as of this encounter Progress Notes Laura Lizarraga AUD - 08/01/2014 3:30 PM CDT AUDIOLOGY REPORT 07/31/2014 D: Patient came to Audiology to drop off her hearing aids to be checked (no appointment). Name and [id number] verified. Patient wears binaural Unitron Moxi 6 bfwofiyy-pw-zij-canal hearing aids. Patient has a sensorineural hearing [...] Return as needed. Will call patient to warehouse picker hearing aids. 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
--- OUTSIDE RECORDS SUMMARY | 2022-03-16 09:45 | XMS_ITS | Encounter Summary ---
:1950 Author Organization [facility] Address [address] [facility] [place] [address] Phone Care Team Providers Name Role Phone Olga Lee MD Primary Care Provider Chuckie Mccoy [facility] Unavailable Unavailable Reason for Visit Reason Comments Other Encounter Details Date Type Department Care Team Description 02/08/2014 Telephone [facility] Cordell Wade RN [facility] [address] [facility] [address] [place] [address] [place], [place] [address] Social History Tobacco Use Types Packs/Day Years Used Date Smoking Tobacco: Former Cigarettes Quit : 08/01/1999 Smokeless Tobacco: Never Alcohol Use Standard Drinks/Week Comments No 0 (1 standard drink = 0.6 oz pure alcoho l) Sex Assigned at Date Recorded Female 06/17/2020 4:53 PM ACCOUNTANT TAX documented as of this encounter Miscellaneous Notes [...] need it. Irina Cox MD 02/08/2014 12:43 [facility] Dept of Psychiatry Telephone Encounter - Cordell [...] Pt. 

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
--- OUTSIDE RECORDS SUMMARY | 2022-03-16 09:45 | XMS_ITS | Encounter Summary ---
:1950 Author Organization [facility] Address [address] [place] [address] Phone Care Team Providers Name Role Phone Olga Lee MD Primary Care Provider Chuckie Mccoy INVENTORY CONTROL ASSISTANT [facility] Unavailable Unavailable Reason for Visit Reason Onset Date Comments Other 08/01/2014 hearing aids ready t o pick-up Encounter Details Date Type Department Care Team Description 08/01/2014 Telephone [facility] [place] Laura Lizarraga, Other (hearing aids [address] AUD ready to pick-up) [address]7.[address] [place], [place] [address] [place], [place] [phone] Social History Tobacco Use Types Packs/Day Years Used Date Smoking Tobacco: Former Cigarettes Quit : 08/01/1999 Smokeless Tobacco: Never Alcohol Use Standard Drinks/Week Comments No 0 (1 standard drink = 0.6 oz pure alcoho l) Sex Assigned at Date Recorded Female 06/17/2020 4:53 PM CORRECTIONS LIEUTENANT documented as of this encounter Miscellaneous Notes Telephone Encounter - Laura Lizarraga, AUD - 08/01/2014 3:27 PM CDT Called patient about the hearing aids she dropped off yesterday. They are ready to be picked up. Shesaid she'd come tomorrow. I gave her our hours for picking up hearing aids at the agent spa desk. She requested a letter describing her [...] agreed with this. Josué Oliver, DIANA-A Staff Economic Consultant documented in this encounter Plan of Treatment Not on filedocumented as of this encounter Visit Diagnoses Not on filedocumented in this encounter Additional Health Concerns Infection Onset Date Last Indicated Resolved Time MDRO (Multiple Drug Resistant 11/13/2012 11/13/2012 7:13 AM CDT Organism) documented as of this encounter Care Teams Care Support Representative Relationship Specialty Start Date End Date Olga Lee MD PCP - General Internal Medicine 01/29/[address] [place] [address] Chuckie Mccoy, INVENTORY CONTROL ASSISTANT CCC Speech Pathologist Speech Pathology 04/26/13 documented as of this encounter
--- OUTSIDE RECORDS SUMMARY | 2022-03-16 09:45 | XMS_ITS | Encounter Summary ---
:1950 [address] [facility] Address [address] [address] Phone Care Team Providers Name Role Phone Olga Lee MD Primary Care Provider Chuckie Mccoy [facility] Unavailable Unavailable Reason for Visit Reason Comments Diabetes Supplies Encounter Details Date Type Department Care Team Description 09/12/2014 Documentation Only Diabetes & Endo Jemima Ervin absarmad (Supplies ) Clinic Hector Hanna CMA [address] [facility] [address] [facility] [place], [place] 701 [facility] [address] [place], [place] [phone] [address] Social History Tobacco Use Types Packs/Day Years Used Date Smoking Tobacco: Former Cigarettes Quit : 08/01/1999 Smokeless Tobacco: Never Alcohol Use Standard Drinks/Week Comments No 0 (1 standard drink = 0.6 oz pure alcoho l) Sex Assigned at Date Recorded Female 06/17/2020 4:53 PM CARE TRANSITION COORDINATOR documented as of this encounter Progress Notes Hector Onofre CMA - 09/12/2014 9:56 AM CDT Received diabetes supplies refill request form from [employer]. Signed and dated by ordering provider, Dr. Aranda on 09/04/14 Faxed to [phone] on 09/06/14 Labeled and sent to scanning. Hector Onofre CMA, 09/12/2014 9:57 AM documented in this encounter Plan of Treatment Not on filedocumented as of this encounter Visit Diagnoses Not on filedocumented in this encounter Additional Health Concerns Infection Onset Date Last Indicated Resolved Time MDRO (Multiple Drug Resistant 11/13/2012 11/13/2012 7:13 AM CDT Organism) documented as of this encounter Care Teams General Repair Mechanic Relationship Specialty Start Date End Date Olga Lee MD PCP - General Internal Medicine 01/29/[address] [place] [address] Chuckie Mccoy, JEWELRY JOBBER CCC Speech Pathologist Speech Pathology 04/26/13 documented as of this encounter
--- OUTSIDE RECORDS SUMMARY | 2022-03-16 09:45 | XMS_ITS | Encounter Summary ---
:1950 Author Organization [facility] Address [address] [place] [address] Phone Care Team Providers Name Role Phone Olga Lee MD Primary Care Provider Chuckie Mccoy TUTOR CCC Unavailable Unavailable Reason for Referral Prior Authorization (Routine) - Closed Specialty Diagnoses / Procedures Referred By Contact Refer red To Contact NEUROLOGY Diagnoses TBI (traumatic brain injury) Irina Dale MD Figg, Evan C, TUTOR CCC Procedures SPEECH PATHOLOGY PLAN OF CARE 701 [facility] [address] [place] [address] Referral ID Status Reason Start Date Expiration Date Visits Requ ested Visits Authorized [id number] Closed 12/06/2014 05/22/2015 6 6 Reason for Visit Prior Authorization (Routine) - Closed Specialty Diagnoses / Procedures Referred By Contact Refer red To Contact NEUROLOGY Diagnoses TBI (traumatic brain injury) Irina Dale MD Figg, Evan C, TUTOR CCC Procedures SPEECH PATHOLOGY PLAN OF CARE 701 [facility] [address] [place] [address] Referral ID Status Reason Start Date Expiration Date Visits Requ ested Visits Authorized [id number] Closed 12/06/2014 05/22/2015 6 6 Encounter Details Date Type Department Care Team Description 12/27/2014 Hospital Encounter [facility] [place] Speech Path Cl Irina Dale MD [address] [place], [place] [id number] Chuckie Olmstead, TUTOR CCC [address] [place], [place] [address] Social History Tobacco Use Types Packs/Day Years Used Date Smoking Tobacco: Former Cigarettes Quit : 08/01/1999 Smokeless Tobacco: Never Alcohol Use Standard Drinks/Week Comments No 0 (1 standard drink = 0.6 oz pure alcoho l) Sex Assigned at Date Recorded Female 06/17/2020 4:53 PM PIPING MANAGER documented as of this encounter Medications [...] of this encounter Progress Notes Chuckie Mccoy, TUTOR CCC - 12/27/2014 1:21 PM CDT SPEECH-LANGUAGE [...] increasingly comfortable with the idea of early long term. She has continued to formulate plans to introduce volunteer roles in her life; doing so is c/w radio script writer's previous recommendations. Today's session addressed the following [...] illustrate positive generalization of the above strategies. Lehr Loader Goals: 1. Pt will demonstrate independent use [...] to go on disability. Discharge from outpatient TUTOR. Pain: denied Barriers to Learning: none Patient / Family Education: see S & O section Referral/Community Contacts: none P Plan: Discharge from outpatient Speech-Language Pathology. Speech-Language Pathologist: Chuckie Mccoy M.S., [facility]-TUTOR 12/27/2014, 13:21 Pager: [phone] documented in this encounter Plan of Treatment Not on filedocumented as of this encounter Visit Diagnoses Diagnosis TBI (traumatic brain injury) Intracranial injury of other and unspeci fied nature, without mention of open intracranial wound, unspecified state of consciousness documented in this encounter Additional Health Concerns Infection Onset Date Last Indicated Resolved Time MDRO (Multiple Drug Resistant 11/13/2012 11/13/2012 7:13 AM CDT Organism) documented as of this encounter Care Teams Tank Driver Relationship Specialty Start Date End Date Olga Lee MD PCP - General Internal Medicine 01/29/[address] [place] [address] Chuckie Mccoy, TUTOR CCC Speech Pathologist Speech Pathology 04/26/13 documented as of this encounter
--- OUTSIDE RECORDS SUMMARY | 2022-03-16 09:45 | XMS_ITS | Encounter Summary ---
:1950 Author Organization [facility] Address [address] [place] [employer] (AB[facility] [place] [address] Phone Care Team Providers Name Role Phone Olga Lee MD Primary Care Provider Chuckie Mccoy [facility] Unavailable Unavailable Reason for Visit Reason Comments Follow-up picking up repaired HAs Encounter Details Date Type Department Care Team Description 08/02/2014 Office Visit [facility] Audiology Clini Marcos Trevino MD Need New Address Sensorineural hearing 701 [facility] Lamin Cavazos Hrg Aid loss (Primary Dx) P7.[address] [place], [place] [address] Social History Tobacco Use Types Packs/Day Years Used Date Smoking Tobacco: Former Cigarettes Quit : 08/01/1999 Smokeless Tobacco: Never Alcohol Use Standard Drinks/Week Comments No 0 (1 standard drink = 0.6 oz pure alcoho l) Sex Assigned at Date Recorded Female 06/17/2020 4:53 PM PRESS CUTTER documented as of this encounter Progress Notes Laura Lizarraga AUD - 08/02/2014 2:33 PM CDT Patient presents to Audiology to sweet pickled fruit maker her repaired hearing aid(s). Patient has a history of a sensorineural hearing loss. Patient was given her repaired hearing aid(s) at the front office medical assistant. Non-billable encounter. Return to Audiology p.r.n. Patient agreed with plan. Josué Oliver, CCC-A Staff Court Registry Officer documented in this encounter Plan of Treatment Not on filedocumented as of this encounter Visit Diagnoses Diagnosis Sensorineural hearing loss - Primary Sensorineural hearing loss, unspecified documented in this encounter Additional Health Concerns Infection Onset Date Last Indicated Resolved Time MDRO (Multiple Drug Resistant 11/13/2012 11/13/2012 7:13 AM CDT Organism) documented as of this encounter Care Teams Bookstore Clerk Relationship Specialty Start Date End Date Olga Lee MD PCP - General Internal Medicine 01/29/[address] [place] [address] Chuckie Mccoy, PAPER HANDLER CCC Speech Pathologist Speech Pathology 04/26/13 documented as of this encounter
--- OUTSIDE RECORDS SUMMARY | 2022-03-16 09:45 | XMS_ITS | Encounter Summary ---
:1950 Author Organization [facility] Address [address] [place] [address] Phone Care Team Providers Name Role Phone Olga Lee MD Primary Care Provider Chuckie Mccoy SWEATER DESIGNER [facility] Unavailable Unavailable Reason for Visit Reason Comments Other Encounter Details Date Type Department Care Team Description 10/11/2014 Telephone [facility] [place] Roopa Kemp RN Mac[place] [address] [facility] [address] [place] [address] [address] [place], [place] [address] Social History Tobacco Use Types Packs/Day Years Used Date Smoking Tobacco: Former Cigarettes Quit : 08/01/1999 Smokeless Tobacco: Never Alcohol Use Standard Drinks/Week Comments No 0 (1 standard drink = 0.6 oz pure alcoho l) Sex Assigned at Date Recorded Female 06/17/2020 4:53 PM SHOW OPERATIONS SUPERVISOR documented as of this encounter Miscellaneous Notes [...] Pt. Name: Maye Li : 1950 (home) [phone] (work) Insurance: Comment: Expects Return Call at: [phone] documented in this encounter Plan of Treatment Not on filedocumented as of this encounter Visit Diagnoses Not on filedocumented in this encounter Additional Health Concerns Infection Onset Date Last Indicated Resolved Time MDRO (Multiple Drug Resistant 11/13/2012 11/13/2012 7:13 AM CDT Organism) documented as of this encounter Care Teams Barrelhead Inspector Relationship Specialty Start Date End Date Olga Lee MD PCP - General Internal Medicine 01/29/[address] [place] [address] Chuckie Mccoy, SWEATER DESIGNER CCC Speech Pathologist Speech Pathology 04/26/13 documented as of this encounter
--- OUTSIDE RECORDS SUMMARY | 2022-03-16 09:45 | XMS_ITS | Encounter Summary ---
:1950 Author Organization [facility] Address [address] [place] [address] Phone Care Team Providers Name Role Phone Olga Lee MD Primary Care Provider Chuckie Mccoy CHEF DE CUISINE CCC Unavailable Unavailable Reason for Visit Reason Comments Hearing Aid Problem Encounter Details Date Type Department Care Team Description 10/01/2014 Office Visit [facility] Audiology Clini c Pako Mcgowan MD [address] [place] [address] Sensorineural hearing [address] Cavazos Hrg Aid loss (Primary Dx) P7.200 [place], [place] [address] Social History Tobacco Use Types Packs/Day Years Used Date Smoking Tobacco: Former Cigarettes Quit : 08/01/1999 Smokeless Tobacco: Never Alcohol Use Standard Drinks/Week Comments No 0 (1 standard drink = 0.6 oz pure alcoho l) Sex Assigned at Date Recorded Female 06/17/2020 4:53 PM SUPERVISOR MAINTENANCE documented as of this encounter Progress Notes Laura Lizarraga AUD - 10/03/2014 12:55 PM CDT AUDIOLOGY REPORT D: Patient came to Audiology today to drop have her hearing aids to be checked (no appointment). Name and [id number] verified. Patient reports one of her hearing [...] days/week at a different hospital. Josué Oliver, [facility] Staff Speed Runner documented in this encounter Plan of Treatment Not on filedocumented as of this encounter Visit Diagnoses Diagnosis Sensorineural hearing loss - Primary Sensorineural hearing loss, unspecified documented in this encounter Additional Health Concerns Infection Onset Date Last Indicated Resolved Time MDRO (Multiple Drug Resistant 11/13/2012 11/13/2012 7:13 AM CDT Organism) documented as of this encounter Care Teams Manager Support Services Relationship Specialty Start Date End Date Olga Lee MD PCP - General Internal Medicine 01/29/[address] [place] [address] [id number] Chuckie Mccoy, CHEF DE CUISINE [facility] Speech Pathologist Speech Pathology 04/26/13 documented as of this encounter
--- OUTSIDE RECORDS SUMMARY | 2022-03-16 09:45 | XMS_ITS | Encounter Summary ---
:1950 Author Organization [facility] Address [address] [place] [address] Phone Care Team Providers Name Role Phone Olga Lee MD Primary Care Provider Chuckie Mccoy [facility] Unavailable Unavailable Reason for Visit Reason Comments Refill Request Encounter Details Date Type Department Care Team Description 06/18/2015 Refill [facility] Psychiatry Clinic Bere Dlae MD Refill Request Mac[place] [address] [facility] 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
--- OUTSIDE RECORDS SUMMARY | 2022-03-16 09:45 | XMS_ITS | Encounter Summary ---
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
--- OUTSIDE RECORDS SUMMARY | 2022-03-16 09:45 | XMS_ITS | Encounter Summary ---
:1950 Author Organization [facility] Address [address] [place] [address] Phone Care Team Providers Name Role Phone Olga Lee MD Primary Care Provider Chuckie Mccoy [facility] Unavailable Unavailable Reason for Visit Reason Onset Date Comments Psych Medication Management 03/11/2015 Encounter Details Date Type Department Care Team Description 03/11/2015 Office Visit [facility] Psychiatry Clinic Bere Dale MD Depression (Primary Dx); [place] [address] [facility] Post traumatic stress disord er; 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. Dance Professor staff in the clinic will provide you [...] Psychiatric Services (APS) Department at [facility], [address] [place] [address]. [phone]. The APS department is open 24 hours a day, seven days a week. APS is located adjacent to the Emergency Department on the main floor of the [facility]. For urgent needs that can wait until the clinic is open, please call the clinic at [phone] and leave a message for our triage [...] clinic staff, please contact our office at [phone] to leave a message. Typically calls are [...] [facility] called Maria G. If you are not currently active on [employer], please speak to the clinical laboratory medical director during your visit to get set up or call our office at [phone]. [employer] allows you to leave messages and schedule appointments electronically and does not require a phone call to the clinic. Pharmacy [facility] has two patient pharmacies for your convenience: Blue 1 (B1.050) [phone] Tuesday-Tuesday, 9 am-5 pm Purple 1 (P1.630) [phone] Tuesday-Tuesday, 8 am-6 pm Tuesday, 9 am-4:30 pm Pharmacy Refill Line Information Please have the following information ready, then call [phone]: 1.) Name (First and Last) 2.) Hospital Number (Medical record #) 3.) Date of 4.) Telephone number where you may be reached (including area code) If you need your refill on the same day, it is better for you to come to the Outpatient Pharmacy (P-[id number]). Important Mental Health Resources ??? Acute Psychiatric Services (APS) Department - [facility] - [phone] ??? Partial Hospital Program - [facility] - [phone] ??? Day Treatment Program - [facility] - [phone] ??? [facility] Front Door Access - [phone] ??? [facility] Behavioral Health Case Management - [phone] ??? [facility] ([facility] Outreach for Psychiatric Emergencies) - [phone] ??? Crisis Connection -24 hour crisis line - [phone] ??? [facility] - [phone] ??? documented in this encounter Progress Notes [...] times per day. 200 each 3 ??? [employer] CONTOUR in vitro test strips Test 3 [...] at the triage desk of the [facility]. She suffered post traumatic stress disorder [...] next available apt. Irina Dale MD Feb [facility] Department of Psychiatry Only the medications [...] documented as of this encounter Care Teams Online Merchant Relationship Specialty Start Date End Date Olga Lee MD PCP - General Internal Medicine 01/29/13 [address] [place] [address] Chuckie Mccoy, FLAMER SEALER CCC Speech Pathologist Speech Pathology 04/26/13 documented as of this encounter
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
--- OUTSIDE RECORDS SUMMARY | 2022-03-16 09:45 | XMS_ITS | Encounter Summary ---
:1950 Author Organization [facility] Address [address] [place] [address] Phone Care Team Providers Name Role Phone Olga Lee MD Primary Care Provider Chuckie Mccoy [facility] Unavailable Unavailable Reason for Visit Reason Onset Date Comments Psych Medication Management 09/17/2015 Encounter Details Date Type Department Care Team Description 09/17/2015 Office Visit [facility] Bere Dale MD Depression (Primary Dx); Macario 701 [facility] Post traumatic stress disord er; 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 Agency Trainer staff in the clinic will provide you [...] the Acute Psychiatric Services (APS) Department at [facility], [address], [place] [address]. [phone]. The APS department is open 24 hours a day, seven days a week. APS is located adjacent to the Emergency Department on the main floor of the [facility]. For urgent needs that can wait until the clinic is open, please call the clinic at [phone] and leave a message for our triage [...] clinic staff, please contact our office at [phone] to leave a message. Typically calls are [...] [facility] called [facility]y's. If you are not currently active on Sleepy's, please speak to the clinical documentation nurse during your visit to get set up or call our office at [phone]. [employer]'s allows you to leave messages and schedule appointments electronically and does not require a phone call to the clinic. Pharmacy [facility] has two patient pharmacies for your convenience: Blue 1 (B1.050) [phone] Tuesday-Tuesday, 9 am-5 pm Purple 1 (P1.630) [phone] Tuesday-Tuesday, 8 am-6 pm Tuesday, 9 am-4:30 pm Pharmacy Refill Line Information Please have the following information ready, then call [phone]: 1.) Name (First and Last) 2.) Hospital Number (Medical record #) 3.) Date of 4.) Telephone number where you may be reached (including area code) If you need your refill on the same day, it is better for you to come to the Outpatient Pharmacy (P-05/23-[place]). Important Mental Health Resources ??? Acute Psychiatric Services (APS) Department - [facility] - [phone] ??? Partial Hospital Program - [facility] - [phone] ??? Day Treatment Program - [facility] - [phone] ??? [facility] Front Door Access - [phone] ??? [facility] Behavioral Health Case Management - [phone] ??? COPE (Community Outreach for Psychiatric Emergencies) - [phone] ??? Crisis Connection -24 hour crisis line - [phone] ??? [facility] Assessment Services - [phone] documented in this encounter Progress Notes Irina [...] times per day. 200 each 3 ??? 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 She suffered post traumatic stress disorder [...] tearfulness Irina Dale MD September 17, 2015 [facility] Department [...] as of this encounter Care Teams Supervisor Furnace Process Relationship Specialty Start Date End Date Olga Lee MD PCP - General Internal Medicine 01/29/13 [address] [place] [address] Chuckie Mccoy, JEWEL SUPERVISOR CCC Speech Pathologist Speech Pathology 04/26/13 documented as of this encounter
--- OUTSIDE RECORDS SUMMARY | 2022-03-16 09:45 | XMS_ITS | Encounter Summary ---
:1950 Author Organization [facility] Address [address] [place] [address] Phone Care Team Providers Name Role Phone Olga Lee MD Primary Care Provider Chuckie Mccoy HUSKER OPERATOR [facility] Unavailable Unavailable Encounter Details Date Type Department Care Team Description 02/27/2014 Hospital Encounter [facility] Laboratory Suma Aranda MD [address] [place], [place] [address] [address], [facility] [address] P4.[address] [place], [place] [address] Social History Tobacco Use Types Packs/Day Years Used Date Smoking Tobacco: Former Cigarettes Quit : 08/01/1999 Smokeless Tobacco: Never Alcohol Use Standard Drinks/Week Comments No 0 (1 standard drink = 0.6 oz pure alcoho l) Sex Assigned at Date Recorded Female 06/17/2020 4:53 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 Bookatable (Livebookings) CONTOUR in vitro Use as directed 100 [...] CBC WITH PLATELET (02/27/2014 12:14 PM CDT) [facility] gist Method Time Signature WBC 10.29 (H) 4.00 - [facility] 10.00 k/cmm RBC 4.97 3.90 - [facility] 5.20 m/cmm Hgb 13.6 11.5 - [facility] 15.7 g/dL Hematocrit 41.1 34.0 - [facility] 45.0 % MCV 82.7 80.0 - [facility] 100.0 fL MCH 27.4 25.0 - [facility] 32.0 pg MCHC 33.1 31.0 - [facility] 36.0 g/dL RDW 15.3 (H) 11.5 - [facility] 14.5 % Plt 256 150 - 400 [facility] k/cmm MPV 10.0 6.5 - 12.5 [facility] fL NRBC 0.0 0.0 - 0.0 [facility] % CBC Plt [facility] Performed at: Comment: [facility] Laboratory [address] [place] [address] Specimen Anatomical Collection Method Collection Time Receive d Time (Source) Location / / Volume Laterality Blood 02/27/2014 12:14 02/27/2014 PM CDT 12:14 PM CDT Suma Aranda MD LABORATORY Performing Organization Address City/[facility]/ZIP Code Phon e Number [facility] [place] [address] (ABNORMAL) TRANSFERRIN (INCLUDES TIBC) (02/27/2014 12:12 PM CDT) P athologist Signature Transferrin 275 200 - 360 [facility] mg/dL IBC 410 298 - 536 [facility] mcg/dL Iron Saturation 11 (L) 20 - 50 % [facility] Percent Specimen Anatomical Collection Method Collection Time Receive d Time (Source) Location / / Volume Laterality Blood 02/27/2014 12:12 02/27/2014 PM CDT 12:12 PM CDT Suma Aranda MD LABORATORY Performing Organization Address City/[facility]/ZIP Code Phon e Number [facility] [place] [address] IRON (02/27/2014 12:12 PM CDT) athologist Signature Iron 45 37 - 145 [facility] mcg/dL Comment: Test Performed by: [facility] Laboratory [address] [place] [address] Specimen Anatomical Collection Method Collection Time Receive d Time (Source) Location / / Volume Laterality Blood 02/27/2014 12:12 02/27/2014 PM CDT 12:12 PM CDT Suma Aranda MD LABORATORY Performing Organization Address City/[facility]/ZIP Code Phon e Number [facility] [place] [address] documented in this encounter Visit Diagnoses Diagnosis Iron deficiency anemia Iron deficiency anemia, unspecified documented in this encounter Additional Health Concerns Infection Onset Date Last Indicated Resolved Time 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
--- OUTSIDE RECORDS SUMMARY | 2022-03-16 09:45 | XMS_ITS | Encounter Summary ---
:1950 Author Organization [facility] Address [address] [place] [address] Phone Care Team Providers Name Role Phone Olga Lee MD Primary Care Provider Chuckie Mccoy [facility] Unavailable Unavailable Reason for Visit Reason Comments Other Encounter Details Date Type Department Care Team Description 12/12/2014 Telephone [facility] Fred Hernandez RN Macario [address] [facility] 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 Dale visit note to Dominique. Telephone Encounter - Priscilla Hernandez RN - 12/12/2014 3:07 PM CDT Returned call to Dominique from [employer] who is requesting to speak directly with Dr. Dale. WENYD in chart Also she did not get the fax of the work ability sheet and requests to have it faxed again. Telephone Encounter - Priscilla Hernandez RN - 12/12/2014 3:05 PM CDT ----- Message from Percy Jimenez sent at 12/12/2014 2:59 PM CDT ----- Regarding: kenny TELEPHONE MESSAGE Taken by: Percy Jimenez, 12/12/2014 3:01 PM Direct to: Problem: Dominique calling from [facility]. Would like to discuss 12/10 appt. Also did not receive a fax after that appt with pt's work ability. Pt. 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 [place] [address] Chuckie Mccoy, ENGINEERING PROGRAMMER CCC Speech Pathologist Speech Pathology 04/26/13 documented as of this encounter
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
--- OUTSIDE RECORDS SUMMARY | 2022-03-16 09:45 | XMS_ITS | Encounter Summary ---
:1950 Author Organization [facility] Address [address] [place] [address] Phone Care Team Providers Name Role Phone Olga Lee MD Primary Care Provider Chuckie Mccoy LIBRARY PAGE CCC Unavailable Unavailable Reason for Referral Prior Authorization (Routine) - Closed Specialty Diagnoses / Procedures Referred By Contact Refer red To Contact NEUROLOGY Diagnoses TBI (traumatic brain injury) Irina Dale MD Figg, Evan C, LIBRARY PAGE CCC Procedures SPEECH PATHOLOGY PLAN OF CARE [address] [facility] [address] [place] [address] Referral ID Status Reason Start Date Expiration Date Visits Requ ested Visits Authorized [id number] Closed 12/06/2014 05/22/2015 6 6 Reason for Visit Prior Authorization (Routine) - Closed Specialty Diagnoses / Procedures Referred By Contact Refer red To Contact NEUROLOGY Diagnoses TBI (traumatic brain injury) Irina Dale MD Figg, Evan C, LIBRARY PAGE CCC Procedures SPEECH PATHOLOGY PLAN OF CARE [address] [facility] [address] 701 [place] [id number] Referral ID Status Reason Start Date Expiration Date Visits Requ ested Visits Authorized [id number] Closed 12/06/2014 05/22/2015 6 6 Encounter Details Date Type Department Care Team Description 12/20/2014 Hospital Encounter [facility] TBI Speech Path Cl Irina Dale MD [address] [place], [place] [id number] Chuckie Olmstead, LIBRARY PAGE CCC [address] [place], [place] [address] Social History Tobacco Use Types Packs/Day Years Used Date Smoking Tobacco: Former Cigarettes Quit : 08/01/1999 Smokeless Tobacco: Never Alcohol Use Standard Drinks/Week Comments No 0 (1 standard drink = 0.6 oz pure alcoho l) Sex Assigned at Date Recorded Female 06/17/2020 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 documented as of this encounter Medications at Time of Discharge Medication Sig Dispensed Refills Start Date End Date ASSURE COMFORT LANCETS 0 09/16/2014 30G NotApplicabl Mis katherine CONTOUR in vitro Test 3 times [...] Miscellaneous Notes Treatment Summary - Chuckie Mccoy, LIBRARY PAGE CCC - 12/20/2014 11:56 AM CDT SPEECH-LANGUAGE PATHOLOGY Outpatient PLAN OF TREATMENT [facility] / Speech-Language Pathology [Provider Number: [id number]] Patient [...] little better, but noted her son in [place] from [place] has kept her too busy to do much in terms of acclimating to her new role Patient became tearful in sharing these updates, identifying her strong desire to keep working. In discussing plans with patient, she became hopeful re potential volunteer work, including: ?? Therapy dog with her dog, Timur ?? Possible patient mentorship with [facility] Dietetics Director highlighted GOAL ORIENTED PLANNING to patient, using functional examples to illustrate how toachieve these ambitions. Additional interview covered previous topics discussed with this lyric writer, with the following list of compensatory strategies generated with functional examples to promote general ization: 1. Ask others for feedback/input as able 2. Take a break from tasks when reaching frustration or any barrier 3. Write information and details down 4. Keep a journal tracking goals to monitor PROGRESS Patient left feeling confident to continue working toward her previously known functional recoverywith this lyric writer. She felt the skilled review of compensatory [...] Christina Montes for potential volunteer opportunities within [facility] Physician's name: Claire Dale MD Speech-Language Pathologist: Jennifer AroraSTheodore, [facility] 12/20/2014, 13:20 Pager: [phone] documented in this encounter Plan of Treatment [...] documented as of this encounter Care Teams Negotiator Relationship Specialty Start Date End Date Olga Lee MD PCP - General Internal Medicine 01/29/13 [facility] [place] [address] Chuckie Mccoy, LIBRARY PAGE CCC Speech Pathologist Speech Pathology 04/26/13 documented as of this encounter
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
--- OUTSIDE RECORDS SUMMARY | 2022-03-16 09:45 | XMS_ITS | Encounter Summary ---
:1950 Author Organization [facility] Address [address] [place] [address] Phone Care Team Providers Name Role Phone Olga Lee MD Primary Care Provider Chuckie Mccoy [facility] Unavailable Unavailable Reason for Visit Reason Comments Supplies diabetes supplies refill req uest form from [facility]. Encounter Details Date Type Department Care Team Description 10/03/2014 Documentation Only Diabetes & Endo Suma Aranda M D [address] [place] [address] Supplies (diabetes Clinic [facility], Forms - Endo/Dm [address] supplies refill [address], SUITE request form from [facility] [place] [address] Social History Tobacco Use Types Packs/Day Years Used Date Smoking Tobacco: Former Cigarettes Quit : 08/01/1999 Smokeless Tobacco: Never Alcohol Use Standard Drinks/Week Comments No 0 (1 standard drink = 0.6 oz pure alcoho l) Sex Assigned at Date Recorded Female 06/17/2020 4:53 PM INVENTORY COORDINATOR documented as of this encounter Progress Notes Ariel Kumar Jr., MELISSA - 10/03/2014 2:08 PM CDT Received diabetes supplies refill request form from [facility]. Signed and dated by ordering provider, Dr. Aranda on 09/04/14 Faxed to [phone] on 09/06/14 Labeled and sent to Hector Estrada, FIRE PREVENTION ENGINEER, 09/12/2014 9:57 AM Authenticated by Hector Onofre CMA at 09/12/2014 9:58 AM documented in this encounter Plan of Treatment Not on filedocumented as of this encounter Visit Diagnoses Not on filedocumented in this encounter Additional Health Concerns Infection Onset Date Last Indicated Resolved Time MDRO (Multiple Drug Resistant 11/13/2012 11/13/2012 7:13 AM CDT Organism) documented as of this encounter Care Teams Building Dismantler Relationship Specialty Start Date End Date Olga Lee MD PCP - General Internal Medicine 01/29/[address] [place] [id number] Chuckie Mccoy, RAWHIDE TRIMMER CCC Speech Pathologist Speech Pathology 04/26/13 documented as of this encounter
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
--- OUTSIDE RECORDS SUMMARY | 2022-03-16 09:46 | XMS_ITS | Encounter Summary ---
:1950 Author Organization [facility] Address [address] [place] [address] Phone Care Team Providers Name Role Phone Olga Lee MD Primary Care Provider Chuckie Mccoy GEOPHYSICAL LABORATORY SUPERVISOR [facility] Unavailable Unavailable Encounter Details Date Type Department Care Team Description 01/28/2014 Hospital Encounter [facility] Suma Aranda MD [address] [place], [place] [id number] [address] Nurse, Inf Chemotherapy B1.310 [place], [place] [address] Social History Tobacco Use Types Packs/Day Years Used Date Smoking Tobacco: Former Cigarettes Quit : 08/01/1999 Smokeless Tobacco: Never Alcohol Use Standard Drinks/Week Comments No 0 (1 standard drink = 0.6 oz pure alcoho l) Sex Assigned at Date Recorded Female 06/17/2020 4:53 PM ASSISTANT SALES DIRECTOR documented as of this encounter Last Filed [...] documented as of this encounter Care Teams Erosion Control Specialist Relationship Specialty Start Date End Date Olga Lee MD PCP - General Internal Medicine 01/29/13 [address] [place] [address] Chuckie Mccoy, GEOPHYSICAL LABORATORY SUPERVISOR CCC Speech Pathologist Speech Pathology 04/26/13 documented as of this encounter
--- OUTSIDE RECORDS SUMMARY | 2022-03-16 09:46 | XMS_ITS | Encounter Summary ---
:1950 Author Organization [facility] Address [address] [place] [address] Phone Care Team Providers Name Role Phone Olga Lee MD Primary Care Provider Chuckie Mccoy [facility] Unavailable Unavailable Reason for Visit Reason Onset Date Comments Refill Request 01/14/2014 Test Strips Encounter Details Date Type Department Care Team Description 01/14/2014 Refill [facility] Diabetes & Endo Alisha Dial, Refill Request (Test Clinic RN Strips) [address] [place], [place] [address] Social History Tobacco Use Types Packs/Day Years Used Date Smoking Tobacco: Former Cigarettes Quit : 08/01/1999 Smokeless Tobacco: Never Alcohol Use Standard Drinks/Week Comments No 0 (1 standard drink = 0.6 oz pure alcoho l) Sex Assigned at Date Recorded Female 06/17/2020 4:53 PM ASSOCIATE MATERIAL HANDLER documented as of this encounter Miscellaneous Notes Telephone Encounter - Alisha Dial, RN - 01/14/2014 2:48 PM CDT Data: We received medication refill request by Maye Guillermo for Test Strips. Last filled NA. No hx of Rx in patient's medication list for Test Strips. Last seen in clinic 12/19/13. Per [employer] message, patient states she tests 2-3 x/day. Action: Pend refill request. See orders for details of medications to be filled. Preferred pharmacy entered into [employer]. Plan: Forward to provider to review. Alisha [...] documented as of this encounter Care Teams Cobbler Apprentice Relationship Specialty Start Date End Date Olga Lee MD PCP - General Internal Medicine 01/29/[address] [place] [address] [id number] Chuckie Mccoy, STONE HAND CCC Speech Pathologist Speech Pathology 04/26/13 documented as of this encounter
--- OUTSIDE RECORDS SUMMARY | 2022-03-16 09:46 | XMS_ITS | Encounter Summary ---
:1950 Author Organization [facility] Address [address] [place] [address] Phone Care Team Providers Name Role Phone Olga Lee MD Primary Care Provider Chuckie Mccoy MIXED CROP FARMER [facility] Unavailable Unavailable Encounter Details Date Type Department Care Team Description 12/31/2013 Hospital Encounter [facility] Suma Aranda MD [address] [place], [place] [id number] [phone] Nurse, Inf Chemotherapy [address] [place], [place] [address] Social History Tobacco Use Types Packs/Day Years Used Date Smoking Tobacco: Former Cigarettes Quit : 08/01/1999 Smokeless Tobacco: Never Alcohol Use Standard Drinks/Week Comments No 0 (1 standard drink = 0.6 oz pure alcoho l) Sex Assigned at Date Recorded Female 06/17/2020 4:53 PM GENERAL UTILITY MACHINE OPERATOR documented as of this encounter [...] documented as of this encounter Miscellaneous Notes [facility] Note - Nolvia Monet RN [...] documented as of this encounter Care Teams Desktop Support Associate Relationship Specialty Start Date End Date Olga Lee MD PCP - General Internal Medicine 01/29/13 [address] [place] [address] Chuckie Mccoy, MIXED CROP FARMER CCC Speech Pathologist Speech Pathology 04/26/13 documented as of this encounter
--- OUTSIDE RECORDS SUMMARY | 2022-03-16 09:46 | XMS_ITS | Encounter Summary ---
:1950 Author Organization [facility] Address [address] [place] [address] Phone Care Team Providers Name Role Phone Olga Lee MD Primary Care Provider Chuckie Mccoy [facility] Unavailable Unavailable Reason for Visit Reason Comments Refill Request Encounter Details Date Type Department Care Team Description 12/12/[address] [facility] Diabetes & Endo Clinic Suma Aranda MD Refill Request [address] [place] [address] [place], [place] [address] [phone] Social History Tobacco Use Types Packs/Day Years Used Date Smoking Tobacco: Former Cigarettes Quit : 08/01/1999 Smokeless Tobacco: Never Alcohol Use Standard Drinks/Week Comments No 0 (1 standard drink = 0.6 oz pure alcoho l) Sex Assigned at Date Recorded Female 06/17/2020 4:53 PM MECHANICAL EQUIPMENT SALES ENGINEER documented as of this encounter Miscellaneous [...] documented as of this encounter Care Teams Inter Com Servicer Relationship Specialty Start Date End Date Olga Lee MD PCP - General Internal Medicine 01/29/[address] [place] [address] Chuckie Mccoy, COMPONENT LAB TECH CCC Speech Pathologist Speech Pathology 04/26/13 documented as of this encounter
--- OUTSIDE RECORDS SUMMARY | 2022-03-16 09:46 | XMS_ITS | Encounter Summary ---
:1950 Author Organization [facility] Address [address] [place] [place] [address] Phone Care Team Providers Name Role Phone Olga Lee MD Primary Care Provider Chuckie Mccoy ORTHOTICS PROSTHETICS TECHNICIAN [facility] Unavailable Unavailable Encounter Details Date Type Department Care Team Description 01/14/2014 Hospital Encounter [facility] Suma Aranda MD [address] [place], [place] [phone] Nurse, Inf Chemotherapy [address] [place], [place] [address] Social History Tobacco Use Types Packs/Day Years Used Date Smoking Tobacco: Former Cigarettes Quit : 08/01/1999 Smokeless Tobacco: Never Alcohol Use Standard Drinks/Week Comments No 0 (1 standard drink = 0.6 oz pure alcoho l) Sex Assigned at Date Recorded Female 06/17/2020 4:53 PM WINDOW GLAZIER documented as of this encounter Last Filed [...] as of this encounter Care Teams Manager Market Research Relationship Specialty Start Date End Date Olga Lee MD PCP - General Internal Medicine 01/29/[address] [place] [address] Chuckie Mccoy, ORTHOTICS PROSTHETICS TECHNICIAN CCC Speech Pathologist Speech Pathology 04/26/13 documented as of this encounter
--- OUTSIDE RECORDS SUMMARY | 2022-03-16 09:46 | XMS_ITS | Encounter Summary ---
:1950 Author Organization [facility] Address [address] [place] [address] Phone Care Team Providers Name Role Phone Olga Lee MD Primary Care Provider Chuckie Mccoy SALES TECHNICIAN HOME THEATER [facility] Unavailable Unavailable Reason for Visit Reason Comments Refill Request temazepam Encounter Details Date Type Department Care Team Description 10/15/2013 Refill [facility] [place] Phys Med/Rehab Lenka Simon Refill Request Clinic Johanna, MAKAYLA, REHABILITATION MEDICINE PHYSICIAN (temazepam) [address] [facility] Address [place], [place] [address] [phone] Social History Tobacco Use Types Packs/Day Years Used Date Smoking Tobacco: Former Cigarettes Quit : 08/01/1999 Smokeless Tobacco: Never Alcohol Use Standard Drinks/Week Comments No 0 (1 standard drink = 0.6 oz pure alcoho l) Sex Assigned at Date Recorded Female 06/17/2020 4:53 PM PUBLIC SERVICE ADMINISTRATOR documented as of this encounter Miscellaneous Notes Telephone Encounter - Jayne Hua RN - 10/17/2013 8:23 AM CDT Data: We received medication refill request by pt for temazepam. Pt was last seen on 08/15/13 by Jonel RADFORD. Pt needs to schedule an appt. Action: Medication reordered per protocol. See orders for details of medications to be filled. Preferred pharmacy entered into [employer]. Plan: Medication refilled per protocol. documented in this encounter Plan of Treatment Not on filedocumented as of this encounter Visit Diagnoses Diagnosis TBI (traumatic brain injury), subsequent encounter - Primary documented in this encounter Additional Health Concerns Infection Onset Date Last Indicated Resolved Time MDRO (Multiple Drug Resistant 11/13/2012 11/13/2012 7:13 AM CDT Organism) documented as of this encounter Care Teams Draw Bench Operator Helper Relationship Specialty Start Date End Date Olga Lee MD PCP - General Internal Medicine 01/29/[address] [place] [address] Chuckie Mccoy, SALES TECHNICIAN HOME THEATER CCC Speech Pathologist Speech Pathology 04/26/13 documented as of this encounter
--- OUTSIDE RECORDS SUMMARY | 2022-03-16 09:46 | XMS_ITS | Encounter Summary ---
:1950 Author Organization [facility] Address [address] [place] [address] Phone Care Team Providers Name Role Phone Olga Lee MD Primary Care Provider Chuckie Mccoy [facility]ARD DANCE [facility] Unavailable Unavailable Encounter Details Date Type Department Care Team Description 01/07/2014 Hospital Encounter [facility] Infusion Center Suma Aranda MD [address] [place], [place] [phone] Nurse, Inf Chemotherapy [address] [place], [place] [address] Social History Tobacco Use Types Packs/Day Years Used Date Smoking Tobacco: Former Cigarettes Quit : 08/01/1999 Smokeless Tobacco: Never Alcohol Use Standard Drinks/Week Comments No 0 (1 standard drink = 0.6 oz pure alcoho l) Sex Assigned at Date Recorded Female 06/17/2020 4:53 PM ADJUNCT PHYSICS INSTRUCTOR documented as of this encounter Last [...] documented as of this encounter Care Teams Ball Maker Relationship Specialty Start Date End Date Olga Lee MD PCP - General Internal Medicine 01/29/[address] [place] [address] Chuckie Mccoy, GUARD DANCE HALL CCC Speech Pathologist Speech Pathology 04/26/13 documented as of this encounter
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
--- OUTSIDE RECORDS SUMMARY | 2022-03-16 09:46 | XMS_ITS | Encounter Summary ---
:1950 Author Organization [facility]Note 3[facility] Address [address] [place] [address] Phone Care Team Providers Name Role Phone Olga Lee MD Primary Care Provider Chuckie Mccoy [facility] Unavailable Unavailable Reason for Visit Reason Comments Other Encounter Details Date Type Department Care Team Description 09/19/2013 Telephone [facility] [place] [place] Psych[place]ry Clinic Fred Hernandez RN [place] [address] [facility] 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 Dale. She indicated she understood and was transferred to the quality inspector staff to schedule an appointment. Telephone Encounter - Irina Dale MD - 09/19/2013 11:44 AM CDT OK to over book her when ever works for her. OK to increase the Prozac up to 40 mg po qd. (Done in the computer) Irina Dale MD 09/19/2013 11:45 [facility] [place] [place] Dept of Psychiatry Telephone Encounter - Priscilla [...] TueSep 19, 2013 10:34 AM Regarding: Suyapa [id number] TELEPHONE MESSAGE Taken by: Lauri Diaz, 09/19/2013 10:34 AM Direct to: triage Problem: patient Thinks her meds to be readjusted Pt. 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
--- OUTSIDE RECORDS SUMMARY | 2022-03-16 09:46 | XMS_ITS | Encounter Summary ---
:1950 Author Organization [facility] Address [address] [place] [address] Phone Care Team Providers Name Role Phone Olga Lee MD Primary Care Provider Chuckie Mccoy [facility] Unavailable Unavailable Reason for Visit Reason Onset Date Comments Refill Request 10/29/2013 Encounter Details Date Type Department Care Team Description 10/29/2013 Refill [facility] Psychiatry Clinic Roopa Kemp RN Refill Request [place] 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
--- OUTSIDE RECORDS SUMMARY | 2022-03-16 09:46 | XMS_ITS | Encounter Summary ---
:1950 Author Organization [facility] Address [address] [place] [address] Phone Care Team Providers Name Role Phone Olga Lee MD Primary Care Provider Chuckie Mccoy STEAM TRAP WORKER CCC Unavailable Unavailable Encounter Details Date Type Department Care Team Description 08/27/2013 Documentation Only [facility] Phys Med/Rehab Aiyana Mas, PT Clinic [address] [facility] [address] [place], [place] P5.200 [address] [place], [place] [address] [phone] Social History Tobacco Use Types Packs/Day Years Used Date Smoking Tobacco: Former Cigarettes Quit : 08/01/1999 Smokeless Tobacco: Never Alcohol Use Standard Drinks/Week Comments No 0 (1 standard drink = 0.6 oz pure alcoho l) Sex Assigned at Date Recorded Female 06/17/2020 4:53 PM PRACTICE MANAGERS documented as of this encounter Progress Notes Charlotte Mas PT - 08/27/2013 11:29 AM CDT Pt did not keep scheduled out pt physical therapy evaluation appointment scheduled for today at 09:30. Reason unknown. Charlotte Mas PT License # [id number] Pager [phone] documented in this encounter Plan of Treatment Not on filedocumented as of this encounter Visit Diagnoses Not on filedocumented in this encounter Additional Health Concerns Infection Onset Date Last Indicated Resolved Time MDRO (Multiple Drug Resistant 11/13/2012 11/13/20122018 7:13 AM CDT Organism) documented as of this encounter Care Teams Edge Grinder Machine Relationship Specialty Start Date End Date Olga Lee MD PCP - General Internal Medicine 01/29/[address] [place] [address] Chuckei Mccoy, STEAM TRAP WORKER CCC Speech Pathologist Speech Pathology 04/26/13 documented as of this encounter
--- OUTSIDE RECORDS SUMMARY | 2022-03-16 09:46 | XMS_ITS | Encounter Summary ---
:1950 Author Organization [facility] Address [address] [place] [address] Phone Care Team Providers Name Role Phone Olga Lee MD Primary Care Provider Chuckie Mccoy [facility] Unavailable Unavailable Irina Dale MD Unavailable Encounter Details Date Type Department Care Team Description 01/07/2014 Therapy Plan Encounter [facility] Diabetes & Endo Suma Aranda MD Clinic [address] [place], [place] [address] [address] [place], [place] [phone] Social History Tobacco Use Types Packs/Day Years Used Date Smoking Tobacco: Former Cigarettes Quit : 08/01/1999 Smokeless Tobacco: Never Alcohol Use Standard Drinks/Week Comments No 0 (1 standard drink = 0.6 oz pure alcoho l) Sex Assigned at Date Recorded Female 06/17/2020 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 documented as of this encounter Plan of Treatment Not on filedocumented as of this encounter Visit Diagnoses Not on filedocumented in this encounter Additional Health Concerns Infection Onset Date Last Indicated Resolved Time ESBL 11/08/2012 11/16/2017 MDRO (Multiple Drug Resistant 11/13/2012 11/13/2012 7:13 AM CDT Organism) documented as of this encounter Care Teams Cloth Doubling Machine Operator Relationship Specialty Start Date End Date Olga Lee MD PCP - General Internal Medicine 01/29/13 [address] [place] [address] Chuckie Mccoy, LOCAL TRUCK DRIVER CCC Speech Pathologist Speech Pathology 04/26/13 Irina Dale MD Psychiatrist Outpatient Psychiatry 07/11/18 [address] [facility] [address] [place] [address] documented as of this encounter
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
--- OUTSIDE RECORDS SUMMARY | 2022-03-16 09:46 | XMS_ITS | Encounter Summary ---
:1950 Author Organization [facility] Address [address] [place] [place] [address] Phone Care Team Providers Name Role Phone Olga Lee MD Primary Care Provider Chuckie Mccoy SENIOR JAVA UI DEVELOPER [facility] Unavailable Unavailable Encounter Details Date Type Department Care Team Description 01/22/2014 Hospital Encounter [facility] Infusion Center Suma Aranda MD [address] [place] [address] [address] Nurse, Inf Chemotherapy B1.[address] [place], [place] [address] Social History Tobacco Use Types Packs/Day Years Used Date Smoking Tobacco: Former Cigarettes Quit : 08/01/1999 Smokeless Tobacco: Never Alcohol Use Standard Drinks/Week Comments No 0 (1 standard drink = 0.6 oz pure alcoho l) Sex Assigned at Date Recorded Female 06/17/2020 4:53 PM RN TRANSFER documented as of this encounter Last Filed [...] documented as of this encounter Miscellaneous Notes [facility] Note - Robel Hawley RN [...] documented as of this encounter Care Teams Blacktop Spreader Relationship Specialty Start Date End Date Olga Lee MD PCP - General Internal Medicine 01/29/[address] [place] [phone] Chuckie Mccoy, SENIOR JAVA UI DEVELOPER CCC Speech Pathologist Speech Pathology 04/26/13 documented as of this encounter
--- OUTSIDE RECORDS SUMMARY | 2022-03-16 09:46 | XMS_ITS | Encounter Summary ---
:1950 Author Organization [facility] Address [address] [place] [address] Phone Care Team Providers Name Role Phone Olga Lee MD Primary Care Provider Chuckie Mccoy HONEY PROCESSOR CCC Unavailable Unavailable Encounter Details Date Type Department Care Team Description 01/07/2014 Orders Only [facility] Suma Aranda MD [address] [place] [address] [place], [place] [address] [phone] Social History Tobacco Use Types Packs/Day Years Used Date Smoking Tobacco: Former Cigarettes Quit : 08/01/1999 Smokeless Tobacco: Never Alcohol Use Standard Drinks/Week Comments No 0 (1 standard drink = 0.6 oz pure alcoho l) Sex Assigned at Date Recorded Female 06/17/2020 

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
--- OUTSIDE RECORDS SUMMARY | 2022-03-16 09:47 | XMS_ITS | Encounter Summary ---
:1950 [address] [facility] Address [address] [place] [address] Phone Care Team Providers Name Role Phone Olga Lee MD Primary Care Provider Chuckie Mccoy SUEDING MACHINE OPERATOR [facility] Unavailable Unavailable Encounter Details Date Type Department Care Team Description 06/15/2013 Hospital Encounter [facility] Speech Language Summervi dioni, Lenka Spencer, PIPE FITTER APPRENTICE, CLINICAL NURSING COORDINATOR Need New Address Pathology Chuckie Mccoy, [place] [address] Social History Tobacco Use Types Packs/Day Years Used Date Smoking Tobacco: Former Cigarettes Quit : 08/01/1999 Smokeless Tobacco: Never Alcohol Use Standard Drinks/Week Comments No 0 (1 standard drink = 0.6 oz pure alcoho l) Sex Assigned at Date Recorded Female 06/17/2020 4:53 PM SPEECH THERAPY 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 (MULTIVITAL ORAL) cyproheptadine 4 mg oral 0 04/16/2013 06/19/2013 tablet BYETTA 5 mcg/0.02 mL 0 05/21/2013 03/0 07/2013 subcutaneous penIndications: TBI (traumatic brain injury) sitaGLIPtin (JANUVIA) 100 Take 1 tablet (100 [...] (15-30 mg) by mouth at bedtime. Pen [place] /16 30G X 8 Use as directed 100 Each 11 10/0409/20/2013 MM NotApplicabl Misc three times daily. documented as of this encounter Progress Notes Chuckie Mccoy, SUEDING MACHINE OPERATOR CCC - 06/15/2013 11:42 AM CST SPEECH-LANGUAGE [...] is beginning to consider alternative roles within [facility]. Will continue to discuss and consider ideas. [...] progress. Pt presented with her notebook and manufacturing planner; use of each were discussed to support memory, organization, and attention. See #4. 4. Pt will use a journal to track postconcussive symptoms re functional activities independently as needed. In progress. Pt prompted to define her use of a journal/manufacturing planner; with minimal guidance from clinician, pt identified: ?? Marking progress re symptoms and activities in her weekly section of her manufacturing planner ?? Recording frustrations, things to do, [...] stuck ?? Level 3; moderate prompt re [id number] goals, 7 moves, 100% accy Discussed pt's [...] appt scheduled Speech-Language Pathologist: Chuckie Mccoy M.S., CCC-SUEDING MACHINE OPERATOR 06/15/2013, 11:42 Pager: [phone] CH THERAPY TEACHER documented in this encounter Plan of [...] documented as of this encounter Care Teams Puppet Engineer Relationship Specialty Start Date End Date Olga Lee MD PCP - General Internal Medicine 01/29/[address] [place] [id number] Chuckie Mccoy, SUEDING MACHINE OPERATOR CCC Speech Pathologist Speech Pathology 04/26/13 documented as of this encounter
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
--- OUTSIDE RECORDS SUMMARY | 2022-03-16 09:47 | XMS_ITS | Encounter Summary ---
:1950 Author Organization [facility] Address [address] [place] [address] Phone Care Team Providers Name Role Phone Olga Lee MD Primary Care Provider Chuckie Mccoy [facility] Unavailable Unavailable Encounter Details Date Type Department Care Team Description 08/03/2013 Hospital Encounter [facility] Psychology Slime Johnson, [address], LP [address] [place], [place] [address] Social History Tobacco Use Types Packs/Day Years Used Date Smoking Tobacco: Former Cigarettes Quit : 08/01/1999 Smokeless Tobacco: Never Alcohol Use Standard Drinks/Week Comments No 0 (1 standard drink = 0.6 oz pure alcoho l) Sex Assigned at Date Recorded Female 06/17/2020 4:53 PM MEASUREMENT OPERATOR documented as of this encounter Medications [...] (15-30 mg) by mouth at bedtime. Pen [place] /16 30G X Use as directed 100 Each 11 013 09/20/2013 8 MM NotApplicabl Misc three times daily. documented as of this encounter Progress Notes Restricted notes were excluded Slime Johnson, PhD, LP - 08/03/2013 4:09 PM CDT PSYCHOLOGY Outpatient Progress Note Duration: 60 minutes Commercial Sales Consultant: NO Type of Therapy: Individual Mode: CBT/ACT [...] emergent psychiatric care. Slime Johnson, PhD LP, 08/03/2013 4:09 PM Sr. [...] strategies for affect management Development of stronger '[id number]' to undermine '[id number]-[id number]' Decrease experiential avoidance of trauma-related triggers using [...] documented as of this encounter Care Teams Furnace Tender Relationship Specialty Start Date End Date Olga Lee MD PCP - General Internal Medicine 01/29/13 [address] [place] [address] Chuckie Mccoy, CHICKEN CUTTER CCC Speech Pathologist Speech Pathology 04/26/13 documented as of this encounter
--- OUTSIDE RECORDS SUMMARY | 2022-03-16 09:47 | XMS_ITS | Encounter Summary ---
:1950 Author Organization [facility] Address [address] [place] [address] Phone Care Team Providers Name Role Phone Olga Lee MD Primary Care Provider Chuckie Mccoy [facility] Unavailable Unavailable Encounter Details Date Type Department Care Team Description 08/01/2013 Office Visit [facility] Psychiatry Clinic Bere Dale MD Post traumatic stress Macario [address] [facility] disorder (Primary Dx) 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 Irina Dale MD 06/22/2013 12:16 [facility] Dept of Psychiatry ING MACHINE OPERATOR documented in this encounter Plan of Treatment Not on filedocumented as of this encounter Visit Diagnoses Diagnosis Post traumatic stress disorder - Primary Posttraumatic stress disorder documented in this encounter Additional Health Concerns Infection Onset Date Last Indicated Resolved Time MDRO (Multiple Drug Resistant 11/13/2012 11/13/2012 7:13 AM CDT Organism) documented as of this encounter Care Teams Charge Attendant Relationship Specialty Start Date End Date Olga Lee MD PCP - General Internal Medicine 01/29/13 [address] [place] [address] Chuckie Mccoy, COMMERCIAL REAL ESTATE UNDERWRITER CCC Speech Pathologist Speech Pathology 04/26/13 documented as of this encounter
--- OUTSIDE RECORDS SUMMARY | 2022-03-16 09:47 | XMS_ITS | Encounter Summary ---
:1950 Author Organization [facility] Address [address] [place] [address] Phone Care Team Providers Name Role Phone Olga Lee MD Primary Care Provider Chuckie Mccoy [facility] Unavailable Unavailable Encounter Details Date Type Department Care Team Description 07/24/2013 Hospital Encounter [facility] Laboratory Irina Dale MD [address] [facility] [address] [place], [place] [phone] [facility] In, [facility] [address] [address] [place], [place] [address] Social History Tobacco Use Types Packs/Day Years Used Date Smoking Tobacco: Former Cigarettes Quit : 08/01/1999 Smokeless Tobacco: Never Alcohol Use Standard Drinks/Week Comments No 0 (1 standard drink = 0.6 oz pure alcoho l) Sex Assigned at Date Recorded Female 06/17/2020 4:53 PM MEDIA TRAFFIC MANAGER documented as of this encounter Medications [...] (15-30 mg) by mouth at bedtime. Pen [place] 5/16 30G X Use as directed 100 Each 11 013 09/20/2013 8 MM NotApplicabl Misc three times daily. documented as of this encounter Plan of Treatment Not on filedocumented as of this encounter Procedures Procedure Name Priority Date/Time Associated Diagnosis Comme nts URINE CULTURE Routine 07/24/2013 3:50 PM Results for this MEDIA TRAFFIC MANAGER procedure are i n the results section. URINALYSIS-CONDITIO Routine 07/24/2013 3:00 PM Re sults for this NAL MEDIA TRAFFIC MANAGER procedure are i n the results section. documented in this encounter Results URINE CULTURE (07/24/2013 3:50 PM MEDIA TRAFFIC MANAGER) [facility] [employer] Method Time Signature Final Report 10,000 - 50,000 organisms/ml Mixed bacterial hernandez. [facility] No further work-up. Specimen Anatomical Collection Method Collection Time Receive d Time (Source) Location / / Volume Laterality Urine Midstream. 07/24/2013 3:50 PM 07/24 5:24 MEDIA TRAFFIC MANAGER PM MEDIA TRAFFIC MANAGER Narrative [facility] - 07/26/2013 10:30 AM MEDIA TRAFFIC MANAGER Rule out UTI Irina Dale MD LAB MICROBIOLOGY Performing Organization Address City/State/ZIP Code Phon e Number [facility] [place] [address] (ABNORMAL) URINALYSIS-CONDITIONAL (07/24/2013 3:00 PM MEDIA TRAFFIC MANAGER) [facility] [employer] Method Time Signature Color YELLOW YELLOW [facility] Appearance CLOUDY (A) CLEAR [facility] Urine Glucose NEGATIVE NEGATIVE [facility] mg/dL Bili UA NEGATIVE NEGATIVE [facility] Comment: Confirmatory test not available . Ketones TRACE NEGATIVE mg/dL [facility] Specific [place] 1.023 1.003 - 1.030 [facility] Blood Ur NEGATIVE Neg-Trace [facility] PH Urine 5.5 5.0 - 7.0 [facility] Protein Ur NEGATIVE Neg-Trace mg/dL [facility] Urobilinogen 1.0 0.2 - 1.0 EU/dL [facility] Nitrite Ur NEGATIVE NEGATIVE [facility] Leuk Est NEGATIVE Neg-Trace [facility] WBC Ur 0-5 0 - 5 perHPF [facility] Urinalysis Performed at: [facility] Comment: [facility] [address] [place] [address] RBC Ur 0-5 0 - 5 perHPF [facility] SQ EPITH 2+ 1+ [facility] Hyaline Casts 0-5 0 - 5 perLPF [facility] Specimen Anatomical Collection Method Collection Time Receive d Time (Source) Location / / Volume Laterality Urine 07/24/2013 3:00 PM 4 4:04 MEDIA TRAFFIC MANAGER PM MEDIA TRAFFIC MANAGER Irina Dale MD LABORATORY Performing Organization Address City/State/ZIP Code Phon e Number [facility] [place] [address] [place] [address] documented in this encounter Visit Diagnoses Not on filedocumented in this encounter Additional Health Concerns Infection Onset Date Last Indicated Resolved Time MDRO (Multiple Drug Resistant 11/13/2012 11/13/2012 7:13 AM CDT Organism) documented as of this encounter Care Teams Process Chemist Relationship Specialty Start Date End Date Olga Lee MD PCP - General Internal Medicine 01/29/[address] [place] [address] Chuckie Mccoy, ESCALATOR SERVICE MECHANIC CCC Speech Pathologist Speech Pathology 04/26/13 documented as of this encounter
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
--- OUTSIDE RECORDS SUMMARY | 2022-03-16 09:47 | XMS_ITS | Encounter Summary ---
:1950 Author Organization [facility] Address [address] [place], [place] [address] [address] Phone Care Team Providers Name Role Phone Olga Lee MD Primary Care Provider Chuckie Mccoy TELECOMMUNICATOR [facility] Unavailable Unavailable Encounter Details Date Type Department Care Team Description 08/10/2013 Hospital Encounter [facility] Speech Language Summervi dioni, Lenka Spencer, FLATWORK IRONER, CLAIMS SERVICE ADJUSTOR Need New Address Pathology Chuckie Mccoy, [place] [address] Social History Tobacco Use Types Packs/Day Years Used Date Smoking Tobacco: Former Cigarettes Quit : 08/01/1999 Smokeless Tobacco: Never Alcohol Use Standard Drinks/Week Comments No 0 (1 standard drink = 0.6 oz pure alcoho l) Sex Assigned at Date Recorded Female 06/17/2020 4:53 PM PLASTERER MAINTENANCE documented as of this encounter Medications at Time of Discharge Medication Sig Dispensed Refills Start Date End Date Multiple Take 1 Tab by mouth 0 Vitamins-Minerals daily. (MULTIVITAL ORAL) diphenhydrAMINE-alum & Swish and spit 5 ml 180 mL 0 07/2109/20/2013 mag by mouth four times hnaamjwvt-hpnduz-aouyfbu daily as needed for ne viscous magic [...] (15-30 mg) by mouth at bedtime. Pen [place] / 30G X Use as directed 100 Each 11 013 09/20/2013 8 MM NotApplicabl Misc three times daily. documented as of this encounter Progress Notes Chuckie Mccoy, TELECOMMUNICATOR CCC - 08/10/2013 1:58 PM CDT SPEECH-LANGUAGE [...] speech-language pathology treatment as scheduled, weekly, then kgynf-mmyuj-oucl pending RTW plan. Modify and/or upgrade goals as appropriate. Focus on following next session: 1) Discuss RTW plan, identify compensatory strategies 2) Other concerns or areas as presented by pt See Plan of Care Dated 06/29/2013 (updated Plan of Care due 08/27/2013) Patient / Family participated in goal setting: Yes Referral/Community Contacts: None at this time Speech-Language Pathologist: Chuckie Mccoy M.S., CCC-TELECOMMUNICATOR 08/10/2013, 13:58 Pager: [phone] documented in this encounter Plan of Treatment [...] documented as of this encounter Care Teams Wide Area Network Engineer Relationship Specialty Start Date End Date Olga Lee MD PCP - General Internal Medicine 01/29/[address] [place] [address] Chuckie Mccoy, TELECOMMUNICATOR CCC Speech Pathologist Speech Pathology 04/26/13 documented as of this encounter
--- OUTSIDE RECORDS SUMMARY | 2022-03-16 09:47 | XMS_ITS | Encounter Summary ---
:1950 Author Organization [facility] Address [address] [place] [address] Phone Care Team Providers Name Role Phone Olga Lee MD Primary Care Provider Chuckie Mccoy YARD CRANE OPERATOR [facility] Unavailable Unavailable Reason for Visit Reason Comments Other Encounter Details Date Type Department Care Team Description 07/23/2013 Telephone [facility] Psychiatry Clinic Fred Hernandez RN [place] [address] [facility] [address] [place] [address] [address] [place], [place] [address] [phone] Social History Tobacco Use Types Packs/Day Years Used Date Smoking Tobacco: Former Cigarettes Quit : 08/01/1999 Smokeless Tobacco: Never Alcohol Use Standard Drinks/Week Comments No 0 (1 standard drink = 0.6 oz pure alcoho l) Sex Assigned at Date Recorded Female 06/17/2020 4:53 PM DIRECTOR MERIT SYSTEM documented as of this encounter Miscellaneous Notes Telephone Encounter - Priscilla Hernandez RN - 07/23/2013 10:52 AM CST Returned call to the patient who reported she had an appointment on August 01, 2013 scheduled, but was told it was cancelled. Please advise. CTOR MERIT SYSTEM Telephone Encounter - Priscilla Hernandez RN - 07/23/2013 10:52 AM CST Message copied by PRISCILLA HERNANDEZ on TueJul 23, 2013 10:52 AM ------ Message from: SLIME ANDINO Created: TueJul 23, 2013 10:49 AM TELEPHONE MESSAGE Taken by: Slime Andino, 07/23/2013 10:49 AM Direct to: triage Problem: pt calling, says Suyapa told her that 08/01 WOODWORK SALVAGE INSPECTOR appt is cancelled, and it is not on her mychart either, though it is on our schedule. Is this appt being cancelled? Please call her at [phone]. Pt. Name: Maye Li : 1950 (home) [phone] (work) Insurance: PCP: Olga Lee MD ------ CTOR MERIT SYSTEM documented in this encounter Plan of Treatment Not on filedocumented as of this encounter Visit Diagnoses Not on filedocumented in this encounter Additional Health Concerns Infection Onset Date Last Indicated Resolved Time MDRO (Multiple Drug Resistant 11/13/2012 11/13/2012 7:13 AM CDT Organism) documented as of this encounter Care Teams Fundraiser Relationship Specialty Start Date End Date Olga Lee MD PCP - General Internal Medicine 01/29/[address] [place] [address] Chuckie Mccoy, YARD CRANE OPERATOR CCC Speech Pathologist Speech Pathology 04/26/13 documented as of this encounter
--- OUTSIDE RECORDS SUMMARY | 2022-03-16 09:47 | XMS_ITS | Encounter Summary ---
:1950 Author Organization [facility] Address [address] [place] [address] Phone Care Team Providers Name Role Phone Olga Lee MD Primary Care Provider Chuckie Mccoy [facility] Unavailable Unavailable Reason for Visit Reason Comments Sores in Mouth Encounter Details Date Type Department Care Team Description 08/06/2013 Hospital Encounter [facility] Urgent Care Brock Winkler PA-C Need New Practice Location Oral ulcer [address] [facility] Rita Cosme PA-C Need new provider address. [address] [place], [place] [address] Social History Tobacco Use Types Packs/Day Years Used Date Smoking Tobacco: Former Cigarettes Quit : 08/01/1999 Smokeless Tobacco: Never Alcohol Use Standard Drinks/Week Comments No 0 (1 standard drink = 0.6 oz pure alcoho l) Sex Assigned at Date Recorded Female 06/17/2020 4:53 PM PHOTOGRAVURE PRESS OPERATOR documented as of this encounter [...] in this encounter Discharge Instructions Discharge InstructionsJayne Jason, RN - 08/06/2013 3:46 PM CDT Images [...] Comments Contact Info Olga Lee MD [address] [facility] G[facility] [address] [facility] ENT/Otolaryngology Clinic [facility] [address] [facility] [address] [facility] [address] [facility] Dentistry Clinic [facility] [address] [place] [address] Please call to make your appointment. You can call your [place] clinic to make an appointment Tuesday-Tuesday 7:30am-9:00pm and Tuesday and Tuesday 8:30am-5:00pm. Existing appointments at [place] departments for the next 2 months: *Note - this does not include Day Treatment or Partial Hospital appointments: July 2013Tuesday 1 2 3 PSYCH NEW PATIENT SHORT 1:00 PM (40 min.) Irina Dale MD [facility] Psychiatry Clinic [place] 4 LAB VISIT 4:00 PM (5 min.) In, [facility]-Lab Walk [facility] Laboratory 5 6 7 TBI FU 60 MIN 1:00 PM (60 min.) Chuckie Mccoy, KODY [facility] Speech Language Pathology TBI FU 60 MIN 2:00 PM (60 min.) Slime Johnson, PhD [facility] Psychology 8 9 10 11 12 13 14 TBI FU 60 MIN 1:00 PM (60 min.) Chuckie Mccoy, KODY [facility] Speech Language Pathology TBI FU 60 MIN 2:00 PM (60 min.) Slime Johnson, PhD [facility] Psychology 15 16 17 18 MD/OPERATING SYSTEM DESIGNER Visit 10:00 AM (20 min.) Irina Dale MD [facility] Psychiatry Clinic [place] 19 20 21 TBI FU 60 MIN 1:00 PM (60 min.) Chuckie Mccoy, ASSOCIATE APPLICATION DEVELOPER [facility] Speech Language Pathology TBI FU 60 MIN 2:00 PM (60 min.) Slime Johnson, PhD [facility] Psychology 22 23 24 25 26 TBI - FOLLOWUP 11:30 AM (45 min.) Lenka Simon RN,ASBESTOS ABATEMENT TECHNICIAN [facility] TBI Phys Med/Rehab Clinic 27 28 29 30 31 If you are unable to attend or if you are going to be late, please call the service or clinic. [facility] Buildings and Entrances: ?? P = Purple Building - use the [address] or [address] entrance ?? R = Red Building - use the [address] entrance ?? O = [place] Building - use the Blue or Red [...] Emergency Department. ?? Emergency Department Financial Counseling [phone] (7:30am to Midnight, Tuesday - Tuesday) ?? Main Line Financial Counseling [phone] . AttachmentsThe following attachments cannot be sent through Care Everywhere. APHTHOUS ULCER (LITHUANIAN)WHAT ARE ORAL LESIONS? (PRECANCEROUS AND CANCEROUS) (LITHUANIAN)documented in this encounter Medications at Time of [...] (15-30 mg) by mouth at bedtime. Pen [place] 5/16 30G X Use as directed 100 [...] use prn. Advised to F/U with her BROOM MAN, ENT, OMFS clinic as needed. Return to [...] documented as of this encounter Care Teams Lead Ios Developer Relationship Specialty Start Date End Date Olga Lee MD PCP - General Internal Medicine 01/29/[address] [facility] [place] [address] Chuckie Mccoy, ASSOCIATE APPLICATION DEVELOPER CCC Speech Pathologist Speech Pathology 04/26/13 documented as of this encounter
--- OUTSIDE RECORDS SUMMARY | 2022-03-16 09:47 | XMS_ITS | Encounter Summary ---
:1950 Author Organization [facility] Address [address] [place], [place] [address]Doc[place] [address] Phone Care Team Providers Name Role Phone Olga Lee MD Primary Care Provider Chuckie Mccoy APARTMENT COMMUNITY ASSISTANT MANAGER [facility] Unavailable Unavailable Encounter Details Date Type Department Care Team Description 07/06/2013 Hospital Encounter [facility] Speech Language Summervi dioni, Lenka Spencer, CULTURED MARBLE PRODUCTS MAKER, PETROLEUM TRANSPORT DRIVER Need New Address Pathology Chuckie Mccoy, APARTMENT COMMUNITY [place] [address] Social History Tobacco Use Types Packs/Day Years Used Date Smoking Tobacco: Former Cigarettes Quit : 08/01/1999 Smokeless Tobacco: Never Alcohol Use Standard Drinks/Week Comments No 0 (1 standard drink = 0.6 oz pure alcoho l) Sex Assigned at Date Recorded Female 06/17/2020 4:53 PM COCOA PRESS OPERATOR documented as of this encounter Medications [...] penIndications: TBI (traumatic brain injury) sitaGLIPtin (JANUVIA) Take 1 tablet (100 30 tablet 5 201312/12/2013 100 mg oral tablet mg) by mouth daily. LORazepam (ATIVAN) 0.5 Take 1 tablet (0.5 60 tablet 2 05/0207/23/2013 mg oral tablet mg) by mouth twice daily as needed for Anxiety. temazepam (RESTORIL) 15 Take 1 to 2 capsules 60 capsule 2 10/15/2013 mg oral capsule (15-30 mg) by mouth at bedtime. Pen [place] /16 30G X Use as directed 100 Each 11 013 09/20/2013 8 MM NotApplicabl Misc three times daily. documented as of this encounter Progress Notes Chuckie Mccoy, APARTMENT COMMUNITY ASSISTANT MANAGER CCC - 07/06/2013 11:09 AM CST SPEECH-LANGUAGE PATHOLOGY [...] this time Speech-Language Pathologist: Chuckie Mccoy M.S., CCC-APARTMENT COMMUNITY ASSISTANT MANAGER 07/06/2013, 11:10 Pager: [phone] A PRESS OPERATOR documented in this encounter Plan [...] documented as of this encounter Care Teams Sulfate Drier Machine Operator Relationship Specialty Start Date End Date Olga Lee MD PCP - General Internal Medicine 01/29/[address] [place] [address] Chuckie Mccoy, APARTMENT COMMUNITY ASSISTANT MANAGER CCC Speech Pathologist Speech Pathology 04/26/13 documented as of this encounter
--- OUTSIDE RECORDS SUMMARY | 2022-03-16 09:47 | XMS_ITS | Encounter Summary ---
:1950 Author Organization [facility] Address [address] [place] [address] Phone Care Team Providers Name Role Phone Olga Lee MD Primary Care Provider Chuckie Mccoy [facility] Unavailable Unavailable Reason for Visit Reason Onset Date Comments Refill Request 07/20/2013 Encounter Details Date Type Department Care Team Description 07/20/2013 Refill [facility] Bere Dale MD Refill Request Mac[place] [address] [facility] [address] [place] [address] S1.110 [place], [place] [address] [phone] Social History Tobacco Use Types Packs/Day Years Used Date Smoking Tobacco: Former Cigarettes Quit : 08/01/1999 Smokeless Tobacco: Never Alcohol Use Standard Drinks/Week Comments No 0 (1 standard drink = 0.6 oz pure alcoho l) Sex Assigned at Date Recorded Female 06/17/2020 4:53 PM PEST LOCATOR documented as of this encounter Plan of Treatment Not on filedocumented as of this encounter Visit Diagnoses Diagnosis Post traumatic stress disorder - Primary Posttraumatic stress disorder documented in this encounter Additional Health Concerns Infection Onset Date Last Indicated Resolved Time MDRO (Multiple Drug Resistant 11/13/2012 11/13/2012 7:13 AM CDT Organism) documented as of this encounter Care Teams Dynamics Ax Solution Architect Relationship Specialty Start Date End Date Olga Lee MD PCP - General Internal Medicine 01/29/[address] [place] [address] Chuckie Mccoy, CANDY WRAPPING MACHINE OPERATOR CCC Speech Pathologist Speech Pathology 04/26/13 documented as of this encounter
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
--- OUTSIDE RECORDS SUMMARY | 2022-03-16 09:47 | XMS_ITS | Encounter Summary ---
:1950 Author Organization [facility] Address [address] [place], [place] [address] [address] Phone Care Team Providers Name Role Phone Olga Lee MD Primary Care Provider Chuckie Mccoy INTERNATIONAL MANAGER [facility] Unavailable Unavailable Encounter Details Date Type Department Care Team Description 07/27/2013 Hospital Encounter [facility] Speech Language Summervi dioni, Lenka Spencer, SUPPLY CONTROLLER, FOOD CHEMIST Need New Address Pathology Chuckie Mccoy, [place] [address] Social History Tobacco Use Types Packs/Day Years Used Date Smoking Tobacco: Former Cigarettes Quit : 08/01/1999 Smokeless Tobacco: Never Alcohol Use Standard Drinks/Week Comments No 0 (1 standard drink = 0.6 oz pure alcoho l) Sex Assigned at Date Recorded Female 06/17/2020 4:53 PM IMPORT/EXPORT FREIGHT FORWARDER documented as of this encounter Medications at [...] (15-30 mg) by mouth at bedtime. Pen [place] 5/16 30G X Use as directed 100 Each 11 013 09/20/2013 8 MM NotApplicabl Misc three times daily. documented as of this encounter Progress Notes Chuckie Mccoy, INTERNATIONAL MANAGER [facility] - 07/27/2013 3:29 PM CST SPEECH-LANGUAGE PATHOLOGY Outpatient PROGRESS NOTE Name: Maye Li Birthdate: 1950 Date: 07/27/2013 Date of Onset: 03/18/2013 S & O Pt arrived to treatment session on time and was seen for 60 minute treatment session. Bright affect, offered good use of humor. Goals were not addressed as written today; however, pt and INTERNATIONAL MANAGER visited her workplace in the hospital to problem solve concerns re goal areas: 1. Pt will complete intermediate level auditory and visual sustained, divided and alternating attention activities with 80% accuracy in a non-distracting environment with use of strategies given an initial prompt. In progress. 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 She identified concerns re high distractibility, facilitated in part by ease of patient access to the area behind her desk, which increases pt's anxiety. Pt and INTERNATIONAL MANAGER walked to her workplace (see #3). Once there, suggestions were presented, including: ?? When on the laptop, face the wall vs the door, as the patient/family traffic is visually distracting to patient ?? A round table was moved to prevent individuals from freely approaching the patient, also providing a place for family members to sign-in ?? Pt and her process area supervisor have already submitted a ticket to have [...] re barriers to performance at work; this INTERNATIONAL MANAGER and pt visited her workplace and identified [...] this time Speech-Language Pathologist: Chuckie Mccoy M.S., CCC-INTERNATIONAL MANAGER 07/27/2013, 15:29 Pager: [phone] documented in this encounter Plan of Treatment [...] as of this encounter Care Teams Journeyman Press Operator Relationship Specialty Start Date End Date Olga Lee MD PCP - General Internal Medicine 01/29/[address] [place] [address] Chuckie Mccoy, INTERNATIONAL MANAGER CCC Speech Pathologist Speech Pathology 04/26/13 documented as of this encounter
--- OUTSIDE RECORDS SUMMARY | 2022-03-16 09:47 | XMS_ITS | Encounter Summary ---
:1950 Author Organization [facility] Address [address] [place] [address] Phone Care Team Providers Name Role Phone Olga Lee MD Primary Care Provider Chuckie Mccoy DRAFTER ELECTRONIC [facility] Unavailable Unavailable Encounter Details Date Type Department Care Team Description 08/14/[address] [facility] Psychology Slime Johnson, [address] PhD, LP G8.120 [place], [place] [address] Social History Tobacco Use Types Packs/Day Years Used Date Smoking Tobacco: Former Cigarettes Quit : 08/01/1999 Smokeless Tobacco: Never Alcohol Use Standard Drinks/Week Comments No 0 (1 standard drink = 0.6 oz pure alcoho l) Sex Assigned at Date Recorded Female 06/17/2020 4:53 PM TRUCK RAILROAD AND BUS MOTOR MECHANIC documented as of this encounter Progress Notes Slime Johnson, PhD, LP - 08/14/2013 3:58 PM CDT Patient called requesting that this bid writer talk to Dr. Raman and provided the following numbers. and pager [phone]. Patient requested that her verbal consent be used until she can come in and sign a WENDY. Slime Johnson, PhD LP, 08/14/2013 4:10 PM Sr. 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
--- OUTSIDE RECORDS SUMMARY | 2022-03-16 09:47 | XMS_ITS | Encounter Summary ---
:1950 Author Organization [facility] Address [address] [place], [place] [address] [place] [address] Phone Care Team Providers Name Role Phone Olga Lee MD Primary Care Provider Chuckie Mccoy ORCHESTRA MUSICIAN [facility] Unavailable Unavailable Encounter Details Date Type Department Care Team Description 06/22/2013 Hospital Encounter [facility] Speech Language Summervi dioni, Lenka Spencer, DEVELOPMENT SPEC, GIVER Need New Address Pathology Chuckie Mccoy, [place] [address] Social History Tobacco Use Types Packs/Day Years Used Date Smoking Tobacco: Former Cigarettes Quit : 08/01/1999 Smokeless Tobacco: Never Alcohol Use Standard Drinks/Week Comments No 0 (1 standard drink = 0.6 oz pure alcoho l) Sex Assigned at Date Recorded Female 06/17/2020 4:53 PM MANAGER FUND documented as of this encounter Medications at [...] mg) by mouth at bedtime. Pen [place] 5/16 30G X Use as directed 100 Each 11 013 09/20/2013 8 MM NotApplicabl Misc three times daily. documented as of this encounter Progress Notes Chuckie Mccoy, ORCHESTRA MUSICIAN CCC - 06/22/2013 3:10 PM CST SPEECH-LANGUAGE [...] None at this time Speech-Language Pathologist: Jennifer AroraSTheodore, CCC-ORCHESTRA MUSICIAN 06/22/2013, 15:11 Pager: [phone] GER FUND documented in this encounter Plan of Treatment [...] documented as of this encounter Care Teams Warp Dyeing Vat Tender Relationship Specialty Start Date End Date Olga Lee MD PCP - General Internal Medicine 01/29/13 [facility] [place], [place] [id number] Chuckie Mccoy, ORCHESTRA MUSICIAN CCC Speech Pathologist Speech Pathology 04/26/13 documented as of this encounter
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
--- OUTSIDE RECORDS SUMMARY | 2022-03-16 09:47 | XMS_ITS | Encounter Summary ---
:1950 Author Organization [facility] Address [address] [place], [place] [address] [address] Phone Care Team Providers Name Role Phone Olga Lee MD Primary Care Provider Chuckie Mccoy BATCH RECORDS CLERK [facility] Unavailable Unavailable Encounter Details Date Type Department Care Team Description 08/03/2013 Hospital Encounter [facility] Speech Language Summervi dioni, Lenka Spencer, MACHINE STONECUTTER, FOOT GATHERER Need New Address Pathology Chuckie Mccoy, [place]ATCH [place] [address] Social History Tobacco Use Types Packs/Day Years Used Date Smoking Tobacco: Former Cigarettes Quit : 08/01/1999 Smokeless Tobacco: Never Alcohol Use Standard Drinks/Week Comments No 0 (1 standard drink = 0.6 oz pure alcoho l) Sex Assigned at Date Recorded Female 06/17/2020 4:53 PM SURGICAL ORDERLY documented as of this encounter Medications at [...] (15-30 mg) by mouth at bedtime. Pen [place] /16 30G X Use as directed 100 Each 11 013 09/20/2013 8 MM NotApplicabl Misc three times daily. documented as of this encounter Progress Notes Chuckie Mccoy, BATCH RECORDS CLERK CCC - 08/03/2013 3:24 PM CDT SPEECH-LANGUAGE [...] notebook; plan main points as appropriate ?? [id number]: be forthcoming re challenges ?? Assess the [...] this time Speech-Language Pathologist: Chuckie Mccoy M.S., CCC-BATCH RECORDS CLERK 08/03/2013, 15:24 Pager: [phone] documented in this encounter Plan of Treatment [...] as of this encounter Care Teams Media Assistant Relationship Specialty Start Date End Date Olga Lee MD PCP - General Internal Medicine 01/29/[address] [place] [address] Chuckie Mccoy, BATCH RECORDS CLERK CCC Speech Pathologist Speech Pathology 04/26/13 documented as of this encounter
--- OUTSIDE RECORDS SUMMARY | 2022-03-16 09:47 | XMS_ITS | Encounter Summary ---
:1950 Author Organization [facility] Address [address] [facility] [place] [address] Phone Care Team Providers Name Role Phone Olga Lee MD Primary Care Provider Chuckie Mccoy EMAIL ENGINEER [facility] Unavailable Unavailable Reason for Visit Reason Comments Follow-up Encounter Details Date Type Department Care Team Description 08/15/2013 Office Visit [facility] [place] Phys Lenka Simon TBI ([facility] brain Med/Rehab Clinic MAKAYLA Spencer, WELFARE CENTRE MANAGER injury), subsequent [address] [facility] Address encounter (Primary Dx) [place], [place] [address] [phone] Social History Tobacco Use Types Packs/Day Years Used Date Smoking Tobacco: Former Cigarettes Quit : 08/01/1999 Smokeless Tobacco: Never Alcohol Use Standard Drinks/Week Comments No 0 (1 standard drink = 0.6 oz pure alcoho l) Sex Assigned at Date Recorded Female 06/17/2020 4:53 PM OVEREDGE MACHINE OPERATOR documented as of this encounter [...] Body Mass Index 32.61 06/13/2013 11:31 AM OVEREDGE MACHINE OPERATOR documented in this encounter Progress Notes Lenka Simon RN,WELFARE CENTRE MANAGER - 08/29/2013 11:56 [place] [address] [facility]#: [id number] PATIENT: AGAPITO WORLEY : 1950 DATE: 08/15/2013 [...] the Acute Psychiatric Services Department here at [facility]. She may have had a brief loss [...] likely discharge her from the TBI Clinic. eLnka Simon RN, EDUARDO Received in Superintendent Warehouse: 08/28/2013 13:26 M: 08/29/2013 11:56 mr GS/mr Voice ID: [id number] Document ID: [id number] Lenka Simon RN,EDUARDO - 08/28/2013 1:26 PM [...] as of this encounter Care Teams Insurance Legal Assistant Relationship Specialty Start Date End Date Olga Lee MD PCP - General Internal Medicine 01/29/[address] [place] [address] Chuckie Mccoy, EMAIL ENGINEER CCC Speech Pathologist Speech Pathology 04/26/13 documented as of this encounter
--- OUTSIDE RECORDS SUMMARY | 2022-03-16 09:47 | XMS_ITS | Encounter Summary ---
:1950 Author Organization [facility] Address [address] [place], [place] [address] [address] Phone Care Team Providers Name Role Phone Olga Lee MD Primary Care Provider Chuckie Mccoy FURNACE MECHANIC [facility] Unavailable Unavailable Encounter Details Date Type Department Care Team Description 06/08/2013 Hospital Encounter [facility] Speech Language Summervi dioni, Lenka Spencer, FIRE EQUIPMENT INSPECTOR, COMPONENT DESIGN ENGINEER Need New Address Pathology Chuckie Mccoy, [place] [address] Social History Tobacco Use Types Packs/Day Years Used Date Smoking Tobacco: Former Cigarettes Quit : 08/01/1999 Smokeless Tobacco: Never Alcohol Use Standard Drinks/Week Comments No 0 (1 standard drink = 0.6 oz pure alcoho l) Sex Assigned at Date Recorded Female 06/17/2020 4:53 PM VERTICAL MILL OPERATOR documented as of this encounter Medications [...] capsule mg) by mouth twice daily. Pen [place] 5/16 30G Use as directed three 100 Each 09/20/2013 X 8 MM NotApplicabl times daily. Misc documented as of this encounter Progress Notes Chuckie Mccoy, FURNACE MECHANIC CCC - 06/08/2013 12:25 PM CST SPEECH-LANGUAGE [...] as needed. Pt identified through using her calendar/nurse discharge planner and self-observation, that if she attempts [...] this time Speech-Language Pathologist: Chuckie Mccoy M.S., CCC-FURNACE MECHANIC 06/08/2013, 12:25 Pager: [phone] ICAL MILL OPERATOR documented in this encounter Plan of [...] documented as of this encounter Care Teams Mine Inspector Federal Relationship Specialty Start Date End Date Olga Lee MD PCP - General Internal Medicine 01/29/[address] [place] [address] Chuckie Mccoy, FURNACE MECHANIC CCC Speech Pathologist Speech Pathology 04/26/13 documented as of this encounter
--- OUTSIDE RECORDS SUMMARY | 2022-03-16 09:47 | XMS_ITS | Encounter Summary ---
:1950 Author Organization [facility] Address [address] [place] [address] Phone Care Team Providers Name Role Phone Olga Lee MD Primary Care Provider Chuckie Mccoy DATABASE [facility]NALY[facility] Unavailable Unavailable Encounter Details Date Type Department Care Team Description 07/06/2013 Hospital Encounter [facility] Psychology Slime Johnson, [address] PhD, LP G8.120 [place], [place] [address] Social History Tobacco Use Types Packs/Day Years Used Date Smoking Tobacco: Former Cigarettes Quit : 08/01/1999 Smokeless Tobacco: Never Alcohol Use Standard Drinks/Week Comments No 0 (1 standard drink = 0.6 oz pure alcoho l) Sex Assigned at Date Recorded Female 06/17/2020 4:53 PM QUALITY ASSURANCE SPECIALIST documented as of this encounter Medications [...] (15-30 mg) by mouth at bedtime. Pen [place] 5/16 30G X Use as directed 100 Each 11 013 09/20/2013 8 MM NotApplicabl Misc three times daily. documented as of this encounter Progress Notes Restricted notes were excluded Slime Johnson, PhD, LP - 07/06/2013 12:18 PM CST PSYCHOLOGY Outpatient Progress Note Duration: 60 minutes Channel Marketing Coordinator: NO Type of Therapy: Individual Mode: CBT/ACT [...] LP, 07/06/2013 12:18 PM Sr. Clinical Psychologist ITY ASSURANCE SPECIALIST documented in this encounter Plan of [...] documented as of this encounter Care Teams Engineering Manager Electronics Relationship Specialty Start Date End Date Olga Lee MD PCP - General Internal Medicine 01/29/[address] [place] [address] Chuckie Mccoy, DATABASE ANALYST CCC Speech Pathologist Speech Pathology 04/26/13 documented as of this encounter
--- OUTSIDE RECORDS SUMMARY | 2022-03-16 09:47 | XMS_ITS | Encounter Summary ---
:1950 Author Organization [facility] Address [address] [place] [address] Phone Care Team Providers Name Role Phone Olga Lee MD Primary Care Provider Chuckie Mccoy BENEFITS TECHNICIAN [facility] Unavailable Unavailable Reason for Visit Auth/Cert - Closed Specialty Diagnoses / Procedures Referred By Contact Refer red To Contact Referral ID Status Reason Start Date Expiration Date Visits Requ ested Visits Authorized [id number] Closed 1 1 Encounter Details Date Type Department Care Team Description 08/10/2013 Hospital Encounter [facility] Psychology Slime Johnson, [address] PhD, LP [address] [place], [place] [address] Social History Tobacco Use Types Packs/Day Years Used Date Smoking Tobacco: Former Cigarettes Quit : 08/01/1999 Smokeless Tobacco: Never Alcohol Use Standard Drinks/Week Comments No 0 (1 standard drink = 0.6 oz pure alcoho l) Sex Assigned at Date Recorded Female 06/17/2020 4:53 PM CAD DESIGN ENGINEER documented as of this encounter Medications at Time of Discharge Medication Sig Dispensed Refills Start Date End Date Multiple Take 1 Tab by mouth 0 Vitamins-Minerals daily. (MULTIVITAL ORAL) diphenhydrAMINE-alum & Swish and spit 5 ml 180 mL 0 07/2109/20/2013 mag by mouth four times dawxbdkfz-zjityo-zgqpuin daily as needed for ne viscous magic [...] (15-30 mg) by mouth at bedtime. Pen [place] / 30G X Use as directed 100 Each 09/20/2013 8 MM NotApplicabl Misc three times daily. documented as of this encounter Progress Notes Restricted notes were excluded Slime Johnson, PhD, LP - 08/10/2013 3:05 PM CDT PSYCHOLOGY Outpatient Progress Note Duration: 60 minutes Fruit Packer: NO Type of Therapy: Individual Mode: CBT/ACT [...] by those providers. The patient isaware of [facility] for emergent psychiatric care. Slime Johnson, PhD [...] documented as of this encounter Care Teams Cable Tester Relationship Specialty Start Date End Date Olga Lee MD PCP - General Internal Medicine 01/29/[address] [place] [id number] Chuckie Mccoy, BENEFITS TECHNICIAN CCC Speech Pathologist Speech Pathology 04/26/13 documented as of this encounter
--- OUTSIDE RECORDS SUMMARY | 2022-03-16 09:47 | XMS_ITS | Encounter Summary ---
:1950 Author Organization [facility] Address [address] [place] [address] Phone Care Team Providers Name Role Phone Olga Lee MD Primary Care Provider Chuckie Mccoy FALAFEL CART COOK [facility] Unavailable Unavailable Encounter Details Date Type Department Care Team Description 06/22/2013 Hospital Encounter [facility] Psychology Slime Johnson, [address] PhD, LP [address]8.[address] [place], [place] [address] Social History Tobacco Use Types Packs/Day Years Used Date Smoking Tobacco: Former Cigarettes Quit : 08/01/1999 Smokeless Tobacco: Never Alcohol Use Standard Drinks/Week Comments No 0 (1 standard drink = 0.6 oz pure alcoho l) Sex Assigned at Date Recorded Female 06/17/2020 4:53 PM SUPPORT SERVICE TECH documented as of this encounter Medications at [...] (15-30 mg) by mouth at bedtime. Pen [place] 5/16 30G X Use as directed 100 [...] a review of records. Duration: 60 minutes Pilot Plant Technician: No Diagnoses: [place] I. Post Traumatic Stress Disorder Major Depression, recurrent [place] II. No Diagnosis [place] III. Patient reported TBI, Diabetes Defer to problem list [place] IV. Legal concerns, occupational concerns, adjustment post-injury [place] V. Current GAF (Global Assessment of Functioning)= [...] LP, 06/22/2013 10:36 AM Sr. Clinical Psychologist ORT SERVICE TECH documented in this encounter Plan of [...] as of this encounter Care Teams Customer Relations Consultant Relationship Specialty Start Date End Date Olga Lee MD PCP - General Internal Medicine 01/29/[address] [place] [phone] Chuckie Mccoy, FALAFEL CART COOK CCC Speech Pathologist Speech Pathology 04/26/13 documented as of this encounter
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
--- OUTSIDE RECORDS SUMMARY | 2022-03-16 09:47 | XMS_ITS | Encounter Summary ---
:1950 Author Organization [facility] Address [address] [place] [address] Phone Care Team Providers Name Role Phone Olga Lee MD Primary Care Provider Chuckie Mccoy FRIT COATER [facility] Unavailable Unavailable Encounter Details Date Type Department Care Team Description 06/15/2013 Hospital Encounter [facility] Psychology Nella Gallardo [address], PhD, LP [address] Need New Address [place], [place] [address] [phone] Social History Tobacco Use Types Packs/Day Years Used Date Smoking Tobacco: Former Cigarettes Quit : 08/01/1999 Smokeless Tobacco: Never Alcohol Use Standard Drinks/Week Comments No 0 (1 standard drink = 0.6 oz pure alcoho l) Sex Assigned at Date Recorded Female 06/17/2020 4:53 PM CHIEF ENGINEER PRODUCTION documented as of this encounter Medications at [...] (15-30 mg) by mouth at bedtime. Pen [place] 5/16 30G X 8 Use as directed [...] recommendations for her continued treatment here at [facility] and the implications of our findings for return to work. At the end of the session she stated that she understood the results of the evaluation and that I had answered all of her questions. Please contact me with any questions regarding the content of this note. Nella Gallardo, Ph.D., L.P. Senior Clinical Neuropsychologist, [id number] Neuropsychology Section (G8) [facility] [phone] F ENGINEER PRODUCTION documented in this encounter Plan of Treatment [...] documented as of this encounter Care Teams Airport Operations Officer Relationship Specialty Start Date End Date Olga Lee MD PCP - General Internal Medicine 01/29/13 [facility] [place] [address] Chuckie Mccoy, FRIT COATER CCC Speech Pathologist Speech Pathology 04/26/13 documented as of this encounter
--- OUTSIDE RECORDS SUMMARY | 2022-03-16 09:47 | XMS_ITS | Encounter Summary ---
:1950 Author Organization [facility] Address [address] [place] [address] Phone Care Team Providers Name Role Phone Olga Lee MD Primary Care Provider Chuckie Mccoy ASSISTED LIVING COORDINATOR [facility] Unavailable Unavailable Encounter Details Date Type Department Care Team Description 07/27/2013 Hospital Encounter [facility] [place] Slime Johnson, [address] PhD, LP [address]8.[address] [place], [place] [address] Social History Tobacco Use Types Packs/Day Years Used Date Smoking Tobacco: Former Cigarettes Quit : 08/01/1999 Smokeless Tobacco: Never Alcohol Use Standard Drinks/Week Comments No 0 (1 standard drink = 0.6 oz pure alcoho l) Sex Assigned at Date Recorded Female 06/17/2020 4:53 PM INTERMISSION COORDINATOR documented as of this encounter Medications [...] (15-30 mg) by mouth at bedtime. Pen [place] /16 30G X Use as directed 100 Each 11 013 09/20/2013 8 MM NotApplicabl Misc three times daily. documented as of this encounter Progress Notes Restricted notes were excluded Slime Johnson, PhD, LP - 07/27/2013 4:37 PM CST PSYCHOLOGY Outpatient Progress Note Duration: 60 minutes Pocket Operator: NO Type of Therapy: Individual Mode: CBT/ACT [...] LP, 07/27/2013 4:37 PM Sr. Clinical Psychologist RMISSION COORDINATOR documented in this encounter Plan of [...] documented as of this encounter Care Teams Cosmetic Maker Relationship Specialty Start Date End Date Olga Lee MD PCP - General Internal Medicine 01/29/[address] [place] [phone] Chuckie Mccoy, ASSISTED LIVING COORDINATOR CCC Speech Pathologist Speech Pathology 04/26/13 documented as of this encounter
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
--- OUTSIDE RECORDS SUMMARY | 2022-03-16 09:48 | XMS_ITS | Encounter Summary ---
:1950 Author Organization [facility] Address [address] [place] [address] Phone Care Team Providers Name Role Phone Olga Lee MD Primary Care Provider Chuckie Mccoy WOMEN'S STUDIES LECTURER CCC Unavailable Unavailable Encounter Details Date Type Department Care Team Description 05/08/2013 Hospital Encounter [facility] Infusion Center Suma Aranda MD [address] [place], [place] [phone] Nurse, Inf Chemotherapy [address] [place], [place] [address] Social History Tobacco Use Types Packs/Day Years Used Date Smoking Tobacco: Former Cigarettes Quit : 08/01/1999 Smokeless Tobacco: Never Alcohol Use Standard Drinks/Week Comments No 0 (1 standard drink = 0.6 oz pure alcoho l) Sex Assigned at Date Recorded Female 06/17/2020 4:53 PM ATHLETIC GEAR CUSTODIAN documented as of this encounter Medications at [...] capsule mg) by mouth twice daily. Pen [place] 5/16 30G Use as directed three 100 Each 09/20/2013 X 8 MM NotApplicabl times daily. Misc documented as of this encounter Miscellaneous [facility] Note - Nolvia Monet RN - [...] scheduled. Nolvia Monet RN, 05/08/2013 4:26 PM ETIC GEAR CUSTODIAN documented in this encounter Plan of Treatment Not on filedocumented as of this encounter Visit Diagnoses Diagnosis Iron deficiency anemia - Primary Iron deficiency anemia, unspecified documented in this encounter Administered Medications Inactive Administered Medications - up to 3 most recent administrations Medication Order MAR Action Action Date Dose Rate Site iron sucrose (VENOFER) 100 mg in New Bag 05/08/2013 1:33 PM ATHLETIC GEAR CUSTODIAN 10 0 mg NaCl 0.9% 100 mL IVPB 100 mg, Intravenous, ONE TIME, On Tue05/08/13 at 1305 documented in this encounter Additional Health Concerns Infection Onset Date Last Indicated Resolved Time 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
--- OUTSIDE RECORDS SUMMARY | 2022-03-16 09:48 | XMS_ITS | Encounter Summary ---
:1950 Author Organization [facility] Address [address] [place], [place] [address] [address] Phone Care Team Providers Name Role Phone Olga Lee MD Primary Care Provider Chuckie Mccoy CARDIOVASCULAR INVASIVE SPECIALIST [facility] Unavailable Unavailable Encounter Details Date Type Department Care Team Description 06/01/2013 Hospital Encounter [facility] Speech Language [employer]ioni, Lenka Spencer, INSURANCE ADJUSTOR, PHOTOGRAPHER APPRENTICE LITHOGRAPHIC Need New Address Pathology Chuckie Mccoy, CARDIOVASCULAR [place] [address] Social History Tobacco Use Types Packs/Day Years Used Date Smoking Tobacco: Former Cigarettes Quit : 08/01/1999 Smokeless Tobacco: Never Alcohol Use Standard Drinks/Week Comments No 0 (1 standard drink = 0.6 oz pure alcoho l) Sex Assigned at Date Recorded Female 06/17/2020 4:53 PM VACUUM TANK TENDER documented as of this encounter Medications at [...] capsule mg) by mouth twice daily. Pen [place] 5/16 30G Use as directed three 100 Each 09/20/2013 X 8 MM NotApplicabl times daily. Misc documented as of this encounter Progress Notes Chuckie Mccoy, CARDIOVASCULAR INVASIVE SPECIALIST CCC - 06/01/2013 12:05 PM CST SPEECH-LANGUAGE [...] needed. MET. Pt is using her personal urban and regional planner independently to track appointments and important [...] Clinic endorsed per pt preference Speech-Language Pathologist: Chuckie Mccoy M.STheodore, CCC-CARDIOVASCULAR INVASIVE SPECIALIST 06/01/2013, 12:05 Pager: [phone] UM TANK TENDER documented in this encounter Plan of [...] documented as of this encounter Care Teams Fuel Cell Technician Relationship Specialty Start Date End Date Olga Lee MD PCP - General Internal Medicine 01/29/[address] [place] [id number] Chuckie Mccoy, CARDIOVASCULAR INVASIVE SPECIALIST CCC Speech Pathologist Speech Pathology 04/26/13 documented as of this encounter
--- OUTSIDE RECORDS SUMMARY | 2022-03-16 09:48 | XMS_ITS | Encounter Summary ---
:1950 Author Organization [facility] Address [address] [place] [address] Phone Care Team Providers Name Role Phone Olga Lee MD Primary Care Provider Reason for Visit Reason Onset Date Comments Appointment 04/23/2013 Schedule IV iron the lindsey Encounter Details Date Type Department Care Team Description 04/23/2013 Telephone [facility] Diabetes & Endo Padma Kay intment (Schedule Clinic JUAN Kamaar IV iron therapy) [address] [place], [place] [phone] Social History Tobacco Use Types Packs/Day Years Used Date Smoking Tobacco: Former Cigarettes Quit : 08/01/1999 Smokeless Tobacco: Never Alcohol Use Standard Drinks/Week Comments No 0 (1 standard drink = 0.6 oz pure alcoho l) Sex Assigned at Date Recorded Female 06/17/2020 4:53 PM BALE STACKER documented as of this encounter Miscellaneous Notes Telephone Encounter - Padma Kay RN - 04/23/2013 3:23 PM BALE STACKER Call back out to patient, confirmed times for infusion center are OK. Padma Kay, JUAN, 04/23/2013 3:23 PM STACKER Telephone Encounter - Padma Kay RN - 04/23/2013 3:07 PM BALE STACKER D: Patient with low iron, oral replacement non-responsive. Needs IV iron replacement. A: Chart reviewed, collaborating with Dr. Aranda and IV/cancer center IV Iron sucrose (Venofer). This infusion is for 5 rounds, one hour each session. R/P: Call out to patient to coordinate scheduling, left voicemail message with the above informationand return call number. 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
--- OUTSIDE RECORDS SUMMARY | 2022-03-16 09:48 | XMS_ITS | Encounter Summary ---
:1950 Author Organization [facility] Address [address] [place] [address] Phone Care Team Providers Name Role Phone Olga Lee MD Primary Care Provider Chuckie Mccoy FRONT DESK PERSON [facility] Unavailable Unavailable Reason for Visit Reason Onset Date Comments Return Patient Call 05/09/2013 Encounter Details Date Type Department Care Team Description 05/09/2013 Telephone [facility] Psych[facility]ry Clinic Berkley Dominguez, Return Patient Call Macario PhD, LP [address] [place], [place] [address] Social History Tobacco Use Types Packs/Day Years Used Date Smoking Tobacco: Former Cigarettes Quit : 08/01/1999 Smokeless Tobacco: Never Alcohol Use Standard Drinks/Week Comments No 0 (1 standard drink = 0.6 oz pure alcoho l) Sex Assigned at Date Recorded Female 06/17/2020 4:53 PM COLOR ROOM ATTENDANT documented as of this encounter Miscellaneous Notes Telephone Encounter - Berkley Dominguez PhD, LP - 05/09/2013 4:13 PM COLOR ROOM ATTENDANT Provider returned call to patient. Patient informed [...] looking forward to our next scheduled session. 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
--- OUTSIDE RECORDS SUMMARY | 2022-03-16 09:48 | XMS_ITS | Encounter Summary ---
:1950 Author Organization [facility] Address [address] [place] [address] Phone Care Team Providers Name Role Phone Olga Lee MD Primary Care Provider Chuckie Mccoy CAMP HOUSEKEEPER [facility] Unavailable Unavailable Encounter Details Date Type Department Care Team Description 05/14/2013 Hospital Encounter [facility] Infusion Center Suma Aranda MD [address] [place] [address] [address] Nurse, Inf Chemotherapy [address] [place], [place] [address] Social History Tobacco Use Types Packs/Day Years Used Date Smoking Tobacco: Former Cigarettes Quit : 08/01/1999 Smokeless Tobacco: Never Alcohol Use Standard Drinks/Week Comments No 0 (1 standard drink = 0.6 oz pure alcoho l) Sex Assigned at Date Recorded Female 06/17/2020 4:53 PM TEMPLATE FITTER documented as of this encounter Last Filed Vital Signs Vital Sign Reading Time Taken Comments Blood Pressure 125/82 05/14/2013 1:00 PM TEMPLATE FITTER Pulse 97 05/14/2013 1:00 PM TEMPLATE FITTER Temperature - - Respiratory Rate - - [...] capsule mg) by mouth twice daily. Pen [place] 5/16 30G Use as directed three 100 Each 09/20/2013 X 8 MM NotApplicabl times daily. [facility] documented as of this encounter Miscellaneous Notes Cancer Center Note - Angelica Triana RN - 05/14/2013 3:06 PM CST Venofer Infusion Note D: Diagnosis:Iron Deficient Anemia A: Placed PIV. VS done and documented. Gave 100 mg Venofer as ordered over 1/2 hour. R: Tolerated well. P: Return to clinic as ordered. Angelica Triana RN, 05/14/2013 3:07 PM LATE FITTER documented in this encounter Plan of Treatment Not on filedocumented as of this encounter Visit Diagnoses Diagnosis Iron deficiency anemia - Primary Iron deficiency anemia, unspecified documented in this encounter Administered Medications Inactive Administered Medications - up to 3 most recent administrations Medication Order MAR Action Action Date Dose Rate Site iron sucrose (VENOFER) 100 mg in New Bag 05/14/2013 1:28 PM TEMPLATE FITTER 10 0 mg NaCl 0.9% 100 mL IVPB 100 mg, Intravenous, ONE TIME, On Tue05/14/13 at 1315 NaCl 0.9% infusion 250 mL New Bag 05/14/2013 1:25 PM TEMPLATE FITTER 250 mL 20 mL/hr at 20 mL/hr, Intravenous, TO KEEP OPEN, Starting on Tue05/14/13 at 1315, Until Tue05/16/13 at 0308 documented in this encounter Additional Health Concerns Infection Onset Date Last Indicated Resolved Time 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
--- OUTSIDE RECORDS SUMMARY | 2022-03-16 09:48 | XMS_ITS | Encounter Summary ---
:1950 Author Organization [facility] Address [address] [place], [place] [address] [address] Phone Care Team Providers Name Role Phone Olga Lee MD Primary Care Provider Chuckie Mccoy WASTE SALVAGER [facility] Unavailable Unavailable Encounter Details Date Type Department Care Team Description 05/02/2013 Hospital Encounter [facility] Speech Language Summervi dioni, Lenka Spencer, MANAGER REGIONAL SALES, PROMOTION WRITER Need New Address Pathology Chuckie Mccoy, [place] [address] Social History Tobacco Use Types Packs/Day Years Used Date Smoking Tobacco: Former Cigarettes Quit : 08/01/1999 Smokeless Tobacco: Never Alcohol Use Standard Drinks/Week Comments No 0 (1 standard drink = 0.6 oz pure alcoho l) Sex Assigned at Date Recorded Female 06/17/2020 4:53 PM AVIATION SUPPORT EQUIPMENT REPAIRER documented as of this encounter Medications at [...] capsule mg) by mouth twice daily. Pen [place] 5/16 30G Use as directed three 100 Each 09/20/2013 X 8 MM NotApplicabl times daily. [facility] documented as of this encounter Progress Notes Chuckie Mccoy, WASTE SALVAGER CCC - 05/02/2013 3:25 PM CST SPEECH-LANGUAGE [...] presented a lecture to nursing students re psych/half-way nursing. This was the first time post-TBI [...] at this time Speech-Language Pathologist: Jennifer AroraS., CCC-WASTE SALVAGER 05/02/2013, 15:25 Pager: [phone] TION SUPPORT EQUIPMENT REPAIRER documented in this encounter Plan of Treatment [...] documented as of this encounter Care Teams Cutter Helper Relationship Specialty Start Date End Date Olga Lee MD PCP - General Internal Medicine 01/29/[address] [place] [address] Chuckie Mccoy SLP CCC Speech Pathologist Speech Pathology 04/26/13 documented as of this encounter
--- OUTSIDE RECORDS SUMMARY | 2022-03-16 09:48 | XMS_ITS | Encounter Summary ---
:[address] [facility] Address [address] [place], [place] [address] [address] Phone Care Team Providers Name Role Phone Olga Lee MD Primary Care Provider Chuckie Mccoy CARDBOARD INSERTER [facility] Unavailable Unavailable Encounter Details Date Type Department Care Team Description 05/25/2013 Hospital Encounter [facility] Speech Language Summervi dioni, Lenka Spencer, SP[employer] MEMBERSHIP ADVISORS, PRINCIPAL STATISTICAL SCIENTIST Need New Address Pathology Chuckie Mccoy, [place] [address] Social History Tobacco Use Types Packs/Day Years Used Date Smoking Tobacco: Former Cigarettes Quit : 08/01/1999 Smokeless Tobacco: Never Alcohol Use Standard Drinks/Week Comments No 0 (1 standard drink = 0.6 oz pure alcoho l) Sex Assigned at Date Recorded Female 06/17/2020 4:53 PM MODEL MAKER PLASTER documented as of this encounter Medications at [...] capsule mg) by mouth twice daily. Pen [place] 5/16 30G Use as directed three 100 Each 09/20/2013 X 8 MM NotApplicabl times daily. Misc documented as of this encounter Progress Notes Chuckie Mccoy, CARDBOARD INSERTER CCC - 05/25/2013 11:39 AM CST SPEECH-LANGUAGE [...] at home and decided to go to [facility] with her ; upon arrival, she [...] use a recipe card or generate a eehq-hv-xgjj plan ?? Start with every-day tasks to [...] participating and stating back strategies to this CARDBOARD INSERTER. Pt is benefiting from outpatient speech-language services. [...] option with her current Psychologist Speech-Language Pathologist: Jennifer AroraSTheodore, CCC-CARDBOARD INSERTER 05/25/2013, 11:39 Pager: [phone] L MAKER PLASTER documented in this encounter Plan of Treatment [...] documented as of this encounter Care Teams Fashion Illustrator Relationship Specialty Start Date End Date Olga Lee MD PCP - General Internal Medicine 01/29/13 [address] [place] [address] Chuckie Mccoy, CARDBOARD INSERTER CCC Speech Pathologist Speech Pathology 04/26/13 documented as of this encounter
--- OUTSIDE RECORDS SUMMARY | 2022-03-16 09:48 | XMS_ITS | Encounter Summary ---
:1950 Author Organization [facility] Address [address] [place] [address] Phone Care Team Providers Name Role Phone Olga Lee MD Primary Care Provider Chuckie Mccoy FUR FEEDER [facility] Unavailable Unavailable Encounter Details Date Type Department Care Team Description 05/21/2013 Hospital Encounter [facility] Infusion Center Suma Aranda MD [address] [place], [place] [id number] [address] Nurse, Inf Chemotherapy [address]1.[address] [place], [place] [address] Social History Tobacco Use Types Packs/Day Years Used Date Smoking Tobacco: Former Cigarettes Quit : 08/01/1999 Smokeless Tobacco: Never Alcohol Use Standard Drinks/Week Comments No 0 (1 standard drink = 0.6 oz pure alcoho l) Sex Assigned at Date Recorded Female 06/17/2020 4:53 PM RN TEAM LEADER documented as of this encounter Last Filed Vital Signs Vital Sign Reading Time Taken Comments Blood Pressure 118/80 05/21/2013 2:00 PM RN TEAM LEADER Pulse 87 05/21/2013 2:00 PM RN TEAM LEADER Temperature 36.9 ??C (98.4 ??F) 05/21/2013 2:00 PM RN TEAM LEADER Respiratory Rate - - Oxygen Saturation - [...] capsule mg) by mouth twice daily. Pen [place] 5/16 30G Use as directed three 100 [...] Call for problems. Tr Lindsay, RN, [facility] Certified Aromatherapist, [facility] [phone] TEAM LEADER documented in this encounter Plan of Treatment Not on filedocumented as of this encounter Visit Diagnoses Diagnosis Iron deficiency anemia - Primary Iron deficiency anemia, unspecified documented in this encounter Administered Medications Inactive Administered Medications - up to 3 most recent administrations Medication Order MAR Action Action Date Dose Rate Site iron sucrose (VENOFER) 100 mg in New Bag 05/21/2013 1:55 PM RN TEAM LEADER 10 0 mg NaCl 0.9% 100 mL IVPB 100 mg, Intravenous, ONE TIME, On 05/21/13 at 1325 documented in this encounter Additional Health Concerns Infection Onset Date Last Indicated Resolved Time 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
--- OUTSIDE RECORDS SUMMARY | 2022-03-16 09:48 | XMS_ITS | Encounter Summary ---
:1950 Author Organization [facility] Address [address] [place] [place] [address] Phone Care Team Providers Name Role Phone Olga Lee MD Primary Care Provider Chuckie Mccoy SHELL GRADER [facility] Unavailable Unavailable Encounter Details Date Type Department Care Team Description 05/01/2013 Hospital En[place] [facility] [place] Suma Aranda MD [address] [place] [address] [address] Nurse, Inf Chemotherapy [address]1.[address] [place], [place] [address] Social History Tobacco Use Types Packs/Day Years Used Date Smoking Tobacco: Former Cigarettes Quit : 08/01/1999 Smokeless Tobacco: Never Alcohol Use Standard Drinks/Week Comments No 0 (1 standard drink = 0.6 oz pure alcoho l) Sex Assigned at Date Recorded Female 06/17/2020 4:53 PM WINDOW DRESSER documented as of this encounter Last Filed Vital Signs Vital Sign Reading Time Taken Comments Blood Pressure 114/80 05/01/2013 2:00 PM WINDOW DRESSER Pulse 82 05/01/2013 2:00 PM WINDOW DRESSER Temperature - - Respiratory Rate - - [...] capsule mg) by mouth twice daily. Pen [place] 5/16 30G Use as directed three 100 Each 09/20/2013 X 8 MM NotApplicabl times daily. Misc documented as of this encounter Miscellaneous [facility] Note - Angelica Triana [...] scheduled. Angelica Triana RN, 05/01/2013 2:21 PM OW DRESSER documented in this encounter Plan of Treatment Not on filedocumented as of this encounter Visit Diagnoses Diagnosis Iron deficiency anemia - Primary Iron deficiency anemia, unspecified documented in this encounter Administered Medications Inactive Administered Medications - up to 3 most recent administrations Medication Order MAR Action Action Date Dose Rate Site iron sucrose (VENOFER) 100 mg in New Bag 05/01/2013 1:40 PM WINDOW DRESSER 10 0 mg NaCl 0.9% 100 mL IVPB 100 mg, Intravenous, ONE TIME, On Tue05/01/13 at 1310 documented in this encounter Additional Health Concerns Infection Onset Date Last Indicated Resolved Time 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
--- OUTSIDE RECORDS SUMMARY | 2022-03-16 09:48 | XMS_ITS | Encounter Summary ---
:1950 Author Organization [facility] Address [address] [place] [address] Phone Care Team Providers Name Role Phone Olga Lee MD Primary Care Provider Chuckie Mccoy [facility] Unavailable Unavailable Reason for Visit Reason Comments Other Encounter Details Date Type Department Care Team Description 05/09/2013 Telephone [facility] Psychiatry Clinic Fred Hernandez RN Macario [address] [address] [place] [address] [address] [place], [place] [address] [phone] Social History Tobacco Use Types Packs/Day Years Used Date Smoking Tobacco: Former Cigarettes Quit : 08/01/1999 Smokeless Tobacco: Never Alcohol Use Standard Drinks/Week Comments No 0 (1 standard drink = 0.6 oz pure alcoho l) Sex Assigned at Date Recorded Female 06/17/2020 4:53 PM COPY TECHNICIAN documented as of this encounter Miscellaneous Notes Telephone Encounter - Maye Tinsley RN,HIGH SCHOOL SCIENCE TEACHER - 05/09/2013 12:34 PM CST Spoke with patient and she reiterates that she had heart palpitations with the paxil and would like to try a different medication. We agree to a trial of prozac 10 mg daily. TECHNICIAN Telephone Encounter - Priscilla Hernandez RN - [...] the past with poor results. Please advise TECHNICIAN Telephone Encounter - Priscilla Hernandez RN - [...] Pt. 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
--- OUTSIDE RECORDS SUMMARY | 2022-03-16 09:48 | XMS_ITS | Encounter Summary ---
:1950 Author Organization [facility] Address [address] [place], [place] [address] [place] [address] Phone Care Team Providers Name Role Phone Olga Lee MD Primary Care Provider Chuckie Mccoy ADVERTISING DIRECTOR [facility] Unavailable Unavailable Encounter Details Date Type Department Care Team Description 04/26/2013 Hospital Encounter [facility] Speech Language Summervi dioni, Lenka Spencer, SOURCING SPECIALIST, VENDOR MANAGER Need New Address Pathology Chuckie Mccoy, [place] [address] Social History Tobacco Use Types Packs/Day Years Used Date Smoking Tobacco: Former Cigarettes Quit : 08/01/1999 Smokeless Tobacco: Never Alcohol Use Standard Drinks/Week Comments No 0 (1 standard drink = 0.6 oz pure alcoho l) Sex Assigned at Date Recorded Female 06/17/2020 4:53 PM FOUNDRY METALLURGIST documented as of this encounter Medications at [...] capsule mg) by mouth twice daily. Pen [place] 5/16 30G Use as directed three 100 Each 09/20/2013 X 8 MM NotApplicabl times daily. Misc documented as of this encounter Miscellaneous Notes Treatment Summary - Chuckie Mccoy, ADVERTISING DIRECTOR [facility] - 04/26/2013 4:09 PM CST SPEECH-LANGUAGE PATHOLOGY Outpatient 60-Day PLAN OF TREATMENT [facility] / Speech-Language Pathology [Provider Number: [id number]] Name: Maye Li Insurance Carrier/Number: [facility] Employees Injured On Duty Start of Service [...] multiprocess reasoning activities with 90% accuracy. Goals (supervisor intermediates): 1. Pt will independently use compensation techniques [...] this time Speech-Language Pathologist: Chuckie Mccoy M.S., CCC-ADVERTISING DIRECTOR 04/27/2013, 08:12 Pager: [phone] DRY METALLURGIST documented in this encounter Plan of Treatment [...] documented as of this encounter Care Teams Mail Officer Relationship Specialty Start Date End Date Olga Lee MD PCP - General Internal Medicine 01/29/[address] [place] [address] Chuckie Mccoy, ADVERTISING DIRECTOR CCC Speech Pathologist Speech Pathology 04/26/13 documented as of this encounter
--- OUTSIDE RECORDS SUMMARY | 2022-03-16 09:49 | XMS_ITS | Encounter Summary ---
:1950 Author Organization [facility] Address [address] [place] [address] Phone Care Team Providers Name Role Phone Olga Lee MD Primary Care Provider Reason for Visit Reason Comments Hearing Loss Encounter Details Date Type Department Care Team Description 03/15/2013 Office Visit [facility] [facility] Nghia Mujica MD Sensorineural hearing [address] Laura Lizarraga, AUD [address] [place] [address] loss (Primary Dx) P7.200 Rm1, Aud Hrg Aid [place], [place] [address] Social History Tobacco Use Types Packs/Day Years Used Date Smoking Tobacco: Former Cigarettes Quit : 08/01/1999 Smokeless Tobacco: Never Alcohol Use Standard Drinks/Week Comments No 0 (1 standard drink = 0.6 oz pure alcoho l) Sex Assigned at Date Recorded Female 06/17/2020 4:53 PM ASSOCIATE BUYER documented as of this encounter Progress Notes Laura Lizarraga AUD - 03/15/2013 2:07 PM CDT AUDIOLOGY REPORT D: Patient is here today for a hearing aid evaluation appointment (examination and selection). Name and uvgx-ja-sysjk verified. Patient has a gvqv-dq-ehigxjck vxw-co-kytg-frequency sensorineural hearing loss. Patient has not worn [...] binaural Unitron Moxi 6 MARIA DE JESUS (ouvfefxm-gq-nxl-canal) hearing aids with size 0 receivers. Paperwork, including recommendation form, purchase agreement form, and [facility] Brochure was completed, reviewed, signed, and copied for the patient. R: Binaural hearing aid examination and selection completed today. Sensorineural hearing loss. Self-pay. Employee (20% discount). P: Binaural hearing aids will be ordered for the patient. Patient will return in approximately two weeks for a hearing aid fitting appointment. Patient agreed with plan. 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
--- OUTSIDE RECORDS SUMMARY | 2022-03-16 09:49 | XMS_ITS | Encounter Summary ---
:1950 Author Organization [facility] Address [address] [place] [address] Phone Care Team Providers Name Role Phone Pcp, No Primary Care Provider Unavailable Reason for Visit Reason Comments Back Pain Leg Pain Consult/Test/Treat (Routine) - Closed Specialty Diagnoses / Procedures Referred By Contact Refer red To Contact Alternative Medicine / Referral, Self Ankur Duque, INTEGRATIVE HEALTH SELF REFERRAL [place], [place] [address] [place] [employer], [place] [id number] [address] [place] [address] Phone: Referral ID Status Reason Start Date Expiration Date Visits Requ ested Visits Authorized [id number] Closed 10/06/2012 05/22/2013 1 1 Encounter Details Date Type Department Care Team Description 10/10/2012 Office Visit [facility] Pj Daley DC [address] [place] [address] Nonallopathic lesion of lower extremitie s (Primary Dx); Health Clinic Ankur Duque DC [address] [facility] [address] [place] [address] Hip pain [address] , [address] [place], [place] [address] Social History Tobacco Use Types Packs/Day Years Used Date Smoking Tobacco: Former Cigarettes Quit : 08/01/1999 Smokeless Tobacco: Never Alcohol Use Standard Drinks/Week Comments No 0 (1 standard drink = 0.6 oz pure alcoho l) Sex Assigned at Date Recorded Female 06/17/2020 4:53 PM RETAIL SERVICE LEAD MERCHANDISER documented as of this encounter Progress Notes Ankur Duque DC - 10/10/2012 1:16 PM CDT Chiropractic Initial Visit [facility] SUBJECTIVE The patient states [...] thigh documented in this encounter Care Teams Communications Operator Relationship Specialty Start Date End Date Pcp, No PCP - General 04/22/12 01/28/13 [facility] [place] [address] documented as of this encounter
--- OUTSIDE RECORDS SUMMARY | 2022-03-16 09:49 | XMS_ITS | Encounter Summary ---
:1950 Author Organization [facility] Address [address] [place] [address] Phone Care Team Providers Name Role Phone Pcp, No Primary Care Provider Unavailable Encounter Details Date Type Department Care Team Description 12/22/2012 Refill [facility]o [facility] Suma Aranda MD [address] [place] [address] [place], [place] [address] [phone] Social History Tobacco Use Types Packs/Day Years Used Date Smoking Tobacco: Former Cigarettes Quit : 08/01/1999 Smokeless Tobacco: Never Alcohol Use Standard Drinks/Week Comments No 0 (1 standard drink = 0.6 oz pure alcoho l) Sex Assigned at Date Recorded Female 06/17/2020 4:53 PM VP HOME HEALTH documented as of this encounter Miscellaneous Notes [...] documented as of this encounter Care Teams Servomechanism Designer Relationship Specialty Start Date End Date Pcp, No PCP - General 04/22/12 01/28/13 [facility] [place] [address] documented as of this encounter
--- OUTSIDE RECORDS SUMMARY | 2022-03-16 09:49 | XMS_ITS | Encounter Summary ---
:1950 Author Organization [facility] [place] [facility] [place] Address [address] [place] [address] Phone Care Team Providers Name Role Phone Pcp, No Primary Care Provider Unavailable Reason for Visit Reason Comments Back Pain Prior Authorization (Routine) - Closed Specialty Diagnoses / Procedures Referred By Contact Refer red To Contact Alternative Medicine / Diagnoses LBP Steve Dennis Ulrich [facility], Aye F, LAc [address] [place] [address] 82 [address] [place] [address] 825 [place] [address] Fax: Referral ID Status Reason Start Date Expiration Date Visits Requ ested Visits Authorized [id number] Closed 08/11/2012 05/22/2013 1 20 Encounter Details Date Type Department Care Team Description 09/06/2012 Office Visit [facility] [place] Pj Ochoa, CAITLIN [address] [place] [address] 825 [place] [address] LBP (low back pain) Health Clinic Steve Dennis LAc [address] [place] [address] 825 [place] [address] (Primary Dx) [address], [address] [place], [place] [address] Social History Tobacco Use Types Packs/Day Years Used Date Smoking Tobacco: Former Cigarettes Quit : 08/01/1999 Smokeless Tobacco: Never Alcohol Use Standard Drinks/Week Comments No 0 (1 standard drink = 0.6 oz pure alcoho l) Sex Assigned at Date Recorded Female 06/17/2020 4:53 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 documented as of this encounter Patient Instructions Patient InstructionsSteve eDnnis LAc - 09/06/2012 3:16 PM CDT Approaches to reduce overall inflammation were discussed: exercise, EFA, herbal options documented in this encounter Progress Notes Steve Dennis LAc - 09/06/2012 3:14 PM CDT [facility] Acupuncture Treatment Note 2 patient identifiers were [...] Lumbago documented in this encounter Care Teams Burn Crew Member Relationship Specialty Start Date End Date Pcp, No PCP - General 04/22/12 01/28/13 [facility] [place] [address] documented as of this encounter
--- OUTSIDE RECORDS SUMMARY | 2022-03-16 09:49 | XMS_ITS | Encounter Summary ---
:1950 Author Organization [facility] Address [address] [place] [address] Phone Care Team Providers Name Role Phone Pcp, No Primary Care Provider Unavailable Reason for Visit Reason Comments Back Pain Prior Authorization (Routine) - Closed Specialty Diagnoses / Procedures Referred By Contact Refer red To Contact Alternative Medicine / Diagnoses LBP Steve Dennis Ulrich [facility], Aye F, LAc [address] [place] [address] 82 [address] [place] [address] 825 [place] [phone] Fax: Referral ID Status Reason Start Date Expiration Date Visits Requ ested Visits Authorized [id number] Closed 08/11/2012 05/22/2013 1 20 Encounter Details Date Type Department Care Team Description 09/26/2012 Office [place] [facility] [place]a, CAITLIN [address] [place] [address] 825 [place] [address] LBP (low back pain) Health Clinic Steve Dennis LAc [address] [place] [address] 825 [place] [address] (Primary Dx) [address], [address] [place], [place] [address] Social History Tobacco Use Types Packs/Day Years Used Date Smoking Tobacco: Former Cigarettes Quit : 08/01/1999 Smokeless Tobacco: Never Alcohol Use Standard Drinks/Week Comments No 0 (1 standard drink = 0.6 oz pure alcoho l) Sex Assigned at Date Recorded Female 06/17/2020 4:53 PM 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 documented as of this encounter Patient Instructions Patient InstructionsSteve Dennis LAc - 09/26/2012 2:16 PM CDT Practice and application of electroacupuncture was explained to patient documented in this encounter Progress Notes Steve Dennis LAc - 09/26/2012 2:01 PM CDT [facility] Acupuncture Treatment Note 2 patient identifiers [...] Lumbago documented in this encounter Care Teams Buckle Strap Puncher Relationship Specialty Start Date End Date Pcp, No PCP - General 04/22/12 01/28/13 [facility] [place] [facility] [place] [address] documented as of this encounter
--- OUTSIDE RECORDS SUMMARY | 2022-03-16 09:49 | XMS_ITS | Encounter Summary ---
:1950 Author Organization [facility] Address [address] [place] [address] Phone Care Team Providers Name Role Phone Olga Lee MD Primary Care Provider Reason for Visit Reason Onset Date Comments Psychotherapy, Individual 04/02/2013 Encounter Details Date Type Department Care Team Description 04/02/2013 Office Visit [facility] [place] [place] Psych[facility]ry Clinic Berkley Dominguez e stress disorder Renaldo Motta, PhD, LP (Primary Dx) 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 Complexity Statement: The presenting problem is complex and requires immediate attention to patient in high distress. Diagnoses: Woodman I: Acute Stress Disorder Woodman II: Deferred Mental Status Exam: Appearance: Distressed, [...] individual outpatient therapy with Dr. Dominguez of [facility] [place] [place]. Follow-up appointment recommended in 1-2 weeks. Patient will continue follow-up appointme nts with other providers if applicable and as directed by those providers. Patient has a scheduled medication appointment with Maye Tinsley of [facility] [place] [place]. Patient is aware of [facility] and has agreed to call if needed. 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
--- OUTSIDE RECORDS SUMMARY | 2022-03-16 09:49 | XMS_ITS | Encounter Summary ---
:1950 Author Organization [facility] Address [address] [place] [address] Phone Care Team Providers Name Role Phone Olga Lee MD Primary Care Provider Reason for Visit Reason Comments Establish Care Encounter Details Date Type Department Care Team Description 01/29/2013 Office Visit [facility] [facility] Special[place] Olga Lee Diabete s mellitus, type 2 () (Primary Dx); Care Clinic H/O gastric bypass - 2008; [address], [address] 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 [...] at bedtime. 15 mL 5 ??? Pen [place] 5/16 30G X 8 MM NotApplicabl Misc [...] documented in this encounter Procedure Notes Provider, [facility] - 02/04/2013 12:32 PM CDTAssociated Order(s): CARE EVERYWHERE AUTHORIZATION Provider, [facility] - 02/04/2013 12:32 PM CDTAssociated Order(s): [...] 02/04/2013 12:32 PM CDT Procedure Note Provider, [facility] - 02/04/2013 12:32 PM CDTF ormatting [...] athologist Signature Ferritin 7.6 (L) 13.0 - [facility] 150.0 ng/mL Specimen Anatomical Collection Method Collection Time Receive d Time (Source) Location / / Volume Laterality Blood 01/29/2013 12:22 01/29/2013 PM CDT 12:22 PM CDT Olga Lee MD LABORATORY Performing Organization Address City/[facility] [address]/ZIP Code Phon e Number [facility] [place] [address] (ABNORMAL) TRANSFERRIN (INCLUDES TIBC) (01/29/2013 12:22 PM CDT) Analysis Performed At Patho logist Time Signature Transferrin 384 (H) 200 - 360 [facility] mg/dL IBC 572 (H) 226 - 441 [facility] mcg/dL Iron Saturation 5 (L) 20 - 50 % [facility] Percent Specimen Anatomical Collection Method Collection Time Receive d Time (Source) Location / / Volume Laterality Blood 01/29/2013 12:22 01/29/2013 PM CDT 12:22 PM CDT Olga Lee MD LABORATORY Performing Organization Address City/State/ZIP Code Phon e Number [facility] [place] [address] (ABNORMAL) IRON (01/29/2013 12:22 PM CDT) P athologist Signature Iron 31 (L) 37 - 145 [facility] mcg/dL Comment: Test Performed by: [facility] [address] [place] [address] Specimen Anatomical Collection Method Collection Time Receive d Time (Source) Location / / Volume Laterality Blood 01/29/2013 12:22 01/29/2013 PM CDT 12:22 PM CDT Olga Lee MD LABORATORY Performing Organization Address [facility] [address]/ZIP Code Phon e Number [facility] [place] [address] (ABNORMAL) CBC WITH PLATELET (01/29/2013 12:21 PM CDT) Analysis Performed At Patho logist Time Signature WBC 9.0 4.0 - 10.0 [facility] k/cmm RBC 5.07 3.90 - [facility] 5.20 m/cmm Hgb 10.9 (L) 11.5 - [facility] 15.7 g/dL Hematocrit 36.0 34.0 - [facility] 45.0 % MCV 71.0 (L) 80.0 - [facility] 100.0 fL MCH 21.5 (L) 25.0 - [facility] 32.0 pg MCHC 30.3 (L) 31.0 - [facility] 36.0 g/dL RDW 16.9 (H) 11.5 - [facility] 14.5 % Plt 311 150 - 400 [facility] k/cmm MPV 10.4 6.5 - 12.5 [facility] fL NRBC 0.0 0.0 - 0.0 [facility] % CBC Plt [facility] Performed at: Comment: [facility] [address] [place] [address] Specimen Anatomical Collection Method Collection Time Receive d Time (Source) Location / / Volume Laterality Blood 01/29/2013 12:21 01/29/2013 PM CDT 12:21 PM CDT Olga Lee MD LABORATORY Performing Organization Address City/[facility] [address]/ZIP Code Phon e Number [facility] [place] [address] documented in this encounter Visit Diagnoses [...] as of this encounter Care Teams Manager Of Corporate Relationship Specialty Start Date End Date Olga Lee MD PCP - General Internal Medicine 01/29/13 [address] [place] [address] documented as of this encounter
--- OUTSIDE RECORDS SUMMARY | 2022-03-16 09:49 | XMS_ITS | Encounter Summary ---
:1950 Author Organization [facility] Address [address] [place] [address] Phone Care Team Providers Name Role Phone Pcp, No Primary Care Provider Unavailable Reason for Visit Reason Comments Back Pain Prior Authorization (Routine) - Closed Specialty Diagnoses / Procedures Referred By Contact Refer red To Contact Alternative Medicine / Diagnoses LBP Steve Dennis Ulrich [facility] , Aye F, LAc [address] [place] [address] 825 [address] [place] [address] 825 [place] [address] Fax: Referral ID Status Reason Start Date Expiration Date Visits Requ ested Visits Authorized [id number] Closed 08/11/2012 05/22/2013 1 20 Encounter Details Date Type Department Care Team Description 11/28/2012 Office Visit [facility] [place] [address] [place] [address] 1106 [place] [address] LBP (low back pain) Health Clinic Steve Dennis LAc [address] [facility] 825 [place] [address] (Primary Dx) [address] 

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
--- OUTSIDE RECORDS SUMMARY | 2022-03-16 09:49 | XMS_ITS | Encounter Summary ---
:1950 Author Organization [facility] Address [address] [place] [phone] Phone Care Team Providers Name Role Phone Pcp, No Primary Care Provider Unavailable Reason for Visit Reason Comments Back Pain Hip Pain Ankle Pain Prior Authorization (Routine) - Closed Specialty Diagnoses / Procedures Referred By Contact Refer red To Contact Alternative Medicine / Ankur Duque, Ankur Brody, [facility] [place] [address] [place] [address] [place] [address] Phone: Referral ID Status Reason Start Date Expiration Date Visits Requ ested Visits Authorized [id number] Closed 10/10/2012 01/10/2013 1 9 Encounter Details Date Type Department Care Team Description 11/28/2012 Office Visit [facility] Ankur Herrmann 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
--- OUTSIDE RECORDS SUMMARY | 2022-03-16 09:49 | XMS_ITS | Encounter Summary ---
:1950 Author Organization [facility] Address [address] [place] [address] Phone Care Team Providers Name Role Phone Pcp, No Primary Care Provider Unavailable Reason for Visit Prior Authorization (Routine) - Closed Specialty Diagnoses / Procedures Referred By Contact Refer red To Contact Alternative Medicine / Diagnoses LBP Steve Dennis Ulrich [facility], Aye F, LAc [address] [place] [address] [address] [place] [address] [place] [phone] Fax: Referral ID Status Reason Start Date Expiration Date Visits Requ ested Visits Authorized [id number] Closed 08/11/2012 05/22/2013 1 20 Encounter Details Date Type Department Care Team Description 10/05/2012 Office Visit [facility] Pj Ochoa, CAITLIN [address] [place] [phone] LBP (low back pain) Health [facility] Steve Dennis LAc [address] [place] [address] 825 [place] [address] (Primary Dx) [address] [place], [place] [address] Social History Tobacco Use Types Packs/Day Years Used Date Smoking Tobacco: Former Cigarettes Quit : 08/01/1999 Smokeless Tobacco: Never Alcohol Use Standard Drinks/Week Comments No 0 (1 standard drink = 0.6 oz pure alcoho l) Sex Assigned at Date Recorded Female 06/17/2020 4:53 PM TIE 

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
--- OUTSIDE RECORDS SUMMARY | 2022-03-16 09:49 | XMS_ITS | Encounter Summary ---
:1950 Author Organization [facility] Address [address] [facility] [place] [address] Phone Care Team Providers Name Role Phone Olga Lee MD Primary Care Provider Reason for Visit Reason Onset Date Comments Call Back 04/17/2013 Encounter Details Date Type Department Care Team Description 04/17/2013 Telephone [facility] Diabetes & Endo Clinic Rita Balderas, Call Back [address] [place] Ange RN S 1.300 [address] [place], [place] [address] [place] [address] Social History Tobacco Use Types Packs/Day Years Used Date Smoking Tobacco: Former Cigarettes Quit : 08/01/1999 Smokeless Tobacco: Never Alcohol Use Standard Drinks/Week Comments No 0 (1 standard drink = 0.6 oz pure alcoho l) Sex Assigned at Date Recorded Female 06/17/2020 4:53 PM MEMORIAL MARKER DESIGNER documented as of this encounter Miscellaneous Notes Telephone Encounter - Rita Balderas RN - 04/17/2013 10:50 AM MEMORIAL MARKER DESIGNER D: see data below. A: Chart reviewed, pt was last seen by Dr. Aranda 10/04/12. Noted two missed appointments on 11/01/12 and 04/09/13. R: Telephone call placed to Tiffany at [facility] and nurse also spoke with patient, Maye. They indicated that patient is requesting a prescription from Dr. Aranda for a wig r/t Alopecia. Patient was agreeable to appointment to see Dr. Aranda tomorrow, 04/18/13 @ 11:30am for follow up needed and to discuss request. P: Patient and Tiffany had no further questions. Will have front end application developer schedule appointment. Rita Balderas RN, 04/17/2013 10:58 AM RIAL MARKER DESIGNER Telephone Encounter - Rita Balderas RN - 04/17/2013 10:49 AM MEMORIAL MARKER DESIGNER Message copied by RITA BALDERAS on TueApr 17, 2013 10:49 AM ------ Message from: DENNISE SANTOYO Created: TueApr 17, 2013 10:18 AM Regarding: call back request Contact: Taken by: Dennise Santoyo, 04/17/2013 10:19 AM, 10:19 [id number] Maye Li 1950 PCP: Olga Lee MD Patient can be reached at: [phone] Reason for Call: Tiffany from [facility] calling to request a Rx from Dr. Manoj peterson for Alopecia. ------ RIAL MARKER DESIGNER documented in this encounter Plan of Treatment Not on filedocumented as of this encounter Visit Diagnoses Not on filedocumented in this encounter Additional Health Concerns Infection Onset Date Last Indicated Resolved Time MDRO (Multiple Drug Resistant 11/13/2012 11/13/2012 7:13 AM CDT Organism) documented as of this encounter Care Teams Phlebotomy Program Coordinator Relationship Specialty Start Date End Date Olga Lee MD PCP - General Internal Medicine 01/29/13 [address] [place] [address] documented as of this encounter
--- OUTSIDE RECORDS SUMMARY | 2022-03-16 09:49 | XMS_ITS | Encounter Summary ---
:1950 Author Organization [facility] Address [address] [place] [address] Phone Care Team Providers Name Role Phone Pcp, No Primary Care Provider Unavailable Reason for Visit Reason Comments Diabetes Encounter Details Date Type Department Care Team Description 10/04/2012 Office Visit [facility] [place] [place] [facility] & Suma Willard MD Diabetes mellitus, type 2 () (Primary Dx); Clinic [address] Iron deficiency anemia [address] [place], [place] S 1.300 [address] [place], [place] [address] [phone] Social History Tobacco Use Types Packs/Day Years Used Date Smoking Tobacco: Former Cigarettes Quit : 08/01/1999 Smokeless Tobacco: Never Alcohol Use Standard Drinks/Week Comments No 0 (1 standard drink = 0.6 oz pure alcoho l) Sex Assigned at Date Recorded Female 06/17/2020 4:53 PM ENVIRONMENTAL SERVICES PROJECT MANAGER documented as of this encounter Last [...] hourbefore breakfast and evening meal. - Pen [place] 5/16 30G X 8 MM NotApplicabl [facility]; Use as directed three times daily. 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 She primarily speaks Italian, is , and lives with and has [...] Suma Aranda MD, 10/04/2012 12:39 PM Staff Channel Sales Manager I have spent 25 minutes with this [...] DIABETES SUPPLIES - INSULIN/MED DELIVERY; Dispense: Pen [place]: NovoFine 30 HPI Maye iL is a 61 y.o. female with PMH [...] DIABETES SUPPLIES - INSULIN/MED DELIVERY Dispense: Pen [place]: NovoFine 30 ??? metformin 500 mg oral [...] CDT) athologist Signature Hemoglobin A1C 9.0 (H) [facility] [place] [place] [facility] Estimated [address] [facility] [place] [place] [facility] Average Glucose Specimen (Source) Anatomical Collection Method Collection Time Re ceived Time Location / / Volume Laterality Blood 10/04/2012 11:00 AM CDT Suma Aranda MD POINT OF CARE Performing Organization Address City/[facility] Code Phon e Number [facility] [place] [place] MAIN CAMPUS - POINT OF [address] [place], [place] [address] CARE [facility] [place] [place] [facility] [address] [place] [address], [place] (ABNORMAL) POC GLUCOSE (10/04/2012 10:47 AM CDT) athologist Signature POC Glucose 220 (H) 70 - 100 [facility] [place] [place] [facility] mg/dL Specimen (Source) Anatomical Collection Method Collection Time Re ceived Time Location / / Volume Laterality Blood 10/04/2012 10:47 AM CDT Suma Aranda MD LABORATORY Performing Organization Address City/[facility] Code Phon e Number [facility] [place] [place] MAIN CAMPUS - POINT OF [address] [place], [place] [address] CARE [facility] [place] [place] [facility] [address] [place] [address], [place] documented in this encounter Visit Diagnoses Diagnosis Diabetes mellitus, type 2 () - Primary Type II or unspecified type diabetes karin litus without mention of complication, not stated as uncontrolled Iron deficiency anemia Iron deficiency anemia, unspecified documented in this encounter Care Teams V Belt Coverer Relationship Specialty Start Date End Date Pcp, No PCP - General 04/22/12 01/28/13 [facility] [place] [place] [address] documented as of this encounter
--- OUTSIDE RECORDS SUMMARY | 2022-03-16 09:49 | XMS_ITS | Encounter Summary ---
:1950 Author Organization [facility] Address [address] [place] [phone] Phone Care Team Providers Name Role Phone Olga Lee MD Primary Care Provider Reason for Visit Reason Onset Date Comments Standard Diagnostic Assessment 04/16/2013 Encounter Details Date Type Department Care Team Description 04/16/2013 Office Visit [facility] Psychiatry Clinic Berkley Dominguez e stress disorder Renaldo Motta, PhD, LP (Primary Dx) [address] S[address] [place], [place] [address] Social History Tobacco Use Types Packs/Day Years Used Date Smoking Tobacco: Former Cigarettes Quit : 08/01/1999 Smokeless Tobacco: Never Alcohol Use Standard Drinks/Week Comments No 0 (1 standard drink = 0.6 oz pure alcoho l) Sex Assigned at Date Recorded Female 06/17/2020 4:53 PM MANAGER EPIC documented as of this encounter Progress Notes Restricted notes were excluded Berkley Dominguez, PhD, LP - 04/16/2013 12:46 PM CST Psychiatry Standard Diagnostic Assessment Length of Session: 60 minutes Sound Engineering Technician: No Type of Therapy: Individual Standard Diagnostic Assessment (Berkley Dominguez, PhD, LP, Senior Clinical Psychologist, conducted intake). Diagnoses: [place] I: Acute Stress Disorder [place] II: Deferred Mental Status Exam: Appearance: Distressed, [...] individual outpatient therapy with Dr. Dominguez of [facility]. Follow-up appointment recommended in 1-2 weeks. Patient will continue follow-up a ppointments with other providers if applicable and as directed by those providers. Patient has a scheduled medication appointment with Maye Tinsley RN, CITY COMPTROLLER of [facility]. Patient is aware of APS and has agreed to call if needed. Berkley Dominguez, PhD, LP Senior Clinical Psychologist GER EPIC documented in this encounter Plan of Treatment Not on filedocumented as of this encounter Visit Diagnoses Diagnosis Acute stress disorder - Primary Other acute reactions to stress documented in this encounter Additional Health Concerns Infection Onset Date Last Indicated Resolved Time MDRO (Multiple Drug Resistant 11/13/2012 11/13/2012 7:13 AM CDT Organism) documented as of this encounter Care Teams Accounts Receivable Accountant Relationship Specialty Start Date End Date Olga Lee MD PCP - General Internal Medicine 01/29/[address] [place] [address] documented as of this encounter
--- OUTSIDE RECORDS SUMMARY | 2022-03-16 09:49 | XMS_ITS | Encounter Summary ---
:1950 Author Organization [facility] Address [address] [place] [address] Phone Care Team Providers Name Role Phone Olga Lee MD Primary Care Provider Reason for Visit Reason Comments Hearing Problem Encounter Details Date Type Department Care Team Description 03/06/2013 Office Visit [facility] Audiology Clini c Nghia Mujica, Sensorineural hearing [address] MD loss (Primary Dx) P7.[address] [place], [place] [address] Social History Tobacco Use Types Packs/Day Years Used Date Smoking Tobacco: Former Cigarettes Quit : 08/01/1999 Smokeless Tobacco: Never Alcohol Use Standard Drinks/Week Comments No 0 (1 standard drink = 0.6 oz pure alcoho l) Sex Assigned at Date Recorded Female 06/17/2020 4:53 PM INTENSIVE CARE AMBULANCE PARAMEDIC documented as of this encounter Progress Notes [...] hearing at 250 Hz, sloping to a [id number] sensorineural hearing loss 500-8000 Hz. Speech receptionist clerk thresholds consistent with pure tone averages bilaterally. Word recognition was pretty good bilaterally at a loud presentation level. Tympanometry was normal by gradient with normal admittance bilaterally. RESPONSE (R): Sensorineural hearing loss. Tympanometry consistent with normal eardrum mobility bilaterally. Discussed results with the patient. Hearing aid candidate. She expressed interest in this. PLAN (P): Patient to see ENT at [facility] next today (she scheduled both). Pending medical clearance,patient could be scheduled with Audiology for a hearing aid evaluation. Josué Oliver, [facility] Staff Nut Tapper documented in this encounter Plan of Treatment Not on filedocumented as of this encounter Visit Diagnoses Diagnosis Sensorineural hearing loss - Primary Sensorineural hearing loss, unspecified documented in this encounter Additional Health Concerns Infection Onset Date Last Indicated Resolved Time MDRO (Multiple Drug Resistant 11/13/2012 11/13/2012 7:13 AM CDT Organism) documented as of this encounter Care Teams Weather Stripper Relationship Specialty Start Date End Date Olga Lee MD PCP - General Internal Medicine 01/29/13 [address] [place] [address] documented as of this encounter
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
--- OUTSIDE RECORDS SUMMARY | 2022-03-16 09:49 | XMS_ITS | Encounter Summary ---
:1950 Author Organization [facility] Address [address] [place] [address] Phone Care Team Providers Name Role Phone Pcp, No Primary Care Provider Unavailable Reason for Visit Reason Onset Date Comments Refill Request 11/08/2012 Zo Encounter Details Date Type Department Care Team Description 11/08/2012 Refill [facility] Diabetes & Endo Suma Aranda MD Refill Request ([place]) Clinic [address] [place], [place] S 1.300 [address] [place], [place] [address] [phone] Social History Tobacco Use Types Packs/Day Years Used Date Smoking Tobacco: Former Cigarettes Quit : 08/01/1999 Smokeless Tobacco: Never Alcohol Use Standard Drinks/Week Comments No 0 (1 standard drink = 0.6 oz pure alcoho l) Sex Assigned at Date Recorded Female 06/17/2020 4:53 PM 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 Last OV 10/04/12. A: [place] to Dr. Aranda to advise. Dianna Nunn R.N. 11/08/2012 11:17 documented in this encounter Plan of Treatment Not on filedocumented as of this encounter Visit Diagnoses Not on filedocumented in this encounter Care Teams Marine Pilot Relationship Specialty Start Date End Date Pcp, No PCP - General 04/22/12 01/28/13 [facility] [place] [address] documented as of this encounter
--- OUTSIDE RECORDS SUMMARY | 2022-03-16 09:49 | XMS_ITS | Encounter Summary ---
:1950 Author Organization [facility] Address [address] [place] [address] Phone Care Team Providers Name Role Phone Olga Lee MD Primary Care Provider Reason for Visit Reason Comments Hearing Loss hearing aid fitting Encounter Details Date Type Department Care Team Description 03/30/2013 Office Visit [facility] [place] [facility] [place] Nghia Mujica MD Sensorineural hearing [address] Laura Lizarraga, AUD [address] [place] [address] loss (Primary Dx) P7.200 Rm1, Aud Hrg Aid [place], [place] [address] Social History Tobacco Use Types Packs/Day Years Used Date Smoking Tobacco: Former Cigarettes Quit : 08/01/1999 Smokeless Tobacco: Never Alcohol Use Standard Drinks/Week Comments No 0 (1 standard drink = 0.6 oz pure alcoho l) Sex Assigned at Date Recorded Female 06/17/2020 4:53 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 Name and nnvb-tk-nsuhl verified. Patient has a sensorineural hearing loss. [...] details. Patient did well. R: Binaural digital wbyupe-grz-ygm hearing aid fitting completed. Sensorineural hearing loss (389.10). Patient paid at the help desk support ($2240.00). P: Patient to proceed with the hearing aid adjustment/trial period. Patient to return in 2-3 weeks for a review appointment. Patient agreed with plan. Josué Oliver, [facility] Staff Medical Physics Teacher MOTIVE SOFTWARE ENGINEER documented in this encounter Plan of Treatment Not on filedocumented as of this encounter Visit Diagnoses Diagnosis Sensorineural hearing loss - Primary Sensorineural hearing loss, unspecified documented in this encounter Additional Health Concerns Infection Onset Date Last Indicated Resolved Time MDRO (Multiple Drug Resistant 11/13/2012 11/13/2012 7:13 AM CDT Organism) documented as of this encounter Care Teams Groover And Turner Relationship Specialty Start Date End Date Olga Lee MD PCP - General Internal Medicine 01/29/13 [address] [place] [address] documented as of this encounter
--- OUTSIDE RECORDS SUMMARY | 2022-03-16 09:49 | XMS_ITS | Encounter Summary ---
:1950 Author Organization [facility] Address [address] [place] [address]. [place] [address] Phone Care Team Providers Name Role Phone Pcp, No Primary Care Provider Unavailable Reason for Visit Reason Comments UTI Encounter Details Date Type Department Care Team Description 11/08/2012 Hospital Encounter [facility] Brock Winkler PA-C Need New Practice Location UTI (urinary tract [address] [place], [place] [address]Jose Manuel MD [address] [place] [address] Mail Code R1 [place], [place] [address] infection) R[address] [place] [address] Social History Tobacco Use Types Packs/Day Years Used Date Smoking Tobacco: Former Cigarettes Quit : 08/01/1999 Smokeless Tobacco: Never Alcohol Use Standard Drinks/Week Comments No 0 (1 standard drink = 0.6 oz pure alcoho l) Sex Assigned at Date Recorded Female 06/17/2020 4:53 PM GLUE BONE DRIER documented as of this encounter Last Filed [...] Information Follow up With Details Comments Contact [facility] DIRECT CARE CL As needed [facility] [address] [place] [address] P5.600 [facility] [address] Please call to make your appointment. You can call your [place] clinic to make an appointment Tuesday-Tuesday 7:30am-9:00pm and Tuesday and Tuesday 8:30am-5:00pm. Existing appointments at [facility] for the next 2 months: *Note - this does not include Day Treatment or Partial Hospital appointments: October 2012Tuesday 1 2 3 4 5 6 7 8 9 10 11 12 OFFICE VISIT - DIABETES 11:00 AM (20 min.) Suma Aranda MD [facility] Clinic 13 14 15 16 17 18 19 20 21 22 23 24 25 26 27 28 29 Happy Birthday! 30 If you are unable to attend or if you are going to be late, please call the service or clinic. [facility] Buildings and Entrances: ?? P = Purple Building - use the [address] or [address] entrance ?? R = Red Building - use the [address] entrance ?? O = [place] Building - use the Blue or Red [...] Emergency Department. ?? Emergency Department Financial Counseling [phone] (7:30am to Midnight, Tuesday - Tuesday) ?? Main [facility] Financial Counseling [phone] . AttachmentsThe following attachments cannot be sent through Care Everywhere. BLADDER INFECTION, FEMALE (ADULT) (KYRGYZ)documented in this encounter Medications at Time of [...] subcutaneously at subcutaneous SoloStar bedtime. Pen Pen [place] 10/05 30G X Use as directed three [...] 11/11/2012 9:26 AM CDT Addendum to last [facility] note:Re: positive urine culture results: Pt treated [...] days, pyridium, increase fluids, rest, f/u with CERTIFIED COURT INTERPRETER as needed. -Return to care if symptoms [...] (ABNORMAL) URINE CULTURE (11/08/2012 4:27 PM CDT) [facility] Method Time Signature Urine Cult [facility] ? PROCEDURE: MB Urine Culture [...] City/State/ZIP Code Phon e Number [facility] [place] [address] [place] [address] (ABNORMAL) POC URINE MULTISTIX 10 (11/08/2012 4:10 PM CDT) [facility] gist Method Time Signature Urine Glucose Negative Negative [facility] Bili UA Negative Negative [facility] Ketones Negative Neg - Trace [facility] Specific Codorus 1.025 1.003 - [facility] 1.030 Blood Ur Moderate (A) Neg - Trace [facility] PH Urine 5.5 5.0 - 7.0 [facility] Protein Ur Negative Neg - 30 [facility] mg/dL Urobilinogen 0.2 0.2 - 1.0 [facility] Nitrite Ur Negative Negative [facility] Leuk Est Small (A) Negative [facility] Specimen (Source) Anatomical Collection Method Collection Time Re ceived Time Location / / Volume Laterality Blood 11/08/2012 4:10 PM CDT Brock Winlker PA-C POINT OF CARE Performing Organization Address City/State/ZIP Code Phon e Number [facility] - POINT OF [address] [place], [place] [address] CARE [facility] [address] [place] [address], documented in this encounter Visit Diagnoses Diagnosis UTI (urinary tract infection) - Primary Urinary tract infection, site not specif ied documented in this encounter Care Teams Universal Grinder Operator Relationship Specialty Start Date End Date Pcp, No PCP - General 04/22/12 01/28/13 [facility] [place] [address] documented as of this encounter
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
--- OUTSIDE RECORDS SUMMARY | 2022-03-16 09:49 | XMS_ITS | Encounter Summary ---
:1950 Author Organization [facility] Address [address] [place] [address] Phone Care Team Providers Name Role Phone Olga Lee MD Primary Care Provider Reason for Visit Reason Onset Date Comments Glasses Prescription 03/19/2013 Encounter Details Date Type Department Care Team Description 03/19/2013 Telephone [facility] Cordell Costello, Glasses Prescription [facility] [address] [place], [place] [address] [facility] [phone] [address] [place] [address] Social History Tobacco Use Types Packs/Day Years Used Date Smoking Tobacco: Former Cigarettes Quit : 08/01/1999 Smokeless Tobacco: Never Alcohol Use Standard Drinks/Week Comments No 0 (1 standard drink = 0.6 oz pure alcoho l) Sex Assigned at Date Recorded Female 06/17/2020 4:53 PM CONSERVATION PLANNER documented as of this encounter Miscellaneous Notes Telephone Encounter - Cordell Costello COMT - 03/19/2013 2:07 PM CDT Caller requesting most recent gls rx be faxed to Rep at [phone]. Rx printed and given to java front end web developer to fax. Telephone Encounter - Cordell Costello COMT - 03/19/2013 2:07 PM CDT Message copied by CORDELL COSTELLO on TueMar 19, 2013 2:07 PM ------ Message from: WOOD VAZQUEZ Created: TueMar 19, 2013 1:40 PM Regarding: glass rx Please fax copy of pt glass rx to [employer] ------ documented in this encounter Plan of Treatment Not on filedocumented as of this encounter Visit Diagnoses Not on filedocumented in this encounter Additional Health Concerns Infection Onset Date Last Indicated Resolved Time MDRO (Multiple Drug Resistant 11/13/2012 11/13/2012 7:13 AM CDT Organism) documented as of this encounter Care Teams Cantilever Crane Operator Relationship Specialty Start Date End Date Olga eLe MD PCP - General Internal Medicine 01/29/[address] [place] [address] documented as of this encounter
--- OUTSIDE RECORDS SUMMARY | 2022-03-16 09:49 | XMS_ITS | Encounter Summary ---
:1950 Author Organization [facility] Address [address] [place] [address] Phone Care Team Providers Name Role Phone Olga Lee MD Primary Care Provider Reason for Visit Reason Comments Follow-up hearing aid review Encounter Details Date Type Department Care Team Description 04/12/[address] [facility] Audiology Clini c Nghia Mujica MD Sensorineural hearing [address] Laura Lizarraga, AUD [address] [place] [address] loss (Primary Dx) P7.200 Rm1, Aud Hrg Aid [place], [place] [address] Social History Tobacco Use Types Packs/Day Years Used Date Smoking Tobacco: Former Cigarettes Quit : 08/01/1999 Smokeless Tobacco: Never Alcohol Use Standard Drinks/Week Comments No 0 (1 standard drink = 0.6 oz pure alcoho l) Sex Assigned at Date Recorded Female 06/17/2020 4:53 PM COMPUTER SYSTEM VALIDATION SPECIALIST documented as of this encounter Progress Notes Laura Lizarraga AUD - 04/12/2013 2:06 PM CST AUDIOLOGY REPORT D: Patient returns to Audiology today for a hearing aid review appointment. Name and mhpr-ec-prapj verified. Patient was fit with binaural Unitron Moxi 6 kmcdqrnw-zy-hkg-canal hearing aids 03/30/2013. Patient reports she loves the new hearing aids and wears them from the time she gets up until the nighttime. She is amazed by how much she was missing before and is now hearing again. The only things that sound a little loud are her toilet and straight line press setter, but not uncomfortable. She reports she can [...] in quiet & 12-14% of the timein [id number]). No program changes needed or made. R: Hearing aid review completed. Sensorineural hearing loss. Non-billable encounter. Patient is doing very well with her new hearing aids and really seems happy to have them. P: Return in 3 months, sooner if needed. Patient agreed with plan. Josué Oliver, [facility] Staff Saturator UTER SYSTEM VALIDATION SPECIALIST documented in this encounter Plan of Treatment Not on filedocumented as of this encounter Visit Diagnoses Diagnosis Sensorineural hearing loss - Primary Sensorineural hearing loss, unspecified documented in this encounter Additional Health Concerns Infection Onset Date Last Indicated Resolved Time MDRO (Multiple Drug Resistant 11/13/2012 11/13/2012 7:13 AM CDT Organism) documented as of this encounter Care Teams Certification And Selection Specialist Relationship Specialty Start Date End Date Olga Lee MD PCP - General Internal Medicine 01/29/13 [address] [place] [address] documented as of this encounter
--- OUTSIDE RECORDS SUMMARY | 2022-03-16 09:49 | XMS_ITS | Encounter Summary ---
:1950 Author Organization [facility] Address [address] [place] [address] Phone Care Team Providers Name Role Phone Pcp, No Primary Care Provider Unavailable Reason for Visit Reason Comments Back Pain Prior Authorization (Routine) - Closed Specialty Diagnoses / Procedures Referred By Contact Refer red To Contact Alternative Medicine / Diagnoses LBP Steve Dennis Ulrich [facility], Aye F, LAc [address] [place] [address] 82 [address] [place] [address] 825 [place] [address] Fax: Referral ID Status Reason Start Date Expiration Date Visits Requ ested Visits Authorized [id number] Closed 08/11/2012 05/22/2013 1 20 Encounter Details Date Type Department Care Team Description 10/10/2012 Office Visit [facility] Pj Ochoa, CAITLIN [address] [place] [address] 825 [place] [address] LBP (low back pain) Health Clinic Steve Dennis LAc [address] [place] [address] 825 [place] [address] (Primary Dx) [address], [address] [place], [place] [address] Social History Tobacco Use Types Packs/Day Years Used Date Smoking Tobacco: Former Cigarettes Quit : 08/01/1999 Smokeless Tobacco: Never Alcohol Use Standard Drinks/Week Comments No 0 (1 standard drink = 0.6 oz pure alcoho l) Sex Assigned at Date Recorded Female 06/17/2020 4:53 PM SALES ORDER COORDINATOR documented as of this encounter Patient Instructions Patient InstructionsSteve Dennis LAc - 10/10/2012 1:56 PM CDT Tx plan was discussed and patient was encouraged to follow plan and suggested treatment frequency for maximum effect. documented in this encounter Progress Notes Steve Dennis LAc - 10/10/2012 1:55 PM CDT [facility] Acupuncture Treatment Note 2 patient [...] Lumbago documented in this encounter Care Teams Washroom Operator Relationship Specialty Start Date End Date Pcp, No PCP - General 04/22/12 01/28/13 [facility] [place] [address] documented as of this encounter
--- OUTSIDE RECORDS SUMMARY | 2022-03-16 09:49 | XMS_ITS | Encounter Summary ---
:1950 Author Organization [facility] Address [address] [place] [address] Phone Care Team Providers Name Role Phone [...] at Date Recorded Female 06/17/2020 4:53 PM SHIFT FOREMAN documented as of this encounter Plan of Treatment Not on filedocumented as of this encounter Visit Diagnoses Not on filedocumented in this encounter Additional Health Concerns Infection Onset Date Last Indicated Resolved Time MDRO (Multiple Drug Resistant 11/13/2012 11/13/2012 7:13 AM CDT Organism) documented as of this encounter Care Teams Account Analyst Relationship Specialty Start Date End Date Pcp, No PCP - General 04/22/12 01/28/13 [facility] [place] [address] Olga Lee MD PCP - General Internal Medicine 01/29/13 [address] [place], [place] [id number] documented as of this encounter
--- OUTSIDE RECORDS SUMMARY | 2022-03-16 09:49 | XMS_ITS | Encounter Summary ---
:1950 Author Organization [facility][Note 3] Address [address] [place] [address] Phone Care Team Providers Name Role Phone Pcp, No Primary Care Provider Unavailable Reason for Visit Reason Comments Back Pain Prior Authorization (Routine) - Closed Specialty Diagnoses / Procedures Referred By Contact Refer red To Contact Alternative Medicine / Diagnoses LBP Steve Dennis Ulrich [facility] , Aye F, LAc [address] [place] [address] 8[address] [place] [address] 825 [place] [address] Fax: Referral ID Status Reason Start Date Expiration Date Visits Requ ested Visits Authorized [id number] Closed 08/11/2012 05/22/2013 1 20 Encounter Details Date Type Department Care Team Description 11/21/2012 Office Visit [facility] [place] [address] [place] [address] 1106 [place] [address] LBP (low back pain) [facility] Steve Dennis LAc [address] [facility] 825 [place] [address] (Primary Dx) [address] [facility] 110[address] [place], [place] [address] Social History Tobacco Use Types Packs/Day Years Used Date Smoking Tobacco: Former Cigarettes Quit : 08/01/1999 Smokeless Tobacco: Never Alcohol Use Standard Drinks/Week Comments No 0 (1 standard drink = 0.6 oz pure alcoho l) Sex Assigned at Date Recorded Female 06/17/2020 4:53 PM TEST ADMINISTRATOR documented as of this encounter Patient Instructions Patient InstructionsSteve Dennis LAc - 11/21/2012 1:35 PM CDT RTC PRN documented in this encounter Progress Notes Steve Dennis LAc - 11/21/2012 1:34 PM CDT [facility] Acupuncture Treatment Note 2 patient identifiers were [...] as of this encounter Care Teams Rehabilitation Tech Relationship Specialty Start Date End Date Pcp, No PCP - General 04/22/12 01/28/13 [facility] [place] [address] documented as of this encounter
--- OUTSIDE RECORDS SUMMARY | 2022-03-16 09:49 | XMS_ITS | Encounter Summary ---
:1950 Author Organization [facility] Address [address] [place] [address] Phone Care Team Providers Name Role Phone Olga Lee MD Primary Care Provider Reason for Visit Reason Comments Diabetes DM with insulin treated Dr Arabella Aranda A1c was 9.0 on 10/04/2012 BS # [phone] [id number] past 1 week Comprehensive Eye Exam Encounter Details Date Type Department Care Team Description 03/15/2013 Office Visit [facility] Ophthalmology Michael Tierney Myozulma a with Clinic Jacques Bell MD astigmatism and [address] [facility], [address] [facility] presbyopia (Primary [place], [place] [address] 4 Mail Code P7 Dx) [phone] [place] [address] Social History Tobacco Use Types Packs/Day Years Used Date Smoking Tobacco: Former Cigarettes Quit : 08/01/1999 Smokeless Tobacco: Never Alcohol Use Standard Drinks/Week Comments No 0 (1 standard drink = 0.6 oz pure alcoho l) Sex Assigned at Date Recorded Female 06/17/2020 4:53 PM BUTTONHOLE MACHINE OPERATOR documented as of this encounter Progress Notes Michael Tierney MD - 03/15/2013 4:35 PM CDT Chief Complaint Patient presents with ??? Diabetes DM with insulin treated Dr Suma Aranda A1c was 9.0 on 10/04/2012 BS # [phone] past 1 week ??? Comprehensive Eye Exam History of Present Illness: 1.Diabetic x 15 years. Tearing periodically, Impression and Plan: 1.no Retinopathy seen 2.no lid problem causing tearing. 3.Rx given Patient alert and oriented x3 with normal mood and affect. Diagnosis and treatment plan were discussed with patient and patient verbalized understanding. I have reviewed all data entered by the traffic technician including the medical, social and family [...] documented as of this encounter Care Teams Warranty Manager Relationship Specialty Start Date End Date Olga Lee MD PCP - General Internal Medicine 01/29/13 [facility] [place] [address] documented as of this encounter
--- OUTSIDE RECORDS SUMMARY | 2022-03-16 09:49 | XMS_ITS | Encounter Summary ---
:1950 Author Organization [facility] Address [address] [place] [address] [place] [address] Phone Care Team Providers Name Role Phone Pcp, No Primary Care Provider Unavailable Reason for Visit Reason Comments Hip Pain Back Problem Prior Authorization (Routine) - Closed Specialty Diagnoses / Procedures Referred By Contact Refer red To Contact Alternative Medicine / Ankur Duque Backu s, Benjamin E, [facility] [place] [address] [place] [address] [place] [address] Phone: Referral ID Status Reason Start Date Expiration Date Visits Requ ested Visits Authorized [id number] Closed 10/10/2012 01/10/2013 1 9 Encounter Details Date Type Department Care Team Description 11/21/2012 Office Visit [facility] Ankur Herrmann 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, [address] [place] Nec k pain; [address] Nonallopathic lesion of lower extremitie s; [place], [place] [address] [place], [place] Hip pain [phone] Social History Tobacco Use Types Packs/Day Years Used Date Smoking Tobacco: Former Cigarettes Quit : 08/01/1999 Smokeless Tobacco: Never Alcohol Use Standard Drinks/Week Comments No 0 (1 standard drink = 0.6 oz pure alcoho l) Sex Assigned at Date Recorded Female 06/17/2020 4:53 PM NANNY BABYSITTER documented as of this encounter Progress Notes Ankur Duque DC - 11/21/2012 1:01 PM CDT Chiropractic follow up Visit [facility] [place] SUB[facility]IVE The patient [...] documented as of this encounter Care Teams Aerial Photographer Relationship Specialty Start Date End Date Pcp, No PCP - General 04/22/12 01/28/13 [facility] [place] [address] documented as of this encounter
--- OUTSIDE RECORDS SUMMARY | 2022-03-16 09:49 | XMS_ITS | Encounter Summary ---
:1950 Author Organization [facility] Address [address] [place] [address] Phone Care Team Providers Name Role Phone Olga Lee MD Primary Care Provider Reason for Visit Reason Comments Hearing Loss Encounter Details Date Type Department Care Team Description 03/06/2013 Office [place] [facility] [place] [facility] Nghia Mujica, Hearing loss (Primary [place] MD Dx) [address], [address] [place], [place] [address] Social History Tobacco Use Types Packs/Day Years Used Date Smoking Tobacco: Former Cigarettes Quit : 08/01/1999 Smokeless Tobacco: Never Alcohol Use Standard Drinks/Week Comments No 0 (1 standard drink = 0.6 oz pure alcoho l) Sex Assigned at Date Recorded Female 06/17/2020 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 DIAGNOSIS: Sensorineural hearing loss, symmetric. No issues related to her diabetes with respect to the hearing loss. Nghia Mujica MD [facility] Staff Physician Otolaryngology Service Received in Artificial Inseminator: 03/06/2013 10:44 M: 03/06/2013 19:58 lc /can Voice ID: [id number] Document ID: [id number] Nghia Mujica MD - 03/06/2013 7:49 PM CDT [facility] [address] [facility], [address] [place] [address] [phone] (fax) MEDREC#: [id number] PATIENT: AGAPITO WORLEY : 1950 DATE: 03/06/2013 [...] Most of her care is elsewhere, through [facility] and [facility]. Nghia Mujica MD FACS Staff Physician Otolaryngology Service Received in Artificial Inseminator: 03/06/2013 10:41 M: 03/06/2013 19:49 [facility]/ Voice ID: [id number] Document ID: [id number] Nghia Mujica MD - 03/06/2013 10:38 AM [...] documented as of this encounter Care Teams Coil Strapper Relationship Specialty Start Date End Date Olga Lee MD PCP - General Internal Medicine 01/29/13 [address] [place] [address] documented as of this encounter
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
--- OUTSIDE RECORDS SUMMARY | 2022-03-16 09:50 | XMS_ITS | Encounter Summary ---
:1950 Author Organization [facility] Address [address] [place] [address] Phone Care Team Providers Name Role Phone Pcp, No Primary Care Provider Unavailable Reason for Visit Reason Comments Sinusitis chronic Rash Encounter Details Date Type Department Care Team Description 04/22/2012 Hospital Encounter [facility] Urgent Care Brock Winkler PA-C Need New Practice Location SINUS INFECTION; [address] [place] [address] Benji Muñoz APRN, LOCKS TENDER Needs New Practice Address [address] [place] [address] Social History Tobacco Use Types Packs/Day Years Used Date Smoking Tobacco: Never Alcohol Use Standard Drinks/Week Comments No 0 (1 standard drink = 0.6 oz pure alcoho l) Sex Assigned at Date Recorded Female 06/17/2020 4:53 PM MEDICAL TECHNICIAN ASSISTANT documented as of this encounter Last Filed Vital Signs Vital Sign Reading Time Taken Comments Blood Pressure 145/74 04/22/2012 5:32 PM MEDICAL TECHNICIAN ASSISTANT Pulse 85 04/22/2012 5:32 PM MEDICAL TECHNICIAN ASSISTANT Temperature 36.7 ??C (98.1 ??F) 04/22/2012 5:32 PM MEDICAL TECHNICIAN ASSISTANT Respiratory Rate 18 04/22/2012 5:32 PM MEDICAL TECHNICIAN ASSISTANT Oxygen Saturation 97% 04/22/2012 5:32 PM MEDICAL TECHNICIAN ASSISTANT Inhaled Oxygen Concentration - - Weight - [...] Comments Contact Info URGENT CARE As needed [facility] [address] [facility] [address] [place] [address] MEDICINE CL [facility] As needed [facility] [address] [place] [address] [address] [place] [address] Please call to make your appointment. You can call your [facility] clinic to make an appointment Tuesday-Tuesday 7:30am-9:00pm and Tuesday and Tuesday 8:30am-5:00pm. Existing appointments at [facility] for the next 2 months: *Note - this does not include Day Treatment or Partial Hospital appointments: No relevant events scheduled for this patient from April 2012 through May 2012. If you are unable to attend or if you are going to be late, please call the service or clinic. [facility] entrances: ?? Purple = [address] [...] Emergency Department. ?? Emergency Department Financial Counseling [phone] (7:30am to Midnight, Tuesday - Tuesday). ?? Main Line Financial Counseling [phone] CAL TECHNICIAN ASSISTANT AttachmentsThe following attachments cannot be sent through Care Everywhere. HODA SKIN INFECTION (ADULT) ([place])CHRONIC SINUSITIS ([place])ACUTE SINUSITIS ([place])documented in this encounter Medications at Time of [...] Winkler PA-C - 05/03/2012 4:44 PM CST CAL TECHNICIAN ASSISTANT [facility] Provider Note - Brock Winkler PA-C [...] with cough vs tonsillitis vs mono vs DETAIL DRAFTER vs RPA Sinusitis: Clindamycin; pt will take [...] infection Brock Winkler PA, 04/22/2012 6:02 PM CAL TECHNICIAN ASSISTANT Urgent Care Note - Jayne Hector RN - 04/22/2012 5:46 PM CST Concern of chronic sinus infection. frontal, facial pain, green nasal drainage. Uses a c pap. #2 itchy and painful, rash to low abdomen ~ 1.5 weeks. Tried triple antibiotic ointment, diaper rashcreme, essential oil with no relief. CAL TECHNICIAN ASSISTANT documented in this encounter Plan of Treatment Not on filedocumented as of this encounter Visit Diagnoses Diagnosis Sinusitis - Primary Unspecified sinusitis (chronic) Candidal skin infection Candidiasis of skin and nails documented in this encounter Care Teams Media Monitor Relationship Specialty Start Date End Date Pcp, No PCP - General 04/22/12 01/28/13 [facility] [place] [address] documented as of this encounter
--- OUTSIDE RECORDS SUMMARY | 2022-03-16 09:50 | XMS_ITS | Encounter Summary ---
:1950 Author Organization [facility] Address [address] [place] [address] Phone Care Team Providers Name Role Phone Pcp, No Primary Care Provider Unavailable Reason for Visit Reason Comments Back Pain Prior Authorization (Routine) - Closed Specialty Diagnoses / Procedures Referred By Contact Refer red To Contact Alternative Medicine / Diagnoses LBP Steve Dennis Ulrich [facility], Aye F, LAc [address] [place] [address] 82 [address] [place] [address] 825 [place] [address] Fax: Referral ID Status Reason Start Date Expiration Date Visits Requ ested Visits Authorized [id number] Closed 08/11/2012 05/22/2013 1 20 Encounter Details Date Type Department Care Team Description 08/23/2012 Office Visit [facility] Pj Ochoa, CAITLIN [address] [place] [address] 825 [place] [address] LBP (low back pain) Health Clinic Steve Dennis LAc [address] [place] [address] 825 [place] [address] (Primary Dx) [address] [place], [place] [address] Social History Tobacco Use Types Packs/Day Years Used Date Smoking Tobacco: Former Cigarettes Quit : 08/01/1999 Smokeless Tobacco: Never Alcohol Use Standard Drinks/Week Comments No 0 (1 standard drink = 0.6 oz pure alcoho l) Sex Assigned at Date Recorded Female 06/17/2020 4:53 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 Vasquez re endocrine concerns documented in this encounter Progress Notes Steve Dennis LAc - 08/23/2012 8:18 AM CDT [facility] Acupuncture Treatment Note 2 patient identifiers [...] Lumbago documented in this encounter Care Teams Commercial Lines Account Manager Relationship Specialty Start Date End Date Pcp, No PCP - General 04/22/12 01/28/13 [facility] [place] [address] documented as of this encounter
--- OUTSIDE RECORDS SUMMARY | 2022-03-16 09:50 | XMS_ITS | Encounter Summary ---
:1950 Author Organization [facility] Address [address] [place] [address] Phone Care Team Providers Name Role Phone Pcp, No Primary Care Provider Unavailable Reason for Visit Reason Comments Vaginal Itching Encounter Details Date Type Department Care Team Description 07/31/2012 Office Visit [facility] CONSTRUCTION SPECIALIST SSC Marce Contreras Vulvar i tching (Primary Dx); Jacques Sanford MD Dysuria; [address], [address] [facility] Vagin al odor M50 [address] [place], [place] [address] [place], [place] [phone] [id number] Social History Tobacco Use Types Packs/Day Years Used Date Smoking Tobacco: Former Cigarettes Quit : 08/01/1999 Smokeless Tobacco: Never Alcohol Use Standard Drinks/Week Comments No 0 (1 standard drink = 0.6 oz pure alcoho l) Sex Assigned at Date Recorded Female 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 Strong odor to urine, no hematuria. ORDERLY Hx: LMP- patient is postmenopausal Past Medical [...] 08/04/2012 12:18 PM CDT Procedure Note Provider, Kyle - 08/04/2012 12:18 PM CDTF ormatting of this note might be different from the original. Him Provider SCANNED CONSENTS CARE EVERYWHERE AUTHORIZATION (08/04/2012 12:18 PM CDT) Narrative 08/04/2012 12:18 PM CDT Procedure Note Provider, Kyle - 08/04/2012 12:18 PM CDTF ormatting of this note might be different from the original. Him Provider SCANNED CONSENTS (ABNORMAL) URINALYSIS-CONDITIONAL (07/31/2012 2:20 PM CDT) [facility] Method Time Signature Color YELLOW YELLOW [facility] Appearance CLOUDY CLEAR [facility] Urine Glucose >=1000 (A) NEGATIVE [facility] mg/dL Bili UA NEGATIVE NEGATIVE [facility] Comment: Confirmatory test not available . Ketones TRACE NEGATIVE [facility] Specific [place] 1.031 (A) 1.003 - 1.030 [facility] Blood Ur NEGATIVE Neg-Trace [facility] PH Urine 6.0 5.0 - 7.0 [facility] Protein Ur NEGATIVE Neg-Trace [facility] Urobilinogen 0.2 0.2 - 1.0 EU/dL [facility] Nitrite Ur NEGATIVE NEGATIVE [facility] Leuk Est NEGATIVE Neg-Trace [facility] Microscopic MICRO PERFORMED [facility] WBC Ur 0-5 0 - 5 perHPF [facility] RBC Ur 0-5 0 - 5 perHPF [facility] SQ EPITH 3+ 1+ [facility] Mucus 1+ 1+ [facility] Hyaline Casts 0-5 0 - 5 perLPF [facility] Urinalysis Performed at: [facility] Comment: [facility] [address] [place] [address] Specimen Anatomical Collection Method Collection Time Receive d Time (Source) Location / / Volume Laterality Urine 07/31/2012 2:20 PM 3 2:45 CDT PM CDT Marce Contreras MD LABORATORY Performing Organization Address City/State/ZIP Code Phon e Number [facility] [place] [address] (ABNORMAL) YEAST CULTURE:INCLUDES TAYLOR (07/31/2012 1:30 PM CDT) [facility] gist Method Time Signature Yeast Cult [facility] ? PROCEDURE: MB Yeast Culture ?SOURCE: [...] Organization Address City/State/ZIP [place] [address] (ABNORMAL) POC AMB WET SMEAR (07/31/2012 [...] organs documented in this encounter Care Teams Gis Consultant Relationship Specialty Start Date End Date Pcp, No PCP - General 04/22/12 01/28/13 [facility] [place] [address] documented as of this encounter
--- OUTSIDE RECORDS SUMMARY | 2022-03-16 09:50 | XMS_ITS | Encounter Summary ---
:1950 Author Organization [facility] Address [address] [place] [address] Phone Care Team Providers Name Role Phone Pcp, No Primary Care Provider Unavailable Reason for Visit Reason Comments Back Pain Prior Authorization (Routine) - Closed Specialty Diagnoses / Procedures Referred By Contact Refer red To Contact Alternative Medicine / Diagnoses LBP Steve Dennis Ulrich [facility], Aye F, LAc [address] [place] [address] 82 [address] [place] [address] 825 [place] [phone] Fax: Referral ID Status Reason Start Date Expiration Date Visits Requ ested Visits Authorized [id number] Closed 08/11/2012 05/22/2013 1 20 Encounter Details Date Type Department Care Team Description 08/15/2012 Office Visit [facility] Pj Ochoa, CAITLIN [address] [place] [address] [address] [place] [address] LBP (low back pain) [facility] Steve Dennis LAc [address] [place] [address] [address] [place] [address] (Primary Dx) [address], [address] [place], [place] [address] Social History Tobacco Use Types Packs/Day Years Used Date Smoking Tobacco: Former Cigarettes Quit : 08/01/1999 Smokeless Tobacco: Never Alcohol Use Standard Drinks/Week Comments No 0 (1 standard drink = 0.6 oz pure alcoho l) Sex Assigned at Date Recorded Female 06/17/2020 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 Practice and application of electroacupuncture was explained to patient documented in this encounter Progress Notes Steve Dennis LAc - 08/15/2012 1:49 PM CDT [facility] Acupuncture Treatment Note 2 patient identifiers were [...] Lumbago documented in this encounter Care Teams Re Examiner Relationship Specialty Start Date End Date Pcp, No PCP - General 04/22/12 01/28/13 [facility] [place] [address] documented as of this encounter
--- OUTSIDE RECORDS SUMMARY | 2022-03-16 09:50 | XMS_ITS | Encounter Summary ---
:1950 Author Organization [facility] Address [address] [place] [address] Phone Care Team Providers Name Role Phone Pcp, No Primary Care Provider Unavailable Reason for Visit Reason Comments Diabetes Encounter Details Date Type Department Care Team Description 08/02/2012 Office Visit [facility] Diabetes & Endo Suma Aranda MD Diabetes mellitus () (Primary Dx); Clinic [address] H/O gastric bypass - 2008; [address] [place], [place] Fatigue S 1.300 [address] [place], [place] [address] [phone] Social History Tobacco Use Types Packs/Day Years Used Date Smoking Tobacco: Former Cigarettes Quit : 08/01/1999 Smokeless Tobacco: Never Alcohol Use Standard Drinks/Week Comments No 0 (1 standard drink = 0.6 oz pure alcoho l) Sex Assigned at Date Recorded Female 06/17/2020 4:53 PM YOUTH SERVICES LIBRARIAN documented as of this encounter Last Filed [...] 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 [place]an, is , and lives with and has [...] Suma Aranda MD, 08/02/2012 12:25 PM Staff Boiler House Mechanic documented in this encounter Plan of Treatment [...] URINE RANDOM COL (08/02/2012 9:35 AM CDT) [facility] gist Method Time Signature Microalbumin 0.3 0.2 - 10.0 [facility] mg/dL [place] Creat 143 (H) 30 - 125 [facility] mg/dL Microalbumin 2.1 0.0 - 20.0 [facility] Creat Ratio mg/g Microalbumin [facility] Screen Performed at: Comment: [facility] Laboratory [address] [place] [address] Specimen Anatomical Collection Method Collection Time Receive d Time (Source) Location / / Volume Laterality Urine 08/02/2012 9:35 AM 03/13/201 3 CDT 10:49 AM CDT Suma Aranda MD LABORATORY Performing Organization Address City/[facility]/ZIP Code Phon e Number [facility] [place] [address] PANEL LIPID (08/02/2012 9:30 AM CDT) athologist Signature Cholesterol 182 0 - 200 [facility] mg/dL Triglyceride 106 10 - 190 [facility] mg/dL HDL 57 40 - 75 [facility] mg/dL Calc LDL 104 [facility] Calc VLDL 21 [facility] Lipid Panel [facility] Performed at: Comment: [facility] [address] [place] [address] Specimen Anatomical Collection Method Collection Time Receive d Time (Source) Location / / Volume Laterality Blood 08/02/2012 9:30 AM 3 CDT 10:51 AM CDT Narrative [facility] - 08/02/2012 11:29 AM CDT Fasting: Yes Suma Aranda MD LABORATORY Performing Organization Address City/[facility]/ZIP Code Phon e Number [facility] [address] VITAMIN B12 (08/02/2012 9:30 AM CDT) athologist Signature B12 557 150 - 1,000 [facility] pg/mL Specimen Anatomical Collection Method Collection Time Receive d Time (Source) Location / / Volume Laterality Blood 08/02/2012 9:30 AM 3 CDT 10:51 AM CDT Suma Aranda MD LABORATORY Performing Organization Address City/[facility]/ZIP Code Phon e Number [facility] [address] (ABNORMAL) CBC WITH PLATELET (08/02/2012 9:30 AM CDT) Analysis Performed At Patho logist Time Signature WBC 8.2 4.0 - 10.0 [facility] k/cmm RBC 5.28 (H) 3.90 - [facility] 5.20 m/cmm Hgb 11.0 (L) 11.5 - [facility] 15.7 g/dL Hematocrit 36.6 34.0 - [facility] 45.0 % MCV 69.3 (L) 80.0 - [facility] 100.0 fL MCH 20.8 (L) 25.0 - [facility] 32.0 pg MCHC 30.1 (L) 31.0 - [facility] 36.0 g/dL RDW 17.2 (H) 11.5 - [facility] 14.5 % Plt 297 150 - 400 [facility] k/cmm MPV 10.4 6.5 - 12.5 [facility] fL NRBC 0.0 0.0 - 0.0 [facility] % CBC Plt [facility] Performed at: Comment: [facility] [address] [place] [id number] Specimen Anatomical Collection Method Collection Time Receive d Time (Source) Location / / Volume Laterality Blood 08/02/2012 9:30 AM 3 CDT 10:51 AM CDT Suma Aranda MD LABORATORY Performing Organization Address [facility] Phon e Number [facility] [address] THYROID PEROXIDASE ESPERANZA (TPO) (08/02/2012 9:30 AM CDT) athologist Signature TPO Esperanza 0.3 0.0 - 3.9 [facility] IU/mL Specimen Anatomical Collection Method Collection Time Receive d Time (Source) Location / / Volume Laterality Blood 08/02/2012 9:30 AM 3 CDT 10:51 AM CDT Suma Aranda MD LABORATORY Performing Organization Address City/[facility] Code Phon e Number [facility] [address] TSH (08/02/2012 9:30 AM CDT) athologist Signature TSH 1.7 0.5 - 5.0 [facility] uIU/ml Comment: Test Performed by: [facility] [address] [place] [address] Specimen Anatomical Collection Method Collection Time Receive d Time (Source) Location / / Volume Laterality Blood 08/02/2012 9:30 AM 3 CDT 10:51 AM CDT Suma Aranda MD LABORATORY Performing Organization Address City/[facility]/ZIP [facility] Phon e Number [facility] [address] (ABNORMAL) TRANSFERRIN (INCLUDES TIBC) (08/02/2012 9:30 AM CDT) athologist Signature Transferrin 392 (H) 181 - 353 [facility] mg/dL IBC 584 (H) 226 - 441 [facility] mcg/dL Specimen Anatomical Collection Method Collection Time Receive d Time (Source) Location / / Volume Laterality Blood 08/02/2012 9:30 AM 3 CDT 10:51 AM CDT Suma Aranda MD LABORATORY Performing Organization Address City/[facility]/ZIP Code Phon e Number [facility] [place] [address] (ABNORMAL) IRON (08/02/2012 9:30 AM CDT) athologist Signature Iron 30 (L) 40 - 150 [facility] mcg/dl Comment: Test Performed by: [facility] [address] [place] [address] Specimen Anatomical Collection Method Collection Time Receive d Time (Source) Location / / Volume Laterality Blood 08/02/2012 9:30 AM 3 CDT 10:51 AM CDT Suma Aranda MD LABORATORY Performing Organization Address City/[facility]/ZIP Code Phon e Number [facility] [address] (ABNORMAL) POC GLYCOSYLATED HGB-A1C (08/02/2012 8:19 AM CDT) athologist Signature Hemoglobin A1C 8.8 (H) [facility] TELCOR Estimated 206 [facility] TEL[facility] Average Glucose Specimen (Source) Anatomical Collection Method Collection Time Re ceived Time Location / / Volume Laterality Blood 08/02/2012 8:19 AM CDT Suma Aranda MD POINT OF CARE Performing Organization Address City/State/ZIP Code Phon e Number [facility] MA[facility] - POINT OF [address] [place], [place] [address] CARE [facility] TEL[facility] [address] [place] [address], (ABNORMAL) POC GLUCOSE (08/02/2012 8:17 AM CDT) athologist Signature POC Glucose 210 (H) 70 - 100 [facility] mg/dL Specimen (Source) Anatomical Collection Method Collection Time Re ceived Time Location / / Volume Laterality Blood 08/02/2012 8:17 AM CDT Suma Aranda MD LABORATORY Performing Organization Address City/State/ZIP Code Phon e Number [facility] - POINT OF [address] [place], [place] [address] CARE [facility] [address] [place] [address], documented in this encounter Visit Diagnoses Diagnosis Diabetes mellitus () - Primary Type II or unspecified type diabetes karin litus without mention of complication, not stated as uncontrolled H/O gastric bypass - 2008 Bariatric surgery status Fatigue Other malaise and fatigue documented in this encounter Care Teams Change Analyst Relationship Specialty Start Date End Date Pcp, No PCP - General 04/22/12 01/28/13 [facility] [place] [address] documented as of this encounter
--- OUTSIDE RECORDS SUMMARY | 2022-03-16 09:50 | XMS_ITS | Encounter Summary ---
:1950 Author Organization [facility] Address [address] [place] [address] Phone Care Team Providers Name Role Phone Pcp, No Primary Care Provider Unavailable Reason for Visit Reason Comments Back Pain Prior Authorization (Routine) - Closed Specialty Diagnoses / Procedures Referred By Contact Refer red To Contact Alternative Medicine / Diagnoses LBP Steve Dennis Ulrich [facility], Aye F, LAc [address] [place] [address] 82 [address] [place] [address] 825 [place] [address] Fax: Referral ID Status Reason Start Date Expiration Date Visits Requ ested Visits Authorized [id number] Closed 08/11/2012 05/22/2013 1 20 Encounter Details Date Type Department Care Team Description 08/28/2012 Office [place] [facility] [place] Ochoa, CAITLIN [address] [place] [address] 825 [place] [address] LBP (low back pain) [facility] Steve Dennis LAc [address] [place] [address] 825 [place] [address] (Primary Dx) [address] [place], [place] [address] Social History Tobacco Use Types Packs/Day Years Used Date Smoking Tobacco: Former Cigarettes Quit : 08/01/1999 Smokeless Tobacco: Never Alcohol Use Standard Drinks/Week Comments No 0 (1 standard drink = 0.6 oz pure alcoho l) Sex Assigned at Date Recorded Female 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
--- OUTSIDE RECORDS SUMMARY | 2022-03-16 09:50 | XMS_ITS | Encounter Summary ---
:1950 Author Organization [facility] Address [address] [place] [address] Phone Care Team Providers Name Role Phone Pcp, No Primary Care Provider Unavailable Reason for Visit Reason Comments Ear Pain Nasal Congestion Encounter Details Date Type Department Care Team Description 06/19/2012 Hospital Encounter [facility] Fredrick Winkler PA-C Need New Practice Location EAR PAIN [address] [facility] Nasir Preciado MD Need New Address [address] [place], [place] [address] [phone] Social History Tobacco Use Types Packs/Day Years Used Date Smoking Tobacco: Never Alcohol Use Standard Drinks/Week Comments No 0 (1 standard drink = 0.6 oz pure alcoho l) Sex Assigned at Date Recorded Female 06/17/2020 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 DIRECT CARE CL As needed [facility] [address] [facility] [address] [facility] [address] Please call to make your appointment. You can call your [place] clinic to make an appointment Tuesday-Tuesday 7:30am-9:00pm and Tuesday and Tuesday 8:30am-5:00pm. Existing appointments at [facility] for the next 2 months: *Note - this does not include Day Treatment or Partial Hospital appointments: No relevant events scheduled for this patient from May 2012 through June 2012. If you are unable to attend or if you are going to be late, please call the service or clinic. [facility] entrances: ?? Purple = [address] [...] Emergency Department. ?? Emergency Department Financial Counseling [phone] (7:30am to Midnight, Tuesday - Tuesday). ?? Main Line Financial Counseling [phone] ANALYST AttachmentsThe following attachments cannot be sent through Care Everywhere. CAUSES OF SINUSITIS ([place])CERUMEN IMPACTION, HOME CARE ([place])CLINDAMYCIN ([place])documented in this encounter Medications at Time of [...] with cough vs tonsillitis vs mono vs TELEPHONIC RN vs RPA Sinusitis, cerumen impaction: Cerumen removed as described above. Will treat for sinusitis with clindamycin, since she has had success with this in the past. Suggested use of humidifiers. Sudafed, afrin for symptoms as well. Increase fluids, rest, f/u with relay tester as needed. Return to care if symptoms worsen or unresolved. Pt understands and is agreeable to plan. Orders Placed This Encounter ??? clindamycin (CLEOCIN) 300 mg oral capsule ??? pseudoephedrine (SUDAFED) 60 mg oral tablet ??? oxymetazoline (AFRIN) 0.05% nasal solution Clinical Impressions: 1. Sinusitis 2. Cerumen impaction Fredrick Winkler PA, 06/19/2012 8:13 PM ANALYST Urgent Care Note - Nancy Becerril RN - 06/19/2012 7:37 PM CST Both ears painful and right ear feels plugged - sore throat, sinus congestion sxs x past week. Taking nothing for sxs. No coughing. ANALYST documented in this encounter Plan of Treatment Not on filedocumented as of this encounter Procedures Procedure Name Priority Date/Time Associated Diagnosis Comme nts CERUMEN REMOVAL Routine 06/19/2012 8:20 PM Result s for this ERP ANALYST procedure are i n the results section. documented in this encounter Results NWR CERUMEN REMOVAL (06/19/2012 8:20 PM ERP ANALYST) Narrative Fredrick Winkler PA-C - 06/19/2012 8:20 P M ERP ANALYST Fredrick Winkler PA ? 06/19/2012 ??8:20 PM [...] with cough vs tonsillitis vs mono vs TELEPHONIC RN vs RPA Sinusitis, cerumen impaction: ??Cerumen removed as described above. ??Will treat for sinusitis with c lindamycin, since she has had success with this in the past. ??Sug gested use of humidifiers. Sudafed, afrin for symptoms as well. ?? Increase fluids, rest, f/u with relay tester as needed. ??Return to care if symptoms [...] with cough vs tonsillitis vs mono vs TELEPHONIC RN vs RPA Sinusitis, cerumen impaction: Cerumen re moved as described above. Will treat for sinusitis with clindamycin, since she has had success with this in the past. Suggested use of humidifiers. Sudafed, afrin for symptoms as well. Increase fluids, rest, f/u with relay tester as needed. Return to care if symptoms [...] cerumen documented in this encounter Care Teams Emergency Technician Relationship Specialty Start Date End Date Pcp, No PCP - General 04/22/12 01/28/13 [facility] [place] [address] documented as of this encounter
== END 2022-03-16 09:40 | disposition home or self-care (01) ==
LOC: NFLDREF 09:40
PROVIDERS: PCP Internal Medicine; Visit Provider Family Medicine
DX: R35.0 Frequency of micturition (principal); R39.89 Other symptoms and signs involving the genitourinary system
CPT/HCPCS: 87086

== ENCOUNTER 2022-05-21 07:38 | Outpatient (CLI) | payer MEDICARE, SELFPAY ==
--- OUTSIDE RECORDS SUMMARY | 2022-05-21 07:40 | XMS_ITS ---
:1950 Author Organization [facility] - Primary Address [address] [place] [address] Care Team Providers Name Role Phone Tommy Escobar Unavailable Unavailable PROBLEMS Type Condition ICD9-CM Code UAF93-OM Code Onset Condition SNO MED Code Dates Status Problem Major depressive F32.9 Active 369 67896 disorder, single episode, unspecified Problem Post-traumatic F43.12 Active 13462 003 stress disorder, chronic Problem Other obesity E66.09 Active 884465 009 due to excess calories ALLERGIES Substance Reaction Event Type Date Status penicillin Unknown Drug Allergy Oct, Active Sulfa Unknown Non Drug Allergy Oct, Active ENCOUNTERS Encounter Location Date Diagnosis [facility] 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 9 [facility] 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 9 and Other obesity du e to excess calories E66.09 IMMUNIZATIONS No Known Immunizations SOCIAL HISTORY Never Assessed REASON FOR REFERRAL FUNCTIONAL STATUS PLAN OF CARE Activity Details Follow Up 1 Year Reason: Future Appointment Provider Name:Tommy Escobar , 2022-09-03 10:00:00 AM, [address], 5pm, [place], [address], VITAL SIGNS Height 64 in 2019-06-14 Weight [...] recert, medical cannabis for PTSD Insurance Providers [facility] Health Member Patient Patient Patient Patient Patient Subscriber Subscriber Subscriber Group Insurance Plan Plan Plan Plan ID Relationship Address Phone Name Date of ID Name Date of No Type Insurance Insurance Insurance Coverage to Subscriber Address Phone Name Dates [employer] [phone] [employer] self Maye [place] [id number] thcare [id number] [address] thcare [place] [address] [employer] [phone] [employer] self Maye [place] [id number] Medicare [id number] Medicare St[place] 01 [facility] [id number] Medicare National [phone] Medicare shantal [place] 3 [id number] Part B Government 40 Part B [employer] CLAIM [address] [place] [phone]
[2022-05-21 11:26] LABS: Albumin* 4.5 g/dL (3.3-5.0); Chloride* 109 mmol/L (96-114); Sodium* 141 mmol/L (135-149)
[2022-05-21 11:27] LABS: Potassium* 4.2 mmol/L (3.6-5.1)
[2022-05-21 11:28] LABS: Creatinine Urine 73.2 mg/dL
[2022-05-21 11:29] LABS: Alkaline Phosphatase* 68 U/L (40-150); Aspartate Amino Transferase* 24 U/L (12-35); Bilirubin Total* 0.6 mg/dL (0.1-1.5); Blood Urea Nitrogen* 12 mg/dL (7-30); Carbon Dioxide* 24 mmol/L (20-32); Cholesterol* 164 mg/dL (90-199); Creatinine* 0.5 mg/dL (0.5-1.5); Estimated Glomerular Filt Rate 101 ml/min; Glucose* 150 mg/dL (60-115); Total Protein* 6.9 g/dL (6.0-8.3); Triglycerides* 92 mg/dL (40-149)
[2022-05-21 11:30] LABS: Alanine Aminotransferase* 29 U/L (4-35); Calcium* 9.4 mg/dL (8.4-10.6); HDL Cholesterol* 82 mg/dL (>=50); LDL Cholesterol Calculated 64 mg/dL (<100); Magnesium* 1.8 mg/dL (1.5-2.6)
[2022-05-21 11:32] LABS: Microalbumin Creatinine Ratio 10 mg/g (0-30); Microalbumin Urine < 1 mg/dL
[2022-05-21 11:47] LABS: Vitamin D 25 Hydroxy* 33 ng/mL (30-80)
[2022-05-21 12:05] LABS: Ferritin* 23.9 ng/mL (11.1-264.0)
[2022-05-21 12:19] LABS: Vitamin B12* 325 pg/mL (243-894)
[2022-05-22 22:56] LABS: Folate, RBC 478 ng/mL (>=366); Hematocrit (client supplied) 35.2 %
[2022-05-23 12:39] LABS: Copper, Serum/Plasma 135.3 ug/dL (80.0-155.0); Zinc, Serum/Plasma 88.4 ug/dL (60.0-120.0)
[2022-05-24 22:08] LABS: Vitamin A (Retinol) 0.46 mg/L (0.30-1.20)
== END 2022-05-21 07:39 | disposition home or self-care (01) ==
LOC: NFLDREF 07:38
PROVIDERS: PCP Internal Medicine; Visit Provider Internal Medicine
DX: M81.0 Age-related osteoporosis without current pathological fracture (principal); E11.9 Type 2 diabetes mellitus without complications; Z98.84 Bariatric surgery status
CPT/HCPCS: 80053; 80061; 82043; 82306; 82525; 82570; 82607; 82728; 82747; 83735; 84443; 84446; 84590; 84597; 84630

== ENCOUNTER 2022-09-16 14:52 | Outpatient (CLI) | payer MEDICARE, SELFPAY ==
--- NOTE | 2022-09-16 15:00 | MM_ITS ---
Patient: AGAPITO WORLEY Facility:?[facility] Patient ID:?[id number] Site Patient ID:?[id number]. Site :?1950 Study:?XRay-Breast Bilateral 3D W/CAD-09/16/2022 4:28:29 PM Ordering Physician:Pierre Moreau Final Report: BILATERAL SCREENING MAMMOGRAM WITH COMPUTER-AIDED DETECTION AND TOMOSYNTHESIS TECHNIQUE: CC and MLO views were obtained. These mammographic images have been obtained using full-field digital technique. These mammographic images were interpreted with the benefit of computer-aided detection. Breast Tomosynthesis was used in this interpretation. COMPARISON FILM: 09/15/21, 02/29/20, 01/02/19. FINDINGS: The breasts are almost entirely fatty IMPRESSION: There is no radiographic evidence for malignancy. ASSESSMENT: BI-RADS Category 1: Negative RECOMMENDATION: Routine screening mammogram in 1 year. A lay language report of this examination will be provided to the patient. Lewis Benson M.D. Diagnostic/Nuclear Medicine Radiologist [email or web address]/[email or web address] D& Transcribed: 2:51 p.m. MORELIA/Dictated by: Lewis Benson MD @ 09/17/2022 8:19:00 AM Signed by:Rosalia Benson MD @09/17/2022 3:34:39 PM (Electronic Signature)
--- NOTE | 2022-09-16 15:30 | XR_ITS ---
Patient: AGAPITO WORLEY Facility:?[facility] Patient ID:?[id number] Site Patient ID:?[id number]. Site :?1950 Study:?XRay-Bone Density -09/16/2022 9:19:10 AM Ordering Physician:Pierre Moreau Final Report: DXA BONE MINERAL DENSITY STUDY, 09/16/2022 Current height (in): 64.0. Weight (lb): 166.0. Menopause age: 57. Ethnicity: White. 1. Have you had a previous hip or vertebral fracture? No. 2. Have you had any fractures during your adult life which did not result from significant trauma (e.g., auto accident)? No. 3. Did either of your parents have a hip fracture? No. 4. Do you smoke? No. 5. Have you ever taken Glucocorticoids? No. 6. Do you have rheumatoid arthritis? No. 7. 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 8. Do you drink 3 or more alcoholic drinks per day? No. 9. Are you being treated for osteoporosis? Yes. 10. Have you ever taken any of the following medications: Actonel, Evista, Fosamax, Miacalcin, Reclast, Boniva, Forteo, HRT (i.e. estrogen/hormone therapy), Protelos, Prolia, Vitamin D, Calcium, other ? please specify. ANSWER: Yes, Fosamax, Vitamin D, Calcium. 11. Do you have any of the following medical conditions: Anorexia or bulimia, asthma or emphysema, end stage renal disease, hyperparathyroidism, any seizure disorders, cancer, inflammatory bowel diseases, hysterectomy, other ? please specify. ANSWER: No. 12. What was your maximum height (inches)? 64. 13. Do you perform weight bearing exercise regularly? No. 14. Do you regularly consume dairy products? No. 15. Do you drink caffeinated beverages? Yes. If female: 16. At what age did your period start? 16. 17. Are you premenopausal? No. 18. How many full term pregnancies have you had? 3. 19. Have you ever missed your period for more than 6 months in a row (not including or menopause)? No. TECHNIQUE: Bone mineral density study was performed using the [employer]. FINDINGS: The results of the study expressed as bone mineral density (BMD) are as follows: Lumbar spine L1 to L4: BMD: 1.032 g/cm2. T-score: -0.1. Z-score: 2.0. Neck Left: BMD: 0.580 g/cm2. T-score: -2.4. Z-score: -0.6. Right: BMD: 0.635 g/cm2. T-score: -1.9. Z-score: -0.1. Total Left: BMD: 0.763 g/cm2. T-score: -1.5. Z-score: 0.0. Right: BMD: 0.775 g/cm2. T-score: -1.4. Z-score: 0.1. IMPRESSION: Osteopenia. *Comparison exams done prior to 10/2019 were performed on different unit, [employer] COMPARISON: Compared with scan of 03/26/2019, the bone mineral density has increased by 8.9 percent at the spine and decreased by 1.3 percent at the hip. Tr Garnett M.D. Diagnostic Radiologist [email or web address] LIANET/sol D& Transcribed: 7:47 a.m. JR/Dictated by: Tr Garnett MD @ 09/19/2022 8:00:00 PM Signed by:David Garnett MD @09/20/2022 8:18:27 AM (Electronic Signature)
--- NOTE | 2022-09-16 15:30 | CRLHL7_ITS ---
For Patients: As a result of the Century Cures Act, medical imaging exams and procedure reports are released immediately into your electronic medical record. You may view this report before your referring provider. If you have questions, please contact your health care provider. BILATERAL SCREENING MAMMOGRAM WITH COMPUTER-AIDED DETECTION AND TOMOSYNTHESIS TECHNIQUE: CC and MLO views were obtained. These mammographic images have been obtained using full-field digital technique. These mammographic images were interpreted with the benefit of computer-aided detection. Breast Tomosynthesis was used in this interpretation. COMPARISON FILM: 09/15/21, 02/29/20, 01/02/19. FINDINGS: The breasts are almost entirely fatty IMPRESSION: There is no radiographic evidence for malignancy. ASSESSMENT: BI-RADS Category 1: Negative RECOMMENDATION: Routine screening mammogram in 1 year. A lay language report of this examination will be provided to the patient. Lewis Benson M.D. Diagnostic/Nuclear Medicine Radiologist [email or web address] MORELIA/Dictated by: Lewis Benson MD @ 09/17/2022 8:19:00 AM (Electronically Signed)
== END 2022-09-16 14:53 | disposition home or self-care (01) ==
LOC: MAMMO 14:52
PROVIDERS: PCP Internal Medicine; Visit Provider Internal Medicine
DX: Z12.31 Encounter for screening mammogram for malignant neoplasm of breast (principal); M81.0 Age-related osteoporosis without current pathological fracture
CPT/HCPCS: 77063; 77067; 77080

== ENCOUNTER 2022-11-29 18:10 | Emergency (ER) | payer MEDICARE, SELFPAY ==
[2022-11-29] VITALS (28 sets, daily range): BP systolic 141–152; BP diastolic 74–94; PULSE 76–94; RESP 16; TEMP 36.4; O2SAT 94–98; BMI 27.6
--- NOTE | 2022-11-29 18:32 | ED_ITS ---
HPI - General Adult General Chief complaint: Chest Pain Stated complaint: Chest and back pain Time Seen by Provider: 11/29/22 18:17 Source: patient Mode of arrival: ambulatory Limitations: no limitations History of Present Illness HPI narrative: 72-year-old female coming in today complaining of chest pain that started earlier this morning. Pain is located in the center of the chest radiates into her back. She has pain in the center of the back as well as the bilateral lower back. She states she has never had pain like this before. Nothing seems to make it better , leaning forward makes it worse. It comes and goes. Not associated with eating. She denies nausea or vomiting or changes in her appetite. No abdominal discomfort. Past medical history significant for obstructive sleep apnea, diabetes type 2, PTSD, depression, anxiety, alopecia, vitiligo, hyperlipidemia. Surgical history includes a gastric bypass. Patient states that there is lot of cardiac history in her family. Denies tobacco use, quit smoking 22 years ago. 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 Related Data Home Medications Medication Instructions Recorded Confirmed aspirin 81 mg tablet,delayed 81 mg PO QDAY 01/19/22 06/29/22 release (Adult Low Dose Aspirin) desvenlafaxine succinate 100 mg 100 mg PO QDAY 01/19/22 06/29/22 tablet,extended release 24 hr (Pristiq) dulaglutide 3 mg/0.5 mL 3 mg subcut QWEEK 01/19/22 06/29/22 subcutaneous pen injector (Trulicity) multivitamin 1 tab PO QDAY 01/19/22 06/29/22 marijuana chew 5 mg PO .hs PRN 06/29/22 06/29/22 Previous Rx's Medication Instructions Recorded alendronate 70 mg tablet 70 mg PO QWEEK #12 tabs 06/29/22 rosuvastatin 20 mg tablet 20 mg PO QDAY #90 tabs 06/29/22 Allergies Allergy/AdvReac Type Severity Reaction Status Date / Time oxycodone Allergy Intermediate Verified 11/29/22 20:36 lisinopril Allergy Mild Cough Verified 11/29/22 20:36 Penicillins Allergy Mild Anaphylaxis Verified 11/29/22 20:36 Sulfa (Sulfonamide Allergy Mild Rash Verified 11/29/22 20:36 Antibiotics) codeine AdvReac Mild Nausea Verified 11/29/22 20:36 Review of Systems Status of ROS: Reports: 10 or more systems reviewed and unremarkable except as noted in History and below [facility] Medical History History of iron deficiency anemia ?Z86.2 - Personal history of diseases of the blood and blood-forming organs and certain disorders involving the immune mechanism (ICD-10) Surgical History Status post trigger finger release (01/2020) ?Z98.890 - Other specified postprocedural states (ICD-10) History of repair of right rotator cuff (02/2017) ?Z98.890 - Other specified postprocedural states (ICD-10) History of bilateral breast reduction surgery (~1989) ?Z98.890 - Other specified postprocedural states (ICD-10) History of total abdominal hysterectomy and bilateral salpingo-oophorectomy (~1994) ?Z90.710 - Acquired absence of both cervix and uterus (ICD-10) ?Z90.722 - Acquired absence of ovaries, bilateral (ICD-10) ?Z90.79 - Acquired absence of other genital organ(s) (ICD-10) History of Katerina-en-Y gastric bypass (2008) ?Z98.84 - Bariatric surgery status (ICD-10) History of repair of left rotator cuff (2010) ?Z98.890 - Other specified postprocedural states (ICD-10) Family History Brother Coronary artery disease, Onset Age: 45 Father Coronary artery disease, Onset Age: 65 Social History Smoking Status: Former smoker Little interest or pleasure in doing things: several days Feeling down, depressed, or hopeless: several days Exam Narrative: Exam Narrative: Well-nourished well-developed patient in no acute distress. Alert and oriented. Answers questions appropriately. Mood and affect are appropriate. Thoughts are goal oriented and rational. No tangential or magical thinking noted. Patient speaks in full sentences without needing to catch their breath. HEENT: Normocephalic atraumatic. Pupils are equally round reactive to light. Extraocular muscles are intact. Conjunctivae are moist without any icterus noted. Moist mucous membranes. Posterior pharynx is normal. Neck is soft without any lymphadenopathy or thyromegaly. No masses are appreciated. Cardiovascular: Heart is regular rate and rhythm S1 and S2 are present without any murmurs. Lungs: Clear to auscultation bilaterally no wheezes rhonchi or rales are appreciated. Patient takes deep breaths without any discomfort. Abdomen: Soft and nontender nondistended with normal bowel sounds. No guarding or rebound. No masses or organomegaly appreciated. Extremities: Bilateral lower extremities are without edema. Normal DP and PT pulses. Skin: Well perfused without any obvious rashes. Const: Vital Signs, click to edit/add: Vital Signs - 24 hr 11/29/22 18:18 11/29/22 18:24 11/29/22 18:30 Temperature 97.6 F Pulse Rate 81 88 Pulse Rate [Right Pulse Oximeter] 94 Respiratory Rate 16 Blood Pressure Blood Pressure [Le ft Upper Arm] 152/94 H Pulse Oximetry 98 98 97 [facility] 11/29/22 18:32 11/29/22 18:48 11/29/22 19:00 Temperature Pulse Rate 88 80 Pulse Rate [Right Pulse Oximeter] Respiratory Rate Blood Pressure Blood Pressure [Le ft Upper Arm] Pulse Oximetry 98 96 98 [facility] 11/29/22 19:04 11/29/22 19:15 11/29/22 19:30 Temperature Pulse Rate 86 82 79 Pulse Rate [Right Pulse Oximeter] Respiratory Rate Blood Pressure 148/77 H Blood Pressure [Le ft Upper Arm] Pulse Oximetry 98 97 95 [facility] 11/29/22 19:32 11/29/22 19:45 11/29/22 20:00 Temperature Pulse Rate 83 78 77 Pulse Rate [Right Pulse Oximeter] Respiratory Rate Blood Pressure 145/74 H Blood Pressure [Le ft Upper Arm] Pulse Oximetry 94 98 94 [facility] 11/29/22 20:02 11/29/22 20:38 11/29/22 20:45 Temperature Pulse Rate 83 76 81 Pulse Rate [Right Pulse Oximeter] Respiratory Rate Blood Pressure 141/79 H Blood Pressure [Le ft Upper Arm] Pulse Oximetry 97 97 97 [facility] 11/29/22 20:47 11/29/22 21:00 11/29/22 21:02 Temperature Pulse Rate 80 86 Pulse Rate [Right Pulse Oximeter] Respiratory Rate Blood Pressure 146/75 H 148/79 H Blood Pressure [Le ft Upper Arm] Pulse Oximetry 98 98 Oxygen Delivery Me thod Course Course Hospital Course: EKG, read by me, shows normal sinus rhythm with a pulse of 91. Lab work was unremarkable, troponin was 0. Given her symptoms which include chest pain radiating into the entire back there was a concern for dissection, therefore CT scan for aortic dissection protocol was done-this did not show dissection or other abnormality you explain her s ymptoms. Repeat troponin was 0.01, repeat EKG was unchanged. During her stay here she was asymptomatic during the majority of the time. She said every now and then she would get a intermittent discomfort but nothing that lasted. Of note, her UA was abnormal, however she is not having any urinary symptoms. Culture pending at this time. Vital Signs Vital signs: Initial Vital Signs Temperature 97.6 F 11/29/22 18:18 Temperature Source Temporal Artery Scan 11/29/22 18:18 Pulse Rate 94 11/29/22 18:18 Pulse Rhythm Regular 11/29/22 18:18 Respiratory Rate 16 11/29/22 18:18 Blood Pressure 152/94 H 11/29/22 18:18 Blood Pressure Mean 113 H 11/29/22 18:18 Blood Pressure Position Sitting 11/29/22 18:18 Pulse Oximetry 98 11/29/22 18:18 Oxygen Delivery Method Room Air 11/29/22 18:18 Vital Signs Temperature 97.6 F 11/29/22 18:18 Pulse Rate 94 11/29/22 18:18 Respiratory Rate 16 11/29/22 18:18 Blood Pressure 152/94 H 11/29/22 18:18 Pulse Oximetry 98 11/29/22 18:18 Oxygen Delivery Method Room Air 11/29/22 18:18 Temperature 97.6 F 11/29/22 18:18 Pulse Rate 86 11/29/22 21:00 Respiratory Rate 16 11/29/22 18:18 Blood Pressure 148/79 H 11/29/22 21:02 Pulse Oximetry 98 11/29/22 21:00 Oxygen Delivery Method Room Air 11/29/22 18:18 Medical Decision Making MDM Narrative Medical decision making narrative: 72-year-old female with chest and back pain. Differential diagnoses considered includes coronary artery disease, PE, pneumothorax, aortic dissection, pericarditis, chest wall pain, GERD, esophageal spasm. No evidence of any life- threatening illness found today. I do recommend she follow up with primary care physician to manage symptoms if they are ongoing. We discussed the possibility of coronary artery disease or unstable angina and the need for follow-up. Patient was in agreement with everything we discussed and had no other qu estions. Lab Data Lab results reviewed: Yes I reviewed the patient's lab results Labs: Lab Results 11/29/22 11/29/22 11/29/22 Range/Units 18:33 18:58 20:40 WBC 7.79 (4.50-11.00) K/uL RBC 4.95 (4.00-5.20) m/uL Hgb 13.7 (12.0-16.0) gm/dL Hct 42.2 (33.0-51.0) % MCV 85 (80-100) fL MCH 28 (26-34) pg MCHC 33 (32-36) gm/dL RDW Coeff of Joana 13.2 (11.5-15.5) % Plt Count 231 (140-440) K/uL Neut % (Auto) 60.2 (42.0-72.0) % Lymph % (Auto) 33.2 (20-44) % Coleman % (Auto) 6.3 (0.0-11.0) % Eos % (Auto) 0.1 (0.0-7.0) % Baso % (Auto) 0.1 (0.0-3.0) % Neut # (Auto) 4.68 (1.7-7.0) K/uL Lymph # (Auto) 2.59 (0.90-2.90) K/uL Coleman # (Auto) 0.50 (0.00-0.90) K/UL Eos # (Auto) 0.01 (0.00-0.50) K/uL Baso # (Auto) 0.01 (0.00-0.30) K/uL Abs Immat Gran (auto) 0.01 (0.00-0.30) K/uL Imm/Tot Granulo (auto) 0.1 % D-Dimer Quant (PE/DVT) 0.29 (0.00-0.50) ug/ml Sodium 138 (135-149) mmol/L Potassium 3.9 (3.6-5.1) mmol/L Chloride 105 (96-114) mmol/L Carbon Dioxide 25 (20-32) mmol/L BUN 17 (7-30) mg/dL Creatinine 0.5 (0.5-1.5) mg/dL Estimated Creat Clear 45.20 Estimated GFR 101 ml/min Glucose 115 (60-115) mg/dL Lactate 0.7 (0.5-1.9) mmol/L Calcium 9.1 (8.4-10.6) mg/dL Total Bilirubin 0.5 (0.1-1.5) mg/dL Direct Bilirubin 0.3 (0.0-0.5) mg/dL AST 33 (12-35) U/L ALT 30 (4-35) U/L Alkaline Phosphatase 60 (40-150) U/L Troponin I 0.02 (0.01-0.04) ng/mL C-Reactive Protein < 0.5 L (0.5-1.0) mg/dL Total Protein 7.3 (6.0-8.3) g/dL Albumin 4.5 (3.3-5.0) g/dL Lipase 100 (23-300) U/L Urine Color Yellow (Yellow) Urine Appearance Slightly Cloudy A (Clear) Urine pH 6.0 (5.0-8.5) Ur Specific [place] 1.015 (1.000-1.030) Urine Protein Negative (Negative) Urine Glucose (UA) Negative (Negative) Urine Ketones Negative (Negative) Urine Blood Trace-intact A (Negative) Urine Nitrite Positive A (Negative) Urine Bilirubin Negative (Negative) Urine Urobilinogen 1.0 (0.2-1.0) Ur Leukocyte Esterase 1+ A (Negative) Urine RBC 0-2 (0-2) Urine WBC 10-25 A (0-5) Ur Squamous Epith Cells Few (None-Few) Urine Bacteria Many A (None) POC Troponin I 0.00 L 0.01 (0.01-0.04) ng/ml Imaging Data CT Chest/Ab/Pelvis: Attestation: I have reviewed the pertinent imaging results. Radiologist's impression: CT chest without contrast and CT chest, abdomen and pelvis acquired with 95 milliliters Isovue 370 contrast, dissection protocol. COMPARISON: Abdominal CT April 2021 FINDINGS: CHEST: Cardiovascular structures: Motion during the acquisition degrades fine detail evaluation. The unenhanced images demonstrate no evidence of aortic intramural h ematoma. The aorta is normal in caliber and there is no sign of aortic dissection or periaortic hematoma. Atherosclerotic disease. Lungs and Airways: No mass or consolidation. No endoluminal lesion. Heart and Mediastinum: The visualized portions of the thyroid are normal. No axillary or supraclavicular lymphadenopathy. No mediastinal, hilar or retrocrural lymphadenopathy. Normal heart size. Pleura: The pleural spaces are normal. ABDOMEN: Liver: Normal arterial enhancement. No focal suspicious hepatic lesions. Gallbladder and biliary: Normal gallbladder without radiopaque stone. Normal ca liber bile ducts. Spleen: Normal size and enhancement. Pancreas: Normal arterial enhancement without peripancreatic inflammatory changes or ductal dilatation. Adrenal glands: Normal adrenal glands. Kidneys and ureters: Normal enhancement. Nonobstructing inferior pole left renal stone. No hydroureteronephrosis. GI tract: Changes of Katerina-en-Y gastric bypass. Normal caliber small and large bowel loops. Normal appendix. Vascular structures: Normal caliber abdominal aorta. No aneurysm, dissection, or periaortic hematoma. Calcified and noncalcified atheromatous plaquing. Lymph nodes: No lymphadenopathy in the abdomen or pelvis by size criteria. Peritoneum: No free air, free fluid, or focal drainable fluid collection. PELVIS: Genitourinary system: Normal urinary bladder. SKELETAL STRUCTURES AND SOFT TISSUES: Right humeral head surgical anchors. Vagus nerve stimulator on the right. Left humeral head surgical anchor. IMPRESSION: No discrete acute aortic process within the chest, abdomen, or pelvis. No intrathoracic mass or consolidation. No obstruction. No hydroureteronephrosis. No imaging findings to explain the patient`s reported clinical symptoms. ECG Data Attestation: I personally reviewed and interpreted this ECG as follows: Discharge Plan Discharge Clinical Impression: Back pain, Atypical chest pain Patient Disposition: Home, Self-Care Condition: Stable Additional Instructions: There is no evidence of any life-threatening conditions found during your workup today. I do recommend follow-up with your primary care provider to discuss your symptoms further and to discuss any further testing they feel may be necessary. They may consider doing a stress test which is a test the checks to see how your heart does when it is stressed. I recommend you see them in the next 7-10 days. If your pain gets worse or more consistent I do recommend you return to the ER. Prescriptions: No Action rosuvastatin 20 mg tablet 20 mg PO QDAY Qty: 90 3RF marijuana chew 5 mg PO .hs PRN alendronate 70 mg tablet 70 mg PO QWEEK Qty: 12 3RF Trulicity 3 mg/0.5 mL pen injector 3 mg subcut QWEEK aspirin [Adult Low Dose Aspirin] 81 mg tablet,delayed release (DR/EC) 81 mg PO QDAY multivitamin Tablet 1 tab PO QDAY desvenlafaxine succinate [Pristiq] 100 mg tablet extended release 24 hr 100 mg PO QDAY Follow Up/Referrals: Lizzeth Perdue MD [Primary Care Provider] - Stand Alone Forms: b3 bio Info Instructions
[2022-11-29 19:11] LABS: Basophils Absolute Auto 0.01 K/uL (0.00-0.30); Basophils Percent Auto 0.1 % (0.0-3.0); Eosinophils Absolute Auto 0.01 K/uL (0.00-0.50); Eosinophils Percent Auto 0.1 % (0.0-7.0); Hematocrit 42.2 % (33.0-51.0); Hemoglobin* 13.7 gm/dL (12.0-16.0); Immature Granulocytes Abs Auto 0.01 K/uL (0.00-0.30); Immature Granulocytes Pct Auto 0.1 %; Lactate* 0.7 mmol/L (0.5-1.9); Lymphocytes Absolute Auto 2.59 K/uL (0.90-2.90); Lymphocytes Percent Auto 33.2 % (20-44); Mean Corpuscular HGB Conc 33 gm/dL (32-36); Mean Corpuscular Hemoglobin 28 pg (26-34); Mean Corpuscular Volume 85 fL (80-100); Monocytes Percent Auto 6.3 % (0.0-11.0); Neutrophils Absolute Auto 4.68 K/uL (1.7-7.0); Neutrophils Percent Auto 60.2 % (42.0-72.0); Platelet Count* 231 K/uL (140-440); RDW Coefficient of Variation % 13.2 % (11.5-15.5); Red Blood Count 4.95 m/uL (4.00-5.20); White Blood Count* 7.79 K/uL (4.50-11.00)
[2022-11-29 19:11] LABS: Appearance Urine Slightly Cloudy (Clear); Bilirubin Urine Negative (Negative); Blood Urine Trace-intact (Negative); Color Urine Yellow (Yellow); Glucose Urine Negative (Negative); Ketones Urine Negative (Negative); Leukocyte Esterase Urine 1+ (Negative); Nitrite Urine Positive (Negative); Protein Urine Negative (Negative); Specific Gravity Urine 1.015 (1.000-1.030)
[2022-11-29 19:13] LABS: Slide Review Reflex No
[2022-11-29 19:20] LABS: Bacteria Urine Many; RBC Urine 0-2 (0-2); Squamous Epithelial Cell Urine Few (None-Few)
[2022-11-29 19:26] LABS: Albumin* 4.5 g/dL (3.3-5.0); Chloride* 105 mmol/L (96-114); Sodium* 138 mmol/L (135-149)
[2022-11-29 19:27] LABS: Potassium* 3.9 mmol/L (3.6-5.1)
[2022-11-29 19:29] LABS: Creatinine* 0.5 mg/dL (0.5-1.5); Estimated Glomerular Filt Rate 101 ml/min
[2022-11-29 19:30] LABS: Alanine Aminotransferase* 30 U/L (4-35); Alkaline Phosphatase* 60 U/L (40-150); Aspartate Amino Transferase* 33 U/L (12-35); Bilirubin Direct* 0.3 mg/dL (0.0-0.5); Bilirubin Total* 0.5 mg/dL (0.1-1.5); Blood Urea Nitrogen* 17 mg/dL (7-30); Calcium* 9.1 mg/dL (8.4-10.6); Carbon Dioxide* 25 mmol/L (20-32); Glucose* 115 mg/dL (60-115); Lipase* 100 U/L (23-300); Total Protein* 7.3 g/dL (6.0-8.3)
[2022-11-29 19:32] LABS: D Dimer Quantitative* 0.29 ug/ml (0.00-0.50)
[2022-11-29 19:42] LABS: Troponin I* 0.02 ng/mL (0.01-0.04)
[2022-11-29 19:43] LABS: C Reactive Protein* < 0.5 mg/dL (0.5-1.0)
--- NOTE | 2022-11-29 19:57 | CRLHL7_ITS ---
For Patients: As a result of the 21st Century Cures Act, medical imaging exams and procedure reports are released immediately into your electronic medical record. You may view this report before your referring provider. If you have questions, please contact your health care provider. INDICATION: chest pain radiating to back since last night, worse today TECHNIQUE: CT chest without contrast and CT chest, abdomen and pelvis acquired with 95 milliliters Isovue 370 contrast, dissection protocol. COMPARISON: Abdominal CT April 2021 FINDINGS: CHEST: Cardiovascular structures: Motion during the acquisition degrades fine detail evaluation. The unenhanced images demonstrate no evidence of aortic intramural hematoma. The aorta is normal in caliber and there is no sign of aortic dissection or periaortic hematoma. Atherosclerotic disease. Lungs and Airways: No mass or consolidation. No endoluminal lesion. Heart and Mediastinum: The visualized portions of the thyroid are normal. No axillary or supraclavicular lymphadenopathy. No mediastinal, hilar or retrocrural lymphadenopathy. Normal heart size. Pleura: The pleural spaces are normal. ABDOMEN: Liver: Normal arterial enhancement. No focal suspicious hepatic lesions. Gallbladder and biliary: Normal gallbladder without radiopaque stone. Normal caliber bile ducts. Spleen: Normal size and enhancement. Pancreas: Normal arterial enhancement without peripancreatic inflammatory changes or ductal dilatation. Adrenal glands: Normal adrenal glands. Kidneys and ureters: Normal enhancement. Nonobstructing inferior pole left renal stone. No hydroureteronephrosis. GI tract: Changes of Katerina-en-Y gastric bypass. Normal caliber small and large bowel loops. Normal appendix. Vascular structures: Normal caliber abdominal aorta. No aneurysm, dissection, or periaortic hematoma. Calcified and noncalcified atheromatous plaquing. Lymph nodes: No lymphadenopathy in the abdomen or pelvis by size criteria. Peritoneum: No free air, free fluid, or focal drainable fluid collection. PELVIS: Genitourinary system: Normal urinary bladder. SKELETAL STRUCTURES AND SOFT TISSUES: Right humeral head surgical anchors. Vagus nerve stimulator on the right. Left humeral head surgical anchor. IMPRESSION: No discrete acute aortic process within the chest, abdomen, or pelvis. No intrathoracic mass or consolidation. No obstruction. No hydroureteronephrosis. No imaging findings to explain the patient`s reported clinical symptoms. Please note that all CT scans at this facility use dose modulation, iterative reconstruction, and/or weight-based dosing when appropriate to reduce radiation dose to as low as reasonably achievable. Dictated by Tr Ozuna MD @ 11/29/2022 9:58:27 PM (Electronically Signed)
[2022-11-29 20:56] LABS: Troponin, Point-of-Care* 0.01 ng/ml (0.01-0.04)
== END 2022-11-29 22:21 | disposition home or self-care (01) ==
PROVIDERS: Emergency Provider Family Medicine; PCP Internal Medicine
DX: R07.9 Chest pain, unspecified (principal); M54.9 Dorsalgia, unspecified
CPT/HCPCS: 36415; 71270; 74177; 80048; 80076; 81001; 83605; 83690; 84484; 85025; 85379; 86140; 87086; 87186; 93005; 94761; 99284; 99285; Q9967

== ENCOUNTER 2023-10-05 07:47 | Outpatient (CLI) | payer MEDICARE, SELFPAY ==
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
--- OUTSIDE RECORDS SUMMARY | 2023-10-06 07:22 | XMS_ITS | Continuity of Care Document ---
Author Name Unknown Organization [facility] Address [address] [address] [place] [address] Phone Care Team Providers Care Workflow Developer Name Role Phone Unavailable Unavailable Unavailable Allergies, Adverse Reactions, Alerts Substance Reaction Status Criticality Sulfa (Sulfonamide Antibiotics) severe rash Active No Information PENICILLIN G POTASSIUM Anaphylactic shock Active No Information Medications Medication Instructions Dosage Effective Dates (start - stop) Status Comments INSULIN PUMP (unknown strength) Use as directed Not Available - Active Glucophage 1,000 mg Tab One tablet by mouth twice daily - Active Vytorin 10-40 10 mg-40 mg Tab Take one tablet by mouth daily - Active Avapro 150 mg Tab Take 1 tablet by mouth daily - Active Aspirin Low Dose 81 mg Tab, Delayed Release Take one tablet by mouth daily - Active omega-3 fatty acids-fish oil 300 mg-1,000 mg Cap Take two tablets by mouth daily - Active MULTIVITAMINS (unknown strength) Take 1 tablet by mouth daily Not Available - Active Vitamin D 50,000 unit Cap Take one tablet by mouth daily - Active VITAMIN B COMPLEX (unknown strength) Take one tablet by mouth daily Not Available - Active Procedures Procedure Date Colonoscopy Flex; W/remov Les- Level Iv-surg Path Gross/micro Advance Directives Directive Yes / No Effective Date File Name No Information Encounters Encounter Description Practice Location Reason(s) For Visit Diagnoses Date Provider Providers Copied on Encounter [facility], [address] [address], [place], [id number], [place] tel:[phone] [place] [facility] Colon Cancer ScreeningRect al Polyp/Benign No Information Referring Provider: Zaire Landa, [address], [place], [address]. tel:[phone] Family History Family Member Type Diagnosis Age At Onset No Information Payers Payer name Insurance type Covered green party ID Authorolivierykoasta applekarie(s) [facility] [id number] Social History Type Description Quantity Date Captured Comments Sex Female Smoking Status No Information Chief Complaint And Reason For Visit No Information Reason For Referral Reason For Referral No Information History Of Present Illness Encounter Date Complaint History Of Prese nt Illness No Information Functional Status Date Functional Assessmen t No Information Instructions Date Instruction Additional Infor mation No Information Assessments Type Assessment Date No Information Patient Care Teams Name Effective Dates (start - stop) Status Members No Information
--- OUTSIDE RECORDS SUMMARY | 2023-10-06 07:22 | XMS_ITS | Referral Summary ---
Author Name Unknown Organization [facility] Address [address] [place] [address]. [place] [address] Care Team Providers Care B2B Account Executive Name Role Phone Edwardo, [facility] Primary Care Provider Allergies Active Allergy Reactions [...] process. Provider to review Mixed hyperlipidemia 06/23/2004 Social History Tobacco Use Types Packs/Day Years [...] Comments Blood Pressure 145/81 04/16/2023 8:15 PM INSPECTOR POISING Pulse 87 04/16/2023 8:15 PM INSPECTOR POISING Temperature 36.7 ??C (98.1 ??F) 04/16/2023 5:32 PM CS T Respiratory Rate 18 04/16/2023 5:32 PM INSPECTOR POISING Oxygen Saturation 97% 04/16/2023 8:15 PM INSPECTOR POISING Inhaled Oxygen Concentration - - Weight 99.8 kg (220 lb) 02/18/2005 1:00 PM CDT Height 162.6 cm (5' 4) 02/18/2005 1:00 PM CDT Body Mass Index 37.76 02/18/2005 1:00 PM CDT Plan of Treatment Not on file Procedures Procedure Name Priority Date/Time Associated Diagnosis Comments COMPREHENSIVE METABOLIC PANEL STAT 04/16/2023 6:24 PM INSPECTOR POISING OCCULT BLOOD STOOL STAT 11/20/2006 12 :30 AM CDT HCL GLYCATED HEMOGLOBIN Routine 09/07/2006 DIAGNOSIS NOT YET DEFINED from Last 3 Months or Most Recently Relevant to Health Maintenance Results * (ABNORMAL) Comprehensive metabolic panel (04/16/2023 6:24 PM INSPECTOR POISING) Sodium 136 135 - 145 mmol/L 04/16/2023 6:50 PM INSPECTOR POISING [facility] Comment:Reference intervals for this test were updated on 02/15/2023 to more accurately reflect our healthy population. There may be differences in the flagging of prior results with similar values performed with this method. Interpretation of those prior results can be made in the context of the updated reference intervals. Potassium 4.1 3.4 - 5.3 mmol/L 04/16/2023 6:50 PM INSPECTOR POISING [facility] Carbon Dioxide (CO2) 21(L) 22 - 29 mmol/L 04/16/2023 6:50 PM INSPECTOR POISING [facility] Anion Gap 11 7 - 15 mmol/L 04/16/2023 6:50 PM INSPECTOR POISING [facility] Urea Nitrogen 11.3 8.0 - 23.0 mg/dL 04/16/2023 6:50 PM INSPECTOR POISING [facility] Creatinine 0.60 0.51 - 0.95 mg/dL 04/16/2023 6:50 PM INSPECTOR POISING [facility] GFR Estimate >90 >60 mL/min/1. 73m2 04/16/2023 6:50 PM INSPECTOR POISING [facility] Calcium 8.7(L) 8.8 - 10.2 mg/dL 04/16/2023 6:50 PM INSPECTOR POISING [facility] Chloride 104 98 - 107 mmol/L 04/16/2023 6:50 PM INSPECTOR POISING [facility] Glucose 121(H) 70 - 99 mg/dL 04/16/2023 6:50 PM INSPECTOR POISING [facility] Alkaline Phosphatase 71 40 - 150 U/L 04/16/2023 6:50 PM INSPECTOR POISING [facility] Comment:Reference intervals for this test were updated on 04/05/2023 to more accurately reflect our healthy population. There may be differences in the flagging of prior results with similar values performed with this method. Interpretation of those prior results can be made in the context of the updated reference intervals. AST 20 0 - 45 U/L 04/16/2023 6:50 PM INSPECTOR POISING [facility] Comment:Reference intervals for this test were updated on 11/01/2022 to more accurately reflect our healthy population. There may be differences in the flagging of prior results with similar values performed with this method. Interpretation of those prior results can be made in the context of the updated reference intervals. ALT 20 0 - 50 U/L 04/16/2023 6:50 PM INSPECTOR POISING [facility] Comment:Reference intervals for this test were updated on 11/01/2022 to more accurately reflect our healthy population. There may be differences in the flagging of prior results with similar values performed with this method. Interpretation of those prior results can be made in the context of the updated reference intervals. Protein Total 6.7 6.4 - 8.3 g/dL 04/16/2023 6:50 PM INSPECTOR POISING [facility] Albumin 4.3 3.5 - 5.2 g/dL 04/16/2023 6:50 PM INSPECTOR POISING [facility] Bilirubin Total 0.2 <=1.2 mg/dL 04/16/2023 6:50 PM INSPECTOR POISING [facility] Blood STRUCTURE OF RIGHT UPPER LIMB / Unknown Venipuncture / Unknown 04/16/2023 6:24 PM INSPECTOR POISING 04/16/2023 6:28 PM INSPECTOR POISING Brooks Spaulding MD LAB - BLOOD ORDERABL ES [facility] [address] Lab (1st floor, no room number) [place] [address], [facility] [phone] * (ABNORMAL) Occult blood stool (11/20/2006 12:30 AM CDT) Occult Blood Positive(A ) NEG MISYS Comment: MEENA SCHULZ @ 0117 ON BY [facility] 11/20/2006 12:3 0 AM CDT 11/20/2006 12:32 AM CDT Teresa Riley MD LAB - STOOLS ORDERAB LES MISYS * HEMOGLOBIN A1C [53188.001] (09/07/2006) Hemoglobin A1C 7.2 % MISYS 09/07/2006 Rita Dawson PA-C LABORATORY MISYS from Last 3 Months or Most Recently Relevant to Health Maintenance Care Teams B2B Account Executive Relationship Specialty Start Date End Date [facility], [address] [id number] PCP - General 04/16/23
== END 2023-10-05 07:48 | disposition home or self-care (01) ==
LOC: NFLDREF 10-06 07:20
PROVIDERS: PCP Internal Medicine; Referring Provider Internal Medicine; Visit Provider Internal Medicine
DX: E11.9 Type 2 diabetes mellitus without complications (principal); E78.5 Hyperlipidemia, unspecified; M81.0 Age-related osteoporosis without current pathological fracture; Z98.84 Bariatric surgery status
CPT/HCPCS: 80053; 80061; 82306; 82525; 82607; 82728; 83540; 83550; 83735; 84443; 84446; 84590; 84597; 84630

== ENCOUNTER 2023-11-15 09:30 | Outpatient (RCR) | payer MEDICARE, SELFPAY ==
--- NOTE | 2023-10-06 13:31 | PC.NURSE ---
Diagnosis: Iron Deficiency Anemia
--- NOTE | 2023-10-07 08:15 | URNOTE ---
?Request received for authorization for?Alesia ([id number]). Prior authorization is not required per [facility] website Ref#[id number].
[2023-10-18 09:14] VITALS: BP 133/74; PULSE 91; RESP 18; TEMP 36.1; O2SAT 98
[2023-10-18] MEDS: SODIUM CHLORIDE 0.9% IVPB (10:02)
[2023-10-18] MEDS: IRON SUCROSE COMPLEX IVPB (10:02)
[2023-10-18] MEDS: SODIUM CHLORIDE 0.9 % (FLUSH) 10 ML SYRINGE IVF (11:41)
[2023-10-18] MEDS: 0.9 % SODIUM CHLORIDE 250 ml IV (11:41)
[2023-10-25 10:32] VITALS: BP 124/80; PULSE 85; RESP 16; TEMP 36.7; O2SAT 98
[2023-10-25] MEDS: SODIUM CHLORIDE 0.9% IVPB (10:58)
[2023-10-25] MEDS: IRON SUCROSE COMPLEX IVPB (10:58)
[2023-10-25] MEDS: 0.9 % SODIUM CHLORIDE 250 ml IV (11:04)
[2023-10-25] MEDS: SODIUM CHLORIDE 0.9 % (FLUSH) 10 ML SYRINGE IVF (11:05)
[2023-10-25 11:18] VITALS: BP 108/70; PULSE 73; RESP 14; TEMP 35.9; O2SAT 99
[2023-10-25 11:52] VITALS: BP 114/77; PULSE 77; RESP 14; TEMP 36.2; O2SAT 98
[2023-11-01 09:30] VITALS: BP 106/66; PULSE 86; RESP 16; TEMP 36.3; O2SAT 98
[2023-11-01] MEDS: IRON SUCROSE COMPLEX IVPB (10:00)
[2023-11-01] MEDS: 0.9 % SODIUM CHLORIDE 250 ml IV (10:00)
[2023-11-01] MEDS: SODIUM CHLORIDE 0.9% IVPB (10:00)
[2023-11-01] MEDS: SODIUM CHLORIDE 0.9 % (FLUSH) 10 ML SYRINGE IVF (10:02)
[2023-11-01 10:26] VITALS: BP 120/64; PULSE 80; RESP 14; TEMP 37.1; O2SAT 98
[2023-11-01 11:02] VITALS: BP 123/71; PULSE 74; RESP 16; TEMP 37.3; O2SAT 98
[2023-11-08 09:38] VITALS: BP 119/76; PULSE 86; RESP 16; O2SAT 97
[2023-11-08] MEDS: SODIUM CHLORIDE 0.9% IVPB (10:07)
[2023-11-08] MEDS: SODIUM CHLORIDE 0.9 % (FLUSH) 10 ML SYRINGE IVF (10:07)
[2023-11-08] MEDS: IRON SUCROSE COMPLEX IVPB (10:07)
[2023-11-08] MEDS: 0.9 % SODIUM CHLORIDE 250 ml IV (10:07)
[2023-11-08 10:30] VITALS: BP 118/78; PULSE 84; RESP 16; TEMP 36.6; O2SAT 99
[2023-11-08 11:05] VITALS: BP 117/78; PULSE 75; RESP 16; TEMP 36.6; O2SAT 100
[2023-11-15 09:58] VITALS: BP 127/73; PULSE 84; RESP 16; TEMP 35.8; O2SAT 99
[2023-11-15] MEDS: SODIUM CHLORIDE 0.9% IVPB (10:16)
[2023-11-15] MEDS: IRON SUCROSE COMPLEX IVPB (10:16)
[2023-11-15] MEDS: 0.9 % SODIUM CHLORIDE 250 ml IV (10:17)
[2023-11-15] MEDS: SODIUM CHLORIDE 0.9 % (FLUSH) 10 ML SYRINGE IVF (10:17)
[2023-11-15 10:39] VITALS: BP 107/71; PULSE 78; RESP 16; TEMP 36.7; O2SAT 97
[2023-11-15 11:09] VITALS: BP 135/72; PULSE 79; RESP 16; TEMP 36.6; O2SAT 98
== END 2024-04-15 23:59 | disposition home or self-care (01) ==
LOC: CCIC 09:30
PROVIDERS: PCP Internal Medicine; Referring Provider Internal Medicine; Visit Provider Clinical Nurse Specialist
DX: D50.9 Iron deficiency anemia, unspecified (principal)
CPT/HCPCS: 96365; 96374; J1756; J7050

== ENCOUNTER 2024-01-16 08:43 | Outpatient (CLI) | payer MEDICARE, SELFPAY ==
--- NOTE | 2024-01-16 08:45 | CRLHL7_ITS ---
For Patients: As a result of the Century Cures Act, medical imaging exams and procedure reports are released immediately into your electronic medical record. You may view this report before your referring provider. If you have questions, please contact your health care provider. BILATERAL SCREENING MAMMOGRAM WITH COMPUTER-AIDED DETECTION AND TOMOSYNTHESIS TECHNIQUE: CC and MLO views were obtained. These mammographic images have been obtained using full-field digital technique. These mammographic images were interpreted with the benefit of computer-aided detection. Breast Tomosynthesis was used in this interpretation. COMPARISON FILM: 09/16/22, 09/15/21, 02/29/20. FINDINGS: There are scattered areas of fibroglandular density. IMPRESSION: There is no radiographic evidence for malignancy. ASSESSMENT: BI-RADS Category 1: Negative RECOMMENDATION: Routine screening mammogram in 1 year. A lay language report of this examination will be provided to the patient. Tr Garnett M.D. Diagnostic Radiologist [email or web address] SP/Dictated by: Tr Garnett MD @ 01/19/2024 9:39:00 AM (Electronically Signed)
== END 2024-01-16 08:44 | disposition home or self-care (01) ==
PROVIDERS: PCP Internal Medicine; Visit Provider Internal Medicine
DX: Z12.31 Encounter for screening mammogram for malignant neoplasm of breast (principal)
CPT/HCPCS: 77063; 77067

== ENCOUNTER 2024-05-29 09:32 | Outpatient (CLI) | payer MEDICARE, SELFPAY | END 2024-05-29 09:33 | disposition home or self-care (01) | LOC: NFLDREF 05-30 02:25 | PROVIDERS: PCP Internal Medicine; Referring Provider Internal Medicine; Visit Provider Internal Medicine | DX: R30.0 Dysuria (principal) | CPT/HCPCS: 87086; 87186 ==

== ENCOUNTER 2025-01-08 08:54 | Emergency (ER) | payer MEDICARE, SELFPAY ==
--- OUTSIDE RECORDS SUMMARY | 2024-09-13 09:00 | XMS_ITS ---
Author Organization [facility] Address [address] [place] [address] Care Team Providers Care Environmental Adviser Name Role Phone Different, PCP Primary Care Provider Tommy Velazquez Unavailable [phone] Encounters Encounter Location Date Provider Diagnosis 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
[2025-01-08] VITALS (42 sets, daily range): BP systolic 63–141; BP diastolic 42–115; PULSE 115–147; RESP 5–35; TEMP 36.9–38.3; O2SAT 90–98; BMI 27.5
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
--- OUTSIDE RECORDS SUMMARY | 2025-01-08 08:56 | XMS_ITS | Patient Health Record ---
Author Organization [facility] - Primary Address [address] [place] [address] Care Team Providers Care Senior Care Provider Name Role Phone Different, PCP Primary Care Provider Tommy Velazquez Unavailable [phone] Allergies Allergen (clinical drug ingredient) Drug/Non Drug Allergy documented on EMR Reaction Allergy Type Onset Date Status Sulfa (uncoded) Unknown Allergy Acti ve penicillin Unknown Drug Allergy Active Reason For Referral No Information Medications Medication SIG (Take, Route, Frequency, Duration) Notes Start Date End Date Status Trulicity Pen 4.5 mg/0.5 mL solution as directed subcutaneously once a week Active rosuvastatin 10 mg tablet 1 tab(s) orally once a day; Duration: 30 day(s) Active gabapentin 300 mg capsule 1 tab(s) orally 2 times a day Active Pristiq (as succinate) 50 mg tablet, extended release 1 tab(s) orally once a day Active BuSpar 10mg once a day Active Pristiq 100 mg tablet, extended release 1 tab(s) orally once a day; Duration: 30 days Active simvastatin 20 mg tablet 1 tab(s) orally once a day (at bedtime); Duration: 30 day(s) Not-Taking Ativan 0.5 mg tablet 1 tab(s) orally 3 times a day Not-Taking Social History Tobacco Use: Social History Observation Description Date Details (start date - stop date) Never Smoker NA - NA Social History Social History Social Info Question Answer Notes Smoking Are you a: nonsmoker Additional Details Category Social Info Options Details Social History Exercise yes 3x week at th e gym Caffeine yes 2xday Children 4 Marital Status single Problems Problem Type SNOMED Code ICD Code Onset Dates Problem Status W/U Status Risk Notes Problem Posttraumatic stress disorder (45293334) Post-traumatic stress disorder, chronic (F43.12) Active confirmed Problem Major depression, single episode (56122846) Major depressive disorder, single episode, unspecified (F32.9) Active confirmed Problem Obesity due to excess calories (337547135) Other obesity due to excess calories (E66.09) Active confirmed Problem Cervicalgia (83948765) Cervicalgia (M54.2) Active confirmed Vital Signs Temperature 98.2 degrees Fahrenheit 09/04/2024 Oximetry 97 09/04/2024 Blood pressure diastolic 72 mm Hg 09/04/2024 Height 64 in 09/04/2024 Blood pressure systolic 124 mm Hg 09/04/2024 Weight 165 lbs 09/04/2024 BMI 28.32 kg/m2 09/04/2024 Encounters Encounter Location Date Provider Diagnosis [facility] [address] [place] [phone] 08/30/2024 Tommy Escobar Post-traumatic stres s disorder, chronic F43.12 [facility] - Primary [address] [place] [id number] 09/04/2024 Tommy Escobar Major depressive disorder, single episode, unspecified F32.9 and Cervicalgia M54.2 Assessments Encounter Date Diagnosis (ICD Code) Assessment Notes Treatment Notes Treatment Clinical Notes Section Notes 08/30/2024 Post-traumatic stress disorder, chronic (ICD-10 - F43.12) Records reviewed with pt. Improved with cannabis. Recertified for medical cannabis on [facility] cannabis website according to [place] law 09/04/2024 Major depressive disorder, single episode, unspecified (ICD-10 - F32.9) Total time spent 30 min, face to face time, more than 50% of time on counseling on differential diagnoses, treatment options, risks and benefits. The patient was interactive, attentive, asked questions and verbalized understanding. Discussed NRP, Bach, homeopathy, drugs. 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 [address] [place] [address] [id number] Maye Li Self - patient is the insured Medical (General) History Medical History History ICD Code PTSD DM depression sleep apnea implant low back pain Head pain Surgical History Surgery Date(Month/Year)
--- NOTE | 2025-01-08 09:26 | ED.GENADULT ---
HPI - General Adult General Chief complaint: Flank Pain Stated complaint: possible kidney stone Time Seen by Provider: 01/08/25 09:22 History of Present Illness HPI narrative: patient walked into the ED chills, shaking , bloated and having pain in the left flank area. hx of kidney stone many years ago. started last night. denies blood in the urine but is having frequency. 74-year-old woman presenting to the emergency department with concern of left flank area pain. Symptoms seems to began last night with chills as well. She did vomit a couple of times on the way into the emergency department. Many years ago did have a kidney stone. She generally feels bloated in her abdomen as well. She is having some urinary frequency. Not measured a fever. No diarrhea. Related Data Home Medications ?Medication ?Instructions ?Recorded ?Confirmed aspirin 81 mg tablet,delayed 81 mg PO QDAY 01/19/22 01/08/25 release (Adult Low Dose Aspirin) desvenlafaxine succinate 100 mg 100 mg PO QDAY 01/19/22 01/08/25 tablet,extended release 24 hr (Pristiq) multivitamin 1 tab PO QDAY 01/19/22 01/08/25 marijuana chew 5 mg PO .hs PRN 06/29/22 01/08/25 dulaglutide 3 mg/0.5 mL 4.5 mg subcut QWEEK 10/06/23 01/08/25 subcutaneous pen injector (Trulicity) topiramate 25 mg tablet 25 mg PO BID 10/06/23 01/08/25 Previous Rx's ?Medication ?Instructions ?Recorded alendronate 70 mg tablet 70 mg PO QWEEK #12 tabs 10/06/23 rosuvastatin 20 mg tablet 20 mg PO QDAY #90 tabs 10/06/23 Allergies Allergy/AdvReac Type Severity Reaction Status Date / Time oxycodone Allergy Intermediate Verified 01/08/25 09:06 lisinopril Allergy Mild Cough Verified 01/08/25 09:06 Penicillins Allergy Mild Anaphylaxis Verified 01/08/25 09:06 Sulfa (Sulfonamide Allergy Mild Rash Verified 01/08/25 09:06 Antibiotics) codeine AdvReac Mild Nausea Verified 01/08/25 09:06 Review of Systems Status of ROS: Reports: 6 or more systems reviewed and unremarkable except as noted in History and below [facility] Medical History History of iron deficiency anemia ?Z86.2 - Personal history of diseases of the blood and blood-forming organs and certain disorders involving the immune mechanism (ICD-10) Surgical History Status post trigger finger release (01/2020) ?Z98.890 - Other specified postprocedural states (ICD-10) History of repair of right rotator cuff (02/2017) ?Z98.890 - Other specified postprocedural states (ICD-10) History of bilateral breast reduction surgery (~1989) ?Z98.890 - Other specified postprocedural states (ICD-10) History of total abdominal hysterectomy and bilateral salpingo-oophorectomy (~1994) ?Z90.710 - Acquired absence of both cervix and uterus (ICD-10) ?Z90.722 - Acquired absence of ovaries, bilateral (ICD-10) ?Z90.79 - Acquired absence of other genital organ(s) (ICD-10) History of Katerina-en-Y gastric bypass (2008) ?Z98.84 - Bariatric surgery status (ICD-10) History of repair of left rotator cuff (2010) ?Z98.890 - Other specified postprocedural states (ICD-10) Family History Brother Coronary artery disease, Onset Age: 45 Father Coronary artery disease, Onset Age: 65 Social History What is your current living situation?: I presently have a place to live Problems where you live: no known problems In the past 12 months, utilities in danger of being shut off: no In past 12 months, lack of transportation kept you from medical appts, meetings, work, or getting things needed for daily living: no In the past 12 mos, have been you worried that your food would run out before you had money to buy more?: never true In the past 12 mos, the food you bought just didn't last and you didn't have money to buy more?: never true Smoking Status: Former smoker Do you use any of these nicotine containing products: None Second hand tobacco smoke exposure: No Non-prescribed substance use: denies use How often does anyone, including family, friends and others, physically hurt you: never How often does anyone, including family, friends and others, insult or talk down to you: never How often does anyone, including family, friends and others, threaten you with harm: never How often does anyone, including family, friends and others, scream or curse at you: never Exam Narrative: Exam Narrative: Pleasant. Appears uncomfortable. Is not demonstrating in pain. Various areas of vitiligo on her skin. Otherwise warm and dry. No lower extremity edema. She is well-perfused. Lungs are clear. Heart in elevated to tachycardic rate. Regular rhythm. Abdomen is soft, full and nontender other than some left flank area to percussion. Const: Vital Signs, click to edit/add: Vital Signs - 24 hr 01/08/25 09:02 01/08/25 10:12 01/08/25 10:15 Temperature 98.5 F Pulse Rate 118 H 118 H Pulse Rate [Pulse Oximeter] 131 H Respiratory Rate 28 H Blood Pressure Blood Pressure [Le ft Upper Arm] 141/115 H Pulse Oximetry 98 94 94 Oxygen Delivery Me od Room Air 01/08/25 10:30 01/08/25 10:45 01/08/25 11:00 Temperature Pulse Rate 118 H 126 H 125 H Pulse Rate [Pulse Oximeter] Respiratory Rate Blood Pressure Blood Pressure [Le ft Upper Arm] Pulse Oximetry 96 93 91 Oxygen Delivery Me thod 01/08/25 11:36 01/08/25 11:45 01/08/25 12:00 Temperature Pulse Rate 135 H Pulse Rate [Pulse Oximeter] Respiratory Rate 30 H 35 H 20 Blood Pressure Blood Pressure [Le ft Upper Arm] Pulse Oximetry 94 Oxygen Delivery Me thod 01/08/25 12:15 01/08/25 12:16 01/08/25 12:18 Temperature Pulse Rate 147 H 138 H 142 H Pulse Rate [Pulse Oximeter] Respiratory Rate 16 13 8 L Blood Pressure 127/60 110/67 Blood Pressure [Le ft Upper Arm] Pulse Oximetry 97 97 95 Oxygen Delivery Me thod 01/08/25 12:30 01/08/25 12:44 01/08/25 12:45 Temperature Pulse Rate 132 H 124 H 124 H Pulse Rate [Pulse Oximeter] Respiratory Rate 13 25 H 11 L Blood Pressure 98/60 Blood Pressure [Le ft Upper Arm] Pulse Oximetry 94 93 93 Oxygen Delivery Me thod 01/08/25 12:50 01/08/25 13:00 01/08/25 13:02 Temperature Pulse Rate 125 H 124 H Pulse Rate [Pulse Oximeter] 123 H Respiratory Rate 22 17 Blood Pressure 104/55 L Blood Pressure [Le ft Upper Arm] 105/63 Pulse Oximetry 94 93 94 Oxygen Delivery Me od Room Air 01/08/25 13:15 01/08/25 13:22 01/08/25 13:30 Temperature Pulse Rate 120 H Pulse Rate [Pulse Oximeter] Respiratory Rate 21 21 14 Blood Pressure 92/53 L Blood Pressure [Le ft Upper Arm] Pulse Oximetry 92 Oxygen Delivery Me thod 01/08/25 13:42 01/08/25 13:45 01/08/25 13:53 Temperature Pulse Rate Pulse Rate [Pulse Oximeter] Respiratory Rate 23 14 16 Blood Pressure 86/54 L 78/53 L Blood Pressure [Le ft Upper Arm] Pulse Oximetry Oxygen Delivery Me od 01/08/25 14:00 01/08/25 14:00 01/08/25 14:01 Temperature 100.4 F H Pulse Rate Pulse Rate [Pulse Oximeter] Respiratory Rate 16 15 Blood Pressure 84/48 L Blood Pressure [Le ft Upper Arm] Pulse Oximetry Oxygen Delivery Me od 01/08/25 14:02 Temperature Pulse Rate Pulse Rate [Pulse Oximeter] Respiratory Rate 16 Blood Pressure 77/62 L Blood Pressure [Le ft Upper Arm] [facility]ulse [facility]ximetry [facility] has reviewed patient's vital signs: yes Course Vital Signs Vital signs: Initial Vital Signs Temperature 98.5 F 01/08/25 09:02 Temperature Source Temporal Artery Scan 01/08/25 09:02 Pulse Rate 131 H 01/08/25 09:02 Respiratory Rate 28 H 01/08/25 09:02 Blood Pressure 141/115 H 01/08/25 09:02 Blood Pressure Mean 123 H 01/08/25 09:02 Blood Pressure Position Sitting 01/08/25 09:02 Pulse Oximetry 98 01/08/25 09:02 Oxygen Delivery Method Room Air 01/08/25 09:02 Vital Signs Temperature 98.5 F 01/08/25 09:02 Pulse Rate 131 H 01/08/25 09:02 Respiratory Rate 28 H 01/08/25 09:02 Blood Pressure 141/115 H 01/08/25 09:02 Pulse Oximetry 98 01/08/25 09:02 Oxygen Delivery Method Room Air 01/08/25 09:02 Temperature 100.4 F H 01/08/25 14:00 Pulse Rate 120 H 01/08/25 13:15 Respiratory Rate 16 01/08/25 14:02 Blood Pressure 77/62 L 01/08/25 14:02 Pulse Oximetry 92 01/08/25 13:15 Oxygen Delivery Method Room Air 01/08/25 12:50 Medications Administered Medications: Generic Name Dose Route Start Last Admin Trade Name Freq PRN Reason Stop Dose Admin Cefepime HCl 2 gm/ Sodium 100 mls @ 200 mls/hr 01/08/25 14:20 01/08/25 14:31 Chloride IVPB 01/08/25 14:49 200 mls/hr ONCE ONE Administration Discontinued Medications Generic Name Dose Route Start Last Admin Trade Name Freq PRN Reason Stop Dose Admin Sodium Chloride 1,000 mls @ 1,000 mls/hr 01/08/25 09:33 01/08/25 13:14 0.9 % Sodium Chloride 1000 Ml IV 01/08/25 10:32 Infused .Q1H ONE Infusion Lactated Ringer's 1,000 mls @ 1,000 mls/hr 01/08/25 11:10 01/08/25 14:32 Lactated Ringers 1000 Ml IV 01/08/25 12:09 Infused .Q1H ONE Infusion Vancomycin/PEG/NADA/Lysine/Water 1.5 gm in 300 mls @ 200 mls/hr 01/08/25 12:15 01/08/25 14:14 Vancomycin 1.5 Gm/300 Ml IVPB 01/08/25 13:44 Infused ONCE ONE Infusion Protocol Sodium Chloride 1,000 mls @ 1,200 mls/hr 01/08/25 13:53 01/08/25 14:05 0.9 % Sodium Chloride 1000 Ml IV 01/08/25 14:42 1,200 mls/hr .Q50M ONE Administration Ketorolac Tromethamine 30 mg 01/08/25 09:33 01/08/25 10:10 Ketorolac 30 Mg/Ml Inj IVP 01/08/25 09:34 30 mg ONCE ONE Administration Levofloxacin 750 mg 01/08/25 12:15 01/08/25 13:00 Levofloxacin 750 Mg Tablet PO 01/08/25 12:16 750 mg ONCE ONE Administration Ondansetron HCl 4 mg 01/08/25 09:33 01/08/25 10:10 Ondansetron 2 Mg/Ml Inj IVP 01/08/25 09:34 4 mg ONCE ONE Administration Medical Decision Making MDM Narrative Medical decision making narrative: Certainly symptoms could be consistent with ureteral stone and colic. Diverticulitis in differential as well. Check appropriate labs and obtain blood cultures with possibility of sepsis. Urinary tract infection? Mesenteric adenitis? Discussed options for pain management. Opted for IV fluids and ketorolac with Zofran initially. I did independently review CT imaging. Looks like has mid left ureteral stone collection. Radiology over-read below does also note some biliary distension however does not have any tenderness in this area and transaminases are normal. Normal white count however initial lactate of 5.5 INDICATION: Left flank pain. Bloating. Vomiting. COMPARISON: Portions of the November 29, 2022 study. TECHNIQUE: CT examination of the abdomen and pelvis was performed without intravenous contrast. Thin section axial images were obtained from the lung bases through the pubic symphysis. Oral contrast was not administered. Please note that all CT scans at this facility use dose modulation, iterative reconstruction, and/or weight-based dosing when appropriate to reduce radiation dose to as low as reasonably achievable. FINDINGS: LUNG BASES: The lung bases as visualized appear normal.The heart size is normal at the lung bases. LIVER/BILIARY SYSTEM:The liver is normal in size and configuration given the lack of intravenous contrast. There is no visible focal mass and there is no intra- or extra hepatic biliary ductal dilatation.The gallbladder is significantly distended. There is also at least 1 dependent stone noted. Consider sonography if this is a current area of clinical concern. ADRENALS: Normal non-contrast appearance KIDNEYS, URETERS and BLADDER:No definite intrarenal calculi. There is left-sided obstructive uropathy. This is due to a an irregular stone at the left ureteropelvic junction. This may be more than 1 stone but is difficult to measure other than as 1 unit. The greatest transverse measurement when measured as a single structure is approximately 11 millimeters. SPLEEN:Normal non-contrast appearance. PANCREAS: Normal non-contrast appearance. RETROPERITONEUM and MESENTERY: There is no mass, adenopathy or aortic aneurysm. Atherosclerotic vascular calcifications GASTROINTESTINAL SYSTEM: There is no evidence of diverticulitis, colitis, mechanical obstruction, or appendicitis. The small bowel as visualized appears normal. PELVIS: No mass, adenopathy or free fluid. OSSEOUS STRUCTURES and ABDOMINAL WALL: There is an age-appropriate appearance of the osseous structures.No significant abdominal wall defect. OTHER: No free fluid or free air. IMPRESSION: 1. High-grade obstructive uropathy on the left due to an irregular stone at the left ureteropelvic junction measuring 11 millimeters in greatest aggregate dimension. This might be a conglomeration of several adjacent stones. No definite intrarenal calculi. 2. Distended gallbladder. Cholelithiasis. No definite wall thickening. Consider sonography if this a current area of clinical concern. Please note that all CT scans at this facility use dose modulation, iterative reconstruction, and/or weight-based dosing when appropriate to reduce radiation dose to as low as reasonably achievable. Dictated by Nj Leger MD @ 01/08/2025 10:01:22 AM With concern of sepsis I did order another L of IV fluids. There has been a delay as we have been trying to collect urine. I would have concern of urinary tract source in likely sepsis here. Pending collection in order to initiate antibiotics. While in the bathroom did have a fall and struck the front of her head on waste basket. I evaluated. She does not have any swelling here or pain. No neck pain. There was no loss of consciousness. Was assisted back into wheelchair. Does appear to be more weak and a little confused but responding quite could clearly and quite alert. A urine was collected in the bathroom at this time. I would have concern of developing encephalopathy. Confirming 2nd IV site available. Have requested that images be sent to [facility] for consultation with Urology as well. Pending urinalysis at this time. This is now a cathed specimen. Did also end up on the floor beside her bed but has not appeared to sustain injury. She cannot explain why she was out of bed. Discussed with pharmacy alternatives to antibiotics with likely urinary tract source. Due to allergies initiating Levofloxacin and vancomycin. Urinalysis indeed looks infected. I am calling for Urology consultation and anticipating transfer. Stable vitals at this time other than remaining tachycardic. Thirty per kilos would be about 2100 mL of fluid. I have ordered for however for another L, now her 3 L of fluids Has had intermittent lower pressure is approximately 92/62. Most recently 77/62. Appears to otherwise be feeling well. Continue to talk with [facility] care providers. Have redirected now to ICU and with consultation of automotive painter helper will be further broadening antibiotic coverage with cefepime. Coordination occurring at [facility] where I anticipate more urgent acceptance. Have now spoke with Urology, accepting Medical, automotive painter helper, interventional radiology. Imminent transfer to [facility]. Vitals now measuring temperature a 100.4?. Blood pressure that was head drop to 77/60 to has improved to 88/60s. Have not initiated pressors at this point. Medical Records Medical records reviewed: Yes I reviewed the patient's medical records Lab Data Lab results reviewed: Yes I reviewed the patient's lab results Labs: Lab Results 01/08/25 01/08/25 01/08/25 Range/Units 09:33 11:16 11:50 WBC 2.26 L (4.50-11.00) K/uL RBC 4.90 (4.00-5.20) m/uL Hgb 14.1 (12.0-16.0) gm/dL Hct 43.0 (33.0-51.0) % MCV 88 (80-100) fL MCH 29 (26-34) pg MCHC 33 (32-36) gm/dL RDW Coeff of Joana 12.6 (11.5-15.5) % Plt Count 169 (140-440) K/uL Neut % (Auto) 90.8 H (42.0-72.0) % Lymph % (Auto) 8.4 L (20-44) % [place] % (Auto) 0.4 (0.0-11.0) % Eos % (Auto) 0.0 (0.0-7.0) % Baso % (Auto) 0.0 (0.0-3.0) % Neut # (Auto) 2.10 (1.7-7.0) K/uL Lymph # (Auto) 0.20 L (0.90-2.90) K/uL [place] # (Auto) 0.00 (0.00-0.90) K/UL Eos # (Auto) 0.00 (0.00-0.50) K/uL Baso # (Auto) 0.00 (0.00-0.30) K/uL Abs Immat Gran (auto) 0.00 (0.00-0.30) K/uL Imm/Tot Granulo (auto) 0.4 % Sodium 135 (135-149) mmol/L Potassium 4.0 (3.6-5.1) mmol/L Chloride 99 (96-114) mmol/L Carbon Dioxide 24 (20-32) mmol/L Anion Gap 12 (7-15) mEq/L BUN 19 (7-30) mg/dL Creatinine 0.9 (0.5-1.5) mg/dL Estimated Creat Clear 43.91 Estimated GFR 68 ml/min Glucose 250 H (60-115) mg/dL Lactate 5.5 H* (0.5-1.9) mmol/L Calcium 9.2 (8.4-10.6) mg/dL Total Bilirubin 0.9 (0.1-1.5) mg/dL Direct Bilirubin 0.3 (0.0-0.5) mg/dL AST 34 (12-35) U/L ALT 23 (4-35) U/L Alkaline Phosphatase 93 (40-150) U/L C-Reactive Protein 5.1 H (0.5-1.0) mg/dL Total Protein 6.9 (6.0-8.3) g/dL Albumin 4.3 (3.3-5.0) g/dL Urine Color Yellow (Yellow) Urine Appearance Slightly Cloudy A (Clear) Urine pH 5.0 (5.0-8.5) Ur Specific [place] 1.015 (1.000-1.030) Urine Protein Trace A (Negative) Urine Glucose (UA) 2+ A (Negative) Urine Ketones Trace A (Negative) Urine Blood 3+ A (Negative) Urine Nitrite Positive A (Negative) Urine Bilirubin Negative (Negative) Urine Urobilinogen 0.2 (0.2-1.0) Ur Leukocyte Esterase 1+ A (Negative) Urine RBC 25-50 A (0-2) Urine WBC 5-10 A (0-5) Ur Squamous Epith Cells Few (None-Few) Urine Bacteria Many A (None) Lab Acknowledgement Test Added 08/19/25 Range/Units 11:55 WBC (4.50-11.00) K/uL RBC (4.00-5.20) m/uL Hgb (12.0-16.0) gm/dL Hct (33.0-51.0) % MCV (80-100) fL MCH (26-34) pg MCHC (32-36) gm/dL RDW Coeff of Joana (11.5-15.5) % Plt Count (140-440) K/uL Neut % (Auto) (42.0-72.0) % Lymph % (Auto) (20-44) % [place] % (Auto) (0.0-11.0) % Eos % (Auto) (0.0-7.0) % Baso % (Auto) (0.0-3.0) % Neut # (Auto) (1.7-7.0) K/uL Lymph # (Auto) (0.90-2.90) K/uL [place] # (Auto) (0.00-0.90) K/UL Eos # (Auto) (0.00-0.50) K/uL Baso # (Auto) (0.00-0.30) K/uL Abs Immat Gran (auto) (0.00-0.30) K/uL Imm/Tot Granulo (auto) % Sodium (135-149) mmol/L Potassium (3.6-5.1) mmol/L Chloride (96-114) mmol/L Carbon Dioxide (20-32) mmol/L Anion Gap (7-15) mEq/L BUN (7-30) mg/dL Creatinine (0.5-1.5) mg/dL Estimated Creat Clear Estimated GFR ml/min Glucose (60-115) mg/dL Lactate 6.8 H* (0.5-1.9) mmol/L Calcium (8.4-10.6) mg/dL Total Bilirubin (0.1-1.5) mg/dL Direct Bilirubin (0.0-0.5) mg/dL AST (12-35) U/L ALT (4-35) U/L Alkaline Phosphatase (40-150) U/L C-Reactive Protein (0.5-1.0) mg/dL Total Protein (6.0-8.3) g/dL Albumin (3.3-5.0) g/dL Urine Color (Yellow) Urine Appearance (Clear) Urine pH (5.0-8.5) Ur Specific [place] (1.000-1.030) Urine Protein (Negative) Urine Glucose (UA) (Negative) Urine Ketones (Negative) Urine Blood (Negative) Urine Nitrite (Negative) Urine Bilirubin (Negative) Urine Urobilinogen (0.2-1.0) Ur Leukocyte Esterase (Negative) Urine RBC (0-2) Urine WBC (0-5) Ur Squamous Epith Cells (None-Few) Urine Bacteria (None) Lab Acknowledgement Critical Care Time Critical Care Time Critical Care Time: Yes Attestation: The patient required my highest level preparedness to intervene emergently and I personally spent this critical care time directly and personally managing the patient. This critical care time included: Obtaining a history; Examining the patient; Pulse oximetry; Ordering and reviewing of studies; Arranging urgent treatment with development of a management plan; Evaluation of patients response to treatment; Frequent reassessment discussions with other providers. This critical care time was performed to assess and manage the high probability of imminent life-threatening deterioration that could result in multiorgan failure. It was exclusive of separate billable procedures and treating other patients and teaching time. Total Critical Care Time in Minutes: 90 Discharge Plan Discharge Clinical Impression: Obstructive uropathy, Sepsis, Urinary tract infection, Cholelithiasis Patient Disposition: Xfer Other Prescriptions: No Action marijuana chew 5 mg PO .hs PRN aspirin [Adult Low Dose Aspirin] 81 mg tablet,delayed release (DR/EC) 81 mg PO QDAY multivitamin Tablet 1 tab PO QDAY desvenlafaxine succinate [Pristiq] 100 mg tablet extended release 24 hr 100 mg PO QDAY Trulicity 3 mg/0.5 mL pen injector 4.5 mg subcut QWEEK topiramate 25 mg tablet 25 mg PO BID rosuvastatin 20 mg tablet 20 mg PO QDAY Qty: 90 3RF alendronate 70 mg tablet 70 mg PO QWEEK Qty: 12 3RF Stand Alone Forms: [facility] Info Instructions
--- NOTE | 2025-01-08 09:33 | CRLHL7_ITS ---
For Patients: As a result of the Century Cures Act, medical imaging exams and procedure reports are released immediately into your electronic medical record. You may view this report before your referring provider. If you have questions, please contact your health care provider. INDICATION: Left flank pain. Bloating. Vomiting. COMPARISON: Portions of the November 29, 2022 study. TECHNIQUE: CT examination of the abdomen and pelvis was performed without intravenous contrast. Thin section axial images were obtained from the lung bases through the pubic symphysis. Oral contrast was not administered. Please note that all CT scans at this facility use dose modulation, iterative reconstruction, and/or weight-based dosing when appropriate to reduce radiation dose to as low as reasonably achievable. FINDINGS: LUNG BASES: The lung bases as visualized appear normal.The heart size is normal at the lung bases. LIVER/BILIARY SYSTEM:The liver is normal in size and configuration given the lack of intravenous contrast. There is no visible focal mass and there is no intra- or extra hepatic biliary ductal dilatation.The gallbladder is significantly distended. There is also at least 1 dependent stone noted. Consider sonography if this is a current area of clinical concern. ADRENALS: Normal non-contrast appearance KIDNEYS, URETERS and BLADDER:No definite intrarenal calculi. There is left-sided obstructive uropathy. This is due to a an irregular stone at the left ureteropelvic junction. This may be more than 1 stone but is difficult to measure other than as 1 unit. The greatest transverse measurement when measured as a single structure is approximately 11 millimeters. SPLEEN:Normal non-contrast appearance. PANCREAS: Normal non-contrast appearance. RETROPERITONEUM and MESENTERY: There is no mass, adenopathy or aortic aneurysm. Atherosclerotic vascular calcifications GASTROINTESTINAL SYSTEM: There is no evidence of diverticulitis, colitis, mechanical obstruction, or appendicitis. The small bowel as visualized appears normal. PELVIS: No mass, adenopathy or free fluid. OSSEOUS STRUCTURES and ABDOMINAL WALL: There is an age-appropriate appearance of the osseous structures.No significant abdominal wall defect. OTHER: No free fluid or free air. IMPRESSION: 1. High-grade obstructive uropathy on the left due to an irregular stone at the left ureteropelvic junction measuring 11 millimeters in greatest aggregate dimension. This might be a conglomeration of several adjacent stones. No definite intrarenal calculi. 2. Distended gallbladder. Cholelithiasis. No definite wall thickening. Consider sonography if this a current area of clinical concern. Please note that all CT scans at this facility use dose modulation, iterative reconstruction, and/or weight-based dosing when appropriate to reduce radiation dose to as low as reasonably achievable. Dictated by Nj Leger MD @ 01/08/2025 10:01:22 AM (Electronically Signed)
[2025-01-08] MEDS: ONDANSETRON 2 MG/ML inj 4 MG IVP (10:10)
[2025-01-08 10:11] LABS: Hematocrit 43.0 % (33.0-51.0); Hemoglobin* 14.1 gm/dL (12.0-16.0); Immature Granulocytes Pct Auto 0.4 %; Mean Corpuscular HGB Conc 33 gm/dL (32-36); Mean Corpuscular Hemoglobin 29 pg (26-34); Mean Corpuscular Volume 88 fL (80-100); RDW Coefficient of Variation % 12.6 % (11.5-15.5); Red Blood Count 4.90 m/uL (4.00-5.20); White Blood Count* 2.26 K/uL (4.50-11.00)
[2025-01-08 10:14] LABS: Lactate* 5.5 mmol/L (0.5-1.9)
[2025-01-08 10:18] LABS: Immature Granulocytes Abs Auto 0.00 K/uL (0.00-0.30); Lymphocytes Absolute Auto 0.20 K/uL (0.90-2.90); Slide Review Reflex No
[2025-01-08 10:29] LABS: Albumin* 4.3 g/dL (3.3-5.0); Chloride* 99 mmol/L (96-114)
[2025-01-08 10:30] LABS: Potassium* 4.0 mmol/L (3.6-5.1); Sodium* 135 mmol/L (135-149)
[2025-01-08 10:32] LABS: Blood Urea Nitrogen* 19 mg/dL (7-30); Creatinine* 0.9 mg/dL (0.5-1.5); Est. Creatinine Clearance* 43.91; Estimated Glomerular Filt Rate 68 ml/min
[2025-01-08 10:33] LABS: Alanine Aminotransferase* 23 U/L (4-35); Alkaline Phosphatase* 93 U/L (40-150); Anion Gap 12 mEq/L (7-15); Aspartate Amino Transferase* 34 U/L (12-35); Bilirubin Direct* 0.3 mg/dL (0.0-0.5); Bilirubin Total* 0.9 mg/dL (0.1-1.5); Calcium* 9.2 mg/dL (8.4-10.6); Carbon Dioxide* 24 mmol/L (20-32); Glucose* 250 mg/dL (60-115); Total Protein* 6.9 g/dL (6.0-8.3)
[2025-01-08] MEDS: LACTATED RINGERS 1000 ML 1,000 ML IV (11:10)
[2025-01-08 11:55] LABS: Appearance Urine Slightly Cloudy (Clear)
[2025-01-08 12:04] LABS: Lactate* 6.8 mmol/L (0.5-1.9)
[2025-01-08] MEDS: VANCOMYCIN 1.5 GM/300 ML 1.5 GM/300 ML PIGGYBACK IVPB (12:43)
[2025-01-08] MEDS: CEFEPIME HCL 2 GM in 0.9 % SODIUM CHLORIDE Mini-bag 100 ML IVPB (14:31)
[2025-01-08] MEDS: NORepinephrine INFUSION 4,000 MCG/250 ML PLAST..BAG 27.22 MCG IVPB (15:16)
[2025-01-08] MEDS: ACETAMINOPHEN 500 MG TABLET 1000 MG PO (15:25)
== END 2025-01-08 16:10 | disposition other institution (70) ==
PROVIDERS: Emergency Provider Family Medicine; PCP Internal Medicine
DX: N13.9 Obstructive and reflux uropathy, unspecified (principal); N39.0 Urinary tract infection, site not specified; K80.20 Calculus of gallbladder without cholecystitis without obstruction; A41.9 Sepsis, unspecified organism
CPT/HCPCS: 36415; 74176; 80048; 80076; 81001; 83605; 85025; 85730; 86140; 87040; 87086; 96365; 96366; 96375; 99284; 99285; 99291; A9270; J0692; J1885; J2405; J3375; J7030; J7120

== ENCOUNTER 2025-01-08 15:42 | Outpatient (CLI) | payer MEDICARE, SELFPAY | END 2025-01-08 15:43 | disposition home or self-care (01) | LOC: AMB 01-09 13:48 | PROVIDERS: PCP Internal Medicine; Visit Provider Family Medicine | DX: N13.9 Obstructive and reflux uropathy, unspecified (principal); A41.9 Sepsis, unspecified organism; N39.0 Urinary tract infection, site not specified; K80.20 Calculus of gallbladder without cholecystitis without obstruction | CPT/HCPCS: A0425; A0434 ==

== ENCOUNTER 2025-01-24 07:46 | Outpatient (CLI) | payer MEDICARE, SELFPAY | END 2025-01-24 07:47 | disposition home or self-care (01) | LOC: NFLDREF 01-30 07:32 | PROVIDERS: PCP Internal Medicine; Referring Provider Internal Medicine; Visit Provider Internal Medicine | DX: Z01.818 Encounter for other preprocedural examination (principal); M81.0 Age-related osteoporosis without current pathological fracture; E11.9 Type 2 diabetes mellitus without complications; E78.5 Hyperlipidemia, unspecified; Z98.84 Bariatric surgery status | CPT/HCPCS: 80053; 80061; 82043; 82306; 82525; 82570; 82607; 82728; 83540; 83550; 83735; 84443; 84446; 84590; 84597; 84630 ==

== ENCOUNTER 2025-02-14 14:31 | Outpatient (CLI) | payer MEDICARE, SELFPAY | END 2025-02-14 14:32 | disposition home or self-care (01) | LOC: NFLDREF 02-18 07:12 | PROVIDERS: PCP Internal Medicine; Referring Provider Internal Medicine; Visit Provider Internal Medicine | DX: N20.0 Calculus of kidney (principal) | CPT/HCPCS: 87086; 87186 ==

== ENCOUNTER 2025-03-28 14:59 | Outpatient (CLI) | payer MEDICARE, SELFPAY | END 2025-03-28 15:00 | disposition home or self-care (01) | PROVIDERS: PCP Internal Medicine; Visit Provider Internal Medicine | DX: R53.83 Other fatigue (principal); I49.9 Cardiac arrhythmia, unspecified | CPT/HCPCS: 80053; 84443 ==